=== PATIENT | female | born 1945 | race Caucasian/White ===

== ENCOUNTER → 2020-08-16 12:13 | Outpatient (CLI) | payer OTHER, SELFPAY ==
--- NOTE | ~2020-08-16 | MM_ITS ---
EXAMINATION: MM screening martita BI w carmelina HISTORY: Screening mammogram, family history of breast cancer in her mother. TECHNIQUE: Craniocaudal and mediolateral oblique 3-D tomosynthesis images were obtained and synthetic 2-D images were generated. CAD analysis was submitted and interpreted. COMPARISON: 04/29/2018, 02/18/2016, 01/29/2016 BREAST PARENCHYMAL COMPOSITION: The breasts are heterogeneously dense, which may obscure small masses . FINDINGS: Scattered benign-appearing calcifications are present. There is no evidence of suspicious m ass, calcification, or architectural distortion to suggest malignancy in either breast. There has bee n no suspicious interval change. IMPRESSION: 1. No mammographic evidence of malignancy. 2. Recommend routine screening mammography in one year. BI-RADS Category 2: Benign finding(s). Reviewed, dictated and finalized at location A.
--- NOTE | ~2020-08-16 | XR_ITS ---
XR chest 2V DATE: 08/16/2020 13:38 INDICATION: Generalized hyperhidrosis TECHNIQUE: Upright PA and lateral views COMPARISON: 01/13/2018 portable AP chest FINDINGS: Bilateral hyperinflation. No pulmonary infiltrate or consolidation, pleural effusion or pul monary vascular congestion or pneumothorax. Heart size is borderline. Is aortic calcification and mil d unfolding. No hilar or mediastinal enlargement. Status post anterior cervical and posterior cervical-thoracic spine fusion. Fracture deformity of the right acromion process. Right rotator cuff atrophy. Osteoarthritic change a t the glenohumeral joints. Diffuse osteopenia. Thoracolumbar scoliosis. IMPRESSION: Bilateral hyperinflation Borderline heart size Reviewed, dictated and finalized at location A.
--- NOTE | ~2020-08-16 | DEXA_ITS ---
Bone Density Report Name: Susan Fournier Age: 74 Sex: Female Ethnicity: White Date of : 1945 Indication: osteopenia; monitoring treatment; height loss; Referring Provider: Marisol Kam Study: Bone densitometry was performed. Exam Date: August 16, 2020 Accession number: [id number] Bone Density: Region BMD T-score Z-score Classification AP Spine (L1, L2) 0.833 -1.3 0.9 Osteopenia Femoral Neck (Left) 0.591 -2.3 -0.3 Osteopenia Total Hip (Left) 0.691 -2.1 -0.3 Osteopenia Femoral Neck (Right) 0.582 -2.4 -0.4 Osteopenia Total Hip (Right) 0.635 -2.5 -0.8 Osteoporosis Total Hip Mean 0.663 -2.3 -0.6 Osteopenia World Health Organization criteria for BMD impression classify patients as: Normal (T-score at or above -1.0), Osteopenia (T-score between -1.0 and -2.5), or Osteoporosis (T-score at or below -2.5). 10-year Fracture Risk: FRAX not reported because: Some T-score for Spine Total or Hip Total or Femoral Neck at or below -2.5 Treated for osteoporosis Previous Exams: Region Exam Age BMD T-score BMD Change BMD Change Date g/cm2 vs Baseline vs Previous AP Spine(L1, L2) 08/16/2020 74 0.833 -1.3 -0.037* -0.037* 04/29/2018 72 0.871 -1.0 Total Hip(Left) 08/16/2020 74 0.691 -2.1 -0.012 -0.012 04/29/2018 72 0.702 -2.0 Total Hip(Right) 08/16/2020 74 0.635 -2.5 -0.036* -0.036* 04/29/2018 72 0.671 -2.2 *Denotes significance at 95% confidence level, LSC for AP Spine = 0.022 g/cm2, LSC for Total Hip = 0.027 g/cm2 Clinical Information Provided by Patient: Is being treated for osteoporosis Has used the following medications: Prolia (i.e. denosumab), Vitamin D, Calcium Patient maximum height was 63.5 Menopause Age: 50 No regular weight bearing exercise Onset of menses at age 12 Number of children 1 Impression: The patient has osteoporosis, based on the Right Total Hip T-score. The BMD for the AP Spine(L1, L2) decreased, changing by -0.037 since the last DXA exam. The BMD for the Total Hip(Right) decreased, changing by -0.036 since the last DXA exam. Discussion: SIGNIFICANT BONE LOSS OBSERVED. Adherence to therapy (including calcium and vitamin D intake) should be assessed. If compliance is not a factor, review management and exclusion of secondary causes of bone loss. It is important to ask patients whether they are taking their medications and to encourage continued and appropriate complianc
== END ==
PROVIDERS: PCP Internal Medicine; Visit Provider Nurse Practitioner
DX: Z12.31 Encounter for screening mammogram for malignant neoplasm of breast (principal); Z78.0 Asymptomatic menopausal state; R61 Generalized hyperhidrosis; R91.8 Other nonspecific abnormal finding of lung field; M85.89 Other specified disorders of bone density and structure, multiple sites; M81.0 Age-related osteoporosis without current pathological fracture
CPT/HCPCS: 71046; 77063; 77067; 77080

== ENCOUNTER 2021-06-14 20:25 | Emergency (ER) | payer OTHER, SELFPAY ==
--- NOTE | ~2021-06-14 | CT_ITS ---
EXAMINATION: CT brain wo con DATE: 06/14/2021 21:06 INDICATION: Head injury. TECHNIQUE: Computed tomography (CT) of the head was performed without intravenous contrast. The mA wa s adjusted according to patient size. Iterative reconstruction technique was employed. The dose-lengt h product was 605.33 mGy-cm. COMPARISON: Head CT 01/13/2018 FINDINGS: There is an old infarct involving the right basal ganglia and anterior limb right internal capsule. There is an old infarct in left caudate nucleus. There are scattered areas of low attenuatio n in the cerebral white matter. There is no intracranial hemorrhage, acute infarction, or abnormal in tracranial mass lesion. The ventricles are normal in size. The mastoid air cells are normal. The para nasal sinuses are clear. There are likely changes of ocular lens replacement surgeries. IMPRESSION: 1. Old infarcts in the bilateral basal ganglia and anterior limb right internal capsule. 2. Stable moderate nonspecific cerebral white matter disease, which likely represents chronic small v essel ischemic disease. Reviewed, dictated and finalized at location A. IMPRESSION: 1. Old infarcts in the bilateral basal ganglia and anterior limb right internal capsule. 2. Stable moderate nonspecific cerebral white matter disease, which likely repr esents chronic small vessel ischemic disease.
--- NOTE | ~2021-06-14 | XR_ITS ---
EXAMINATION: XR chest 1V portable DATE: 06/14/2021 21:20 INDICATION: Fall. TECHNIQUE: A single frontal view of the chest was obtained. COMPARISON: Chest 2 views 08/16/2020 FINDINGS: A calcified right lung nodule is consistent with old granulomatous disease. No pleural effu silverio or pneumothorax. The heart size is normal. There are changes of posterior fusion procedure in ce rvicothoracic spine. There is an old healed fracture of left second rib. IMPRESSION: 1. No acute cardiopulmonary disease. Reviewed, dictated and finalized at location A.
--- NOTE | ~2021-06-14 | CT_ITS ---
EXAMINATION: CT cervical spine wo con DATE: 06/14/2021 21:13 INDICATION: Head injury. TECHNIQUE: Computed tomography (CT) of the cervical spine was performed without intravenous contrast. Automated exposure control and iterative reconstruction technique were employed. The dose-length pro duct was 124.97 mGy-cm. COMPARISON: None FINDINGS: Right posterior arch of C1 ring is ununited, which is chronic. There is 7 degrees dextrocur vature of cervical spine. There is kyphosis of cervical spine. There is interbody fusion from C3 to T 4. There is an anterior plate with screws and interbody device at C3-C4. There are changes of posteri or fusion procedure from C2 to T3 with lateral mass screws or pedicle screws at multiple levels. Ther e is fusion of the facet joints at T3-T4. There are laminectomies from C4 to C7. There is no fracture . The following disc levels are specifically discussed: C2-C3: There is mild left uncovertebral joint hypertrophy. There is mild left facet joint hypertrophy . There is mild left neural foraminal stenosis. There is no central canal stenosis. C3-C4: There is mild bilateral uncovertebral joint hypertrophy. There is mild right and moderate left facet joint hypertrophy. There is mild right and moderate left neural foraminal stenosis. There is n o central canal stenosis. C4-C5: There is moderate bilateral uncovertebral joint hypertrophy. There is mild right and severe le ft facet joint hypertrophy. There is mild right and moderate left neural foraminal stenosis. There is no central canal stenosis. C5-C6: There is severe bilateral uncovertebral joint hypertrophy. There is moderate right and severe left facet joint hypertrophy. There is mild right and moderate left neural foraminal stenosis. There is no central canal stenosis. C6-C7: There is mild bilateral uncovertebral joint hypertrophy. There is moderate bilateral facet hortencia nt hypertrophy. There is mild bilateral neural foraminal stenosis. There is no central canal stenosis . C7-T1: There is mild bilateral uncovertebral joint hypertrophy. There is mild bilateral facet joint h ypertrophy. There is mild bilateral neural foraminal stenosis. There is mild central canal stenosis. IMPRESSION: 1. No fracture. 2. Moderate cervical spondylosis. 3. Anterior fusion from C3 to T4 and posterior fusion from C2 to T4. Reviewed, dictated and finalized at location A.
--- NOTE | ~2021-06-14 | XR_ITS ---
EXAMINATION: XR pelvis 1-2V DATE: 06/14/2021 21:21 INDICATION: Chronic hip pain. TECHNIQUE: An anteroposterior view of the pelvis was obtained. COMPARISON: Right hip radiographs 08/19/18 FINDINGS: There is lumbar levoscoliosis and severe spondylosis. No fracture. There is mild osteoarthr itis of the hips. IMPRESSION: 1. Mild osteoarthritis of the hips. Reviewed, dictated and finalized at location A.
[2021-06-14 20:25] VITALS: BP 161/102; PULSE 81; RESP 12; TEMP 36.4; O2SAT 98
--- NOTE | 2021-06-14 20:34 | ED.GENADULT ---
HPI - General Adult General Chief complaint: Fall Stated complaint: FALL WITH HEAD INJURY Source: RN notes reviewed History of Present Illness HPI narrative: Patient presents emergency department from [facility] via EMS for fall. Patient states she was sitting in her wheelchair when she fell asleep and fell forward again. Patient bumped her forehead when she fell she does not believe she lost consciousness she states she has had a previous stroke she denies any chest pain shortness of breath abdominal pain nausea or vomiting she notes a small abrasion on her right elbow and her left shoulder but denies any pain in these areas Related Data Home Medications Medication Instructions Recorded Confirmed acetaminophen 500 mg tablet 500 mg PO Q4H PRN 01/11/19 06/13/21 calcium citrate 200 mg 1 tablet PO DAILY 08/20/20 06/13/21 calcium-vitamin D3 3.125 mcg (125 unit) tablet cholecalciferol (vitamin D3) 25 25 mcg PO BID cap 08/20/20 06/13/21 mcg (1,000 unit) capsule Allergies Allergy/AdvReac Type Severity Reaction Status Date / Time No Known Allergies Allergy Unknown Verified 06/14/21 20:30 Review of Systems Review of Systems: Gen.: Denies fevers or chills Eyes: Denies eye pain or visual change ENT: Denies congestion Respiratory: Denies shortness of breath or cough CV: Denies chest pain or palpitations GI: Denies abdominal pain nausea, emesis or diarrhea Musculoskeletal: Denies back pain or muscle pain Neuro: Denies numbness, tingling, weakness or focal weakness Skin: Reports abrasion Except as documented, all other systems reviewed and negative [facility] Past Medical History Medical History Anemia Anxiety Arthritis Arthrogryposis Chronic headaches Constipation Depressed Dizzy DJD of left shoulder Hyperlipidemia Hypertension Hypothyroidism Impaired glucose tolerance Loss of weight Myelomalacia of cervical cord Osteoarthritis Osteopenia after menopause Raynaud's phenomenon without gangrene Rotator cuff arthropathy of right shoulder Screening for breast cancer Screening for colon cancer Toxic encephalopathy Vision loss Family History Family History Sibling Family history of osteoarthritis Family history of Alzheimer's disease Family history of atrial fibrillation Mother Family history of tuberculosis Family history of Parkinson's disease, Onset Age: 79 Family history of Alzheimer's disease Family history of malignant neoplasm of breast in first degree relative Patient's mother is Father Hypertension Patient's father is Social History Social History Smoking status: Never smoker Second hand tobacco smoke exposure: No Alcohol intake: never Substance use: never Substance use type: does not use Exam Narrative: APPEARANCE: No acute distress, nontoxic, resting in bed EYES: EOMI, PERRL HEENT: Normocephalic, atraumatic, OMM RESPIRATORY: No respiratory distress Clear to auscultation bilaterally with no rhonchi wheezing or rales. CARDIOVASCULAR: Regular rate and rhythm without murmurs rubs or gallops. ABDOMINAL: Soft, nontender, nondistended, no rebound or guarding MUSCULOSKELETAl: Moves all extremities. No clubbing, cyanosis or edema. Full range of motion of the bilateral upper and lower extremities without pain nontender to palpation NEURO: Awake and alert x 3. Following commands, speech normal, no focal deficits SKIN:: Warm, dry. No rashes lesions superficial abrasion over left anterior shoulder and right lateral elbow PSYCHIATRIC: Normal affect/mood, Course Course Emergency Course: Discussed with patient results of workup and diagnosis. Discussed need for follow-up with primary care, proper use of medication, and reasons to return to the emergency department. Patient understands and agrees to current
[2021-06-14 21:34] VITALS: BP 98/56; PULSE 73; RESP 18; O2SAT 97
[2021-06-14 22:00] VITALS: BP 113/62; PULSE 76; RESP 12; O2SAT 98
[2021-06-14 22:30] VITALS: BP 116/52; PULSE 78; RESP 14; O2SAT 99
== END 2021-06-14 23:30 ==
LOC: ANHED 21:48
PROVIDERS: Emergency Provider Emergency Medicine; PCP Internal Medicine
DX: S00.83XA Contusion of other part of head, initial encounter (principal); S40.212A Abrasion of left shoulder, initial encounter; E78.5 Hyperlipidemia, unspecified; I10 Essential (primary) hypertension; E03.9 Hypothyroidism, unspecified; Z86.2 Personal history of diseases of the blood and blood-forming organs and certain disorders involving the immune mechanism; M19.012 Primary osteoarthritis, left shoulder; M85.80 Other specified disorders of bone density and structure, unspecified site; I73.00 Raynaud's syndrome without gangrene; R90.82 White matter disease, unspecified; M47.812 Spondylosis without myelopathy or radiculopathy, cervical region; Z98.1 Arthrodesis status; M16.0 Bilateral primary osteoarthritis of hip; W05.0XXA Fall from non-moving wheelchair, initial encounter
CPT/HCPCS: 70450; 71045; 72125; 72170; 99284

== ENCOUNTER 2022-01-16 12:33 | Outpatient (CLI) | payer OTHER, SELFPAY ==
--- NOTE | 2022-01-21 16:14 | WPDHOLTEREM ---
Holter/Event Monitor Holter/Event Monitor Date of procedure: 01/16/22 Holter/Event Procedure: 48 Hr Holter Monitor Indications: Syncope Conclusion: 1. 48 hour holter monitor on 01/16/22. 2. Underlying rhythm is atrial fibrillation. HR range 33-117 bpm; average HR 66 bpm. HR at 33 bpm was at 09:25. 3. There are no other supraventricular arrhythmias. 4. There are 8 premature ventricular complexes. No ventricular tachycardia. 5. There is 1 pause greater than 2 seconds at 2.4 seconds at 08:30. 6. Patient reports symptoms of dizziness, shortness of breath, chest pain, lightheadedness which demonstrate atrial fibrillation, HR range 65-85 bpm.
== END 2022-01-16 12:34 | disposition home or self-care (01) ==
PROVIDERS: PCP Internal Medicine; Visit Provider Internal Medicine
DX: R55 Syncope and collapse (principal); R94.31 Abnormal electrocardiogram [ECG] [EKG]; I48.91 Unspecified atrial fibrillation
CPT/HCPCS: 93225; 93226

== ENCOUNTER 2024-02-13 12:25 | Observation (INO) | payer OTHER, SELFPAY ==
[2024-02-13] VITALS (35 sets, daily range): BP systolic 104–191; BP diastolic 63–106; PULSE 47–79; RESP 11–252; TEMP 36.3–36.7; O2SAT 95–100; BMI 21.2
--- NOTE | ~2024-02-13 | US_ITS ---
CAROTID ULTRASOUND Ordering provider: Clemencia Bobby History: . Syncope . Comparison: None. Technique: Grayscale and color Doppler ultrasound examination of the carotid and vertebral artery sys tems bilaterally. Maximum peak systolic velocity (PSV) / end diastolic velocity (EDV) measurements we re obtained. FINDINGS: RIGHT: --Proximal COMMON CAROTID ARTERY: PSV is 50.7 cm/s. EDV is 20.9 cm/s. --MID common carotid artery: PSV is 62.5 cm/S. EDV is 20.9 cm/S --EXTERNAL CAROTID ARTERY: PSV is 44.2 cm/s. EDV is 10.3 cm/S. --INTERNAL CAROTID ARTERY PROXIMAL: PSV is 50.7 cm/s. EDV is 22 cm/s. --INTERNAL CAROTID ARTERY MID: PSV is 55.9 cm/s. EDV is 22 cm/s. --INTERNAL CAROTID ARTERY DISTAL: PSV is 70.3 cm/s. EDV is 23.3 cm/s. --VERTEBRAL ARTERY: PSV is 35.8 cm/s. EDV 12.2 cm/S Antegrade flow with normal waveform. --SYSTOLIC ICA/CCA: 1.3 LEFT: --Proximal COMMON CAROTID ARTERY: PSV is 68.8 cm/s. EDV is 20.4 cm/s. --Mid Common carotid artery: PSV is 41.3 cm/S. EDV is 9.4 cm/S. --EXTERNAL CAROTID ARTERY: PSV is 4.2 cm/s. EDV is 7.2 cm/S --INTERNAL CAROTID ARTERY PROXIMAL: PSV is 41.2 cm/s. EDV is 15.7 cm/s. --INTERNAL CAROTID ARTERY MID: PSV is 46.9 cm/s. EDV is 17.6 cm/s. --INTERNAL CAROTID ARTERY DISTAL: PSV is 55.4 cm/s. EDV is 23.2 cm/s. --VERTEBRAL ARTERY: PSV is 45.9 cm/s. EDV is 11 cm/S. Antegrade flow with normal waveform. --SYSTOLIC ICA/CCA: 1.1 --OTHER: None. IMPRESSION: 1. No significant stenosis seen. 2. Antegrade flow demonstrated within both vertebral arteries. Reviewed, dictated and finalized at location A. NCT TEACHER
--- NOTE | ~2024-02-13 | CT_ITS ---
CT brain wo con Ordering provider: Clemencia Bobby PA-C History: 78 years Female with . syncope . Comparison: None. Technique: CT of the head without contrast. Radiation reduction technique utilized.The dose-length product was 605.33 mGy-cm. FINDINGS: BRAIN PARENCHYMA AND CSF SPACES: Moderate leukoaraiosis and diffuse cortical atrophy. Moderate athero matous disease. No midline shift, mass effect or hemorrhage. The brain parenchyma and CSF spaces are otherwise norm al. VISUALIZED PARANASAL SINUSES: Left maxillary sinus disease. MASTOIDS: Well aerated. BONES: The bones appear intact. SOFT TISSUES: Visualized nasopharynx is normal. Superficial soft tissues are normal. IMPRESSION: No acute intracranial findings. Reviewed, dictated and finalized at location A. OBIOLOGY LAB ANALYST
--- NOTE | ~2024-02-13 | XR_ITS ---
XR chest 1V portable DATE: 02/13/2024 12:58 INDICATION: Syncope TECHNIQUE: Portable upright AP chest on 02/13/2024 at 1255 hours COMPARISON: 06/14/2021 portable AP chest FINDINGS: Borderline heart size. Aortic arch calcification, aortic unfolding. No hilar or mediastinal enlargement. The lungs are moderately inflated but clear of infiltrate or consolidation. No pleural effusion or pu lmonary vascular congestion or pneumothorax is detected. Diffuse osteopenia. Status post anterior cervical spine fusion and and posterior cervical and upper thoracic spine fusion . Severe right chronic rotator cuff atrophy. Severe osteophytic change of the glenohumeral joints. IMPRESSION: Borderline heart size, aortic atherosclerosis No active pulmonary disease Reviewed, dictated and finalized at location A. FIELD PERSON
--- NOTE | 2024-02-13 12:35 | ECG_ITS ---
Test Date: 2024-02-13 12:38:52 Measurements Intervals [place] Rate: 50 P: 0 GA: 0 QRS: -1 QRSD: 106 T: -57 QT: 441 QTc: 403 Interpretive Statements ATRIAL FIBRILLATION WITH SLOW VENTRICULAR RESPONSE INCOMPLETE RIGHT BUNDLE BRANCH BLOCK [90+ ms QRS DURATION, TERMINAL R IN V1/V2, 40+ ms S IN I/aVL/V4/V5/V6] SEPTAL MYOCARDIAL INFARCTION , PROBABLY OLD [40+ ms Q WAVE IN V1/V2] MODERATE T-WAVE ABNORMALITY, CONSIDER ANTEROLATERAL ISCHEMIA [-0.1+ mV T-WAVE IN V3-V6] MODERATE T-WAVE ABNORMALITY, CONSIDER INFERIOR ISCHEMIA [-0.1+ mV T-WAVE IN II/aVF] No previous ECG available for comparison Electronically Signed On 02-17-2024 15:49:00 DIRECTOR OF CLOUD SERVICES by Austen Abarca M.D.
--- NOTE | 2024-02-13 12:40 | ED.SYNCOPE ---
HPI - Syncope General Chief Complaint: Syncope Stated Complaint: syncope during haircut Time Seen by Provider: 02/13/24 12:38 Source: patient and EMS Mode of arrival: EMS Limitations: no limitations History of Present Illness HPI narrative: 78 years old white female came from [facility] by ambulance with syncope. Patient is telling me that she was sitting on a chair and suddenly lost consciousness for unknown duration. Patient is telling me that she had history of syncope years ago of unknown etiology. 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 Patient denies any fever, chills, nausea, vomiting, abdominal pain, chest pain, shortness of breath or back pain or headache or new neurologic focal abnormality. Related Data Home Medications ?Medication ?Instructions ?Recorded ?Confirmed ?Last Taken ?Type acetaminophen 500 mg tablet 500 mg PO Q4H PRN 01/11/19 06/18/23 Unknown History cholecalciferol (vitamin D3) 25 25 mcg PO BID 08/20/20 06/18/23 Unknown History mcg (1,000 unit) capsule multivitamin-minerals no.55 tablet PO 12/19/21 06/18/23 Unknown History calcium carbonate (Tums) 200 mg PO TID 12/31/23 12/31/23 Unknown History Allergies Allergy/AdvReac Type Severity Reaction Status Date / Time No Known Allergies Allergy Unknown Verified 02/13/24 12:40 Review of Systems Review of Systems: All systems reviewed & are unremarkable except as noted in HPI and below PMFSH Past Medical History Medical History (Updated 02/13/24 @ 15:51 by Clemencia Bobby PA-C) Chronic anticoagulation Cerebrovascular accident (2020) received thrombolytics, has mild speech issues Depression Body mass index (BMI) less than 20 Impaired glucose tolerance Raynaud's phenomenon without gangrene Myelomalacia of cervical cord Hyperlipidemia Hypertension Anemia Osteopenia after menopause Anxiety Hypothyroidism Chronic headaches DJD of left shoulder Rotator cuff arthropathy of right shoulder Arthrogryposis Arthritis Vision loss Family History Family History Sibling Family history of osteoarthritis Family history of Alzheimer's disease Family history of atrial fibrillation Mother Family history of tuberculosis Family history of Parkinson's disease, Onset Age: 79 Family history of Alzheimer's disease Family history of malignant neoplasm of breast in first degree relative Patient's mother is Father Hypertension Patient's father is Social History Social History (Updated 02/13/24 @ 15:50 by Clemencia Bobby PA-C) Social History: Surrogate medical decision maker: Hayder Fournier, spouse. Code status: Full code. 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 Musculoskeletal: Normal range of motion, nontender back Neurologic: Alert and oriented ?3, right hemiplegia, slurred speech Course Vital Signs Vital signs: Vital Signs Temperature 36.7 C 02/13/24 12:36 Pulse Rate 54 L 02/13/24 12:36 Respiratory Rate 16 02/13/24 12:36 Blood Pressure 114/76 02/13/24 12:36 Pulse Oximetry 99 02/13/24 12:36 Oxygen Delivery Room Air 02/13/24 12:36 Temperature 36.7 C 02/13/24 12:36 Pulse Rate 61 02/13/24 15:44 Respiratory Rate 17 02/13/24 15:44 Blood Pressure 118/66 02/13/24 15:44 Pulse Oximetry 100 02/13/24 15:44 Oxygen Delivery Room Air 02/13/24 12:36 MDM - Syncope MDM Narrative Medical decision making narrative: Patient came from [place] [facility] with syncope Vital signs showing heart rate of 54 otherwise within normal limit Physical examination showing a 51 kg patient with slurred speech and right hemiplegia otherwise insignificant findings Differential diagnosis include cardiac arrhythmia, orthostatic hypotension, anxiety/stress like symptoms. Blood workup today includes CBC, CMP, BnP ,troponin showed bnP 1920 otherwise insignificant abnormalities Urinalysis showed no evidence of infection EKG on arrival showed AFib with slow ventricular response Chest x-ray showed showed no acute abnormalities History of AFib, on Lopressor 50 mg once a day, EKG on arrival showing AFib with slow ventricular response at 50 beats per minute, Lopressor 25 mg once a day probably appropriate at this time. Differential Diagnosis Differential diagnosis: Likely other (As above) Medical Records Attestation: I reviewed the patient's medical records. Lab Data Attestation: I reviewed the patient's lab results. 02/13/24 13:07 02/13/24 13:07 Labs: Lab Results 02/13/24 02/13/24 02/13/24 Range/Units 13:07 14:49 15:48 WBC 6.9 (4.5-10.0) K/mm3 RBC 4.00 L (4.2-5.4) M/mm3 Hgb 12.0 (12.0-15.0) g/dL Hct 36.4 L (37.0-47.0) % MCV 91.0 (80-100) fl MCH 30.0 (26-34) pg MCHC 33.0 (32-36) g/dl RDW 13.2 (11.5-14.5) % Plt Count 216 (150-375) k/mm3 MPV 10.0 (7.4-10.4) fl Immature Gran % (Auto) 0.3 (0-0.5) % Neut % (Auto) 68.7 (45.5-73.1) % Lymph % (Auto) 21.8 (18.3-44.2) % [place] % (Auto) 7.0 (2.6-8.5) % Eos % (Auto) 1.6 (0-4.4) % Baso % (Auto) 0.6 (0.2-1.2) % Lymph # (Auto) 1.50 (0.9-3.2) K/mm3 [place] # (Auto) 0.5 (0.1-0.6) K/mm3 Eos # (Auto) 0.1 (0-0.3) K/mm3 Baso # (Auto) 0.0 (0.0-0.1) K/mm3 Abs Immat Gran (auto) 0.02 (0.00-0.031) K/mm3 Absolute Neuts (auto) 4.7 (1.3-6.7) K/mm3 Absolute Nucleated RBC 0.000 (0.0-0.012) K/mm3 Nucleated RBC % 0.0 (0.0-0.2) % PT 14.4 (11.1-14.7) Seconds INR 1.1 APTT 31.1 (22.3-36.8) Seconds Sodium 135 L (137-145) mmol/L Potassium 3.7 (3.4-5.0) mmol/L Chloride 105 (98-107) mmol/L Carbon Dioxide 28 (22-30) mmol/L Anion Gap 2 L (4-12) mmol/L BUN 27 H (7-17) mg/dL Creatinine 0.90 (0.7-1.0) mg/dL Estim Creat Clear Calc 35 ml/min Estimated GFR > 60 (59 - ) Glucose 117 H (65-110) mg/dL Calcium 9.4 (8.4-10.2) mg/dL Total Bilirubin 0.5 (0.2-1.3) mg/dL AST 45 H (14-36) U/L ALT 30 (6-35) U/L Alkaline Phosphatase 85 (38-126) U/L Troponin I < 0.012 < 0.012 (0.000-0.034) ng/mL NT-Pro-B Natriuret Pep 1920 H (19.9-100) pg/mL Total Protein 7.0 (6.3-8.2) g/dL Albumin 4.0 (3.5-5.1) g/dL Urine Color Yellow (Yellow) Urine Appearance Clear (Clear) Urine pH 7.0 (5.0-9.0) Ur Specific [place] 1.019 (1.001-1.035) Urine Protein Negative (Negative) mg/dL Urine Glucose (UA) Negative (Negative) mg/dL Urine Ketones Trace H (Negative) mg/dL Ur Blood (Man) Negative (Negative) Urine Nitrate Negative (Negative) Urine Bilirubin Negative (Negative) Urine Urobilinogen 0.2 (<2.0) mg/dL Leukocyte Esterase Rfl Negative (Negative) ULI/UL Imaging Data Radiologist's impression: Impressions Chest X-Ray 02/13/24 13:02 IMPRESSION: Borderline heart size, aortic atherosclerosis No active pulmonary disease ECG Data EKG #1: Interpretation: AFib with slow ventricular response at 50 beats per minute, right bundle branch block, septal myocardial infarction of indeterminate age, Discharge Plan Discharge Clinical Impression: Syncope and collapse Patient Disposition: Still a Patient Condition: Improved Patient Language: Uzbek Prescriptions: No Action acetaminophen 500 mg tablet 500 mg PO Q4H PRN multivitamin-minerals no.55 Tablet,Chewable PO calcium carbonate [Tums] 200 mg calcium (500 mg) tablet,chewable 200 mg PO TID cholecalciferol (vitamin D3) 25 mcg (1,000 unit) capsule 25 mcg PO BID metoprolol succinate 50 mg tablet extended release 24 hr See Rx Instructions .ROUTE .COMPLEX Qty: 90 1RF Dose Instruction: TAKE 1 TABLET BY MOUTH EVERY DAY Rx Instructions: TAKE 1 TABLET BY MOUTH EVERY DAY Eliquis 5 mg tablet See Rx Instructions .ROUTE .COMPLEX Qty: 180 1RF Dose Instruction: TAKE 1 TABLET BY MOUTH TWICE A DAY Rx Instructions: TAKE 1 TABLET BY MOUTH TWICE A DAY atorvastatin 40 mg tablet See Rx Instructions .ROUTE .COMPLEX Qty: 90 1RF Dose Instruction: TAKE 1 TABLET BY MOUTH EVERY DAY Rx Instructions: TAKE 1 TABLET BY MOUTH EVERY DAY bupropion HCl 150 mg tablet sustained-release 12 hr See Rx Instructions .ROUTE .COMPLEX Qty: 90 1RF Dose Instruction: TAKE ONE TABLET BY MOUTH EVERY MORNING Rx Instructions: TAKE ONE TABLET BY MOUTH EVERY MORNING Prolia 60 mg/mL syringe 60 mg SUB-Q [id number] Qty: 1 1RF hydrocodone-acetaminophen 10-325 mg tablet 1 tablet PO Q8H PRN (Reason: pain) Qty: 90 0RF Follow-up/Referrals: Hector York APRN [Primary Care Provider] -
[2024-02-13 13:13] LABS: Basophils Percent Auto 0.6 % (0.2-1.2); Eosinophils Absolute Auto 0.1 K/mm3 (0-0.3); Eosinophils Percent Auto 1.6 % (0-4.4); Hematocrit 36.4 % (37.0-47.0); Immature Granulocyte Absolute 0.02 K/mm3 (0.00-0.031); Immature Granulocyte Percent A 0.3 % (0-0.5); Lymphocytes Percent Auto 21.8 % (18.3-44.2); Monocytes Absolute Auto 0.5 K/mm3 (0.1-0.6); Neutrophils Absolute Auto 4.7 K/mm3 (1.3-6.7); Neutrophils Percent Auto 68.7 % (45.5-73.1); Platelet Count Result 216 k/mm3 (150-375); Red Cell Distribution Width 13.2 % (11.5-14.5); White Blood Count 6.9 K/mm3 (4.5-10.0)
[2024-02-13 13:24] LABS: Alanine Aminotransferase 30 U/L (6-35); Alkaline Phosphatase 85 U/L (38-126); Anion Gap 2 mmol/L (4-12); Aspartate Amino Transferase 45 U/L (14-36); Bilirubin,Total 0.5 mg/dL (0.2-1.3); Blood Urea Nitrogen 27 mg/dL (7-17); Calcium 9.4 mg/dL (8.4-10.2); Carbon Dioxide 28 mmol/L (22-30); Chloride 105 mmol/L (98-107); Estimated CRCL calculation 35 ml/min; Estimated Glomerular Filt Rate > 60; Glucose 117 mg/dL (65-110); Potassium 3.7 mmol/L (3.4-5.0); Sodium 135 mmol/L (137-145)
[2024-02-13 13:34] LABS: INR 1.1; Prothrombin Time 14.4 Seconds (11.1-14.7)
[2024-02-13 13:36] LABS: Partial Thromboplastin Time 31.1 Seconds (22.3-36.8)
[2024-02-13 13:37] LABS: NT Pro B Type Natriuretic Pept 1920 pg/mL (19.9-100); Troponin I < 0.012 ng/mL (0.000-0.034)
[2024-02-13 14:58] LABS: Add Urine Microscopic? NO; Appearance Urine Clear (Clear); Bilirubin Urine Negative (Negative); Blood Urine Negative (Negative); Color Urine Yellow (Yellow); Glucose Urine UA Negative (Negative); Ketones Urine Trace mg/dL (Negative); Leukocyte Esterase Ur Negative LEU/UL (Negative); Nitrate Urine Negative (Negative); Protein Urine Negative (Negative); Specific Grav Ur 1.019 (1.001-1.035); Urobilinogen Urine 0.2 mg/dL (<2.0)
[2024-02-13] MEDS: APIXABAN 5 MG TABLET PO (15:43)
--- NOTE | 2024-02-13 15:50 | P.HP_ITS ---
H&P: HPI History of Present Illness Date/Time: 02/13/24 15:50 Chief Complaint: Syncope. Narrative: This is a pleasant 78-year-old female with history of stroke, paroxysmal atrial fibrillation on chronic anticoagulation, dyslipidemia, and syncope who presented to the emergency department via EMS for evaluation after syncopal episode. The patient provides the following history. She felt tired but otherwise in her usual state of health when she got up this morning. She has an appointment at the [facility] this afternoon and simply while sitting down waiting for her turn she began to feel extremely hot and she then lost consciousness for a brief period of time. She did not fall out of the chair and instead it sounds as though she slumped forward. She came to without confusion. She does not recall feeling anything other than hot prior to the episode. She specifically denies lightheadedness, dizziness, vertigo, chest pain, pleuritic pain, palpitations, and shortness of breath. She also denies fever, chills, sweats, nausea, vomiting, diarrhea, dysuria, and cold and flu symptoms. In the ED: Pulse was 54 on arrival with a blood pressure of 114/76. Labs were significant for a sodium of 135, BUN 27, creatinine 0.90, glucose 117, AST 45, proBNP 1920, troponin less than 0.012. Urine was positive for trace ketones. Chest x-ray showed no acute findings, borderline heart size, and aortic atherosclerosis. EKG showed atrial fibrillation with slow ventricular response and ST T-wave abnormalities in the inferior and anterolateral leads. She is being admitted in this setting for close monitoring and further workup. Review of Systems Review of Systems: 12 systems were reviewed and are negativ e except for as per HPI. [facility] Past Medical History Medical History (Updated 02/13/24 @ 15:51 by Clemencia Bobby PA-C) Chronic anticoagulation Cerebrovascular accident (2020) received thrombolytics, has mild speech issues Depression Body mass index (BMI) less than 20 Impaired glucose tolerance Raynaud's phenomenon without gangrene Myelomalacia of cervical cord Hyperlipidemia Hypertension Anemia Osteopenia after menopause Anxiety Hypothyroidism Chronic headaches DJD of left shoulder Rotator cuff arthropathy of right shoulder Arthrogryposis Arthritis Vision loss Family History Family History Sibling Family history of osteoarthritis Family history of Alzheimer's disease Family history of atrial fibrillation Mother Family history of tuberculosis Family history of Parkinson's disease, Onset Age: 79 Family history of Alzheimer's disease Family history of malignant neoplasm of breast in first degree relative Patient's mother is Father Hypertension Patient's father is Social History Social History (Updated 02/13/24 @ 21:19 by Clemencia Bobby PA-C) Social History: Surrogate medical decision maker: Hayder Shantanu, spouse. Code status: Full code. Smoking status: Never smoker Second hand tobacco smoke exposure: No Alcohol intake: never Substance use: never Substance use type: does not use Do You Feel Safe in your Home?: Yes Lack of Transportation: YES Lack of Food: Never True Current Housing: I Have Housing Concerned About Future Housing: No Difficulty Paying Gas/Electric Bills: No Difficulty Paying for Meds: No Currently Unemployed: No Education: Master's Degree or Higher Difficulty w/ Childcare or Family Care: No Living arrangements: assisted living Additional living arrangements comments: . Her lives in [facility], she is at [facility]. 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[employer] Home Medications and Allergies Home Medications ?Medication ?Instructions ?Recorded ?Confirmed ?Type acetaminophen 500 mg tablet 500 mg PO Q4H PRN 01/11/19 06/18/23 History cholecalciferol (vitamin D3) 25 25 mcg PO BID 08/20/20 06/18/23 History mcg (1,000 unit) capsule multivitamin-minerals no.55 tablet PO 12/19/21 06/18/23 History metoprolol succinate 50 mg See Rx Instructions .Route 10/02/22 06/18/23 Rx tablet,extended release 24 hr .COMPLEX #90 tabs apixaban 5 mg tablet (Eliquis) See Rx Instructions .Route 09/10/23 Rx .COMPLEX #180 tabs atorvastatin 40 mg tablet See Rx Instructions .Route 10/26/23 Rx .COMPLEX #90 tabs bupropion HCl 150 mg tablet,12 hr See Rx Instructions .Route 10/28/23 Rx sustained-release .COMPLEX #90 tabs denosumab 60 mg/mL subcutaneous 60 mg subcut [id number] #1 mL 11/02/23 Rx syringe (Prolia) calcium carbonate (Tums) 200 mg PO TID 12/31/23 12/31/23 History hydrocodone 10 mg-acetaminophen 1 tablet PO Q8H PRN pain #90 tabs 02/04/24 Rx 325 mg tablet Allergies Allergy/AdvReac Type Severity Reaction Status Date / Time No Known Allergies Allergy Unknown Verified 02/13/24 12:40 Vital Signs Vital Signs - 24 hr 02/13/24 12:36 02/13/24 12:39 02/13/24 12:40 Temperature 98.0 F Pulse Rate 54 L 52 L 54 L Respiratory Rate 16 18 18 Blood Pressure 114/76 114/76 Pulse Oximetry 99 97 98 Oxygen Delivery Room Air 02/13/24 12:45 02/13/24 12:46 02/13/24 13:00 Temperature Pulse Rate 56 L 57 L 56 L Respiratory Rate 14 12 16 Blood Pressure 114/66 Pulse Oximetry 96 95 Oxygen Delivery 02/13/24 13:01 02/13/24 13:15 02/13/24 13:16 Temperature Pulse Rate 49 L 53 L 53 L Respiratory Rate 13 21 H 16 Blood Pressure 118/77 125/66 Pulse Oximetry 99 98 99 Oxygen Delivery 02/13/24 13:30 02/13/24 13:31 02/13/24 13:45 Temperature Pulse Rate 57 L 53 L 55 L Respiratory Rate 17 19 19 Blood Pressure 131/70 Pulse Oximetry 100 99 99 Oxygen Delivery 02/13/24 13:46 02/13/24 14:00 02/13/24 14:01 Temperature Pulse Rate 57 L 58 L 47 L Respiratory Rate 16 16 15 Blood Pressure 120/70 117/72 Pulse Oximetry 100 99 100 Oxygen Delivery 02/13/24 14:15 02/13/24 14:16 02/13/24 14:30 Temperature Pulse Rate 55 L 52 L 61 Respiratory Rate 17 20 21 H Blood Pressure 124/77 Pulse Oximetry 99 100 100 Oxygen Delivery 02/13/24 14:31 02/13/24 14:33 02/13/24 14:34 Temperature Pulse Rate 60 64 59 L Respiratory Rate 22 H 17 20 Blood Pressure 128/75 111/63 121/86 Pulse Oximetry 100 99 100 Oxygen Delivery 02/13/24 14:35 02/13/24 14:42 02/13/24 14:42 Temperature Pulse Rate 77 51 L 52 L Respiratory Rate 252 H Blood Pressure 135/90 111/63 121/80 Pulse Oximetry 100 Oxygen Delivery 02/13/24 14:42 02/13/24 15:44 Temperature Pulse Rate 77 61 Respiratory Rate 17 Blood Pressure 135/90 118/66 Pulse Oximetry 100 Oxygen Delivery Exam Narrative: General: Well-developed, nontoxic-appearing female sitting up in bed in no acute distress. Weight: 51 kg. BMI: 21.2. HEENT: Normocephalic, atraumatic. PERRL, EOMI. Sclera anicteric. Tacky mucous membranes. Neck: Supple. No obvious carotid bruits. Respiratory: Lungs are clear to auscultation bilaterally. Cardiovascular: Bradycardic and irregular. Gastrointestinal: Abdomen is soft, nontender, and nondistended with positive bowel sounds. Skin: Warm and dry. No rash or lesions on limited exam. Extremities: No cyanosis, clubbing, or significant edema. Radial and pedal pulses intact. Neurological: Alert and oriented. Cranial nerves 2-12 are grossly intact. Speech is slow with occasional word finding difficulties which is a known findings due to prior stroke. No facial asymmetry. Hand test eng and foot pushes are equal bilaterally. No pronator drift. Psychiatric: Pleasant and cooperative with normal mood and affect. H&P: Results Labs Labs: Short CBC 02/13/24 Range/Units 13:07 WBC 6.9 (4.5-10.0) K/mm3 Hgb 12.0 (12.0-15.0) g/dL Hct 36.4 L (37.0-47.0) % Plt Count 216 (150-375) k/mm3 BMP 02/13/24 13:07 Sodium 135 L Potassium 3.7 Chloride 105 Carbon Dioxide 28 BUN 27 H Creatinine 0.90 Glucose 117 H Calcium 9.4 Cardiac Enzymes 02/13/24 Range/Units 13:07 Troponin I < 0.012 (0.000-0.034) ng/mL Liver Function 02/13/24 Range/Units 13:07 Total Bilirubin 0.5 (0.2-1.3) mg/dL AST 45 H (14-36) U/L ALT 30 (6-35) U/L Alkaline Phosphatase 85 (38-126) U/L Albumin 4.0 (3.5-5.1) g/dL Urine 02/13/24 Range/Units 14:49 Urine Color Yellow (Yellow) Urine Appearance Clear (Clear) Urine pH 7.0 (5.0-9.0) Ur Specific [place] 1.019 (1.001-1.035) Urine Protein Negative (Negative) mg/dL Urine Glucose (UA) Negative (Negative) mg/dL Impressions Chest X-Ray 02/13/24 13:02 IMPRESSION: 1. Borderline heart size, aortic atherosclerosis. 2. No active pulmonary disease. Head CT 02/13/24 17:10 IMPRESSION: 1. No acute intracranial findings. Carotid Doppler Study 02/13/24 17:33 IMPRESSION: 1. No significant stenosis seen. 2. Antegrade flow demonstrated within both vertebral arteries. 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 Labs, imaging, EKG, and all reports were personally reviewed. She was sitting down while that occurred and reports feeling extremely hot prior to going unconscious. Consider vasovagal response however cardiac dysrhythmia is a consideration as she was bradycardic on arrival though her blood pressures have been stable. Hold metoprolol for now and consult Cardiology. She had a syncopal episode a couple of years ago and more Holter monitor which was pretty unrevealing with only 1 episode of sinus pause lasting approximately 2 seconds. She will likely need to be discharged on an event monitor. Carotid Doppler ultrasounds and echocardiogram have been ordered. Monitor orthostatic vital signs. She looks a little dry by labs with an elevated BUN and ketones in the urine and she will be hydrated overnight. Her home medications will be reviewed and resumed as appropriate. Findings and treatment plan were discussed with the patient. Questions were solicited and answered to satisfaction. The patient's medical management will be taken over by the hospitalist team in a.m. Hospitalist [facility] Advance Care Plan I have confirmed that the patient's Advanced Care Plan is present, code status is documented, or surrogate decision maker is listed in patient medical record.: Yes Medication Reconciliation I have utilized all available resources to obtain, update and review the patients current medications (includes all prescriptions, OTC, herbals, cannabis, and nutritional supplements).: Yes
[2024-02-13 16:16] LABS: Troponin I < 0.012 ng/mL (0.000-0.034)
[2024-02-13] MEDS: HYDROcodone/acetaminophen (*CRX) 10-325 MG TABLET 1 TAB PO (16:43)
[2024-02-13] MEDS: SODIUM CHLORIDE 0.9% IV 1,000 ML 75 ML IV CONT (16:44)
--- NOTE | 2024-02-13 21:29 | ADMGEN ---
This patient, Susan Fournier, was admitted to Medical Room 254-01. Patient/family oriented to hospital policies and general routines including ID bracelet, bed and alarms, visiting hours, pain management, procedures, bathroom and other care routines, personal items, smoking policy, room service/diet, and visiting hours. Information on how to activate the Rapid Response Team has been discussed. Patient/Family are encouraged to report perceived risks to care and to ask questions if they do not understand what they are told or what they should do.
[2024-02-14] VITALS (10 sets, daily range): BP systolic 135–162; BP diastolic 73–89; PULSE 56–93; RESP 12–18; TEMP 36.1–37; O2SAT 98–100
[2024-02-14] MEDS: ACETAMINOPHEN 325 MG TABLET 650 MG PO ×4 (02:54→20:45)
[2024-02-14] MEDS: HYDROcodone/acetaminophen (*CRX) 10-325 MG TABLET 1 TAB PO (04:02)
--- NOTE | 2024-02-14 04:31 | PC.NURSE ---
MEDICATION ADMINISTRATION FOR SHIFT 1-4 7P-7A PROVIDED BY GRADUATE NURSE HEATHER FLORES AND REVIEWED BY JIGAR PAINTING
[2024-02-14 06:54] LABS: Anion Gap 1 mmol/L (4-12); Blood Urea Nitrogen 24 mg/dL (7-17); Calcium 8.6 mg/dL (8.4-10.2); Carbon Dioxide 30 mmol/L (22-30); Chloride 106 mmol/L (98-107); Estimated CRCL calculation 39 ml/min; Estimated Glomerular Filt Rate > 60; Glucose 78 mg/dL (65-110); Magnesium 1.7 mg/dL (1.6-2.3); Sodium 137 mmol/L (137-145)
[2024-02-14 08:53] LABS: Basophils Percent Auto 0.5 % (0.2-1.2); Eosinophils Absolute Auto 0.1 K/mm3 (0-0.3); Hematocrit 34.5 % (37.0-47.0); Hemoglobin 11.4 g/dL (12.0-15.0); Immature Granulocyte Absolute 0.02 K/mm3 (0.00-0.031); Immature Granulocyte Percent A 0.2 % (0-0.5); Lymphocytes Absolute Auto 1.31 K/mm3 (0.9-3.2); Lymphocytes Percent Auto 15.6 % (18.3-44.2); Mean Corpuscular Hemoglobin 30.6 pg (26-34); Mean Corpuscular Volume 92.5 fl (80-100); Mean Platelet Volume 10.5 fl (7.4-10.4); Monocytes Absolute Auto 0.6 K/mm3 (0.1-0.6); Monocytes Percent Auto 6.7 % (2.6-8.5); Neutrophils Absolute Auto 6.4 K/mm3 (1.3-6.7); Platelet Count Result 222 k/mm3 (150-375); Red Blood Count 3.73 M/mm3 (4.2-5.4); Red Cell Distribution Width 13.2 % (11.5-14.5); White Blood Count 8.4 K/mm3 (4.5-10.0)
[2024-02-14] MEDS: ATORVASTATIN 40 MG TABLET BY MOUTH (10:13)
[2024-02-14] MEDS: buPROPion HCL XL (24 HR) 150 MG TABCR BY MOUTH (10:13)
[2024-02-14] MEDS: CHOLECALCIFEROL 1,000 UNITS TABLET 1000 UNITS PO ×2 (10:13→17:36)
--- NOTE | 2024-02-14 11:03 | P.PNIM_ITS ---
Progress Note: A&P Assessment and Plan (1) Syncope: Code(s): R55 - Syncope and collapse Status: Acute Assessment and Plan: * The patient presented to the emergency department for evaluation after syncopal episode as detailed in HPI. Labs, imaging, EKG, and all reports were personally reviewed. She was sitting down while that occurred and reports feeling extremely hot prior to going unconscious. * Consider vasovagal response however cardiac dysrhythmia is a consideration as she was bradycardic on arrival though her blood pressures have been stable. * She had a syncopal episode a couple of years ago and more Holter monitor which was pretty unrevealing with only 1 episode of sinus pause lasting approximately 2 seconds. She will likely need to be discharged on an event monitor. * Cardiology consult * Echocardiogram ordered. * Carotid dopplers no significant stenosis seen. Antegrade flow demonstrated with both vertebral arteries. * Magnesium 1.7, Magnesium Sulfate 2 gram IVPB x1 given. (2) Atrial fibrillation with slow ventricular response: Code(s): I48.91 - Unspecified atrial fibrillation Status: Acute Assessment and Plan: * Telemetry- Afib 79 * Apixaban 5 mg PO BID. * Consider vasovagal response however cardiac dysrhythmia is a consideration as she was bradycardic on arrival though her blood pressures have been stable. * Hold metoprolol for now and consult Cardiology. (3) Chronic anticoagulation: Code(s): Z79.01 - assisted (current) use of anticoagulants Status: Acute Assessment and Plan: * Apixaban 5 mg PO BID. (4) Lumbar degenerative disc disease: Code(s): M51.36 - Other intervertebral disc degeneration, lumbar region Status: Acute Assessment and Plan: * Acetaminophen 650 mg PO q 6. * Reposition. Subjective Date/time seen: 02/14/24 11:03 Interval history: Patient sitting up in bed. Patient rates pain in her back a 9 , constant, and aching. Patient denies chest pain, palpitations, headache, dizziness, nausea, or vomiting. Review of Systems Review of Systems: All systems reviewed & are unremarkable except as noted in HPI and below Exam Const: General: no acute distress and uncomfortable Eyes: Sclera: sclerae normal Resp: Effort & Inspection: normal respiratory effort Auscultation: clear to auscultation bilaterally Cardio: Rhythm: abnormal rhythm irregularly irregular (afib 79) GI: GI Palp: Yes Soft to palpation Auscultation: normal bowel sounds Neuro: Other: Alert and oriented ?3, right hemiplegia, slurred speech at times Extrem: General: no pedal edema Psych: Mental Status: mental status grossly normal Affect: normal affect Objective Data Vital Signs Vital Signs: Vital Signs - 24 hr 02/13/24 12:36 02/13/24 12:39 02/13/24 12:40 Temperature 98.0 F Pulse Rate 54 L 52 L 54 L Respiratory Rate 16 18 18 Blood Pressure 114/76 114/76 Pulse Oximetry 99 97 98 Oxygen Delivery Room Air 02/13/24 12:45 02/13/24 12:46 02/13/24 13:00 Temperature Pulse Rate 56 L 57 L 56 L Respiratory Rate 14 12 16 Blood Pressure 114/66 Pulse Oximetry 96 95 Oxygen Delivery 02/13/24 13:01 02/13/24 13:15 02/13/24 13:16 Temperature Pulse Rate 49 L 53 L 53 L Respiratory Rate 13 21 H 16 Blood Pressure 118/77 125/66 Pulse Oximetry 99 98 99 Oxygen Delivery 02/13/24 13:30 02/13/24 13:31 02/13/24 13:45 Temperature Pulse Rate 57 L 53 L 55 L Respiratory Rate 17 19 19 Blood Pressure 131/70 Pulse Oximetry 100 99 99 Oxygen Delivery 02/13/24 13:46 02/13/24 14:00 02/13/24 14:01 Temperature Pulse Rate 57 L 58 L 47 L Respiratory Rate 16 16 15 Blood Pressure 120/70 117/72 Pulse Oximetry 100 99 100 Oxygen Delivery 02/13/24 14:15 02/13/24 14:16 02/13/24 14:30 Temperature Pulse Rate 55 L 52 L 61 Respiratory Rate 17 20 21 H Blood Pressure 124/77 Pulse Oximetry 99 100 100 Oxygen Delivery 02/13/24 14:31 02/13/24 14:33 02/13/24 14:34 Temperature Pulse Rate 60 64 59 L Respiratory Rate 22 H 17 20 Blood Pressure 128/75 111/63 121/86 Pulse Oximetry 100 99 100 Oxygen Delivery 02/13/24 14:35 02/13/24 14:42 02/13/24 14:42 Temperature Pulse Rate 77 51 L 52 L Respiratory Rate 252 H Blood Pressure 135/90 111/63 121/80 Pulse Oximetry 100 Oxygen Delivery 02/13/24 14:42 02/13/24 14:50 02/13/24 15:01 Temperature Pulse Rate 77 Respiratory Rate Blood Pressure 135/90 149/77 H 144/80 H Pulse Oximetry 100 100 Oxygen Delivery 02/13/24 15:16 02/13/24 15:31 02/13/24 15:44 Temperature Pulse Rate 61 Respiratory Rate 17 Blood Pressure 124/75 118/66 118/66 Pulse Oximetry 100 100 100 Oxygen Delivery 02/13/24 16:01 02/13/24 16:16 02/13/24 16:31 Temperature Pulse Rate 58 L 55 L 54 L Respiratory Rate 15 13 11 L Blood Pressure 126/79 104/93 H 116/78 Pulse Oximetry 100 100 100 Oxygen Delivery 02/13/24 20:00 02/13/24 21:30 02/13/24 21:30 Temperature 97.4 F L Pulse Rate 56 L 61 62 Respiratory Rate 13 18 Blood Pressure 154/67 H 154/67 H Pulse Oximetry 97 100 Oxygen Delivery 02/13/24 21:33 02/13/24 21:36 02/13/24 22:02 Temperature Pulse Rate 79 53 L Respiratory Rate Blood Pressure 172/85 H 191/106 H Pulse Oximetry Oxygen Delivery Room Air 02/14/24 00:00 02/14/24 00:00 02/14/24 04:00 Temperature 98.2 F 97.6 F Pulse Rate 93 56 L 64 Respiratory Rate 18 16 Blood Pressure 149/76 H 154/73 H Pulse Oximetry 98 100 Oxygen Delivery 02/14/24 04:00 02/14/24 08:00 Temperature 97.7 F Pulse Rate 68 93 Respiratory Rate 12 Blood Pressure 151/81 H Pulse Oximetry 99 Oxygen Delivery Intake/Output Intake/Output: Intake & Output 02/11/24 02/12/24 02/13/24 02/14/24 23:59 23:59 23:59 23:59 Intake Total 120 Output Total 100 Balance 20 Meds/Results Medications: Active Medications Generic Name Dose Route Start Last Admin Trade Name Freq PRN Reason Stop Dose Admin Acetaminophen 650 mg 02/13/24 15:22 02/14/24 10:57 Acetaminophen 325 Mg Tablet PO 650 mg Q4H PRN Administration Mild Pain (1-3) or Fever Atorvastatin Calcium 40 mg 02/14/24 09:00 02/14/24 10:13 Atorvastatin 40 Mg Tablet BY MOUTH 40 mg QAM LUIS Administration Bupropion HCl 150 mg 02/14/24 09:00 02/14/24 10:13 Bupropion Hcl Xl (24 Hr) 150 Mg Tabcr BY MOUTH 150 mg QAM LUIS Administration Perflutren Lipid Microsphere 0 ml 02/13/24 15:51 Perflutren Lipid Microspheres 1.5 Ml Vial Diluted To 10 Ml Total Volume IV PUSH 02/16/24 15:51 ONCE PRN adequate visualization Protocol Vitamin D 1,000 units 02/14/24 09:00 02/14/24 10:13 Cholecalciferol 1,000 Units Tablet PO 1,000 units BID LUIS Administration Radiology Results: ITS Impressions Chest X-Ray 02/13/24 13:02 IMPRESSION: Borderline heart size, aortic atherosclerosis No active pulmonary disease Head CT 02/13/24 17:10 IMPRESSION: No acute intracranial findings. Carotid Doppler Study 02/13/24 17:33 IMPRESSION: 1. No significant stenosis seen. 2. Antegrade flow demonstrated within both vertebral arteries. Labs Labs: Laboratory Results - last 24 hr 02/13/24 02/13/24 02/13/24 13:07 14:49 15:48 WBC 6.9 RBC 4.00 L Hgb 12.0 Hct 36.4 L MCV 91.0 MCH 30.0 MCHC 33.0 RDW 13.2 Plt Count 216 MPV 10.0 Immature Gran % (Auto) 0.3 Neut % (Auto) 68.7 Lymph % (Auto) 21.8 [place] % (Auto) 7.0 Eos % (Auto) 1.6 Baso % (Auto) 0.6 Lymph # (Auto) 1.50 [place] # (Auto) 0.5 Eos # (Auto) 0.1 Baso # (Auto) 0.0 Abs Immat Gran (auto) 0.02 Absolute Neuts (auto) 4.7 Absolute Nucleated RBC 0.000 Nucleated RBC % 0.0 PT 14.4 INR 1.1 APTT 31.1 Sodium 135 L Potassium 3.7 Chloride 105 Carbon Dioxide 28 Anion Gap 2 L BUN 27 H Creatinine 0.90 Estim Creat Clear Calc 35 Estimated GFR > 60 Glucose 117 H Calcium 9.4 Magnesium Total Bilirubin 0.5 AST 45 H ALT 30 Alkaline Phosphatase 85 Troponin I < 0.012 < 0.012 NT-Pro-B Natriuret Pep 1920 H Total Protein 7.0 Albumin 4.0 TSH (Reflex) Urine Color Yellow Urine Appearance Clear Urine pH 7.0 Ur Specific [place] 1.019 Urine Protein Negative Urine Glucose (UA) Negative Urine Ketones Trace H Ur Blood (Man) Negative Urine Nitrate Negative Urine Bilirubin Negative Urine Urobilinogen 0.2 Leukocyte Esterase Rfl Negative 02/14/24 05:39 WBC 8.4 RBC 3.73 L Hgb 11.4 L Hct 34.5 L MCV 92.5 MCH 30.6 MCHC 33.0 RDW 13.2 Plt Count 222 MPV 10.5 H Immature Gran % (Auto) 0.2 Neut % (Auto) 76.0 H Lymph % (Auto) 15.6 L [place] % (Auto) 6.7 Eos % (Auto) 1.0 Baso % (Auto) 0.5 Lymph # (Auto) 1.31 [place] # (Auto) 0.6 Eos # (Auto) 0.1 Baso # (Auto) 0.0 Abs Immat Gran (auto) 0.02 Absolute Neuts (auto) 6.4 Absolute Nucleated RBC 0.000 Nucleated RBC % 0.0 PT INR APTT Sodium 137 Potassium 4.0 Chloride 106 Carbon Dioxide 30 Anion Gap 1 L BUN 24 H Creatinine 0.80 Estim Creat Clear Calc 39 Estimated GFR > 60 Glucose 78 Calcium 8.6 Magnesium 1.7 Total Bilirubin AST ALT Alkaline Phosphatase Troponin I NT-Pro-B Natriuret Pep Total Protein Albumin TSH (Reflex) 1.100 Urine Color Urine Appearance Urine pH Ur Specific [place] Urine Protein Urine Glucose (UA) Urine Ketones Ur Blood (Man) Urine Nitrate Urine Bilirubin Urine Urobilinogen Leukocyte Esterase Rfl Quality VTE Prophylaxis VTE prophylaxis: pharmacologic ordered
[2024-02-14] MEDS: MAGNESIUM SULF 2 GM/WATER 50ML 2 GM/50 ML BAG IVPB (13:42)
--- NOTE | 2024-02-14 15:23 | PC.NURSE ---
Patient resting in bed. Patient alert and cooperative. Complaints of back pain. Medication given and position change. New IV placed by Ore Tester. Returned spouses call at 1450 and transfered him to patients room. Patient up to the B[facility].
[2024-02-14] MEDS: CALCIUM CARBONATE (TUMS) 500 MG (200 MG ELEMENTAL) PO (17:36)
[2024-02-14] MEDS: APIXABAN 5 MG TABLET BY MOUTH (20:44)
[2024-02-14 22:57] LABS: Glucose Point of Care 165 mg/dl (65-105)
[2024-02-15] VITALS (11 sets, daily range): BP systolic 147–182; BP diastolic 75–100; PULSE 60–83; RESP 16–18; TEMP 36.3–36.9; O2SAT 98–100
[2024-02-15] MEDS: ACETAMINOPHEN 325 MG TABLET 650 MG PO ×2 (02:05→09:22)
[2024-02-15 05:40] LABS: Basophils Percent Auto 0.2 % (0.2-1.2); Eosinophils Absolute Auto 0.1 K/mm3 (0-0.3); Eosinophils Percent Auto 1.1 % (0-4.4); Hematocrit 39.2 % (37.0-47.0); Immature Granulocyte Absolute 0.03 K/mm3 (0.00-0.031); Immature Granulocyte Percent A 0.3 % (0-0.5); Lymphocytes Absolute Auto 1.92 K/mm3 (0.9-3.2); Lymphocytes Percent Auto 19.3 % (18.3-44.2); Mean Corpuscular HGB Conc 33.2 g/dl (32-36); Mean Corpuscular Hemoglobin 30.4 pg (26-34); Mean Corpuscular Volume 91.8 fl (80-100); Mean Platelet Volume 9.9 fl (7.4-10.4); Monocytes Absolute Auto 0.6 K/mm3 (0.1-0.6); Neutrophils Absolute Auto 7.3 K/mm3 (1.3-6.7); Neutrophils Percent Auto 73.1 % (45.5-73.1); Platelet Count Result 226 k/mm3 (150-375); Red Blood Count 4.27 M/mm3 (4.2-5.4); Red Cell Distribution Width 13.3 % (11.5-14.5)
[2024-02-15 05:57] LABS: Alanine Aminotransferase 29 U/L (6-35); Albumin Level 4.1 g/dL (3.5-5.1); Alkaline Phosphatase 94 U/L (38-126); Anion Gap 5 mmol/L (4-12); Aspartate Amino Transferase 37 U/L (14-36); Bilirubin,Total 0.6 mg/dL (0.2-1.3); Blood Urea Nitrogen 16 mg/dL (7-17); Calcium 8.9 mg/dL (8.4-10.2); Carbon Dioxide 22 mmol/L (22-30); Chloride 110 mmol/L (98-107); Estimated CRCL calculation 44 ml/min; Estimated Glomerular Filt Rate > 60; Glucose 103 mg/dL (65-110); Sodium 137 mmol/L (137-145)
[2024-02-15 06:38] LABS: Magnesium 2.1 mg/dL (1.6-2.3)
--- NOTE | 2024-02-15 09:12 | P.CONCA_ITS ---
Assessment and Plan Assessment and plan (1) Atrial fibrillation: Code(s): I48.91 - Unspecified atrial fibrillation Status: Acute Assessment and Plan: She has been known to have atrial fibrillation since 2020. This has been managed with rate control and anticoagulation. Heart rate is generally in the 50s to 60s. She has had some paroxysms of rapid atrial fibrillation, however, she denies feeling any palpitations, shortness of breath, chest pain. * Metoprolol was held on admission. Will resume metoprolol at a lower dose of 25 mg daily. * I have not seen any significant bradycardia or pauses on telemetry, and as she has intermittent tachycardia, should be on some rate-controlling agent * Continue to monitor on telemetry * Continue systemic anticoagulation with apixaban 5 mg b.i.d. (2) Hypertension: Qualifiers: Hypertension type: primary hypertension Qualified Code(s): I10 - Essential (primary) hypertension Code(s): I10 - Essential (primary) hypertension Status: Acute Assessment and Plan: Blood pressure above goal. As above, metoprolol has been held. Restarted at lower dose 25 mg metoprolol succinate daily. May need to titrate or add another agent if she remains hypertensive. (3) Hyperlipidemia: Qualifiers: Hyperlipidemia type: unspecified Qualified Code(s): E78.5 - Hyperlipidemia, unspecified Code(s): E78.5 - Hyperlipidemia, unspecified Status: Acute Assessment and Plan: Continue statin. (4) Syncope: Code(s): R55 - Syncope and collapse Status: Acute Assessment and Plan: Etiology is unclear. No clear evidence for a cardiac cause of syncope. No significant bradycardia or pauses seen on telemetry. Check orthostatic vital signs. Will discharge with 7 day explosives truck driver to observe her heart rate and rhythm and watch for any concerning bradyarrhythmias. Echocardiogram has been ordered and is pending. History of Present Illness History of Present Illness Consult date/time: 02/15/24 09:12 Requesting physician: Clemencia Bobby PA-C Consult reason: atrial fibrillation and Other (Syncope) Reason For Visit: Syncope, AFib with slow ventricular response Narrative: This is a 78-year-old female with atrial fibrillation, vasovagal near-syncope, and CVA in 2020. This is a patient who is followed in our office by Dr. Hernandez. She presents to the hospital now following a syncopal episode. Cardiology is consulted because of syncope and atrial fibrillation. Patient states she was sitting in the chair to her appointment when she began to feel very hot. She does not recall any other symptoms prior to losing consciousness. She says that when she regained consciousness EMS was present she was being prepared to come to the hospital. Patient states that she tested positive for vasovagal syncope back in 2004 which was confirmed with a tilt table test. She states that prior to these near syncopal event she was having she experienced this sensation of feeling very hot. She denies any chest pain, palpitations, shortness of breath. She otherwise has been in her usual state of health which she does not consider to be very good. Review of Systems 2 Review of Systems: All systems reviewed & are unremarkable except as noted in HPI and below PMFSH Past Medical History Medical History Chronic anticoagulation Cerebrovascular accident (2020) received thrombolytics, has mild speech issues Depression Body mass index (BMI) less than 20 Impaired glucose tolerance Raynaud's phenomenon without gangrene Myelomalacia of cervical cord Hyperlipidemia Hypertension Anemia Osteopenia after menopause Anxiety Hypothyroidism Chronic headaches DJD of left shoulder Rotator cuff arthropathy of right shoulder Arthrogryposis Arthritis Vision loss Family History Family History Sibling Family history of osteoarthritis Family history of Alzheimer's disease Family history of atrial fibrillation Mother Family history of tuberculosis Family history of Parkinson's disease, Onset Age: 79 Family history of Alzheimer's disease Family history of malignant neoplasm of breast in first degree relative Patient's mother is Father Hypertension Patient's father is Social History Social History Social History: Surrogate medical decision maker: Hayder Fournier, spouse. Code status: Full code. Smoking status: Never smoker Second hand tobacco smoke exposure: No Alcohol intake: never Substance use: never Substance use type: does not use Do You Feel Safe in your Home?: Yes Lack of Transportation: YES Lack of Food: Never True Current Housing: I Have Housing Concerned About Future Housing: No Difficulty Paying Gas/Electric Bills: No Difficulty Paying for Meds: No Currently Unemployed: No Education: High School Diploma/GED Difficulty w/ Childcare or Family Care: No Living arrangements: assisted living Additional living arrangements comments: . Her lives in [place], she is at [facility]. 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: No Meds Home Medications and Allergies Home Medications ?Medication ?Instructions ?Recorded ?Confirmed ?Type acetaminophen 500 mg tablet 500 mg PO Q4H PRN pain 01/11/19 02/13/24 History cholecalciferol (vitamin D3) 25 25 mcg PO BID 08/20/20 02/13/24 History mcg (1,000 unit) capsule metoprolol succinate 50 mg See Rx Instructions .Route 10/02/22 02/13/24 Rx tablet,extended release 24 hr .COMPLEX #90 tabs apixaban 5 mg tablet (Eliquis) See Rx Instructions .Route 09/10/23 02/13/24 Rx .COMPLEX #180 tabs atorvastatin 40 mg tablet See Rx Instructions .Route 10/26/23 02/13/24 Rx .COMPLEX #90 tabs bupropion HCl 150 mg tablet,12 hr See Rx Instructions .Route 10/28/23 02/13/24 Rx sustained-release .COMPLEX #90 tabs denosumab 60 mg/mL subcutaneous 60 mg subcut [id number] #1 mL 11/02/23 02/13/24 Rx syringe (Prolia) calcium carbonate (Tums) 200 mg PO TID 12/31/23 02/13/24 History hydrocodone 10 mg-acetaminophen 1 tablet PO Q8H PRN pain #90 tabs 02/04/24 02/13/24 Rx 325 mg tablet Allergies Allergy/AdvReac Type Severity Reaction Status Date / Time No Known Allergies Allergy Unknown Verified 02/13/24 12:40 Vital Signs Vital Signs - 24 hr 02/14/24 12:00 02/14/24 15:39 02/14/24 15:39 Temperature 36.1 C L 36.1 C L Pulse Rate 63 56 L 56 L Respiratory Rate 12 12 Blood Pressure 144/77 H 144/77 H Pulse Oximetry 98 98 Oxygen Delivery 02/14/24 15:52 02/14/24 15:57 02/14/24 16:00 Temperature 36.3 C L 36.3 C L Pulse Rate 67 84 63 Respiratory Rate 16 16 Blood Pressure 135/80 162/84 H Pulse Oximetry 98 99 Oxygen Delivery 02/14/24 20:00 02/14/24 20:00 02/14/24 20:00 Temperature 36.3 C L Pulse Rate 63 63 66 Respiratory Rate 16 16 Blood Pressure 162/84 H Pulse Oximetry 99 99 Oxygen Delivery Room Air 02/14/24 20:30 02/15/24 00:00 02/15/24 00:00 Temperature 37.0 C Pulse Rate 62 68 61 Respiratory Rate 14 18 Blood Pressure 156/89 H 159/82 H Pulse Oximetry 99 99 Oxygen Delivery 02/15/24 04:00 02/15/24 04:00 02/15/24 08:00 Temperature 36.8 C 36.8 C Pulse Rate 60 76 76 Respiratory Rate 16 16 Blood Pressure 155/76 H 155/76 H Pulse Oximetry 99 99 Oxygen Delivery Exam 2 Const: General: comfortable, no acute distress, alert and awake O rientation/consciousness: patient oriented x3 HENMT: Head: normal to inspection Eyes: General: appearance normal, both eyes and all related structures P upils: Equal, round and reactive pupils present Neck: Neck: normal visual inspection, supple and no JVD Carotids: normal carotid upstroke Resp: Effort & Inspection: normal respiratory effort Auscultation: clear to auscultation bilaterally Cardio: Rate: regular rate Rhythm: abnormal rhythm irregularly irregular Heart sounds: S1 normal heart sound present, S2 normal heart sound present and no murmurs GI: Auscultation: normal bowel sounds Skin: General skin exam: normal color Neuro: General: patient oriented x3 Cranial nerves: Yes Equal, round and reactive pupils present Extrem: General: normal to inspection Psych: Appearance: grossly normal Mental Status: mental status grossly normal Results Labs and Meds 02/15/24 05:20 02/15/24 05:20 Lab results: Cardiac Enzymes 02/15/24 Range/Units 05:20 AST 37 H (14-36) U/L CBC 02/15/24 Range/Units 05:20 WBC 10.0 (4.5-10.0) K/mm3 RBC 4.27 (4.2-5.4) M/mm3 Hgb 13.0 (12.0-15.0) g/dL Hct 39.2 (37.0-47.0) % Plt Count 226 (150-375) k/mm3 Lymph # (Auto) 1.92 (0.9-3.2) K/mm3 [place] # (Auto) 0.6 (0.1-0.6) K/mm3 Eos # (Auto) 0.1 (0-0.3) K/mm3 Baso # (Auto) 0.0 (0.0-0.1) K/mm3 Comprehensive Metabolic Panel 02/15/24 Range/Units 05:20 Sodium 137 (137-145) mmol/L Potassium 4.0 (3.4-5.0) mmol/L Chloride 110 H (98-107) mmol/L Carbon Dioxide 22 (22-30) mmol/L BUN 16 (7-17) mg/dL Creatinine 0.70 (0.7-1.0) mg/dL Glucose 103 (65-110) mg/dL Calcium 8.9 (8.4-10.2) mg/dL AST 37 H (14-36) U/L ALT 29 (6-35) U/L Alkaline Phosphatase 94 (38-126) U/L Total Protein 7.0 (6.3-8.2) g/dL Albumin 4.1 (3.5-5.1) g/dL Intake and Output 02/14/24 02/15/24 02/15/24 23:59 07:59 15:59 Intake Total 270 200 Output Total 225 Balance 270 -25 Intake: Oral 270 200 Output: Urine 225 Other: # Unmeasured Voids 1 Number of Bowel Movements Today 1 Patient Weight 02/15/24 23:59 Weight 49.9 kg
[2024-02-15] MEDS: CALCIUM CARBONATE (TUMS) 500 MG (200 MG ELEMENTAL) PO ×3 (09:21→17:51)
[2024-02-15] MEDS: buPROPion HCL XL (24 HR) 150 MG TABCR BY MOUTH (09:22)
[2024-02-15] MEDS: CHOLECALCIFEROL 1,000 UNITS TABLET 1000 UNITS PO ×2 (09:22→17:51)
[2024-02-15] MEDS: ATORVASTATIN 40 MG TABLET BY MOUTH (09:22)
[2024-02-15] MEDS: APIXABAN 5 MG TABLET BY MOUTH ×2 (09:22→21:01)
--- NOTE | 2024-02-15 10:35 | P.PNIM_ITS ---
Progress Note: A&P Assessment and Plan (1) Syncope: Code(s): R55 - Syncope and collapse Status: Acute Assessment and Plan: * The patient presented to the emergency department for evaluation after syncopal episode as detailed in HPI. Labs, imaging, EKG, and all reports were personally reviewed. She was sitting down while that occurred and reports feeling extremely hot prior to going unconscious. * Consider vasovagal response however cardiac dysrhythmia is a consideration as she was bradycardic on arrival though her blood pressures have been stable. * She had a syncopal episode a couple of years ago and more Holter monitor which was pretty unrevealing with only 1 episode of sinus pause lasting approximately 2 seconds. She will likely need to be discharged on an event monitor. * Cardiology consult, appreciate recommendations. * Echocardiogram ordered. * Carotid dopplers no significant stenosis seen. Antegrade flow demonstrated with both vertebral arteries. * Magnesium 2.1 * NS @75 ml x 500 ml. (2) Atrial fibrillation with slow ventricular response: Code(s): I48.91 - Unspecified atrial fibrillation Status: Acute Assessment and Plan: * Telemetry- Afib 98 * Apixaban 5 mg PO BID. * Consider vasovagal response however cardiac dysrhythmia is a consideration as she was bradycardic on arrival though her blood pressures have been stable. * Cardiology consulted, appreciate recommendations * Metoprolol Succinate 25 mg PO qam. (3) Chronic anticoagulation: Code(s): Z79.01 - terminal operator (current) use of anticoagulants Status: Acute Assessment and Plan: * Apixaban 5 mg PO BID. (4) Lumbar degenerative disc disease: Code(s): M51.36 - Other intervertebral disc degeneration, lumbar region Status: Acute Assessment and Plan: * Acetaminophen 650 mg PO q 6. * Hydrocodone/ acetaminophen 10-325 mg 1 tab oral q 8 PRN. * Reposition. (5) Hypertension: Qualifiers: Hypertension type: primary hypertension Qualified Code(s): I10 - Essential (primary) hypertension Code(s): I10 - Essential (primary) hypertension Status: Acute Assessment and Plan: * Blood pressure 180/100. * Metoprolol Succinate 25 mg PO daily started. * Blood pressure improved to 147/85. Subjective Date/time seen: 02/15/24 10:35 Interval history: Patient sitting up in bed. Patient rates pain in her back a 9 , constant, and aching. Asking for home Hydrocodone. Patient denies chest pain, palpitations, headache, dizziness, nausea, or vomiting. Review of Systems Review of Systems: All systems reviewed & are unremarkable except as noted in HPI and below Exam Const: General: no acute distress and uncomfortable Eyes: Sclera: sclerae normal Resp: Effort & Inspection: normal respiratory effort Auscultation: clear to auscultation bilaterally Cardio: Rhythm: abnormal rhythm (Afib 98) irregularly irregular GI: GI Palp: Yes Soft to palpation Auscultation: normal bowel sounds Neuro: Other: Alert and oriented ?3, right hemiplegia, slurred speech at times Extrem: General: no pedal edema Psych: Mental Status: mental status grossly normal Affect: normal affect Objective Data Vital Signs Vital Signs: Vital Signs - 24 hr 02/14/24 12:00 02/14/24 15:39 02/14/24 15:39 Temperature 97.0 F L 97.0 F L Pulse Rate 63 56 L 56 L Respiratory Rate 12 12 Blood Pressure 144/77 H 144/77 H Pulse Oximetry 98 98 Oxygen Delivery 02/14/24 15:52 02/14/24 15:57 02/14/24 16:00 Temperature 97.3 F L 97.3 F L Pulse Rate 67 84 63 Respiratory Rate 16 16 Blood Pressure 135/80 162/84 H Pulse Oximetry 98 99 Oxygen Delivery 02/14/24 20:00 02/14/24 20:00 02/14/24 20:00 Temperature 97.3 F L Pulse Rate 63 63 66 Respiratory Rate 16 16 Blood Pressure 162/84 H Pulse Oximetry 99 99 Oxygen Delivery Room Air 02/14/24 20:30 02/15/24 00:00 02/15/24 00:00 Temperature 98.6 F Pulse Rate 62 68 61 Respiratory Rate 14 18 Blood Pressure 156/89 H 159/82 H Pulse Oximetry 99 99 Oxygen Delivery 02/15/24 04:00 02/15/24 04:00 02/15/24 08:00 Temperature 98.3 F 98.3 F Pulse Rate 60 76 76 Respiratory Rate 16 16 Blood Pressure 155/76 H 155/76 H Pulse Oximetry 99 99 Oxygen Delivery Intake/Output Intake/Output: Intake & Output 02/12/24 02/13/24 02/14/24 02/15/24 23:59 23:59 23:59 23:59 Intake Total 680 320 Output Total 100 225 Balance 580 95 Meds/Results Medications: Active Medications Generic Name Dose Route Start Last Admin Trade Name Freq PRN Reason Stop Dose Admin Acetaminophen 650 mg 02/13/24 15:22 02/15/24 09:22 Acetaminophen 325 Mg Tablet PO 650 mg Q4H PRN Administration Mild Pain (1-3) or Fever Apixaban 5 mg 02/14/24 21:00 02/15/24 09:22 Apixaban 5 Mg Tablet BY MOUTH 5 mg Q12HR LUIS Administration Atorvastatin Calcium 40 mg 02/14/24 09:00 02/15/24 09:22 Atorvastatin 40 Mg Tablet BY MOUTH 40 mg QAM LUIS Administration Bupropion HCl 150 mg 02/14/24 09:00 02/15/24 09:22 Bupropion Hcl Xl (24 Hr) 150 Mg Tabcr BY MOUTH 150 mg QAM LUIS Administration Calcium Carbonate 200 mg 02/14/24 17:00 02/15/24 09:21 Calcium Carbonate (Tums) 500 Mg (200 Mg Elemental) PO 200 mg TID LUIS Administration Perflutren Lipid Microsphere 0 ml 02/13/24 15:51 Perflutren Lipid Microspheres 1.5 Ml Vial Diluted To 10 Ml Total Volume IV PUSH 02/16/24 15:51 ONCE PRN adequate visualization Protocol Vitamin D 1,000 units 02/14/24 09:00 02/15/24 09:22 Cholecalciferol 1,000 Units Tablet PO 1,000 units BID LUIS Administration Radiology Results: ITS Impressions Chest X-Ray 02/13/24 13:02 IMPRESSION: Borderline heart size, aortic atherosclerosis No active pulmonary disease Head CT 02/13/24 17:10 IMPRESSION: No acute intracranial findings. Carotid Doppler Study 02/13/24 17:33 IMPRESSION: 1. No significant stenosis seen. 2. Antegrade flow demonstrated within both vertebral arteries. Labs Labs: Laboratory Results - last 24 hr 02/14/24 02/15/24 20:22 05:20 WBC 10.0 RBC 4.27 Hgb 13.0 Hct 39.2 MCV 91.8 MCH 30.4 MCHC 33.2 RDW 13.3 Plt Count 226 MPV 9.9 Immature Gran % (Auto) 0.3 Neut % (Auto) 73.1 Lymph % (Auto) 19.3 Long % (Auto) 6.0 Eos % (Auto) 1.1 Baso % (Auto) 0.2 Lymph # (Auto) 1.92 Long # (Auto) 0.6 Eos # (Auto) 0.1 Baso # (Auto) 0.0 Abs Immat Gran (auto) 0.03 Absolute Neuts (auto) 7.3 H Absolute Nucleated RBC 0.000 Nucleated RBC % 0.0 Sodium 137 Potassium 4.0 Chloride 110 H Carbon Dioxide 22 Anion Gap 5 BUN 16 Creatinine 0.70 Estim Creat Clear Calc 44 Estimated GFR > 60 Glucose 103 POC Capillary Glucose 165 H Calcium 8.9 Magnesium 2.1 Total Bilirubin 0.6 AST 37 H ALT 29 Alkaline Phosphatase 94 Total Protein 7.0 Albumin 4.1 Quality VTE Prophylaxis VTE prophylaxis: pharmacologic ordered
[2024-02-15] MEDS: SODIUM CHLORIDE 0.9% IV 500 ML 75 ML IV CONT (11:17)
[2024-02-15] MEDS: HYDROcodone/acetaminophen (*CRX) 10-325 MG TABLET 1 TAB PO ×2 (11:23→21:01)
[2024-02-15] MEDS: METOPROLOL SUCCINATE EXT REL 25 MG TABCR PO (13:50)
[2024-02-16] VITALS (16 sets, daily range): BP systolic 111–216; BP diastolic 60–105; PULSE 57–92; RESP 16–18; TEMP 36.1–36.9; O2SAT 1–100
[2024-02-16 06:22] LABS: Basophils Percent Auto 0.4 % (0.2-1.2); Eosinophils Absolute Auto 0.2 K/mm3 (0-0.3); Eosinophils Percent Auto 1.9 % (0-4.4); Hematocrit 39.7 % (37.0-47.0); Hemoglobin 12.2 g/dL (12.0-15.0); Immature Granulocyte Absolute 0.02 K/mm3 (0.00-0.031); Immature Granulocyte Percent A 0.3 % (0-0.5); Lymphocytes Absolute Auto 1.66 K/mm3 (0.9-3.2); Lymphocytes Percent Auto 21.4 % (18.3-44.2); Mean Corpuscular HGB Conc 30.7 g/dl (32-36); Mean Corpuscular Hemoglobin 29.8 pg (26-34); Mean Corpuscular Volume 97.1 fl (80-100); Mean Platelet Volume 10.1 fl (7.4-10.4); Monocytes Absolute Auto 0.9 K/mm3 (0.1-0.6); Monocytes Percent Auto 11.1 % (2.6-8.5); Neutrophils Percent Auto 64.9 % (45.5-73.1); Platelet Count Result 203 k/mm3 (150-375); Red Blood Count 4.09 M/mm3 (4.2-5.4); Red Cell Distribution Width 13.4 % (11.5-14.5); White Blood Count 7.7 K/mm3 (4.5-10.0)
[2024-02-16 06:35] LABS: Alanine Aminotransferase 25 U/L (6-35); Albumin Level 3.6 g/dL (3.5-5.1); Alkaline Phosphatase 79 U/L (38-126); Anion Gap 6 mmol/L (4-12); Aspartate Amino Transferase 31 U/L (14-36); Bilirubin,Total 0.5 mg/dL (0.2-1.3); Blood Urea Nitrogen 22 mg/dL (7-17); Calcium 8.6 mg/dL (8.4-10.2); Carbon Dioxide 21 mmol/L (22-30); Chloride 110 mmol/L (98-107); Estimated CRCL calculation 40 ml/min; Estimated Glomerular Filt Rate > 60; Glucose 73 mg/dL (65-110); Magnesium 2.1 mg/dL (1.6-2.3); Potassium 4.6 mmol/L (3.4-5.0); Sodium 137 mmol/L (137-145)
--- NOTE | 2024-02-16 09:13 | P.PNCA_ITS ---
Progress Note: A&P Assessment and Plan (1) Atrial fibrillation: Code(s): I48.91 - Unspecified atrial fibrillation Status: Acute Assessment and Plan: She has been known to have atrial fibrillation since 2020. This has been managed with rate control and anticoagulation. Heart rate is generally in the 50s to 60s. She has had some paroxysms of rapid atrial fibrillation, however, she denies feeling any palpitations, shortness of breath, chest pain. * Continue metoprolol 25mg daily * I have not seen any significant bradycardia or pauses on telemetry * Continue to monitor on telemetry * Continue systemic anticoagulation with apixaban 5 mg b.i.d. * Echo has been ordered and will be reviewed. (2) Hypertension: Qualifiers: Hypertension type: primary hypertension Qualified Code(s): I10 - Essential (primary) hypertension Code(s): I10 - Essential (primary) hypertension Status: Acute Assessment and Plan: Improved, at goal. (3) Hyperlipidemia: Qualifiers: Hyperlipidemia type: unspecified Qualified Code(s): E78.5 - Hyperl ipidemia, unspecified Code(s): E78.5 - Hyperlipidemia, unspecified Status: Acute Assessment and Plan: Continue statin. (4) Syncope: Code(s): R55 - Syncope and collapse Status: Acute Assessment and Plan: Etiology is unclear. No clear evidence for a cardiac cause of syncope. No significant bradycardia or pauses seen on telemetry. Check orthostatic vital signs. Will discharge with 7 day ticket dispenser changer to observe her heart rate and rhythm and watch for any concerning bradyarrhythmias. Echocardiogram has been ordered and is pending. Subjective Date/time seen: 02/16/24 09:13 Interval history: Cardiology follow up for syncope, bradycardia Date of service 02/16/2024: Tele stable, no significant bradycardia or pauses. She feels good today, no complaints. Review of Systems Review of Systems: All systems reviewed & are unremarkable except as noted in HPI and below Exam Const: General: comfortable, no acute distress, alert and awake Orientation/consciousness: patient oriented x3 HENMT: Head: normal to inspection Eyes: General: appearance normal, both eyes and all related structures Pupils: Equal, round and reactive pupils present Neck: Neck: normal visual inspection, supple and no JVD Carotids: normal carotid upstroke Resp: Effort & Inspection: normal respiratory effort Auscultation: clear to auscultation bilaterally Cardio: Rate: regular rate Rhythm: abnormal rhythm irregularly irregular Heart sounds: S1 normal heart sound present, S2 normal heart sound present and no murmurs GI: Auscultation: normal bowel sounds Skin: General skin exam: normal color Neuro: General: patient oriented x3 Cranial nerves: Yes Equal, round and reactive pupils present Extrem: General: normal to inspection Psych: Appearance: grossly normal Mental Status: mental status grossly normal Objective Data Vital Signs Vital Signs: Vital Signs - 24 hr 02/15/24 12:00 02/15/24 12:12 02/15/24 15:30 Temperature 36.4 C Pulse Rate 79 66 Respiratory Rate 17 Blood Pressure 180/100 H 147/85 H Pulse Oximetry 99 Oxygen Delivery 02/15/24 16:00 02/15/24 17:10 02/15/24 17:13 Temperature 36.3 C L Pulse Rate 66 71 83 Respiratory Rate 16 Blood Pressure 168/84 H 182/91 H Pulse Oximetry 100 98 Oxygen Delivery 02/15/24 20:00 02/15/24 20:00 02/15/24 21:24 Temperature 36.9 C Pulse Rate 75 82 75 Respiratory Rate 16 16 Blood Pressure 158/75 H Pulse Oximetry 100 100 Oxygen Delivery Room Air 02/16/24 00:00 02/16/24 00:19 02/16/24 04:00 Temperature 36.9 C Pulse Rate 59 L 68 67 Respiratory Rate 16 Blood Pressure 157/90 H Pulse Oximetry 99 Oxygen Delivery 02/16/24 04:00 02/16/24 08:00 Temperature 36.6 C Pulse Rate 90 67 Respiratory Rate 18 Blood Pressure 111/74 Pulse Oximetry 100 Oxygen Delivery Intake/Output Intake/Output: Intake & Output 02/13/24 02/14/24 02/15/24 02/16/24 23:59 23:59 23:59 23:59 Intake Total 680 680 200 Output Total 100 1075 Balance 580 -395 200 Meds/Results Medications: Active Medications Generic Name Dose Route Start Last Admin Trade Name Freq PRN Reason Stop Dose Admin Acetaminophen 650 mg 02/13/24 15:22 02/15/24 09:22 Acetaminophen 325 Mg Tablet PO 650 mg Q4H PRN Administration Mild Pain (1-3) or Fever Hydrocodone Bitart/Acetaminophen 1 tab 02/15/24 10:35 02/15/24 21:01 Hydrocodone/Acetaminophen (*Crx) 10-325 Mg Tablet PO 1 tab Q8H PRN Administration pain 4-10 Apixaban 5 mg 02/14/24 21:00 02/15/24 21:01 Apixaban 5 Mg Tablet BY MOUTH 5 mg Q12HR LUIS Administration Atorvastatin Calcium 40 mg 02/14/24 09:00 02/15/24 09:22 Atorvastatin 40 Mg Tablet BY MOUTH 40 mg QAM LUIS Administration Bupropion HCl 150 mg 02/14/24 09:00 02/15/24 09:22 Bupropion Hcl Xl (24 Hr) 150 Mg Tabcr BY MOUTH 150 mg QAM LUIS Administration Calcium Carbonate 200 mg 02/14/24 17:00 02/15/24 17:51 Calcium Carbonate (Tums) 500 Mg (200 Mg Elemental) PO 200 mg TID LUIS Administration Metoprolol Succinate 25 mg 02/15/24 13:45 02/15/24 13:50 Metoprolol Succinate Ext Rel 25 Mg Tabcr PO 25 mg QAM LUIS Administration Perflutren Lipid Microsphere 0 ml 02/13/24 15:51 Perflutren Lipid Microspheres 1.5 Ml Vial Diluted To 10 Ml Total Volume IV PUSH 02/16/24 15:51 ONCE PRN adequate visualization Protocol Vitamin D 1,000 units 02/14/24 09:00 02/15/24 17:51 Cholecalciferol 1,000 Units Tablet PO 1,000 units BID LUIS Administration Radiology Results: ITS Impressions Chest X-Ray 02/13/24 13:02 IMPRESSION: Borderline heart size, aortic atherosclerosis No active pulmonary disease Head CT 02/13/24 17:10 IMPRESSION: No acute intracranial findings. Carotid Doppler Study 02/13/24 17:33 IMPRESSION: 1. No significant stenosis seen. 2. Antegrade flow demonstrated within both vertebral arteries. Labs Labs: Laboratory Results - last 24 hr 02/16/24 05:52 WBC 7.7 RBC 4.09 L Hgb 12.2 Hct 39.7 MCV 97.1 D MCH 29.8 MCHC 30.7 L RDW 13.4 Plt Count 203 MPV 10.1 Immature Gran % (Auto) 0.3 Neut % (Auto) 64.9 Lymph % (Auto) 21.4 [place] % (Auto) 11.1 H Eos % (Auto) 1.9 Baso % (Auto) 0.4 Lymph # (Auto) 1.66 [place] # (Auto) 0.9 H Eos # (Auto) 0.2 Baso # (Auto) 0.0 Abs Immat Gran (auto) 0.02 Absolute Neuts (auto) 5.0 Absolute Nucleated RBC 0.000 Nucleated RBC % 0.0 Sodium 137 Potassium 4.6 Chloride 110 H Carbon Dioxide 21 L Anion Gap 6 BUN 22 H Creatinine 0.77 Estim Creat Clear Calc 40 Estimated GFR > 60 Glucose 73 Calcium 8.6 Magnesium 2.1 Total Bilirubin 0.5 AST 31 ALT 25 Alkaline Phosphatase 79 Total Protein 6.0 L Albumin 3.6 Quality VTE Prophylaxis VTE prophylaxis: pharmacologic ordered
[2024-02-16] MEDS: CHOLECALCIFEROL 1,000 UNITS TABLET 1000 UNITS PO ×2 (09:58→17:12)
[2024-02-16] MEDS: CALCIUM CARBONATE (TUMS) 500 MG (200 MG ELEMENTAL) PO ×3 (09:59→17:12)
[2024-02-16] MEDS: METOPROLOL SUCCINATE EXT REL 25 MG TABCR PO (09:59)
[2024-02-16] MEDS: buPROPion HCL XL (24 HR) 150 MG TABCR BY MOUTH (09:59)
[2024-02-16] MEDS: APIXABAN 5 MG TABLET BY MOUTH ×2 (09:59→20:49)
[2024-02-16] MEDS: ATORVASTATIN 40 MG TABLET BY MOUTH (09:59)
--- NOTE | 2024-02-16 14:10 | P.PNIM_ITS ---
Progress Note: A&P Assessment and Plan (1) Syncope: Code(s): R55 - Syncope and collapse Status: Acute Assessment and Plan: * The patient presented to the emergency department for evaluation after syncopal episode as detailed in HPI. Labs, imaging, EKG, and all reports were personally reviewed. She was sitting down while that occurred and reports feeling extremely hot prior to going unconscious. * Consider vasovagal response however cardiac dysrhythmia is a consideration as she was bradycardic on arrival though her blood pressures have been stable. * She had a syncopal episode a couple of years ago and more Holter monitor which was pretty unrevealing with only 1 episode of sinus pause lasting approximately 2 seconds. She will likely need to be discharged on an event monitor. * Cardiology consult, appreciate recommendations. * Echocardiogram completed, awaiting results. * Carotid dopplers no significant stenosis seen. Antegrade flow demonstrated with both vertebral arteries. * Magnesium 2.1 (2) Atrial fibrillation with slow ventricular response: Code(s): I48.91 - Unspecified atrial fibrillation Status: Acute Assessment and Plan: * Telemetry- Afib 93 * Apixaban 5 mg PO BID. * Consider vasovagal response however cardiac dysrhythmia is a consideration as she was bradycardic on arrival though her blood pressures have been stable. * Cardiology consulted, appreciate recommendations * Metoprolol Succinate 25 mg PO qam. (3) Chronic anticoagulation: Code(s): Z79.01 - [facility] (current) use of anticoagulants Status: Acute Assessment and Plan: * Apixaban 5 mg PO BID. (4) Lumbar degenerative disc disease: Code(s): M51.36 - Other intervertebral disc degeneration, lumbar region Status: Acute Assessment and Plan: * Acetaminophen 650 mg PO q 6. * Hydrocodone/ acetaminophen 10-325 mg 1 tab oral q 8 PRN. * Reposition. (5) Hypertension: Qualifiers: Hypertension type: primary hypertension Qualified Code(s): I10 - Essential (primary) hypertension Code(s): I10 - Essential (primary) hypertension Status: Acute Assessment and Plan: * Blood pressure supine 111/60 HR 67, Sitting 129/75 HR 70, and standing 139/87 HR 72. Oral intake improving. * Metoprolol Succinate 25 mg PO daily. Subjective Date/time seen: 02/16/24 14:10 Interval history: Patient sitting on side of bed. Patient reports back pain has improved and is a 6 , constant, and aching. Patient reports eating and drinking have improved. Patient denies chest pain, palpitations, headache, dizziness, nausea, or vomiting. Review of Systems Review of Systems: All systems reviewed & are unremarkable except as noted in HPI and below Exam Const: General: no acute distress and uncomfortable Resp: Effort & Inspection: normal respiratory effort Auscultation: clear to auscultation bilaterally Cardio: Rhythm: abnormal rhythm irregularly irregular (Afib 93) GI: GI Palp: Yes Soft to palpation Auscultation: normal bowel sounds Neuro: Speech: normal speech Extrem: General: no pedal edema Psych: Mental Status: mental status grossly normal Affect: normal affect Objective Data Vital Signs Vital Signs: Vital Signs - 24 hr 02/15/24 15:30 02/15/24 16:00 02/15/24 17:10 Temperature 97.4 F L Pulse Rate 66 71 Respiratory Rate 16 Blood Pressure 147/85 H 168/84 H Pulse Oximetry 100 Oxygen Delivery 02/15/24 17:13 02/15/24 20:00 02/15/24 20:00 Temperature Pulse Rate 83 75 82 Respiratory Rate 16 Blood Pressure 182/91 H Pulse Oximetry 98 100 Oxygen Delivery Room Air 02/15/24 21:24 02/16/24 00:00 02/16/24 00:19 Temperature 98.4 F 98.4 F Pulse Rate 75 59 L 68 Respiratory Rate 16 16 Blood Pressure 158/75 H 157/90 H Pulse Oximetry 100 99 Oxygen Delivery 02/16/24 04:00 02/16/24 04:00 02/16/24 08:00 Temperature 97.9 F Pulse Rate 67 90 67 Respiratory Rate 18 Blood Pressure 111/74 Pulse Oximetry 100 Oxygen Delivery 02/16/24 09:59 02/16/24 10:00 02/16/24 11:25 Temperature 97.3 F L Pulse Rate 75 60 Respiratory Rate 18 Blood Pressure 111/60 Pulse Oximetry 98 Oxygen Delivery Room Air 02/16/24 11:25 02/16/24 11:27 02/16/24 11:28 Temperature Pulse Rate 67 70 72 Respiratory Rate Blood Pressure 111/60 129/75 139/87 Pulse Oximetry Oxygen Delivery 02/16/24 12:00 Temperature Pulse Rate 59 L Respiratory Rate Blood Pressure Pulse Oximetry Oxygen Delivery Intake/Output Intake/Output: Intake & Output 02/13/24 02/14/24 02/15/24 02/16/24 23:59 23:59 23:59 23:59 Intake Total 680 680 680 Output Total 100 1075 400 Balance 580 -395 280 Meds/Results Medications: Active Medications Generic Name Dose Route Start Last Admin Trade Name Freq PRN Reason Stop Dose Admin Acetaminophen 650 mg 02/13/24 15:22 02/15/24 09:22 Acetaminophen 325 Mg Tablet PO 650 mg Q4H PRN Administration Mild Pain (1-3) or Fever Hydrocodone Bitart/Acetaminophen 1 tab 02/15/24 10:35 02/15/24 21:01 Hydrocodone/Acetaminophen (*Crx) 10-325 Mg Tablet PO 1 tab Q8H PRN Administration pain 4-10 Apixaban 5 mg 02/14/24 21:00 02/16/24 09:59 Apixaban 5 Mg Tablet BY MOUTH 5 mg Q12HR LUIS Administration Atorvastatin Calcium 40 mg 02/14/24 09:00 02/16/24 09:59 Atorvastatin 40 Mg Tablet BY MOUTH 40 mg QAM LUIS Administration Bupropion HCl 150 mg 02/14/24 09:00 02/16/24 09:59 Bupropion Hcl Xl (24 Hr) 150 Mg Tabcr BY MOUTH 150 mg QAM LUIS Administration Calcium Carbonate 200 mg 02/14/24 17:00 02/16/24 12:32 Calcium Carbonate (Tums) 500 Mg (200 Mg Elemental) PO 200 mg TID LUIS Administration Metoprolol Succinate 25 mg 02/15/24 13:45 02/16/24 09:59 Metoprolol Succinate Ext Rel 25 Mg Tabcr PO 25 mg QAM LUIS Administration Perflutren Lipid Microsphere 0 ml 02/13/24 15:51 Perflutren Lipid Microspheres 1.5 Ml Vial Diluted To 10 Ml Total Volume IV PUSH 02/16/24 15:51 ONCE PRN adequate visualization Protocol Vitamin D 1,000 units 02/14/24 09:00 02/16/24 09:58 Cholecalciferol 1,000 Units Tablet PO 1,000 units BID LUIS Administration Radiology Results: ITS Impressions Chest X-Ray 02/13/24 13:02 IMPRESSION: Borderline heart size, aortic atherosclerosis No active pulmonary disease Head CT 02/13/24 17:10 IMPRESSION: No acute intracranial findings. Carotid Doppler Study 02/13/24 17:33 IMPRESSION: 1. No significant stenosis seen. 2. Antegrade flow demonstrated within both vertebral arteries. Labs Labs: Laboratory Results - last 24 hr 02/16/24 05:52 WBC 7.7 RBC 4.09 L Hgb 12.2 Hct 39.7 MCV 97.1 D MCH 29.8 MCHC 30.7 L RDW 13.4 Plt Count 203 MPV 10.1 Immature Gran % (Auto) 0.3 Neut % (Auto) 64.9 Lymph % (Auto) 21.4 [place] % (Auto) 11.1 H Eos % (Auto) 1.9 Baso % (Auto) 0.4 Lymph # (Auto) 1.66 [place] # (Auto) 0.9 H Eos # (Auto) 0.2 Baso # (Auto) 0.0 Abs Immat Gran (auto) 0.02 Absolute Neuts (auto) 5.0 Absolute Nucleated RBC 0.000 Nucleated RBC % 0.0 Sodium 137 Potassium 4.6 Chloride 110 H Carbon Dioxide 21 L Anion Gap 6 BUN 22 H Creatinine 0.77 Estim Creat Clear Calc 40 Estimated GFR > 60 Glucose 73 Calcium 8.6 Magnesium 2.1 Total Bilirubin 0.5 AST 31 ALT 25 Alkaline Phosphatase 79 Total Protein 6.0 L Albumin 3.6 Quality VTE Prophylaxis VTE prophylaxis: pharmacologic ordered
[2024-02-16] MEDS: HYDROcodone/acetaminophen (*CRX) 10-325 MG TABLET 1 TAB PO ×2 (15:39→23:45)
--- NOTE | 2024-02-16 15:51 | ECHO_ITS ---
Patient Info Name: Susan Fournier Age: 78 years : 1945 Gender: Female Ht: 61 in Wt: 112 lbs BSA: 1.48 m2 HR: 90 bpm BP: 111 / 74 mmHg Technical Quality: Fair Exam Date: 02/16/2024 1:20 PM Exam Location: Echo Lab Patient Status: Outpatient Admit Date: 02/13/2024 Staff Ordering Physician: Clemencia Bobby PA-C Manager Account Management: Stephen Gonzalez RDCS Attending Provider: Spenser Zurita MD Referring Physician: Diamante QUIJANO; Exam Type: CA echo doppler color flow Study Info Indications - SLOW AFIB - SYNCOPE Complete two-dimensional, color flow and Doppler transthoracic echocardiogram is performed. Summary 1. Left ventricular chamber dimension is normal. 2. Left ventricular systolic function is normal, estimated at 60-65%. 3. Right ventricular systolic function is normal. 4. Left atrial chamber dimension is severely enlarged. 5. Right atrial chamber dimension is severely enlarged. 6. There is mild mitral valve regurgitation. 7. There is mild tricuspid valve regurgitation. Left Ventricle Left ventricular chamber dimension is normal. Left ventricular systolic function is normal, estimated at 60-65%. There is no increased left ventricular wall thickness. The left ventricular diastolic function is abnormal. Right Ventricle Right ventricular chamber dimension is normal. Right ventricular systolic function is normal. Left Atria Left atrial chamber dimension is severely enlarged. Right Atria Right atrial chamber dimension is severely enlarged. Atrial Septum Intact interatrial septum visualized by color flow imaging. Aortic Valve The aortic valve is trileaflet. There is mild aortic valve sclerosis. There is no aortic valve stenosis. There is no aortic valve regurgitation. Pulmonic Valve The pulmonic valve is not well visualized. Mitral Valve There is mild mitral valve regurgitation. Tricuspid Valve There is mild tricuspid valve regurgitation. Pericardium/Pleural There is no pericardial effusion. Inferior Vena Cava Normal inferior vena cava with <50% collapse upon inspiration consistent with elevated right atrial pressure, 8 mmHg. Aorta The aortic root size at the sinus of Valsalva is normal. Left Ventricular Outflow Tract Name Value Normal LVOT 2D LVOT Diameter 1.6 cm LVOT Doppler LVOT Peak Gradient 4 mmHg LVOT Mean Gradient 2 mmHg LVOT VTI 19 cm LVOT VTI/AV VTI Ratio 0.7 LVOT Stroke Volume 39 ml Pulmonic Valve Name Value Normal RVOT Doppler RVOT Peak Gradient 2 mmHg PV Doppler PV Peak Gradient 3 mmHg Mitral Valve Name Value Normal MV Doppler MV Peak Gradient 4 mmHg MV Mean Gradient 1 mmHg MV Decel [place] 595 cm/s2 MV PHT 44 ms MV Area (PHT) 5.0 cm2 4.0-5.0 MV Area (Cont Eq VTI) 1.7 cm2 MV Diastolic Function MV E Peak Velocity 91 cm/s MV A Peak Velocity 28 cm/s MV E/A 3.3 MV Decel Time 152 ms Tricuspid Valve Name Value Normal TV Regurgitation Doppler TR Peak Velocity 266 cm/s TR Peak Gradient 28 mmHg Estimated PAP/RSVP RA Pressure 8 mmHg <=5 PA Systolic Pressure 36 mmHg <36 RV Systolic Pressure 36 mmHg <36 Aorta Name Value Normal Ascending Aorta Ao Root Diameter (MM) 2.5 cm Ao Root Diam Index (MM) 1.7 cm/m2 Aortic Valve Name Value Normal AV Doppler AV Peak Velocity 144 cm/s AV Peak Gradient 8 mmHg AV Mean Gradient 4 mmHg AV VTI 29 cm AV Area (Cont Eq VTI) 1.4 cm2 >=3.0 AV Area (Cont Eq Manuel) 1.4 cm2 AV Regurgitation 2D LVOT Area 2.1 cm2 Ventricles Name Value Normal LV Dimensions 2D/MM IVS Diastolic Thickness (2D) 1.0 cm 0.6-1.0 LVID Diastole (2D) 3.9 cm 3.8-5.2 LVIW Diastolic Thickness (2D) 0.8 cm 0.6-0.9 LVID Systole (2D) 2.3 cm 2.2-3.5 LVOT Diameter 1.6 cm LV Mass (2D Cubed) 105.25 g 67.00-162.00 LV Mass Index (2D Cubed) 71 g/m2 43-95 Relative Wall Thickness (2D) 0.41 LV Fractional Shortening/Ejection Fraction 2D/MM LV Fractional Shortening (2D) 40 % 27-45 LV EF (2D Teicholz) 71 % 54-74 LV Diastolic Volume (4C MOD) 56 ml LV EF (4C MOD) 62 % LV Diastolic Volume (2C MOD) 57 ml LV EF (2C MOD) 64 % LV Diastolic Volume (BP MOD) 57 ml 46-106 LV Diastolic Volume Index (BP MOD) 38 ml/m2 29-61 LV Systolic Volume (BP MOD) 22 ml 14-42 LV Systolic Volume Index (BP MOD) 15 ml/m2 8-24 LV EF (BP MOD) 62 % 54-74 LV Diastolic Length (4C) 6.0 cm LV Systolic Length (4C) 5.4 cm LV Stroke Volume (4C MOD) 35 ml Atria Name Value Normal LA Dimensions LA Dimension (MM) 4.0 cm 2.7-3.8 LA Volume (4C A-L) 58 ml LA Volume (BP A-L) 71 ml RA Dimensions RA Area (4C) 16.4 cm2 <=18.0 Report Signatures
[2024-02-16] MEDS: ACETAMINOPHEN 325 MG TABLET 650 MG PO (20:48)
[2024-02-16] MEDS: hydrALAZINE HCL 20 MG/ML VIAL 10 MG IV PUSH (23:46)
[2024-02-17] VITALS: PULSE 75
[2024-02-17 01:17] VITALS: BP 130/72
[2024-02-17 04:00] VITALS: BP 117/64; PULSE 59; PULSE 80; RESP 18; TEMP 36.5; O2SAT 100
[2024-02-17 06:01] LABS: Basophils Percent Auto 0.4 % (0.2-1.2); Eosinophils Absolute Auto 0.2 K/mm3 (0-0.3); Eosinophils Percent Auto 2.7 % (0-4.4); Hemoglobin 12.4 g/dL (12.0-15.0); Immature Granulocyte Absolute 0.02 K/mm3 (0.00-0.031); Immature Granulocyte Percent A 0.3 % (0-0.5); Lymphocytes Absolute Auto 2.07 K/mm3 (0.9-3.2); Lymphocytes Percent Auto 26.7 % (18.3-44.2); Mean Corpuscular HGB Conc 32.6 g/dl (32-36); Mean Corpuscular Volume 91.8 fl (80-100); Mean Platelet Volume 10.1 fl (7.4-10.4); Monocytes Absolute Auto 0.8 K/mm3 (0.1-0.6); Monocytes Percent Auto 10.1 % (2.6-8.5); Neutrophils Absolute Auto 4.7 K/mm3 (1.3-6.7); Neutrophils Percent Auto 59.8 % (45.5-73.1); Platelet Count Result 223 k/mm3 (150-375); Red Blood Count 4.14 M/mm3 (4.2-5.4); Red Cell Distribution Width 13.3 % (11.5-14.5); White Blood Count 7.8 K/mm3 (4.5-10.0)
[2024-02-17] MEDS: ACETAMINOPHEN 325 MG TABLET 650 MG PO (06:34)
[2024-02-17 06:35] LABS: Alanine Aminotransferase 32 U/L (6-35); Albumin Level 3.9 g/dL (3.5-5.1); Alkaline Phosphatase 90 U/L (38-126); Aspartate Amino Transferase 39 U/L (14-36); Bilirubin,Total 0.5 mg/dL (0.2-1.3); Magnesium 1.7 mg/dL (1.6-2.3)
[2024-02-17 07:41] LABS: Anion Gap 5 mmol/L (4-12); Blood Urea Nitrogen 23 mg/dL (7-17); Calcium 9.1 mg/dL (8.4-10.2); Carbon Dioxide 25 mmol/L (22-30); Chloride 106 mmol/L (98-107); Estimated CRCL calculation 45 ml/min; Estimated Glomerular Filt Rate > 60; Glucose 90 mg/dL (65-110); Potassium 4.4 mmol/L (3.4-5.0); Sodium 136 mmol/L (137-145)
[2024-02-17 08:00] VITALS: BP 158/87; PULSE 66; PULSE 72; RESP 18; TEMP 36.1; O2SAT 100
[2024-02-17 08:03] VITALS: BP 156/103; BP 166/78; RESP 18; TEMP 36.1; TEMP 36.2
[2024-02-17 08:09] VITALS: PULSE 68
[2024-02-17] MEDS: APIXABAN 5 MG TABLET BY MOUTH (08:09)
[2024-02-17] MEDS: CALCIUM CARBONATE (TUMS) 500 MG (200 MG ELEMENTAL) PO (08:09)
[2024-02-17] MEDS: ATORVASTATIN 40 MG TABLET BY MOUTH (08:09)
[2024-02-17] MEDS: CHOLECALCIFEROL 1,000 UNITS TABLET 1000 UNITS PO (08:09)
[2024-02-17] MEDS: buPROPion HCL XL (24 HR) 150 MG TABCR BY MOUTH (08:09)
[2024-02-17] MEDS: METOPROLOL SUCCINATE EXT REL 25 MG TABCR PO (08:09)
[2024-02-17] MEDS: HYDROcodone/acetaminophen (*CRX) 10-325 MG TABLET 1 TAB PO (08:21)
--- NOTE | 2024-02-17 10:51 | PM.DS ---
DS: Admitting Diagnosis Discharge Date 02/17/24 Admitting Diagnosis Syncope and Collapse DS: Discharge Diagnosis Discharge Diagnosis (1) Syncope: Code(s): R55 - Syncope and collapse Status: Acute Assessment and Plan: Acute. Resolved prior to discharge. (2) Atrial fibrillation with slow ventricular response: Code(s): I48.91 - Unspecified atrial fibrillation Status: Acute Assessment and Plan: Rate well controlled inpatient. Rare episodes of asymptomatic pausing, with no SOB, chest pain or dizziness. 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 (4) Lumbar degenerative disc disease: Code(s): M51.36 - Other intervertebral disc degeneration, lumbar region Status: Acute Assessment and Plan: Chronic. Continue pain meds PRN. (5) Hypertension: Qualifiers: Hypertension type: primary hypertension Qualified Code(s): I10 - Essential (primary) hypertension Code(s): I10 - Essential (primary) hypertension Status: Acute Assessment and Plan: Chronic. Blood pressure remained fairly well controlled inpatient. Plan Discharge back to assisted living. DS: Summary Hospital Course Reason for hospitalization: Syncope and Collapse Hospital Course: Patient was brought in to the ER following a syncope episode at the assisted living facility that she resides. Patient was at an appointment at the [facility] and simply while sitting down waiting for her turn she began to feel extremely hot and she then lost consciousness for a brief period of time. She did not fall out of the chair and instead it sounds as though she slumped forward. Patient has been on telemetry monitoring inpatient and has maintained A-Fib, rate well controlled with rare 2 seconds pauses noted. Patient had a negative CT head for acute, carotid duplex with no significant stenosis, negative orthostatic BP, with ECHO showing severe Left atrial and Right atrial chambers enlargement. Patient was seen by Cardiology and Metoprolol dose decreased from 50 mg QD to 25 mg QD. Patient has also been started on Lisinopril 20 mg QD to help control her elevated BP. 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 Patient is medically stable for discharge with no acute distress noted or reported prior to discharge. Status at Discharge Functional status at discharge: uses cane/walker Overall status at discharge: patient is back to baseline Time Spent with Patient Time attestation: Total time spent providing and/or coordinating discharge services: Time spent: Greater than 30 minutes Exam Narrative: General: Well-developed, very skinny and brittle. HEENT: Normocephalic, atraumatic. PERRL, EOMI. Sclera anicteric. moist mucous membranes. Neck: Supple. Respiratory: Lungs are clear to auscultation bilaterally. Cardiovascular: Irregularly irregular. Gastrointestinal: Abdomen soft, nontender, nondistended with +ve bowel sounds X4 Quadrants. Skin: Warm and dry. No rash or lesions noted. Extremities: No cyanosis, clubbing, or edema. Radial and pedal pulses intact. Neurological: Alert and oriented. Cranial nerves II-XII grossly intact. Psychiatric: Pleasant and cooperative with normal mood and affect. DS: Data Data Completed and Pending Labs on day of discharge: Labs from last 24 hours 02/17/24 05:28 WBC 7.8 RBC 4.14 L Hgb 12.4 Hct 38.0 MCV 91.8 D MCH 30.0 MCHC 32.6 RDW 13.3 Plt Count 223 MPV 10.1 Immature Gran % (Auto) 0.3 Neut % (Auto) 59.8 Lymph % (Auto) 26.7 [place] % (Auto) 10.1 H Eos % (Auto) 2.7 Baso % (Auto) 0.4 Lymph # (Auto) 2.07 [place] # (Auto) 0.8 H Eos # (Auto) 0.2 Baso # (Auto) 0.0 Abs Immat Gran (auto) 0.02 Absolute Neuts (auto) 4.7 Absolute Nucleated RBC 0.000 Nucleated RBC % 0.0 Sodium 136 L Potassium 4.4 Chloride 106 Carbon Dioxide 25 Anion Gap 5 BUN 23 H Creatinine 0.68 L Estim Creat Clear Calc 45 Estimated GFR > 60 Glucose 90 Calcium 9.1 Magnesium 1.7 Total Bilirubin 0.5 AST 39 H ALT 32 Alkaline Phosphatase 90 Total Protein 7.0 Albumin 3.9 Discharge Plan Discharge Attending physician on discharge: Amol Puga Consulting providers: Adwoa Méndez Discharging Clinician: Agustina Bonner Anticipated Discharge Date/Time: 02/17/24 11:00 Patient Disposition: Home, Self-Care Activity: as tolerated Diet: as tolerated Patient Instructions: Antibiotic Form, Safe Use of Anticoagulants (GEN) Patient Language: Uruguayan Stand Alone Forms: General Discharge Information Follow-up/Referrals: Hector York APRN [Primary Care Provider] - 1 Week Discharge Medications: New metoprolol succinate [Toprol XL] 25 mg Tablet Extended Release 24 Hr 25 mg PO QAM Qty: 30 0RF lisinopril 20 mg tablet 20 mg PO DAILY Qty: 30 0RF Continued acetaminophen 500 mg tablet 500 mg PO Q4H PRN (Reason: pain) calcium carbonate [Tums] 200 mg calcium (500 mg) tablet,chewable 200 mg PO TID cholecalciferol (vitamin D3) 25 mcg (1,000 unit) capsule 25 mcg PO BID Eliquis 5 mg tablet See Rx Instructions .ROUTE .COMPLEX Qty: 180 1RF Dose Instruction: TAKE 1 TABLET BY MOUTH TWICE A DAY Rx Instructions: TAKE 1 TABLET BY MOUTH TWICE A DAY atorvastatin 40 mg tablet See Rx Instructions .ROUTE .COMPLEX Qty: 90 1RF Dose Instruction: TAKE 1 TABLET BY MOUTH EVERY DAY Rx Instructions: TAKE 1 TABLET BY MOUTH EVERY DAY bupropion HCl 150 mg tablet sustained-release 12 hr See Rx Instructions .ROUTE .COMPLEX Qty: 90 1RF Dose Instruction: TAKE ONE TABLET BY MOUTH EVERY MORNING Rx Instructions: TAKE ONE TABLET BY MOUTH EVERY MORNING Prolia 60 mg/mL syringe 60 mg SUB-Q [id number] Qty: 1 1RF hydrocodone-acetaminophen 10-325 mg tablet 1 tablet PO Q8H PRN (Reason: pain) Qty: 90 0RF Discontinued metoprolol succinate 50 mg tablet extended release 24 hr See Rx Instructions .ROUTE .COMPLEX Qty: 90 1RF Dose Instruction: TAKE 1 TABLET BY MOUTH EVERY DAY Rx Instructions: TAKE 1 TABLET BY MOUTH EVERY DAY Other Ambulatory Orders: CA cardiac event monitor (Routine) Timeframe: 1 Month [place] [facility] [place] Ordered By: Larisa Mark Date of admission: 02/13/24 15:22 Primary Care Provider: Hector York Admitting Provider: Spenser Zurita Attending physician on admission: Spenser Zurita Condition: Improved Quality VTE Prophylaxis VTE prophylaxis: pharmacologic ordered Hospitalist MIPS Heart Failure (Exclusion) Patient has history of Heart Transplant or Left Ventricular Assistive Device?: No IF YES, STOP HERE Heart Failure (Qualifier) Patient has current or prior documentation of LVEF less than or equal to 40%, or mod/servere depressed LVSF?: No IF NO, STOP HERE
--- OUTSIDE RECORDS SUMMARY | 2024-02-20 19:41 | XMS_ITS | Clinical Summary ---
Author Organization [facility] Address [address] [place] [address] Care Team Providers Care School Speech Therapist Name Role Phone Tee Kim DO Primary Care Provider [phone] Source Comments [facility],non-owned Affiliates and Associated Physician Practices is amultiple site organization consisting of ambulatory clinics and hospital sitesin [place], [place], [place] and [place]. This disclosure is being madepursuant to the Care Everywhere program and may not contain all information available regarding this patient. Last updated 17.[facility] [place] Allergies No known active allergies Medications * Be aware that medications may not be up to date on this document. Alwaysverify current medications with the patient. Medication Sig Dispensed Refills Start Date End Date Status HYDROcodone-acetaminop hen (NORCO) 10-325 MG tablet 12/03/2020 Active apixaban (ELIQUIS) 5 MG tablet Take 1 (one) tablet by mouth 2 times daily 01/01/2021 Active buPROPion (WELLBUTRIN) 75 MG tablet Take 1 (one) tablet by mouth 2 times daily 01/01/2021 Active atorvastatin (LIPITOR) 40 MG tablet Take 1 (one) tablet by mouth at bedtime 01/01/2021 Active metoprolol tartrate (LOPRESSOR) 25 MG tablet Take 1 (one) tablet by mouth 2 times daily 01/01/2021 Active Active Problems Problem Noted Date Diagnosed Date A-fib 12/30/2020 Dysphagia 12/30/2020 Aphasia 12/29/2020 Weakness 12/29/2020 Cerebrovascular accident (CVA) 12/29/2020 Azotemia 12/29/2020 Social History Tobacco Use Types Packs/Day Years Used Date Smoking Tobacco: Never Smokeless Tobacco: Never Alcohol Use Standard Drinks/Week Comments Never 0 (1 standard drink = 0.6 oz pur e alcohol) AUDIT-C Answer Date Recorded Q1: How often do you have a drink containing alc ohol? Monthly or less 12/30/2020 Q2: How many drinks containi ng alcohol do you have on a typical day when you are drinking? 1 or 2 12/30/2020 Q3: How often do you have si x or more drinks on one occasion? 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 Pulse 78 01/02/2021 8:23 AM SEX CRIMES DETECTIVE Temperature 36.4 ??C (97.6 ??F) 01/02/2021 8:23 AM CS T Respiratory Rate 16 01/02/2021 8:23 AM SEX CRIMES DETECTIVE Oxygen Saturation 100% 01/02/2021 8:23 AM SEX CRIMES DETECTIVE Inhaled Oxygen Concentration 21% 12/30/2020 6 :00 AM SEX CRIMES DETECTIVE Weight 53 kg (116 lb 13.5 oz) 12/31/2020 4:00 AM SEX CRIMES DETECTIVE Height 157.5 cm (5' 2 ) 12/30/2020 4:42 AM SEX CRIMES DETECTIVE Body Mass Index 21.37 12/30/2020 4:42 AM SEX CRIMES DETECTIVE Plan of Treatment Health Maintenance Due Date Last Done Comments BONE DENSITY TESTING 1945 HEPATITIS C SCREENING 09/03/1964 DTAP/TDAP/TD VACCINES (1 - Tdap) 1965 ZOSTER VACCINE (1 of 2) 1996 PNEUMOCOCCAL VACCINE 50+ (1 of 1 - PCV) 09/09/2011 Respiratory Syncytial Virus (RSV) Vaccine Pt: or over 60 yrs (1 - 1-dose 75+ series) 2021 COVID-19 VACCINE ( - 2023-2 5 season) 2023 INFLUENZA VACCINE (#1) 2023 DEPRESSION SCREENING 02/10/2024 MEDICARE AWV ? CALENDAR YEAR 2024 HEPATITIS B VACCINE Aged Out No longe r eligible based on patient's age to complete this topic HIB VACCINE Aged Out No longer eligi ble based on patient's age to complete this topic HPV VACCINE Aged Out No longer eligi ble based on patient's age to complete this topic MENINGOCOCCAL VACCINE Aged Out No lorena preston eligible based on patient's age to complete this topic Advance Directives * Full Code (Latest Code Status on File) Date Activated Date Inactivated Comments 12/29/2020 2:32 PM 01/02/2021 2:22 PM Care Teams School Speech Therapist Relationship Specialty Start Date End Date Tee Kim DO [id number] [id number] PCP - General Internal Medicine 12/29/20
--- OUTSIDE RECORDS SUMMARY | 2024-02-20 19:42 | XMS_ITS | Encounter Summary ---
Author Organization [facility] Address Formerly [facility], later [facility] [address] [place] [address] Care Team Providers Care Camera Operator Name Role Phone Unavailable Primary Care Provider Unavailabl e Encounter Details Date Type Department Care Team (Late st Contact Info) Description 01/09/2018 Orders Only [facility] [address] [place] [id number] Torin Verde MD [address] [facility] [address] [place] [address] Social History Tobacco Use Types Packs/Day Years Used Date Smoking Tobacco: Never Assessed Comments Unknown Sex and Gender Information Value Date Recorded Sex Assigned at Not on file Legal Sex Female 4:45 PM CDT Gender Identity Not on file Sexual Orientation Not on file documented as of this encounter Plan of Treatment Not on file documented as of this encounter Procedures Procedure Name Priority Date/Time Associated Diagnosis Comments CT LUMB SPINE WO CON 01/09/2018 8:48 AM FLOAT NURSE documented in this encounter Results * CT LUMB SPINE WO CON (01/09/2018 8:48 AM FLOAT NURSE) Anatomical Region Laterality Modality Spine Computed Tomogra phy 01/09/2018 8:48 AM FLOAT NURSE Narrative 01/09/2018 12:00 AM FLOAT NURSE SUSAN KAM ? Admit/Service Date: 01/07/18 ?? Acct: [id number] ?Discharge Date: ?? : 1945 ??Sex: F ?Ord Site: [facility] ?? Pt Type: ADM IN ? Ordering MD: TORIN VERDE MD ? Study Date ? Report # ?Order # ? Ext Order ID ?? 01/08/18 ? [id number] ? [id number] ?[id number] ? Proc Code: ? LSPNWOC ? Procedure Description: ?? CT Lumbar Spine WO ? IMAGING STUDIES: CT LUMBAR SPINE WO ? DATE: 01/09/2018 8:23 AM ? CLINICAL HISTORY: PAIN LEFT - SCIATICA. RECENT FALLS. ??. Altered mental status.. Radiation dose reduction technique was utilized. ? COMPARISON: No Comparisons. ? CONCLUSION: ? 1. ??L1-L5 without acute fracture or dislocation. No paraspinal lesions. ? 2. ??Complete loss of disc space height with moderate degenerative change at L2- 3. Near complete loss of disc space at L3-4 with moderate endplate degenerative change. Moderate levoconvex curvature centered at L3-4. ? 3. ??Moderate spinal stenosis at L3-4 due to degenerative change. Severe spinal stenosis at L3-4 due to degenerative change. Also severe spinal stenosis at L4-5 due to degenerative change. Follow- up with outpatient MRI may be of benefit. ? 4. ??Minimal grade 1 anterior spondylolisthesis of L3 on L4. Moderate facet joint degenerative change. Atherosclerotic aorta. Nonobstructing 4 mm left-sided renal calculus. ? 5. ??Incidental note made of mild atelectasis in partially visualized lung bases with possible small bilateral pleural effusions. ? 6. ??Multiple fluid-filled partially visualized small bowel loops may be due to ileus versus enteritis. Possible small amount of free fluid in the pelvis. ? Procedure Note Sarath Cope MD - 01/09/2018 SUSAN KAM Admit/Service Date:01/07/18 Acct: [id number] Discharge Date: : 1945 Sex: F Ord Site: [facility] Type: ADM IN Ordering MD:TORIN VERDE MD Study Date Report # Order # Ext Order ID 01/08/18 [id number] Proc Code: LSPNWOC Procedure Description: CT Lumbar Spine WO IMAGING STUDIES: CT LUMBAR SPINE WO DATE: 01/09/2018 8:23 AM CLINICAL HISTORY: PAIN LEFT - SCIATICA. RECENT FALLS. . Altered mentalstatus.. Radiation dose reduction technique was utilized. COMPARISON: No Comparisons. CONCLUSION: 1. L1-L5 without acute fracture or dislocation. No paraspinal lesions. 2. Complete loss of disc space height with moderate degenerative changeat L2-3. Near complete loss of disc space at L3-4 with moderate endplate degenerative change.Moderate levoconvex curvature centered at L3-4. 3. Moderate spinal stenosis at L3-4 due to degenerative change. Severespinal stenosis at L3-4 due to degenerative change. Also severe spinal stenosis at L4-5 due todegenerative change. Follow- up with outpatient MRI may be of benefit. 4. Minimal grade 1 anterior spondylolisthesis of L3 on L4. Moderatefacet joint degenerative change. Atherosclerotic aorta. Nonobstructing 4 mm left-sided renalcalculus. 5. Incidental note made of mild atelectasis in partially visualized lungbases with possible small bilateral pleural effusions. 6. Multiple fluid-filled partially visualized small bowel loops may bedue to ileus versus enteritis. Possible small amount of free fluid in the pelvis. us Torin Verde MD CT Final Result documented in this encounter Visit Diagnoses Not on filedocumented in this encounter
--- OUTSIDE RECORDS SUMMARY | 2024-02-20 19:42 | XMS_ITS | Encounter Summary ---
Author Organization [facility] Address Critical access hospital6 [facility] [place] [address] [place] [address] Care Team Providers Care Health Professional Name Role Phone Unavailable Primary Care Provider Unavailabl e Encounter Details Date Type Department Care Team (Late st Contact Info) Description 01/07/2018 Orders Only [facility] Priority [facility] - [address] [place] [address] Huong Mirza MD [address] [place] [address] Social History Tobacco Use Types Packs/Day Years [...] Procedure Name Priority Date/Time Associated Diagnosis Comments CARDIOLOGY GENERIC 01/07/2018 11 :18 AM MEDICAL REVIEWER documented in this encounter Results * CARDIOLOGY GENERIC (01/07/2018 11:18 AM MEDICAL REVIEWER) 01/07/2018 11:1 8 AM MEDICAL REVIEWER Narrative [facility] RAD - 01/07/2018 12:00 AM MEDICAL REVIEWER ? SUSAN FOURNIER ORDERING MD: HUONG MIRZA MD ?? ACCT: [id number] ?? ADMIT/SERVICE DATE: 01/07/18 DISCHARGE DATE: ?? : 1945 PT TYPE: ADM IN ?? SEX: F ORD SITE: [facility] ?TEST DATE: ?2018-01-07 ?? PAT NAME: ? SUSAN FOURNIER ? DEPARTMENT: CARD ?? 85 ? ROOM: ? H101 ?? GENDER: ? FEMALE ? GRANTS MANAGER: ? : ?1945 ? REQUESTED BY: HUONG MIRZA ?? ORDER NUMBER: [id number] ?READING MD: ?? HUONG MCKEON ?MEASUREMENTS ?? INTERVALS ?AXIS ? RATE: ? 80 ? P: ?85 ?? AK: ? 216 ?QRS: ?45 ?? QRSD: ? 103 ?T: ?-75 ?? QT: ? 383 ? QTC: ?442 ?INTERPRETIVE STATEMENTS ?? SINUS RHYTHM WITH FIRST DEGREE AV BLOCK ?? INCOMPLETE RIGHT BUNDLE BRANCH BLOCK ??[90+ MS QRS DURATION, TERMINAL R IN ?? V1/V2, ?? 40+ MS S IN I/AVL/V4/V5/V6] ?? ST DEVIATION AND MODERATE T-WAVE ABNORMALITY, CONSIDER ANTEROLATERAL ISCHEMIA ? [-0.1+ MV T-WAVE IN V3-V6] ?? ST DEVIATION AND MODERATE T-WAVE ABNORMALITY, CONSIDER INFERIOR ISCHEMIA ?[-0.1+ ?? MV T-WAVE IN II/AVF] ?? NO PREVIOUS ECG AVAILABLE FOR COMPARISON ?? ELECTRONICALLY SIGNED BY HUNOG MCKEON AT 01-08-2018 7:09:14 MEDICAL REVIEWER ? Procedure Note Huong Mckeon MD - 01/08/2018 SUSAN FOURNIER MD: HUONG MIRZA MD ACCT: [id number] ADMIT/SERVICE DATE: 01/07/18 DISCHARGE DATE: : 1945 PT TYPE: ADM IN SEX: F ORD SITE: [facility] TEST DATE: 2018-01-07 PAT NAME: SUSAN FOURNIER DEPARTMENT: CARD 85 ROOM: 01 GENDER: FEMALE GRANTS MANAGER: : 1945 REQUESTED BY: HUONG MURPHY ORDER NUMBER: [id number] QUINTON MD: HUONG MCKEON MEASUREMENTS INTERVALS AXIS RATE: 80 P: 85 AK: 216 QRS: 45 QRSD: 103 T: -75 QT: 383 QTC: 442 INTERPRETIVE STATEMENTS SINUS RHYTHM WITH FIRST DEGREE AV BLOCK INCOMPLETE RIGHT BUNDLE BRANCH BLOCK [90+ MS QRS DURATION, TERMINAL R IN V1/V2, 40+ MS S IN I/AVL/V4/V5/V6] ST DEVIATION AND MODERATE T-WAVE ABNORMALITY, CONSIDER ANTEROLATERALISCHEMIA [-0.1+ MV T-WAVE IN V3-V6] ST DEVIATION AND MODERATE T-WAVE ABNORMALITY, CONSIDER INFERIOR ISCHEMIA [-0.1+ MV T-WAVE IN II/AVF] NO PREVIOUS ECG AVAILABLE FOR COMPARISON ELECTRONICALLY SIGNED BY HUONG MCKEON AT 01-08-2018 7:09:14 MEDICAL REVIEWER us Huong Mirza MD [facility]COM[facility] Final Result [facility] RAD documented in this encounter Visit Diagnoses Not on filedocumented in this encounter
--- OUTSIDE RECORDS SUMMARY | 2024-02-20 19:42 | XMS_ITS | Encounter Summary ---
Author Organization [facility] Address [address] [place] [address]. [place], [place] [address] [place] [address] Care Team Providers Care Electromechanical Equipment Tester Name Role Phone Unavailable Primary Care Provider Unavailabl e Encounter Details Date Type Department Care Team (Late st Contact Info) Description 06/19/1994 Abstract [facility] CONVERSION [id number] [address] [place] [id number] , Generic Conversion, Social History Tobacco Use Types Packs/Day Years Used Date Smoking Tobacco: Never Assessed Comments Unknown Sex and Gender Information Value Date Recorded Sex Assigned at Not on file Legal Sex Female 4:45 PM CDT Gender Identity Not on file Sexual Orientation Not on file documented as of this encounter Plan of Treatment Not on file documented as of this encounter Visit Diagnoses Not on filedocumented in this encounter
--- OUTSIDE RECORDS SUMMARY | 2024-02-20 19:42 | XMS_ITS | Encounter Summary ---
Author Organization [facility] Address [address] [place] [address]. [place], [place] [address] [place] [address] Care Team Providers Care Hall Cleaner Name Role Phone Unavailable Primary Care Provider Unavailabl e Encounter Details Date Type Department Care Team (Late st Contact Info) Description 02/18/2018 [facility] at [address] [address] Scanned, Documents Social History Tobacco Use Types Packs/Day Years [...]
--- OUTSIDE RECORDS SUMMARY | 2024-02-20 19:42 | XMS_ITS | Encounter Summary ---
Author Organization [facility] Address [address] [place] [address]. [place], [place] [address] [place] [address] Care Team Providers Care Dump Worker Name Role Phone Unavailable Primary Care Provider Unavailabl e Encounter Details Date Type Department Care Team (Late st Contact Info) Description 06/04/1995 Abstract [facility] CONVERSION [id number] [address] [place] [phone] , Generic Conversion, Social History Tobacco Use [...]
--- OUTSIDE RECORDS SUMMARY | 2024-02-20 19:42 | XMS_ITS | Encounter Summary ---
Author Organization [facility] Address [address] [facility] [place] [address] Care Team Providers Care Supervisor Rod Placing Name Role Phone Unavailable Primary Care Provider Unavailabl e Encounter Details Date Type Department Care Team (Latest Contact Info) Description 03/30/2013 Hospital Outpatient Visit [facility], [facility] OUTPATIENT SERVICES [address] [place] [phone] ProviderGina MD Discharge Disposition: Home or Self Care Social History Tobacco Use Types Packs/Day Years Used Date Smoking Tobacco: Never Assessed Sex and Gender Information Value Date Recorded Sex Assigned at Not on file Gender Identity Not on file Sexual Orientation Not on file documented as of this encounter Plan of Treatment Not on file documented as of this encounter Visit Diagnoses Not on filedocumented in this encounter
--- OUTSIDE RECORDS SUMMARY | 2024-02-20 19:42 | XMS_ITS | Patient Health Summary ---
Author Organization [facility] Address [address] [place] [address] Care Team Providers Care Garbage Collector Supervisor Name Role Phone Tee Kim Primary Care Provider Note from [facility],non-owned Affiliates and Associated Physician Practices is amultiple site organization consisting of ambulatory clinics and hospital sitesin [place], [place], [place] and [place]. This disclosure is being madepursuant to the Care Everywhere program and may not contain all information available regarding this patient. Last updated 17.[facility] Allergies No known active allergies Medications * Be aware that medications may not be up to date on this document. Alwaysverify current medications with the patient. * HYDROcodone-acetaminophen (NORCO) 10-325 MG tablet(Started 12/03/2020) * apixaban (ELIQUIS) 5 MG tablet(Started 01/01/2021) Take 1 (one) tablet by mouth 2 times daily * buPROPion (WELLBUTRIN) 75 MG tablet(Started 01/01/2021) Take 1 (one) tablet by mouth 2 times daily * atorvastatin (LIPITOR) 40 MG tablet(Started 01/01/2021) Take 1 (one) tablet by mouth at bedtime * metoprolol tartrate (LOPRESSOR) 25 MG tablet(Started 01/01/2021) Take 1 (one) tablet by mouth 2 times daily Active Problems Problem Noted Date Diagnosed Date [...] Comments Blood Pressure 119/73 01/02/2021 8:23 AM SUPPLIER SPECIALIST Pulse 78 01/02/2021 8:23 AM SUPPLIER SPECIALIST Temperature 36.4 ??C (97.6 ??F) 01/02/2021 8:23 AM CS T Respiratory Rate 16 01/02/2021 8:23 AM SUPPLIER SPECIALIST Oxygen Saturation 100% 01/02/2021 8:23 AM SUPPLIER SPECIALIST Inhaled Oxygen Concentration 21% 12/30/2020 6 :00 AM SUPPLIER SPECIALIST Weight 53 kg (116 lb 13.5 oz) 12/31/2020 4:00 AM SUPPLIER SPECIALIST Height 157.5 cm (5' 2 ) 12/30/2020 4:42 AM SUPPLIER SPECIALIST Body Mass Index 21.37 12/30/2020 4:42 AM SUPPLIER SPECIALIST Procedures * PHOSPHORUS BLOOD(Performed 01/02/2021) * MAGNESIUM BLOOD(Performed 01/02/2021) * CBC W/O DIFFERENTIAL(Performed 01/02/2021) * BASIC METABOLIC PANEL (CALCIUM TOTAL)(Performed 01/02/2021) * PHOSPHORUS BLOOD(Performed 01/01/2021) * MAGNESIUM BLOOD(Performed 01/01/2021) * CBC W/O DIFFERENTIAL(Performed 01/01/2021) * BASIC METABOLIC PANEL (CALCIUM TOTAL)(Performed 01/01/2021) * GLUCOSE - POINT OF CARE(Performed 12/31/2020) * CARDIAC EKG ORDER(Performed 12/31/2020) * ECHO COMPLETE W BUBBLE STUDY(Performed 12/31/2020) Performed for Aphasia * GLUCOSE - POINT OF CARE(Performed 12/31/2020) * GLUCOSE - POINT OF CARE(Performed 12/31/2020) * FL SWALLOWING FUNCTION STUDY(Performed 12/31/2020) Performed for Dysphagia, unspecified type * GLUCOSE - POINT OF CARE(Performed 12/31/2020) * PHOSPHORUS BLOOD(Performed 12/30/2020) * MAGNESIUM BLOOD(Performed 12/30/2020) * CBC W/O DIFFERENTIAL(Performed 12/30/2020) * BASIC METABOLIC PANEL (CALCIUM TOTAL)(Performed 12/30/2020) * GLUCOSE - POINT OF CARE(Performed 12/30/2020) * GLUCOSE - POINT OF CARE(Performed 12/30/2020) * MRI BRAIN WO CONTRAST(Performed 12/30/2020) Performed for Cerebrovascular accident (CVA), unspecified mechanism (HCC) * GLUCOSE - POINT OF CARE(Performed 12/30/2020) * GLUCOSE - POINT OF CARE(Performed 12/30/2020) * PHOSPHORUS BLOOD(Performed 12/29/2020) * MAGNESIUM BLOOD(Performed 12/29/2020) * CBC W/O DIFFERENTIAL(Performed 12/29/2020) * BASIC METABOLIC PANEL (CALCIUM TOTAL)(Performed 12/29/2020) * GLUCOSE - POINT OF CARE(Performed 12/29/2020) * URINE DRUG SCREEN IMMUNOASSAY(Performed 12/29/2020) * URINALYSIS REFLEX MICROSCOPIC REFLEX CULTURE(Performed 12/29/2020) * TROPONIN I(Performed 12/29/2020) * XR PELVIS 1 OR 2VW(Performed 12/29/2020) Performed for Cerebrovascular accident (CVA), unspecified mechanism (HCC) * XR ABDOMEN KUB PORTABLE(Performed 12/29/2020) Performed for Cerebrovascular accident (CVA), unspecified mechanism (HCC) * BLOOD TYPE VERIFICATION(Performed 12/29/2020) * TROPONIN I(Performed 12/29/2020) * LIPID PROFILE(Performed 12/29/2020) * HEMOGLOBIN A1C(Performed 12/29/2020) * XR CHEST 1VW PORTABLE(Performed 12/29/2020) Performed for Aphasia * EKG 12-LEAD(Performed 12/29/2020) Performed for Weakness * TYPE + SCREEN PANEL(Performed 12/29/2020) * TROPONIN I(Performed 12/29/2020) * PT-INR [facility](Performed 12/29/2020) * COMPREHENSIVE METABOLIC PANEL(Performed 12/29/2020) * CBC W AUTO DIFFERENTIAL(Performed 12/29/2020) * INR WHOLE BLOOD - POINT OF CARE (IP) STROKE(Performed 12/29/2020) * CREATININE - POCT INTERFACED(Performed 12/29/2020) * CT ANGIO BRAIN NECK STROKE(Performed 12/29/2020) Performed for Weakness * CT BRAIN STROKE(Performed 12/29/2020) Performed for Weakness * MRI BREAST BILAT WWO CONTRAST(Performed 03/30/2013) Results * (ABNORMAL) CBC W/O DIFFERENTIAL (01/02/2021 5:34 AM SUPPLIER SPECIALIST) Only the most recent of4 resultswithin the time period is included. WBC 7.6 3.5 - 10.5 10? 3 /uL 01/02/2021 6:17 AM [facility] RBC 4.49 3.80 - 5.20 10? 6 /uL 01/02/2021 6:17 AM [facility] Hemoglobin 12.0 12.0 - 15.6 g/dL 01/02/2021 6:17 AM [facility] Hematocrit 39.1 35.0 - 45.0 % 01/02/2021 6:17 AM [facility] MCV 87.1 80.7 - 98.3 fL 01/02/2021 6:17 AM [facility] MCH 26.7 26.7 - 34.0 pg 01/02/2021 6:17 AM [facility] MCHC 30.7(L) 30.8 - 35.9 g/dL 01/02/2021 6:17 AM [facility] Platelet Count 289 150 - 400 10? 3 /uL 01/02/2021 6:17 AM [facility] RDW-SD 50.6(H) 36.0 - 50.0 fL 01/02/2021 6:17 AM [facility] RDW-CV 15.9(H) 11.2 - 14.8 % 01/02/2021 6:17 AM [facility] MPV 9.1(L) 9.4 - 12.9 fL 01/02/2021 6:17 AM [facility] nRBC Absolute 0.00 0 10? 3 /uL 01/02/2021 6:17 AM [facility] nRBC Auto 0.0 0 /100 WBC 01/02/2021 6:17 AM [facility] Blood BLOOD SPECIMEN / Unknown Lab Venipuncture / Unknown 01/02/2021 5:34 AM SUPPLIER SPECIALIST 01/02/2021 5:56 AM SUPPLIER SPECIALIST Steffen Winchester DO LAB - HEMATOLOGY O RDERABLES [facility] [address] [place] [address], [facility] [phone] * (ABNORMAL) BASIC METABOLIC PANEL (CALCIUM TOTAL) (01/02/2021 5:34 AM [facility]) Only the most recent of4 resultswithin the time period is included. BUN 18 7 - 26 mg/dL 01/02/2021 6:21 AM [facility] Creatinine 0.88 0.56 - 0.96 mg/dL 01/02/2021 6:21 AM [facility] Sodium 139 136 - 145 mmol/L 01/02/2021 6:21 AM [facility] Potassium 3.9 3.5 - 4.5 mmol/L 01/02/2021 6:21 AM [facility] Chloride 110(H) 98 - 107 mmol/L 01/02/2021 6:21 AM [facility] CO2 17(L) 22 - 29 mmol/L 01/02/2021 6:21 AM [facility] Glucose 84 70 - 115 mg/dL 01/02/2021 6:21 AM [facility] Calcium 8.3(L) 8.4 - 10.2 mg/dL 01/02/2021 6:21 AM [facility] Anion Gap 16 8 - 18 01/02/2021 6:21 AM [facility] BUN/Creatinine Ratio 20 7 - 23 01/02/2021 6:21 AM [facility] Osmolality Calculated 289 270 - 300 mOsm/kg 01/02/2021 6:21 AM SUPPLIER SPECIALIST [facility] eGFR by CKD-EPI 65(L) >=90 mL/min/1.7 3 m2 01/02/2021 6:21 AM SUPPLIER SPECIALIST [facility] Blood BLOOD SPECIMEN / Unknown Lab Venipuncture / Unknown 01/02/2021 5:34 AM SUPPLIER SPECIALIST 01/02/2021 5:55 AM SUPPLIER SPECIALIST Steffen Winchester DO LAB - CHEMISTRY OR DERABLES Performing Organization Address City/[facility]/ZIP Co de Phone Number [address] [address], [facility] [phone] * (ABNORMAL) PHOSPHORUS BLOOD (01/02/2021 5:34 AM SUPPLIER SPECIALIST) Only the most recent of4 resultswithin the time period is included. Phosphorus 1.9(L) 2.9 - 5.1 mg/dL 01/02/2021 6:21 AM SUPPLIER SPECIALIST [facility] Blood BLOOD SPECIMEN / Unknown Lab Venipuncture / Unknown 01/02/2021 5:34 AM SUPPLIER SPECIALIST 01/02/2021 5:55 AM SUPPLIER SPECIALIST Nimco John MD LAB - CHEMISTRY ORDScott LUNA Performing Organization Address [facility] Co de Phone Number [address] [address], [place] [phone] * MAGNESIUM BLOOD (01/02/2021 5:34 AM SUPPLIER SPECIALIST) Only the most recent of4 resultswithin the time period is included. Magnesium 1.9 1.6 - 2.6 mg/dL 01/02/2021 6:21 AM SUPPLIER SPECIALIST [facility] Blood BLOOD SPECIMEN / Unknown Lab Venipuncture / Unknown 01/02/2021 5:34 AM SUPPLIER SPECIALIST 01/02/2021 5:55 AM SUPPLIER SPECIALIST Nimco John MD LAB - CHEMISTRY ARIC LUNA Performing Organization Address [facility]/ZIP Co de Phone Number [address] [address], [facility] [phone] * (ABNORMAL) GLUCOSE - POINT OF CARE (12/31/2020 4:08 PM SUPPLIER SPECIALIST) Only the most recent of9 resultswithin the time period is included. Glucose WB/POC 145(H) 70 - 115 mg/dL 12/31/2020 4:12 PM SUPPLIER SPECIALIST [facility] Specimen Type Cap Fingerstick 2020 4:12 PM SUPPLIER SPECIALIST [facility] Blood BLOOD SPECIMEN / Unknown 12/31/2020 4:08 PM SUPPLIER SPECIALIST 12/31/2020 4:12 PM SUPPLIER SPECIALIST Froy Koch MD LAB - POINT OF CARE ORDERABLES [facility] [address] [place] [address], [facility] [phone] * CARDIAC EKG ORDER (12/31/2020 2:38 PM SUPPLIER SPECIALIST) Narrative 12/31/2020 2:38 PM SUPPLIER SPECIALIST Ordered by an unspecified provider. Scanned Document CARDIAC SERVICES ORD ERABLES * ECHO COMPLETE W BUBBLE STUDY (12/31/2020 2:01 PM SUPPLIER SPECIALIST) Anatomical Region Laterality Modality Chest Echo 12/31/2020 1:02 PM SUPPLIER SPECIALIST Narrative Procedure Note Madelyn Mello MD - 12/31/2020 Steffen Winchester DO ECHOCARDIOGRAPHY R ADIANT * FL SWALLOWING FUNCTION STUDY (12/31/2020 9:39 AM SUPPLIER SPECIALIST) Anatomical Region Laterality Modality Chest Radiographic Cristina ging 12/31/2020 9:26 AM SUPPLIER SPECIALIST Impressions 12/31/2020 6:00 PM SUPPLIER SPECIALIST FINDINGS/IMPRESSION: Fluoroscopic assistance was provided for a procedure performed by Speech Therapy. ??Please see the separate report by Speech Therapy for further details. Fluoroscopy Time: 137 seconds Report drafted by Ellie Ace MD (Special Effects Person). I, Dr. GABBY LLOYD have personally reviewed and interpreted this examination/study. This report was electronically signed by GABBY LLOYD ??on 12/31/2020 6:00 PM . Narrative 12/31/2020 6:00 PM SUPPLIER SPECIALIST EXAMINATION: FL SWALLOWING FUNCTION STUDY HISTORY: R13.10: Dysphagia, unspecified type Procedure Note Gabby Lloyd MD - 12/31/2020 EXAMINATION: FL SWALLOWING FUNCTION STUDY HISTORY: R13.10: Dysphagia, unspecified type FINDINGS/IMPRESSION: Fluoroscopic assistance was provided for a procedure performed by Speech Therapy. Please see the separate report by Speech Therapy for further details. Fluoroscopy Time: 137 seconds Report drafted by Ellie Ace MD (Special Effects Person). I, Dr. GABBY LLOYD have personally reviewed and interpreted this examination/study. This report was electronically signed by GABBY LLOYD on 12/31/2020 6:00 PM . Froy Koch MD FLUOROSCOPY ORDERABL ES * MRI BRAIN WO CONTRAST (12/30/2020 3:28 PM SUPPLIER SPECIALIST) Anatomical Region Laterality Modality Head Magnetic Resonan ce 12/30/2020 8:10 PM SUPPLIER SPECIALIST Impressions 12/30/2020 8:23 PM SUPPLIER SPECIALIST IMPRESSION: 1. 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 2. No associated significant mass effect or midline shift is identified. 3. 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 Preliminary results were discussed with Dr. Andrade by Dr. Randhawa on 12/30/2020 at 3:54 PM This report was electronically signed by AKIL MAC ??on 12/30/2020 8:23 PM . Narrative 12/30/2020 8:23 PM SUPPLIER SPECIALIST EXAMINATION: MRI OF THE BRAIN WITHOUT CONTRAST HISTORY: I63.9: Cerebrovascular accident (CVA), unspecified mechanism COMPARISON: CT head without contrast, CT angiography brain, 12/29/2020. TECHNIQUE: MRI of the brain was performed without contrast according to standard protocol. FINDINGS: Acute synchronous ischemic infarctions of left frontal cortex in precentral gyrus, left parietal cortex in postcentral gyrus (series 2, image 42-44; series 3, image 18-20) punctate small subcortical infarctions of the posterior left parietal centrum semiovale (series 2, image 41; series 3, image 17), left temporal cortex (series 2, image 38; series 3, image 14) are present associated with T2 FLAIR hyperintensity. There is no evidence of hemorrhagic transformation. 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 No evidence of acute or chronic hemorrhage is identified. The ventricles are nondilated. A cavum septum pellucidum et vergae is present. There is mild generalized cerebral atrophy. No mass or midline shift is seen. Periventricular, subcortical, and pontine white matter FLAIR hyperintensities likely represent sequelae of chronic small vessel ischemic disease. The corpus callosum and sella appear normal. The posterior fossa, brainstem, and craniocervical junction appear normal. Other than bilateral cataract extractions, the orbital contents are normal and symmetric. The paranasal sinuses and mastoid air cells are clear. Normal flow voids are demonstrated in the carotid arteries and basilar artery. The calvarium appears normal. The postsurgical changes of anterior and posterior fusion of cervical spine are partially imaged. Procedure Note Akil Mac MD - 12/30/2020 EXAMINATION: MRI OF THE BRAIN WITHOUT CONTRAST HISTORY: I63.9: Cerebrovascular accident (CVA), unspecified mechanism COMPARISON: CT head without contrast, CT angiography brain, 12/29/2020. TECHNIQUE: MRI of the brain was performed without contrast according to standard protocol. FINDINGS: Acute synchronous ischemic infarctions of left frontal cortex in precentral gyrus, left parietal cortex in postcentral gyrus (series 2, image 42-44; series 3, image 18-20) punctate small subcorticalinfarctions of the posterior left parietal centrum semiovale (series 2, image 41; series 3, image 17), left temporal cortex (series 2, image 38; series 3, image 14) are present associated with T2 FLAIR hyperintensity. There isno evidence of hemorrhagic transformation. 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 No evidence of acute or chronic hemorrhage is identified. The ventricles are nondilated. A cavum septum pellucidum et vergae is present. There is mild generalized cerebral atrophy. No mass or midline shift is seen. Periventricular, subcortical, and pontine white matter FLAIR hyperintensities likely represent sequelae of chronic small vessel ischemic disease. The corpus callosum and sella appear normal. The posterior fossa, brainstem, and craniocervical junction appear normal. Other than bilateral cataract extractions, the orbital contents arenormal and symmetric. The paranasal sinuses and mastoid air cells are clear. Normal flow voids are demonstrated in the carotid arteries and basilar artery. The calvarium appears normal. The postsurgical changes ofanterior and posterior fusion of cervical spine are partially imaged. IMPRESSION: 1. 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 2. No associated significant mass effect or midline shift is identified. 3. 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 Preliminary results were discussed with Dr. Andrade by Dr. Randhawa on 12/30/2020 at 3:54 PM This report was electronically signed by AKIL MAC on 18:23 PM . Nimco John MD MR ORDERABLES * (ABNORMAL) URINALYSIS REFLEX MICROSCOPIC REFLEX CULTURE (12/29/2020 10:36 PM SUPPLIER SPECIALIST) Color UA Yellow Straw, Yellow 12/29/2020 10:50 PM [facility] Clarity UA Clear Clear 12/29/2020 10:50 PM [facility] Specific [place] UA 1.042(H) 1.005 - 1.030 12/29/2020 10:50 PM [facility] pH UA 7.0 5.0 - 8.0 pH 12/29/2020 10:50 PM [facility] Protein UA Negative Negative 12/29/2020 10:50 PM [facility] Glucose UA Negative Negative 12/29/2020 10:50 PM [facility] Ketone UA 1+(A) Negative 12/29/2020 10:50 PM [facility] Bilirubin UA Negative Negative 12/29/2020 10:50 PM [facility] Blood UA Negative Negative 12/29/2020 10:50 PM [facility] Nitrite UA Negative Negative 12/29/2020 10:50 PM [facility] Leukocyte Esterase Negative Negative 12/29/2020 10:50 PM [facility] Urobilinogen UA Negative Negative mg/dL 12/29/2020 10:50 PM [facility] Comment UA Microscopic not indicated. 12/29/2020 10:50 PM [facility] Urine URINE SPECIMEN OBTAINED BY CLEAN CATCH PROCEDURE / Unknown Collection / Unknown 12/29/2020 10:36 PM SUPPLIER SPECIALIST 12/29/2020 10:42 PM SUPPLIER SPECIALIST [facility] - 12/29/2020 10:50 PM SUPPLIER SPECIALIST Froy Koch MD LAB - URINALYSIS ORD ERABLES [facility] [address] [place] [id number], [facility] [phone] * (ABNORMAL) URINE DRUG SCREEN IMMUNOASSAY (12/29/2020 10:36 PM SUPPLIER SPECIALIST) [facility] Amphetamines Screen Urine Negative Negative : < 1000 ng/mL 12/29/2020 11:00 PM [facility] Barbiturates Screen Urine Negative Negative : < 200 ng/mL 12/29/2020 11:00 PM [facility] Benzodiazepine Screen Urine Negative Negative : < 200 ng/mL 12/29/2020 11:00 PM [facility] Opiates Urine Positive(A) Negative : < 300 ng/mL 12/29/2020 11:00 PM [facility] Comment:Positive urine opiat e screening results should be confirmed by another generally accepted non-immunological method such as gas chromatography or mass spectrometry. Cocaine Metabolites Urine Negative Negative : < 300 ng/mL 12/29/2020 11:00 PM [facility] Phencyclidine Screen Urine Negative Negative : < 25 ng/ml 12/29/2020 11:00 PM [facility] Cannabinoids Screen Urine Negative Negative : <50 ng/mL 12/29/2020 11:00 PM [facility] Methadone Screen Urine Negative Negative : < 300 ng/mL 12/29/2020 11:00 PM [facility] Fentanyl Screen Urine Negative Negative : <1.0 ng/mL 12/29/2020 11:00 PM SUPPLIER SPECIALIST [facility] Urine URINE / Unknown Collection / Unknown 12/29/2020 10:36 PM SUPPLIER SPECIALIST 12/29/2020 10:47 PM SUPPLIER SPECIALIST Narrative [facility] - 12/29/2020 11:00 PM SUPPLIER SPECIALIST The Urine Toxicology Screening Panel does not screen for Propoxyphene, Meprobamate, Carisoprodol, Trazodone, [id number]-odgydng medications and/or volatiles (Acetone, Isopropanol, Methanol or Ethylene Glycol). Ethanol, Salicylate, Acetaminophen, Tricyclic Antidepressants and several therapeutic drugs may be individually assayed in serum or plasma specimen. Toxicology testing by the [facility] is an aid to medical diagnosis and treatment of patients. No documented chain of custody was maintained. Results are intended to be used for clinical purposes only. ? Froy Koch MD LAB - URINE CHEMISTR Y ORDERABLES Performing Organization Address [facility] Co de Phone Number [facility] [address] [place] [phone], [facility] [phone] * TROPONIN I (12/29/2020 10:25 PM SUPPLIER SPECIALIST) Only the most recent of3 resultswithin the time period is included. Troponin I <0.010 <0.032 ng/mL 12/29/2020 10:57 PM SUPPLIER SPECIALIST [facility] Blood BLOOD SPECIMEN / Unknown Venipuncture / Unknown 12/29/2020 10:25 PM SUPPLIER SPECIALIST 12/29/2020 10:28 PM SUPPLIER SPECIALIST Steffen Winchester DO LAB - CHEMISTRY OR DERABLES [place] [address] [place] [address], [facility] [phone] * XR PELVIS 1 OR 2VW (12/29/2020 8:13 PM SUPPLIER SPECIALIST) Anatomical Region Laterality Modality Pelvis Radiographic Cristina ging 12/30/2020 8:32 AM SUPPLIER SPECIALIST Impressions 12/30/2020 12:30 PM SUPPLIER SPECIALIST IMPRESSION: No evidence of bowel obstruction. No acute osseous injury of the pelvis. Dictated by Timmy Hollis MD (administration vice president). I, Dr. RAO GUILLEN MD have personally reviewed and interpreted this examination/study. This report was electronically signed by RAO GUILLEN MD ??on 12/30/2020 12:30 PM . Narrative 12/30/2020 12:30 PM SUPPLIER SPECIALIST EXAMINATION: XR ABDOMEN KUB PORTABLE, XR PELVIS 1 OR 2VW HISTORY: I63.9: Cerebrovascular accident (CVA), unspecified mechanism COMPARISON: None FINDINGS: ABDOMEN: Contrast opacifies portions of the bilateral renal collecting systems, left ureter, and the bladder. There are no abnormally dilated bowel loops. No pathological calcification is seen. 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 PELVIS: No acute osseous injury is seen. The pubic symphysis is intact. Degenerative changes and levoscoliosis of the lumbar spine are seen. Procedure Note Rao Guillen MD - 12/30/2020 EXAMINATION: XR ABDOMEN KUB PORTABLE, XR PELVIS 1 OR 2VW HISTORY: I63.9: Cerebrovascular accident (CVA), unspecified mechanism COMPARISON: None FINDINGS: ABDOMEN: Contrast opacifies portions of the bilateral renal collecting systems, left ureter, and the bladder. There are no abnormally dilated bowel loops. No pathologicalcalcification is seen. 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 PELVIS: No acute osseous injury is seen. The pubic symphysis is intact. Degenerative changes and levoscoliosis of the lumbar spine are seen. IMPRESSION: No evidence of bowel obstruction. No acute osseous injury of the pelvis. Dictated by Timmy Hollis MD (administration vice president). Dr. RAO Washington MD have personally reviewed and interpreted this examination/study. This report was electronically signed by RAO GUILLEN MD on12/30/2020 12:30 PM . Froy Koch MD DIAGNOSTIC IMAGING O RDERABLES * XR ABDOMEN KUB PORTABLE (12/29/2020 8:13 PM SUPPLIER SPECIALIST) Anatomical Region Laterality Modality Abdomen Radiographic Cristina ging 12/30/2020 8:32 AM SUPPLIER SPECIALIST Impressions 12/30/2020 12:30 PM SUPPLIER SPECIALIST IMPRESSION: No evidence of bowel obstruction. No acute osseous injury of the pelvis. Dictated by Timmy Hollis MD (administration vice president). Dr. RAO Washington MD have personally reviewed and interpreted this examination/study. This report was electronically signed by RAO GUILLEN MD ??on 12/30/2020 12:30 PM . Narrative 12/30/2020 12:30 PM SUPPLIER SPECIALIST EXAMINATION: XR ABDOMEN KUB PORTABLE, XR PELVIS 1 OR 2VW HISTORY: I63.9: Cerebrovascular accident (CVA), unspecified mechanism COMPARISON: None FINDINGS: ABDOMEN: Contrast opacifies portions of the bilateral renal collecting systems, left ureter, and the bladder. There are no abnormally dilated bowel loops. No pathological calcification is seen. 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 PELVIS: No acute osseous injury is seen. The pubic symphysis is intact. Degenerative changes and levoscoliosis of the lumbar spine are seen. Procedure Note Rao Guillen MD - 12/30/2020 EXAMINATION: XR ABDOMEN KUB PORTABLE, XR PELVIS 1 OR 2VW HISTORY: I63.9: Cerebrovascular accident (CVA), unspecified mechanism COMPARISON: None FINDINGS: ABDOMEN: Contrast opacifies portions of the bilateral renal collecting systems, left ureter, and the bladder. There are no abnormally dilated bowel loops. No pathologicalcalcification is seen. 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 PELVIS: No acute osseous injury is seen. The pubic symphysis is intact. Degenerative changes and levoscoliosis of the lumbar spine are seen. IMPRESSION: No evidence of bowel obstruction. No acute osseous injury of the pelvis. Dictated by Timmy Hollis MD (administration vice president). I, Dr. RAO GUILLEN MD have personally reviewed and interpreted this examination/study. This report was electronically signed by RAO GUILLEN MD on12/30/2020 12:30 PM . Froy Koch MD DIAGNOSTIC IMAGING O RDERABLES * BLOOD TYPE VERIFICATION (12/29/2020 7:15 PM SUPPLIER SPECIALIST) ABO Rh O NEG 12/29/2020 7:4 2 PM SUPPLIER SPECIALIST [facility] BLOOD BANK LAB Blood Bank BLOOD SPECIMEN / Unknown Venipuncture / Unknown 12/29/2020 7:15 PM SUPPLIER SPECIALIST 12/29/2020 7:18 PM SUPPLIER SPECIALIST Martín Fam MD LAB - BLOOD BANK ORD ERABLES [facility] BLOOD BANK LAB [address] [place] [address], [facility] [phone] * HEMOGLOBIN A1C (12/29/2020 7:15 PM SUPPLIER SPECIALIST) Hemoglobin A1c 5.7 4.4 - 6.3 % 12/30/2020 12:44 PM [facility] Comment:Hemoglobin variant d etected. Abnormal hemoglobin may not form glycated product at the same rate as hemoglobin A and/or hemoglobin variant may interfere with the accurate measurement of HbA1C. Consider measurement of HbA1C by alternative method. Recommend hemoglobin electrophoresis to evaluate the variant hemoglobin if clinically indicated. Estimated Average Glucose 117 mg/dL 12/30/2020 12:44 PM [facility] LABORATORY [facility] Comment: HbA1c Interpretation: Treatment target values recommended by ADA and other clinical organizations should be used to evaluate metabolic control in patients. Treatment Target Values: Normal : < 5.7% Pre-diabetes: 5.7-6.4% Diabetes: Equal to or greater than 6.5% Reference: [place] [employer] Standards of Care in Diabetes -2014 In patients 70 years and older consider HbA1c target range of 7.0-7.5% Reference: ??Diabetes Mellitus in Older People: Position Statement on behalf of the International Association of Gerontology and Geriatrics (IAGG), the Diabetes Working Green Party for Older People (EDWPOP), and the International Task Force of Experts in Diabetes. ??Rajesh Carl et al. J [place] [employer]. 2012 Test results diagnostic of diabetes should be repeated for confirmation. The Sebia Capillary 2 assay for the measurement of HbA1c is a National Glycohemoglobin Standardization Program (NGSP)certified method. Blood BLOOD SPECIMEN / Unknown Venipuncture / Unknown 12/29/2020 7:15 PM SUPPLIER SPECIALIST 12/29/2020 7:20 PM SUPPLIER SPECIALIST Steffen Winchester DO LAB - CHEMISTRY OR DERABLES [facility] [address] [place] [phone], [facility] [phone] * LIPID PROFILE (12/29/2020 7:15 PM SUPPLIER SPECIALIST) Cholesterol Total 161 <200 mg/dL 12/29/2020 7:43 PM [facility] HDL 57 >40 mg/dL 12/29/2020 7:43 PM [facility] Comment: ATP III Classification of HDL Cholesterol: ? <40 mg/dL: ??Considered a major risk factor. ? >60 mg/dL: ??Considered a negative risk factor. ? LDL Calculated 95 <100 mg/dL 12/29/2020 7:43 PM [facility] Comment: ATP III Classification of LDL Cholesterol: ?<100 mg/dL: ??Optimal ? 100 - 129 mg/dL: ??Near Optimal/Above Optimal ? 130 - 159 mg/dL: ??Borderline High ? 160 - 189 mg/dL: ??High ?>190 mg/dL: ??Very High ? Triglycerides 47 <150 mg/dL 12/29/2020 7:43 PM SUPPLIER SPECIALIST [facility] Comment: ATP III Classification of Triglycerides: ?<150 mg/dL: ??Normal ? 150 - 199 mg/dL: ??Borderline High ? 200 - 400 mg/dL: ??High ?>500 mg/dL: ??Very High Blood BLOOD SPECIMEN / Unknown Venipuncture / Unknown 12/29/2020 7:15 PM SUPPLIER SPECIALIST 12/29/2020 7:19 PM SUPPLIER SPECIALIST Steffen Winchester DO LAB - CHEMISTRY OR DERABLES [facility] [address] [place] [address], [facility] [phone] * XR CHEST 1VW PORTABLE (12/29/2020 3:33 PM SUPPLIER SPECIALIST) Anatomical Region Laterality Modality Chest Radiographic Cristina ging 12/29/2020 3:26 PM SUPPLIER SPECIALIST Impressions 12/31/2020 1:21 PM SUPPLIER SPECIALIST FINDINGS/IMPRESSION: *Cervical thoracic spinal fusion hardware is partially visualized. Rounded airspace opacity in the right peripheral midlung zone. There is no focal consolidation, pleural effusion, or pneumothorax. The cardiomediastinal silhouette is normal. Degenerative changes are noted in the shoulders. No acute osseous injury. Dictated by Nelson Cordero MD (administration vice president). I, Dr. RAO GUILLEN MD have personally reviewed and interpreted this examination/study. This report was electronically signed by RAO GUILLEN MD ??on 12/31/2020 1:21 PM . Narrative 12/31/2020 1:21 PM SUPPLIER SPECIALIST EXAMINATION: XR CHEST 1VW PORTABLE HISTORY: R47.01: Aphasia COMPARISON: No prior study is available for comparison. Procedure Note Rao Guillen MD - 12/31/2020 EXAMINATION: XR CHEST 1VW PORTABLE HISTORY: R47.01: Aphasia COMPARISON: No prior study is available for comparison. FINDINGS/IMPRESSION: *Cervical thoracic spinal fusion hardware is partially visualized. Rounded airspace opacity in the right peripheral midlung zone. There isno focal consolidation, pleural effusion, or pneumothorax. The cardiomediastinal silhouette is normal. Degenerative changes are notedin the shoulders. No acute osseous injury. Dictated by Nelson Cordero MD (administration vice president). I, Dr. RAO GUILLEN MD have personally reviewed and interpreted this examination/study. This report was electronically signed by RAO GUILLEN MD on12/31/2020 1:21 PM . Qamargunnar Eldridge Ranulfo DO DIAGNOSTIC IMAGING ORDERABLES * EKG 12-LEAD (12/29/2020 2:46 PM SUPPLIER SPECIALIST) Ventricular Rate 84 BPM [facility] MUSE QRS Duration ms 86 ms [facility] MUSE Q-T Interval ms 376 ms [facility] MUSE QTC Calculation (Bezet) 444 ms [facility] MUSE Calculated R [place] 2 degrees SL MUSE Calculated T [place] -88 degrees [facility] MUSE Interpretation EKG ATRIAL FIBRILLATION WITH A COMPETING JUNCTIONAL PACEMAKER ST & T WAVE ABNORMALITY, CONSIDER INFEROLATERAL ISCHEMIA ABNORMAL ECG Confirmed by Mauro Collazo ([id number]) on 01/01/2021 4:47:57 PM [facility] MUSE 12/29/2020 2:46 PM SUPPLIER SPECIALIST 01/01/2021 4:47 PM SUPPLIER SPECIALIST Qamargunnar Eldridge Hemaljasmyn DO ECG ORDERABLES [facility] MUSE * PT-INR [facility] (12/29/2020 2:30 PM SUPPLIER SPECIALIST) Pathologist [facility] PT 12.2 12.1 - 14.8 Seconds 12/29/2020 2:46 PM SUPPLIER SPECIALIST [facility] INR 0.9 See Comment 12/29/2020 2:46 PM SUPPLIER SPECIALIST [facility] Comment:The suggested therap eutic range for standard coumadin (warfarin) therapy is an INR of 2.0-3.0. For high-risk patients (Mechanical Mitral Valve Prosthesis, etc.), the suggested prophylactic therapeutic range is an INR of 2.5-3.5. Blood BLOOD SPECIMEN / Unknown Venipuncture / Unknown 12/29/2020 2:30 PM SUPPLIER SPECIALIST 12/29/2020 2:32 PM SUPPLIER SPECIALIST Steffen Winchester DO LAB - COAGULATION ORDERABLES Performing Organization Address City/[facility]/ZIP Co de Phone Number [facility] [address] [place] [address], [facility] [phone] * TYPE + SCREEN PANEL (12/29/2020 2:30 PM SUPPLIER SPECIALIST) [facility] Antibody Screen NEG 3:14 PM SUPPLIER SPECIALIST [facility] BLOOD BANK LAB ABO Rh O NEG 12/29/2020 3:14 PM SUPPLIER SPECIALIST [facility] BLOOD BANK LAB Blood Bank BLOOD SPECIMEN / Unknown Venipuncture / Unknown 12/29/2020 2:30 PM SUPPLIER SPECIALIST 12/29/2020 2:35 PM SUPPLIER SPECIALIST Steffen Eldridge jasmyn LAB - BLOOD BANK O RDERABLES Performing Organization Address [facility] Co de Phone Number [facility] BLOOD BANK LAB [address] [place] [phone], [facility] [phone] * (ABNORMAL) CBC W AUTO DIFFERENTIAL (12/29/2020 2:30 PM SUPPLIER SPECIALIST) [facility] WBC 10.9(H) 3.5 - 10.5 10? 3 /uL 12/29/2020 2:39 PM [facility] RBC 5.24(H) 3.80 - 5.20 10? 6 /uL 12/29/2020 2:39 PM [facility] Hemoglobin 13.9 12.0 - 15.6 g/dL 12/29/2020 2:39 PM [facility] Hematocrit 44.0 35.0 - 45.0 % 12/29/2020 2:39 PM [facility] MCV 84.0 80.7 - 98.3 fL 12/29/2020 2:39 PM [facility] MCH 26.5(L) 26.7 - 34.0 pg 12/29/2020 2:39 PM [facility] MCHC 31.6 30.8 - 35.9 g/dL 12/29/2020 2:39 PM [facility] Platelet Count 335 150 - 400 10? 3 /uL 12/29/2020 2:39 PM [facility] RDW-SD 47.8 36.0 - 50.0 fL 12/29/2020 2:39 PM [facility] RDW-CV 15.7(H) 11.2 - 14.8 % 12/29/2020 2:39 PM [facility] MPV 9.0(L) 9.4 - 12.9 fL 12/29/2020 2:39 PM [facility] nRBC Absolute 0.00 0 10? 3 /uL 12/29/2020 2:39 PM [facility] nRBC Auto 0.0 0 /100 WBC 12/29/2020 2:39 PM [facility] Neutrophils % 80.7(H) 35.0 - 70.0 % 12/29/2020 2:39 PM [facility] Lymphocytes % 11.2(L) 20.0 - 43.0 % 12/29/2020 2:39 PM [facility] Monocytes % 5.3 5.0 - 13.0 % 12/29/2020 2:39 PM [facility] Eosinophils % 2.0 0.0 - 6.0 % 12/29/2020 2:39 PM [facility] Basophil % 0.4 0.0 - 2.0 % 12/29/2020 2:39 PM [facility] Neutrophils Absolute 8.8(H) 1.6 - 7.0 10? 3 /uL 12/29/2020 2:39 PM [facility] Lymphocyte Absolute 1.2 1.1 - 3.9 10? 3 /uL 12/29/2020 2:39 PM [facility] Monocytes Absolute 0.58 0.26 - 1.07 10? 3 /uL 12/29/2020 2:39 PM [facility] Eosinophils Absolute 0.22 0.00 - 0.47 10? 3 /uL 12/29/2020 2:39 PM [facility] Basophils Absolute 0.04 0.00 - 0.08 10? 3 /uL 12/29/2020 2:39 PM [facility] Immature Granulocytes % 0.4 0.0 - 1.0 % 12/29/2020 2:39 PM [facility] Immature Granulocytes Absolute 0.04 12/29/2020 2:39 PM [facility] Blood BLOOD SPECIMEN / Unknown Venipuncture / Unknown 12/29/2020 2:30 PM SUPPLIER SPECIALIST 12/29/2020 2:33 PM SUPPLIER SPECIALIST Steffen Winchester DO LAB - HEMATOLOGY O RDERABLES Performing Organization Address [facility] Co de Phone Number [facility] [address] [place] [phone], [facility] [phone] * (ABNORMAL) COMPREHENSIVE METABOLIC PANEL (12/29/2020 2:30 PM SUPPLIER SPECIALIST) BUN 36(H) 7 - 26 mg/dL 12/29/2020 2:51 PM [facility] Creatinine 0.95 0.56 - 0.96 mg/dL 12/29/2020 2:51 PM [facility] Sodium 140 136 - 145 mmol/L 12/29/2020 2:51 PM [facility] Potassium 4.8(H) 3.5 - 4.5 mmol/L 12/29/2020 2:51 PM [facility] Chloride 102 98 - 107 mmol/L 12/29/2020 2:51 PM [facility] CO2 28 22 - 29 mmol/L 12/29/2020 2:51 PM [facility] Glucose 118(H) 70 - 115 mg/dL 12/29/2020 2:51 PM [facility] Calcium 10.4(H) 8.4 - 10.2 mg/dL 12/29/2020 2:51 PM [facility] Protein Total 8.1 6.0 - 8.3 g/dL 12/29/2020 2:51 PM [facility] Albumin 4.0 3.4 - 5.0 g/dL 12/29/2020 2:51 PM [facility] Bilirubin Total 0.3 0.2 - 1.2 mg/dL 12/29/2020 2:51 PM [facility] Alkaline Phosphatase 144 40 - 150 U/L 12/29/2020 2:51 PM [facility] ALT 22 5 - 55 U/L 12/29/2020 2:51 PM [facility] AST 27 5 - 34 U/L 12/29/2020 2:51 PM [facility] Anion Gap 15 8 - 18 12/29/2020 2:51 PM [facility] BUN/Creatinine Ratio 38(H) 7 - 23 12/29/2020 2:51 PM [facility] Osmolality Calculated 299 270 - 300 mOsm/kg 12/29/2020 2:51 PM [facility] Albumin/Globulin Ratio 1.0(L) 1.1 - 2.3 12/29/2020 2:51 PM [facility] eGFR by CKD-EPI 42(L) >=90 mL/min/1.7 3 m2 12/29/2020 2:51 PM [facility] Blood BLOOD SPECIMEN / Unknown Venipuncture / Unknown 12/29/2020 2:30 PM SUPPLIER SPECIALIST 12/29/2020 2:32 PM SUPPLIER SPECIALIST Steffen Winchester DO LAB - CHEMISTRY OR DERABLES Performing Organization Address City/[facility]/ZIP Co de Phone Number [address] [address], [place] [phone] * INR WHOLE BLOOD - POINT OF CARE (IP) STROKE (12/29/2020 2:26 PM SUPPLIER SPECIALIST) INR 0.9 0.9 - 1.2 12/29/2020 2:28 PM [facility] Device [id number] 12/29/2020 2:28 PM [facility] Plant Manager ID [id number] 12/29/2020 2:28 PM [facility] Blood BLOOD SPECIMEN / Unknown 12/29/2020 2:26 PM SUPPLIER SPECIALIST 12/29/2020 2:28 PM SUPPLIER SPECIALIST Steffen Winchester DO LAB - POINT OF CAR E ORDERABLES Performing Organization Address [facility]/ZIP Co de Phone Number [address] [address], [place] [phone] * CREATININE - POCT INTERFACED (12/29/2020 2:25 PM SUPPLIER SPECIALIST) Creatinine POCT 0.67 0.30 - 1.30 mg/dL 12/29/2020 2:39 PM SUPPLIER SPECIALIST [facility] eGFR >60 >60 mL/min/1.7 3 m2 12/29/2020 2:39 PM SUPPLIER SPECIALIST [facility] Blood BLOOD SPECIMEN / Unknown 12/29/2020 2:25 PM SUPPLIER SPECIALIST 12/29/2020 2:39 PM SUPPLIER SPECIALIST Steffen Eldridge Hemaljasmyn DO LAB - POINT OF CAR E ORDERABLES [facility] [address] [place] [phone], [facility] [phone] * CT BRAIN - Stroke (12/29/2020 2:21 PM SUPPLIER SPECIALIST) Anatomical Region Laterality Modality Head Computed Tomogra phy 12/29/2020 2:29 PM SUPPLIER SPECIALIST Impressions 12/30/2020 8:27 AM SUPPLIER SPECIALIST IMPRESSION: 1.No acute intracranial hemorrhage, mass effect or midline shift. 2.Chronic small vessel ischemic disease of the brain with cerebral volume loss. 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 I, Dr. NESS TONG M.D. have personally reviewed and interpreted this examination/study. This report was electronically signed by NESS TONG M.D. ??on 12/30/2020 8:27 AM . Narrative 12/30/2020 8:[address] BRAIN STROKE EXAMINATION: Computed tomography (CT) of the head without contrast DATE: 12/29/2020 2:18 PM HISTORY: Code Stroke TECHNIQUE: CT of the head was performed without contrast according to standard protocol. COMPARISON: No prior study is available for comparison at the time of this dictation. FINDINGS: No acute intra- or extra-axial fluid collections are identified. There is mild cerebral volume loss with associated ex vacuo ventricular dilatation. The basilar cisterns are patent. No mass effect or midline shift is seen. Chronic infarct in the right caudate nucleus/anterior limb of the right internal capsule. The juarez-white matter differentiation otherwise appears normal. Periventricular and supratentorial white matter hypoattenuation is indicative of chronic small vessel ischemic disease. There is vascular calcification of the carotid siphons. No acute calvarial fracture is identified. Other than bilateral cataract extractions, the orbits appear normal. The paranasal sinuses are clear. The mastoid air cells are clear. No soft tissue abnormality is identified. Partially visualized posterior spinal fusion hardware is seen. Procedure Note Ness Tong MD - 12/30/2020 CT BRAIN STROKE EXAMINATION: Computed tomography (CT) of the head without contrast DATE: 12/29/2020 2:18 PM HISTORY: Code Stroke TECHNIQUE: CT of the head was performed without contrast according to standard protocol. COMPARISON: No prior study is available for comparison at the time ofthis dictation. FINDINGS: No acute intra- or extra-axial fluid collections are identified. Thereis mild cerebral volume loss with associated ex vacuo ventriculardilatation. The basilar cisterns are patent. No mass effect or midline shift isseen. Chronic infarct in the right caudate nucleus/anterior limb of the right internal capsule. The juarez-white matter differentiation otherwiseappears normal. Periventricular and supratentorial white matter hypoattenuationis indicative of chronic small vessel ischemic disease. There is vascular calcification of the carotid siphons. No acute calvarial fracture is identified. Other than bilateral cataract extractions, the orbits appear normal. The paranasal sinuses are clear. The mastoid air cells are clear. No soft tissue abnormality isidentified. Partially visualized posterior spinal fusion hardware is seen. IMPRESSION: 1.No acute intracranial hemorrhage, mass effect or midline shift. 2.Chronic small vessel ischemic disease of the brain with cerebralvolume loss. Small chronic infarct in the right anterior mcallister radiata andbasal ganglia. I, Dr. NESS TONG M.D. have personally reviewed and interpreted this examination/study. This report was electronically signed by NESS TONG M.D. on 12/30/2020 8:27 AM . Steffen Winchester DO CT ORDERABLES * CT ANGIO BRAIN NECK STROKE (12/29/2020 2:21 PM SUPPLIER SPECIALIST) Anatomical Region Laterality Modality Head Computed Tomogra phy 12/29/2020 2:37 PM SUPPLIER SPECIALIST Impressions 12/30/2020 8:37 AM SUPPLIER SPECIALIST IMPRESSION: 1. No large arterial occlusions or significant stenoses identified in the head or neck. Dictated by Nelson Cordero MD (administration vice president) I, Dr. NESS TONG M.D. have personally reviewed and interpreted this examination/study. This report was electronically signed by NESS TONG M.D. ??on 12/30/2020 8:37 AM . Narrative 12/30/2020 8:[address] ANGIO BRAIN NECK STROKE DATE: 12/29/2020 2:18 PM EXAMINATION: 1. Computed tomographic (CT) angiography of the head with contrast 2. CT angiography of the neck with contrast HISTORY: Code Stroke TECHNIQUE: ?CT angiography of the head and neck was obtained after the uneventful administration of 75 mL Isovue-370 intravenous contrast. Three dimensional postprocessing was performed by the technologist and sent to the workstation for review. All internal carotid artery percent stenoses are calculated using the distal internal carotid artery diameter as the denominator (NASCET criteria). COMPARISON: Comparison is made with a study from earlier today. FINDINGS: Non-angiographic findings: No acute intra- or extra-axial fluid collections are identified. Please see dedicated head CT for more details. The patient is status post posterior spinal fusion from C2 through T3 levels with laminectomies and anterior cervical to some infusion at C3-C4 levels. Severe beam hardening and streaky artifacts from the instrumentation obscures some adjacent structures. 5 mm enhancing lesion in the left thyroid lobe. 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 The configuration of the brachiocephalic vessels is typical. The innominate artery and both subclavian arteries appear normal. The right common and internal carotid arteries as well as the right carotid bifurcation appear normal. There is atherosclerotic disease of the left carotid bifurcation and origin of the left internal carotid artery without percent focal stenosis. The left common and internal carotid arteries otherwise appear normal. The right cervical vertebral artery is diminutive. The left cervical vertebral artery is dominant. There is atherosclerotic disease involving the distal internal carotid arteries without significant focal stenosis. The anterior and middle cerebral arteries appear normal. The distal vertebral arteries appear are unremarkable. The basilar artery and posterior cerebral arteries appear normal with origin of the left posterior cerebral artery. No aneurysms, vascular occlusions, or intracranial stenoses are identified. Procedure Note Ness Tong MD - 12/30/2020 CT ANGIO BRAIN NECK STROKE DATE: 12/29/2020 2:18 PM EXAMINATION: 1. Computed tomographic (CT) angiography of the head with contrast 2. CT angiography of the neck with contrast HISTORY: Code Stroke TECHNIQUE: CT angiography of the head and neck was obtained after the uneventful administration of 75 mL Isovue-370 intravenous contrast.Three dimensional postprocessing was performed by the technologist and sent to the workstation for review. All internal carotid artery percent stenoses are calculated using the distal internal carotid artery diameter as the denominator (NASCET criteria). COMPARISON: Comparison is made with a study from earlier today. FINDINGS: Non-angiographic findings: No acute intra- or extra-axial fluid collections are identified. Please see dedicated head CT for more details. The patient is status post posterior spinal fusion from C2 through T3 levels with laminectomies and anterior cervical to some infusion atC3-C4 levels. Severe beam hardening and streaky artifacts from the instrumentation obscures some adjacent structures. 5 mm enhancing lesion in the left thyroid lobe. 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 The configurationof the brachiocephalic vessels is typical. The innominate artery and both subclavian arteries appear normal. The right common and internal carotid arteries as well as the right carotid bifurcation appear normal. Thereis atherosclerotic disease of the left carotid bifurcation and origin ofthe left internal carotid artery without percent focal stenosis. The left common and internal carotid arteries otherwise appear normal. The right cervical vertebral artery is diminutive. The left cervical vertebral artery is dominant. There is atherosclerotic disease involving the distal internal carotid arteries without significant focal stenosis. The anterior and middle cerebral arteries appear normal. The distal vertebral arteries appearare unremarkable. The basilar artery and posterior cerebral arteries appear normal with origin of the left posterior cerebral artery. No aneurysms, vascular occlusions, or intracranial stenoses are identified. IMPRESSION: 1. No large arterial occlusions or significant stenoses identified inthe head or neck. Dictated by Nelson Cordero MD (administration vice president) I, Dr. NESS TONG M.D. have personally reviewed and interpreted this examination/study. This report was electronically signed by NESS TONG M.D. on 12/30/2020 8:37 AM . Steffen Winchester DO CT ORDERABLES * MRI BREAST BILAT WWO CONTRAST (03/30/2013 3:29 PM SUPPLIER SPECIALIST) Anatomical Region Laterality Modality Breast Bilateral Other Impressions 04/04/2013 2:34 PM SUPPLIER SPECIALIST IMPRESSION: 1. No suspicious enhancement or axillary lymphadenopathy bilaterally. 2. Multiple small simple cysts throughout both breasts. RECOMMENDATION: Resume yearly screening mammography. BILATERAL BREAST MRI BI-RADS CATEGORY 2: BENIGN PYG [facility]. This report was approved ??by Tyler Bashir M.D. ?? on 03/30/2013 4:37 PM . I, Dr. SNEHA AQUINO M.D. have personally reviewed and interpreted this examination/study. This report was electronically signed by SNEHA AQUINO M.D. ??on 03/30/2013 4:48 PM . ADDENDUM #1 Comparison mammograms Outside mammograms from [facility] done 02/22/13, 08/10/12, and 12/26/10 as well as bilateral breast ultrasound done 02/22/13 were obtained and are compared to the current bilateral breast MRI with and without contrast performed 03/30/13. Hypoechoic nodules in the 3:00 4 CM position of the left breast and in the subareolar position of the left breast is seen on the previous ultrasound are shown to be cysts on MRI. There is no abnormal enhancement in this area. Impression: No abnormal enhancement is seen. Hypoechoic nodules on the left on prior left breast ultrasound appear to represent cysts and show no abnormal contrast enhancement. Category (2) Benign This report was electronically signed by EUGENIE JUAN M.D. ??on 04/04/2013 2:34 PM . Narrative 04/04/2013 2:34 PM SUPPLIER SPECIALIST ORIGINAL REPORT EXAM: ??BILATERAL BREAST MRI WITH AND WITHOUT CONTRAST WITH DYNACAD ANALYSIS CLINICAL INFORMATION: ?67-year-old female with positive family history for breast cancer and dense breast tissue COMPARISON: ?? No prior MRI ? CONTRAST: ??5 cc IV Gadavist. TECHNICAL INFORMATION: ??Study performed on a 1.5 Opal magnet. A breast coil was utilized. ??Bilateral axial T1 and T2 FSE with and without fat sat, followed by 3D axial T1 fat sat images precontrast and 5 postcontrast 3D axial fat sat series dynamically. ??Subtraction was performed on all postcontrast images. ??Images were reviewed on a workstation and dynaCAD was utilized. INTERPRETATION: Images reviewed with dynaCAD. There is ??moderate background enhancement. Right breast: ??There is no suspicious enhancing mass within the right breast. Multiple small cysts are identified throughout the breast. There is no evidence of right axillary lymphadenopathy. Left breast: ??There is no suspicious enhancing mass within the left breast. Multiple small cysts are noted throughout the left breast. There is no evidence of left axillary lymphadenopathy. Procedure Note Tyler Bashir MD / Sneha Aquino MD - 08/01/2019 ORIGINAL REPORT EXAM: BILATERAL BREAST MRI WITH AND WITHOUT CONTRAST WITH DYNACADANALYSIS CLINICAL INFORMATION: 67-year-old female with positive family historyfor breast cancer and dense breast tissue COMPARISON: No prior MRI CONTRAST: 5 ccIV Gadavist. TECHNICAL INFORMATION: Study performed on a 1.5 Opal magnet. A breastcoil was utilized. Bilateral axial T1 and T2 FSE with and without fatsat, followed by 3D axial T1 fat sat images precontrast and 5 [id number] axial fat sat series dynamically. Subtraction was performed on all postcontrast images. Images werereviewed on a workstation and dynaCAD was utilized. INTERPRETATION: Images reviewed with dynaCAD. There is moderatebackground enhancement. Right breast: There is no suspicious enhancing mass within the rightbreast. Multiple small cysts are identified throughout the breast. Thereis no evidence of right axillary lymphadenopathy. Left breast: There is no suspicious enhancing mass within the leftbreast. Multiple small cysts are noted throughout the left breast. Thereis no evidence of left axillary lymphadenopathy. IMPRESSION IMPRESSION: 1. No suspicious enhancement or axillary lymphadenopathy bilaterally. 2. Multiple small simple cysts throughout both breasts. RECOMMENDATION: Resume yearly screening mammography. BILATERAL BREAST MRI BI-RADS CATEGORY 2: BENIGN PYG [facility]. This report was approved by Tyler Bashir M.D. on 03/30/2013 4:37 PM . I, Dr. SNEHA AQUINO M.D. have personally reviewed and interpreted thisexamination/study. This report was electronically signed by SNEHA AQUINO M.D. on 03/30/20134:48 PM . ADDENDUM #1 Comparison mammograms Outside mammograms from [facility] done 02/22/13, 08/10/12, and12/26/10 as well as bilateral breast ultrasound done 02/22/13 were obtainedand are compared to the current bilateral breast MRI with and withoutcontrast performed 03/30/13. Hypoechoic nodules in the 3:00 4 CM position of the left breast and in thesubareolar position of the left breast is seen on the previous ultrasoundare shown to be cysts on MRI. There is no abnormal enhancement in thisarea. Impression: No abnormal enhancement is seen. Hypoechoic nodules on the left on priorleft breast ultrasound appear to represent cysts and show no abnormalcontrast enhancement. Category (2) Benign This report was electronically signed by EUGENIE JUAN M.D. on04/04/2013 2:34 PM . Historical Provider MR ORDERABLES Care Teams Garbage Collector Supervisor Relationship Specialty Start Date End Date Tee Kim DO [address] [place] [address] PCP - General Internal Medicine 12/29/20
--- OUTSIDE RECORDS SUMMARY | 2024-02-20 19:42 | XMS_ITS | Encounter Summary ---
Author Organization [facility] Address [facility] [facility] [place] [address] [place] [address] Care Team Providers Care Paste Up Artist Apprentice Name Role Phone Unavailable Primary Care Provider Unavailabl e Encounter Details Date Type Department Care Team (Late st Contact Info) Description 01/07/2018 Abstract [facility] Emergency Room [address] [place], [place] [id number] Torin Verde MD [address] [facility] [address] [place] [address] Social History Tobacco Use Types Packs/Day Years [...] Procedure Name Priority Date/Time Associated Diagnosis Comments BASIC METABOLIC PANEL Routine 01/12/2018 12:02 PM AUTO RENTAL SUPERVISOR BASIC METABOLIC PANEL Routine 01/11/2018 5:27 AM AUTO RENTAL SUPERVISOR CBC W/DIFF AUTOMATED Routine 01/10/2018 6:32 AM AUTO RENTAL SUPERVISOR BASIC METABOLIC PANEL Routine 01/10/2018 6:27 AM AUTO RENTAL SUPERVISOR OSMOLALITY, URINE Routine 01/08/2018 6:1 5 AM AUTO RENTAL SUPERVISOR TSH W/REFLEX FT3 AND FT4 Routine 01/08/2018 5:42 AM AUTO RENTAL SUPERVISOR VITAMIN B12 / FOLATE Routine 01/08/2018 5:42 AM AUTO RENTAL SUPERVISOR BASIC METABOLIC PANEL Routine 01/08/2018 5:42 AM AUTO RENTAL SUPERVISOR LIPID PANEL Routine 01/08/2018 5:42 AM AUTO RENTAL SUPERVISOR OSMOLALITY, BLOOD Routine 01/08/2018 5:4 2 AM AUTO RENTAL SUPERVISOR TROPONIN, QUANT TIMED 01/07/2018 4:46 PM AUTO RENTAL SUPERVISOR URINALYSIS WI REFLEX TO CULTURE STAT 01/07/2018 12:19 PM AUTO RENTAL SUPERVISOR COMPREHENSIVE METABOLIC PANEL STAT 01/07/2018 9:43 AM AUTO RENTAL SUPERVISOR CBC W/DIFF AUTOMATED STAT 01/07/2018 9:43 AM AUTO RENTAL SUPERVISOR TROPONIN, QUANT STAT 01/07/2018 9:43 AM AUTO RENTAL SUPERVISOR documented in this encounter Results * (ABNORMAL) BASIC METABOLIC PANEL (01/12/2018 12:02 PM AUTO RENTAL SUPERVISOR) GLUCOSE 128(H) 70 - 99 MG/DL 01/12/2018 1:25 PM AUTO RENTAL SUPERVISOR [facility] BUN 21(H) 7 - 18 MG/DL 01/12/2018 1:25 PM [facility] CREATININE S/P/B 0.75 0.55 - 1.02 MG/DL 01/12/2018 1:25 PM [facility] SODIUM S/P/B 132(L) 136 - 145 MMOL/L 01/12/2018 1:25 PM [facility] POTASSIUM S/P/B 3.9 3.5 - 5.1 MMOL/L 01/12/2018 1:25 PM [facility] CHLORIDE S/P/B 95(L) 100 - 108 MMOL/L 01/12/2018 1:25 PM [facility] CO2 29.9 21 - 32 MMOL/L 01/12/2018 1:25 PM [facility] CALCIUM S/P/B 8.5 8.5 - 10.1 MG/DL 01/12/2018 1:25 PM [facility] ANION GAP 11.0 8 - 20 MMOL/L 01/12/2018 1:25 PM [facility] BUN CREATININE RATIO 28.0(H) 6 - 26 01/12/2018 1:25 PM [facility] EGFR NON-AFR. AMER. 80(L) >90 ML/MIN/1.7 3 M2 01/12/2018 1:25 PM [facility] EGFR AFR. AMER. >90 >90 ML/MIN/1.7 3 M2 01/12/2018 1:25 PM [facility] Comment: NOTE: eGFR is not calculated for patients <18 years of age. This is an estimated GFR (CKD EPI) and should not be used for calculating drug doses. 01/12/2018 12:0 2 PM AUTO RENTAL SUPERVISOR 01/12/2018 1:03 PM AUTO RENTAL SUPERVISOR us Generic Conversion Md [facility] Final R esult [facility] [address] [place] [address], * (ABNORMAL) BASIC METABOLIC PANEL (01/11/2018 5:27 AM AUTO RENTAL SUPERVISOR) GLUCOSE 94 70 - 99 MG/DL 01/11/2018 7:36 AM [facility] BUN 19(H) 7 - 18 MG/DL 01/11/2018 7:36 AM [facility] CREATININE S/P/B 0.66 0.55 - 1.02 MG/DL 01/11/2018 7:36 AM [facility] SODIUM S/P/B 128(L) 136 - 145 MMOL/L 01/11/2018 7:36 AM [facility] POTASSIUM S/P/B 4.1 3.5 - 5.1 MMOL/L 01/11/2018 7:36 AM [facility] CHLORIDE S/P/B 94(L) 100 - 108 MMOL/L 01/11/2018 7:36 AM [facility] CO2 30.1 21 - 32 MMOL/L 01/11/2018 7:36 AM [facility] CALCIUM S/P/B 8.5 8.5 - 10.1 MG/DL 01/11/2018 7:36 AM [facility] ANION GAP 8.0 8 - 20 MMOL/L 01/11/2018 7:36 AM [facility] BUN CREATININE RATIO 28.8(H) 6 - 26 01/11/2018 7:36 AM [facility] EGFR NON-AFR. AMER. 89(L) >90 ML/MIN/1.7 3 M2 01/11/2018 7:36 AM [facility] EGFR AFR. AMER. >90 >90 ML/MIN/1.7 3 M2 01/11/2018 7:36 AM [facility] Comment: NOTE: eGFR is not calculated for patients <18 years of age. This is an estimated GFR (CKD EPI) and should not be used for calculating drug doses. 01/11/2018 5:27 AM AUTO RENTAL SUPERVISOR 01/11/2018 6:35 AM AUTO RENTAL SUPERVISOR us Generic Conversion Md [facility] Final R esult [facility] [address] [address] [place] [address], [place] [phone] * (ABNORMAL) CBC W/DIFF AUTOMATED (01/10/2018 6:32 AM AUTO RENTAL SUPERVISOR) [facility] WBC 8.8 4.4 - 11.0 x10'3/uL 01/10/2018 7:22 PM [facility] RBC 2.89(L) 4.50 - 5.10 x10'6/uL 01/10/2018 7:22 PM [facility] HGB 8.7(L) 12.3 - 15.3 G/DL 01/10/2018 7:22 PM [facility] HCT 27.2(L) 35.9 - 44.6 % 01/10/2018 7:22 PM [facility] MCV 94.1 80.0 - 96.0 FL 01/10/2018 7:22 PM [facility] MCH 30.1 25.3 - 30.9 PG 01/10/2018 7:22 PM [facility] MCHC 32.0 31.0 - 34.1 G/DL 01/10/2018 7:22 PM [facility] RDW 14.7 12.4 - 15.1 % 01/10/2018 7:22 PM [facility] PLT 213 151 - 353 x10'3/uL 01/10/2018 7:22 PM [facility] MPV 10.2 9.6 - 12.0 FL 01/10/2018 7:22 PM [facility] RBC MORPHOLOGY NORMAL 01/10/2018 7:22 PM [facility] PLT MORPH. NORMAL 01/10/2018 7:22 PM [facility] WBC MORPHOLOGY NORMAL 01/10/2018 7:22 PM [facility] LYMPHOCYTES % 9.5(L) 15.8 - 45.0 % 01/10/2018 7:22 PM [facility] NEUTROPHILS % 81.4(H) 42.1 - 71.9 % 01/10/2018 7:22 PM [facility] MONOCYTES % 7.4 5.7 - 12.5 % 01/10/2018 7:22 PM [facility] EOSINOPHILS 1.2 0.0 - 5.6 % 01/10/2018 7:22 PM [facility] BASOPHILS 0.2 0.0 - 1.3 % 01/10/2018 7:22 PM [facility] ABS. NEUTROPHILS TOTAL 7.17(H) 1.40 - 6.00 x10'3/uL 01/10/2018 7:22 PM [facility] IMMATURE GRANS % 0.3 0.0 - 0.5 % 01/10/2018 7:22 PM [facility] ABS. LYMPHOCYTES 0.84 0.80 - 4.70 x10'3/uL 01/10/2018 7:22 PM [facility] 01/10/2018 6:32 AM AUTO RENTAL SUPERVISOR 01/10/2018 6:57 PM [facility] us Generic Conversion Md [facility] Final R esult [facility] [address] [place] [address], * (ABNORMAL) BASIC METABOLIC PANEL (01/10/2018 6:27 AM AUTO RENTAL SUPERVISOR) Pathologist [facility] GLUCOSE 75 70 - 99 MG/DL 01/10/2018 9:22 AM [facility] BUN 25(H) 7 - 18 MG/DL 01/10/2018 9:22 AM [facility] CREATININE S/P/B 0.80 0.55 - 1.02 MG/DL 01/10/2018 9:22 AM [facility] SODIUM S/P/B 132(L) 136 - 145 MMOL/L 01/10/2018 9:22 AM [facility] POTASSIUM S/P/B 5.2(H) 3.5 - 5.1 MMOL/L 01/10/2018 9:22 AM [facility] CHLORIDE S/P/B 100 100 - 108 MMOL/L 01/10/2018 9:22 AM [facility] CO2 28.3 21 - 32 MMOL/L 01/10/2018 9:22 AM [facility] CALCIUM S/P/B 8.6 8.5 - 10.1 MG/DL 01/10/2018 9:22 AM [facility] ANION GAP 8.9 8 - 20 MMOL/L 01/10/2018 9:22 AM [facility] BUN CREATININE RATIO 31.2(H) 6 - 26 01/10/2018 9:22 AM [facility] EGFR NON-AFR. AMER. 74(L) >90 ML/MIN/1.7 3 M2 01/10/2018 9:22 AM [facility] EGFR AFR. AMER. 86(L) >90 ML/MIN/1.7 3 M2 01/10/2018 9:22 AM [facility] Comment: NOTE: eGFR is not calculated for patients <18 years of age. This is an estimated GFR (CKD EPI) and should not be used for calculating drug doses. 01/10/2018 6:27 AM AUTO RENTAL SUPERVISOR 01/10/2018 7:33 AM AUTO RENTAL SUPERVISOR us Generic Conversion Md [facility] Final R esult [facility] [address] [place] [address], [place] [phone] * OSMOLALITY, URINE (01/08/2018 6:15 AM AUTO RENTAL SUPERVISOR) OSMOLALITY (U) 556 50 - 1,200 MOSM/KG 01/08/2018 5:41 PM [facility] URINE SPECIMEN / Unknown 01/08/2018 6:15 AM AUTO RENTAL SUPERVISOR 01/08/2018 7:47 AM [facility] us Generic Conversion Md [facility] URINE ORDERABLES Final Result [facility] [address] [place] [address], [place] [phone] * (ABNORMAL) BASIC METABOLIC PANEL (01/08/2018 5:42 AM [facility]) Pathologist [facility] GLUCOSE 67(L) 70 - 99 MG/DL 01/08/2018 11:32 AM [facility] BUN 28(H) 7 - 18 MG/DL 01/08/2018 11:32 AM [facility] CREATININE S/P/B 0.68 0.55 - 1.02 MG/DL 01/08/2018 11:32 AM [facility] SODIUM S/P/B 129(L) 136 - 145 MMOL/L 01/08/2018 11:32 AM [facility] POTASSIUM S/P/B 4.2 3.5 - 5.1 MMOL/L 01/08/2018 11:32 AM [facility] CHLORIDE S/P/B 94(L) 100 - 108 MMOL/L 01/08/2018 11:32 AM [facility] CO2 26.8 21 - 32 MMOL/L 01/08/2018 11:32 AM [facility] CALCIUM S/P/B 8.3(L) 8.5 - 10.1 MG/DL 01/08/2018 11:32 AM [facility] ANION GAP 12.4 8 - 20 MMOL/L 01/08/2018 11:32 AM [facility] BUN CREATININE RATIO 41.2(H) 6 - 26 01/08/2018 11:32 AM [facility] EGFR NON-AFR. AMER. 88(L) >90 ML/MIN/1.7 3 M2 01/08/2018 11:32 AM [facility] EGFR AFR. AMER. >90 >90 ML/MIN/1.7 3 M2 01/08/2018 11:32 AM [facility] Comment: NOTE: eGFR is not calculated for patients <18 years of age. This is an estimated GFR (CKD EPI) and should not be used for calculating drug doses. 01/08/2018 5:42 AM AUTO RENTAL SUPERVISOR 01/08/2018 11:16 AM AUTO RENTAL SUPERVISOR us Generic Conversion Md [facility] Final R esult [facility] [address] [place] [address], [place] [phone] * LIPID PANEL (01/08/2018 5:42 AM [facility]) CHOLESTEROL 165 <200.0 MG/DL 01/08/2018 8:19 AM [facility] TRIGLYCERIDES 50 <150 MG/DL 01/08/2018 8:19 AM [facility] HDL 81 >40.0 MG/DL 01/08/2018 8:19 AM [facility] LDL (CALCULATED) 74 <100 MG/DL 01/09/20 18 8:19 AM [facility] NON HDL CHOLESTEROL 84 <130 MG/DL 01/08 8:19 AM [facility] CHOL/HDL RATIO 2.0 0.0 - 4.5 01/08/2018 8:19 AM [facility] VLDL CALCULATION 10 5 - 55 MG/DL 01/08/2018 8:19 AM AUTO RENTAL SUPERVISOR [facility] LIPID INTERPRETATION 01/08/2018 8:19 AM AUTO RENTAL SUPERVISOR [facility] Comment: [facility] REPORT RECOMMENDATIONS: ?ADULT ? CHILD ??LOW RISK: ?CHOLESTEROL ? <200 ? <170 ? TRIGLYCERIDE ?<150 ?--- ?HDL ? >=60 ?--- ?LDL ? <100 ? <110 ?? BORDERLINE: ?CHOLESTEROL ? 200-239 ?? 170-199 ?TRIGLYCERIDE ?150-199 ? --- ?HDL ? 40-59 ?--- ?LDL ? 100-159 ?? 110- 129 ?? HIGH RISK: ? CHOLESTEROL ? >=240 ?>=200 ?TRIGLYCERIDE ?>=200 ? --- ?HDL ?<40 ?--- ?LDL ? >=160 ?>=130 01/08/2018 5:42 AM AUTO RENTAL SUPERVISOR 01/08/2018 6:46 AM AUTO RENTAL SUPERVISOR us Generic Conversion Md [facility] Final R esult Performing Organization Address City/[facility]/ZIP Co de Phone Number [facility] [address] [place] [address], [place] [phone] * TSH W/REFLEX FT3 AND FT4 (01/08/2018 5:42 AM AUTO RENTAL SUPERVISOR) TSH CASCADE 2.785 0.358 - 3.74 uIU/mL 01/08/2018 8:19 AM AUTO RENTAL SUPERVISOR [facility] Comment: HIGH DOSES OF BIOTIN MAY INTERFERE WITH THIS TEST RESULT. CORRELATION TO CLINICAL HISTORY AND PRESENTATION RECOMMENDED. TSH WITHIN NORMAL RANGEFREE T3 NOT INDICATEDFREE T4 NOT INDICATED SERUM OR PLASMA SPECIMEN / Unknown 01/08/2018 5:42 AM AUTO RENTAL SUPERVISOR 01/08/2018 6:46 AM AUTO RENTAL SUPERVISOR us Generic Conversion Md [facility] Final R esult Performing Organization Address [facility]/ZIP Co de Phone Number [facility] [address] [place] [address], [place] [phone] * (ABNORMAL) VITAMIN B12 / FOLATE (01/08/2018 5:42 AM AUTO RENTAL SUPERVISOR) VITAMIN B12 S/P/B 1,871(H) 193 - 986 PG/ML 01/08/2018 8:19 AM AUTO RENTAL SUPERVISOR [facility] FOLATE 20.0 8.6 - 58.9 NG/ML 01/08/2018 8:19 AM AUTO RENTAL SUPERVISOR [facility] 01/08/2018 5:42 AM AUTO RENTAL SUPERVISOR 01/08/2018 6:46 AM AUTO RENTAL SUPERVISOR us Generic Conversion Md [facility] Final R esult Performing Organization Address City/[facility]/ZIP Co de Phone Number [facility] [address] [place] [address], [place] [phone] * OSMOLALITY, BLOOD (01/08/2018 5:42 AM AUTO RENTAL SUPERVISOR) OSMOLALITY (S/P/B) 275 270 - 290 MOSM/KG 01/08/2018 5:42 PM AUTO RENTAL SUPERVISOR [facility] SERUM SPECIMEN / Unknown 01/08/2018 5:42 AM AUTO RENTAL SUPERVISOR 01/08/2018 6:46 AM AUTO RENTAL SUPERVISOR us Generic Conversion Md [facility] Final R esult Performing Organization Address City/[facility]/ZIP Co de Phone Number [facility] [address] [place] [address], [place] [phone] * TROPONIN, QUANT (01/07/2018 4:46 PM AUTO RENTAL SUPERVISOR) Pathologist [facility] TROPONIN I 0.024 0.000 - 0.056 ng/mL. 01/07/2018 6:48 PM AUTO RENTAL SUPERVISOR [facility] Comment: NORMAL: LESS THAN OR EQUAL TO 0.056 NG/MLINDETERMINATE ZONE: 0.056 TO 0.599 NG/MLCONDITIONS RESULTING IN MYOCARDIAL CELL DAMAGE CAN POTENTIALLY INCREASE LEVELS ABOVE THE EXPECTED RANGE.HIGH DOSES OF BIOTIN MAY INTERFERE WITH THIS TEST RESULT. CORRELATION TO CLINICAL HISTORY AND PRESENTATION RECOMMENDED. SERUM OR PLASMA SPECIMEN / Unknown 01/07/2018 4:46 PM AUTO RENTAL SUPERVISOR 01/07/2018 5:51 PM AUTO RENTAL SUPERVISOR us Generic Conversion Md [facility] Final R esult Performing Organization Address City/[facility]/ZIP Co de Phone Number [facility] [address] [place] [address], [place] [phone] * (ABNORMAL) URINALYSIS WI REFLEX TO CULTURE (01/07/2018 12:19 PM AUTO RENTAL SUPERVISOR) COLOR (U) YELLOW 01/07/2018 1:52 PM AUTO RENTAL SUPERVISOR [facility] TRANSPARENCY HAZY 01/07/2018 1:52 PM AUTO RENTAL SUPERVISOR [facility] SPECIFIC GRAVITY (U) 1.015 1.000 - 1.030 01/07/2018 1:52 PM [facility] U PH 7.0 5.0 - 9.0 01/07/2018 1:52 PM [facility] LEUKOCYTES (U) NEGATIVE NEGATIVE 01/07/2018 1:52 PM [facility] NITRITES NEGATIVE NEGATIVE 01/07/2018 1:52 PM [facility] PROTEIN (U) 1+(A) NEGATIVE 01/07/2018 1:52 PM [facility] URINE GLUCOSE NEGATIVE NEGATIVE 01/07/2018 1:52 PM [facility] KETONES MG/DL (U) 2+(A) NEGATIVE 01/07/2018 1:52 PM [facility] BILIRUBIN (U) NEGATIVE NEGATIVE 01/07/2018 1:52 PM [facility] BLOOD (U) TRACE(A) NEGATIVE 01/07/2018 1:52 PM [facility] WBC/HPF 0-5 0 - 5 /HPF 01/07/2018 1:52 PM [facility] RBC/HPF 0-5 0 - 5 /HPF 01/07/2018 1:52 PM [facility] EPI/HPF FEW /HPF 01/07/2018 1:52 PM [facility] CULTURE & SENSITIVITY INDICATED? CULTURE IS NOT INDICATED 01/07/2018 1:52 PM [facility] OTHER CASTS (U) RARE /LPF 8 1:52 PM [facility] Comment:HYALINE CRYSTALS (U) FEW /HPF 01/07/2018 1:52 PM [facility] Comment:AMORPHOUS MATERIAL 01/07/2018 12:1 9 PM AUTO RENTAL SUPERVISOR 01/07/2018 1:39 PM AUTO RENTAL SUPERVISOR us Generic Conversion Md [facility] URINE ORDERABLES Final Result Performing Organization Address City/[facility]/ZIP Co de Phone Number [facility] [address] [place] [address], [place] [phone] * TROPONIN, QUANT (01/07/2018 9:43 AM AUTO RENTAL SUPERVISOR) TROPONIN I 0.026 0.000 - 0.056 ng/mL. 01/07/2018 2:42 PM AUTO RENTAL SUPERVISOR [facility] Comment: NORMAL: LESS THAN OR EQUAL TO 0.056 NG/MLINDETERMINATE ZONE: 0.056 TO 0.599 NG/MLCONDITIONS RESULTING IN MYOCARDIAL CELL DAMAGE CAN POTENTIALLY INCREASE LEVELS ABOVE THE EXPECTED RANGE.HIGH DOSES OF BIOTIN MAY INTERFERE WITH THIS TEST RESULT. CORRELATION TO CLINICAL HISTORY AND PRESENTATION RECOMMENDED. SERUM OR PLASMA SPECIMEN / Unknown 01/07/2018 9:43 AM AUTO RENTAL SUPERVISOR 01/07/2018 2:26 PM AUTO RENTAL SUPERVISOR us Generic Conversion Md [facility] Final R esult [facility] [address] [place] [address], [place] [phone] * (ABNORMAL) COMPREHENSIVE METABOLIC PANEL (01/07/2018 9:43 AM AUTO RENTAL SUPERVISOR) GLUCOSE 101(H) 70 - 99 MG/DL 01/07/2018 11:03 AM [facility] BUN 44(H) 7 - 18 MG/DL 01/07/2018 11:03 AM [facility] CREATININE S/P/B 1.09(H) 0.55 - 1.02 MG/DL 01/07/2018 11:03 AM [facility] SODIUM S/P/B 125(L) 136 - 145 MMOL/L 01/07/2018 11:03 AM [facility] POTASSIUM S/P/B 4.8 3.5 - 5.1 MMOL/L 01/07/2018 11:03 AM [facility] CHLORIDE S/P/B 85(L) 100 - 108 MMOL/L 01/07/2018 11:03 AM [facility] CO2 28.6 21 - 32 MMOL/L 01/07/2018 11:03 AM [facility] CALCIUM S/P/B 9.4 8.5 - 10.1 MG/DL 01/07/2018 11:03 AM [facility] BILIRUBIN TOTAL S/P/B 0.4 0.2 - 1.2 MG/DL 01/07/2018 11:03 AM [facility] TOTAL PROTEIN S/P/B 7.0 6.4 - 8.2 G/DL 01/07/2018 11:03 AM [facility] ALBUMIN S/P/B 3.6 3.4 - 5.0 G/DL 01/07/2018 11:03 AM [facility] AST 111(H) 15 - 37 U/L 01/07/2018 11:03 AM [facility] ALT 65(H) 14 - 55 U/L 01/07/2018 11:03 AM [facility] ALKALINE PHOSPHATASE S/P/B 105 50 - 136 U/L 01/07/2018 11:03 AM [facility] ANION GAP 16.2 8 - 20 MMOL/L 01/07/2018 11:03 AM [facility] BUN CREATININE RATIO 40.4(H) 6 - 26 01/07/2018 11:03 AM [facility] A/G RATIO 1.1 1.0 - 2.0 RATIO 01/07/2018 11:03 AM [facility] EGFR NON-AFR. AMER. 51(L) >90 ML/MIN/1.7 3 M2 01/07/2018 11:03 AM [facility] EGFR AFR. AMER. 59(L) >90 ML/MIN/1.7 3 M2 01/07/2018 11:03 AM [facility] Comment: NOTE: eGFR is not calculated for patients <18 years of age. This is an estimated GFR (CKD EPI) and should not be used for calculating drug doses. 01/07/2018 9:43 AM AUTO RENTAL SUPERVISOR 01/07/2018 10:47 AM AUTO RENTAL SUPERVISOR us Generic Conversion Md [facility] Final R esult [facility] [address] [place] [address], [place] [phone] * (ABNORMAL) CBC W/DIFF AUTOMATED (01/07/2018 9:43 AM AUTO RENTAL SUPERVISOR) WBC 13.6(H) 4.4 - 11.0 x10'3/uL 01/07/2018 10:51 AM [facility] RBC 4.18(L) 4.50 - 5.10 x10'6/uL 01/07/2018 10:51 AM [facility] HGB 12.3 12.3 - 15.3 G/DL 01/07/2018 10:51 AM [facility] HCT 35.7(L) 35.9 - 44.6 % 01/07/2018 10:51 AM [facility] MCV 85.4 80.0 - 96.0 FL 01/07/2018 10:51 AM [facility] MCH 29.4 25.3 - 30.9 PG 01/07/2018 10:51 AM [facility] MCHC 34.5(H) 31.0 - 34.1 G/DL 01/07/2018 10:51 AM [facility] RDW 13.3 12.4 - 15.1 % 01/07/2018 10:51 AM [facility] PLT 347 151 - 353 x10'3/uL 01/07/2018 10:51 AM [facility] MPV 9.9 9.6 - 12.0 FL 01/07/2018 10:51 AM [facility] SEG NEUTROPHILS 84(H) 42 - 72 % 8 11:09 AM [facility] LYMPHOCYTES 9(L) 15.8 - 45.0 % 01/07/2018 11:09 AM [facility] MONOCYTES 6 5.7 - 12.5 % 01/07/2018 11:09 AM [facility] EOSINOPHILS 1 0 - 5.6 % 01/07/2018 11:09 AM [facility] ABS. NEUTROPHILS TOTAL 11.42(H) 1.40 - 6.00 x10'3/uL 01/07/2018 11:09 AM [facility] ABS. LYMPHOCYTES 1.22 0.80 - 4.70 x10'3/uL 01/07/2018 11:09 AM [facility] PLT MORPH. NORMAL 01/07/2018 11:09 AM [facility] RBC MORPHOLOGY NORMAL 01/07/2018 11:09 AM [facility] WBC MORPHOLOGY NORMAL 01/07/2018 11:09 AM [facility] 01/07/2018 9:43 AM [employer] 01/07/2018 10:47 AM [facility] us Generic Conversion Md [facility] Final R esult [facility] [address] [place] [address], documented in this encounter Visit Diagnoses Diagnosis Hypo-osmolality and hyponatremia Hyposmolality and/or hyponatremia documented in this encounter
--- OUTSIDE RECORDS SUMMARY | 2024-02-20 19:42 | XMS_ITS | Encounter Summary ---
Author Organization [facility] Address [address] [place] [address]. [place], [place] [id number] [place] [id number] Care Team Providers Care Sliver Cutter Name Role Phone Unavailable Primary Care Provider Unavailabl e Reason for Visit * Reason Comments Echo (SCAN) Encounter Details Date Type Department Care Team ([facility] Contact Info) Description 01/11/2018 Scan [facility] AT [address] [id number] Scanned, Documents Echo (SCAN) Social History Tobacco Use Types Packs/Day Years [...] Procedure Name Priority Date/Time Associated Diagnosis Comments ECHO GENERIC (SCAN ORDER) Routine 01/11/2018 documented in this encounter Results * ECHO (01/11/2018) Anatomical Region Laterality Modality Other us Documents Scanned SCANNING Final Result documented in this encounter Visit Diagnoses Not on filedocumented in this encounter
--- OUTSIDE RECORDS SUMMARY | 2024-02-20 19:42 | XMS_ITS | Clinical Summary ---
Author Organization [facility] Address [address] [place] [address]. [place], [place] [id number] [place] [id number] Care Team Providers Care White Metal Corrosion Proofer Name Role Phone Unavailable Primary Care Provider Unavailabl e Social History Tobacco Use Types Packs/Day Years Used Date Smoking Tobacco: Never Assessed Comments Unknown Sex and Gender Information Value Date Recorded Sex Assigned at Not on file Legal Sex Female 4:45 PM CDT Gender Identity Not on file Sexual Orientation Not on file Plan of Treatment Health Maintenance Due Date Last Done Comments Hepatitis C 1963 DTaP, Tdap and Td Vaccines ( 1 - Tdap) 1965 Zoster Vaccines (1 of 2) 1996 Annual Medicare Wellness Visit 09/09/2011 Dexa Scan (General) 09/09/2011 Pneumococcal Vaccine: 65+ Ye ars (1 of 1 - PCV) 09/09/2011 RSV Immunization or 60+ Years (1 - 1-dose 75+ series) 2021 COVID-19 Vaccine ( - 2023-2 5 season) 2023 Influenza Adult (#1) 2023 Meningococcal Vaccine Aged Out No lorena preston eligible based on patient's age to complete this topic RSV Immunizations Under 20 Months Aged Out No longer eligible based on patient's age to complete this topic Insurance ESSENCE
--- OUTSIDE RECORDS SUMMARY | 2024-02-20 19:42 | XMS_ITS | Referral Summary ---
Author Organization [facility] Address [address] [place] [address] Care Team Providers Care Booker Name Role Phone Tee Kim DO Primary Care Provider [phone] Source Comments [facility],non-owned Affiliates and Associated Physician Practices is amultiple site organization consisting of ambulatory clinics and hospital sitesin [place], [place], [place] and [place]. This disclosure is being madepursuant to the Care Everywhere program and may not contain all information available regarding this patient. Last updated 17.[facility] Allergies No known active allergies Medications * [...] Comments Blood Pressure 119/73 01/02/2021 8:23 AM HOLE DIGGER Pulse 78 01/02/2021 8:23 AM HOLE DIGGER Temperature 36.4 ??C (97.6 ??F) 01/02/2021 8:23 AM CS T Respiratory Rate 16 01/02/2021 8:23 AM HOLE DIGGER Oxygen Saturation 100% 01/02/2021 8:23 AM HOLE DIGGER Inhaled Oxygen Concentration 21% 12/30/2020 6 :00 AM HOLE DIGGER Weight 53 kg (116 lb 13.5 oz) 12/31/2020 4:00 AM HOLE DIGGER Height 157.5 cm (5' 2 ) 12/30/2020 4:42 AM HOLE DIGGER Body Mass Index 21.37 12/30/2020 4:42 AM HOLE DIGGER Functional Status Functional Status Response Date of Assess ment Is person deaf or have serious hearing difficult y? No 12/30/2020 Is person blind or have serious difficulty seein g? No 12/30/2020 Does person have serious dif ficulty walking/climbing stairs? No 12/30/2020 Does person have difficulty dressing/bathing? No 12/30/2020 Does person have difficulty doing errands alone? Yes 12/30/2020 Cognitive Status Response Date of Assessm ent Does person have difficulty concentrating/remembering/making decisions? Yes 12/30/2020 Plan of Treatment Not on file Advance Directives * Full Code (Latest Code Status on File) Date Activated Date Inactivated Comments 12/29/2020 2:32 PM 01/02/2021 2:22 PM Care Teams Booker Relationship Specialty Start Date End Date Tee Kim DO [address] [place] [id number] PCP - General Internal Medicine 12/29/20
--- OUTSIDE RECORDS SUMMARY | 2024-02-20 19:42 | XMS_ITS | Encounter Summary ---
Author Organization [facility] Address [address] [place] [address]. [place], [place] [id number] [place] [id number] Care Team Providers Care Tie Hacker Name Role Phone Unavailable Primary Care Provider Unavailabl e Encounter Details Date Type Department Care Team (Late st Contact Info) Description 05/28/1995 Abstract [facility] CONVERSION [id number] [id number] , Generic Conversion, Social History Tobacco Use [...]
--- OUTSIDE RECORDS SUMMARY | 2024-02-20 19:42 | XMS_ITS | Encounter Summary ---
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 Role Phone Unavailable Primary Care Provider Unavailabl e Encounter Details Date Type Department Care Team (Late st Contact Info) Description 03/30/2013 Hospital Outpatient Visit Historic [facility] [address] [place] [id number] Shari Faulkner, DO [address] [phone] Discharge Disposition: Home or Self Care Social [...] Procedure Name Priority Date/Time Associated Diagnosis Comments MRI BREAST BILAT WWO CONTRAST Routine 03/30/2013 3:29 PM GOLF CADDIE documented in this encounter Results * MRI BREAST BILAT WWO CONTRAST (03/30/2013 3:29 PM GOLF CADDIE) Anatomical Region Laterality Modality Breast Bilateral Other Impressions 04/04/2013 2:34 PM GOLF CADDIE IMPRESSION: 1. No suspicious enhancement or axillary lymphadenopathy bilaterally. 2. Multiple small simple cysts throughout both breasts. RECOMMENDATION: Resume yearly screening mammography. BILATERAL BREAST MRI BI-RADS CATEGORY 2: BENIGN PYG Sneha Aquino MD is providing [facility] coverage for Larisa Musa MD. This report was approved ??by Tyler Bashir M.D. ?? on 03/30/2013 4:37 PM . I, Dr. SNEHA AQUINO M.D. have personally reviewed and interpreted this examination/study. This report was electronically signed by SNEHA AQUINO M.D. ??on 03/30/2013 4:48 PM . ADDENDUM #1 Comparison mammograms Outside mammograms from [facility] done 02/22/13, 08/10/12, and 12/26/10 as well [...] 2:34 PM . Narrative 04/04/2013 2:34 PM GOLF CADDIE ORIGINAL REPORT EXAM: ??BILATERAL BREAST MRI WITH [...] T1 fat sat images precontrast and 5 [id number] axial fat sat series dynamically. Subtraction was [...] BENIGN PYG Sneha Aquino MD is providing [facility] coverage for Larisa Musa MD. This report was approved by Tyler Bashir M.D. on 03/30/2013 4:37 PM . I, Dr. SNEHA AQUINO M.D. have personally reviewed and interpreted thisexamination/study. This report was electronically signed by SNEHA AQUINO M.D. on 03/30/20134:48 PM . ADDENDUM #1 Comparison mammograms Outside mammograms from [facility] done 02/22/13, 08/10/12, and12/26/10 as well [...] 2:34 PM . Historical Provider MR ORDERABLES documented in this encounter Visit Diagnoses Diagnosis Other sign and symptom in breast documented in this encounter
--- OUTSIDE RECORDS SUMMARY | 2024-02-20 19:42 | XMS_ITS | Encounter Summary ---
Author Organization [facility] Address [address] [place] [address] Care Team Providers Care Cisco Network Engineer Name Role Phone Tee Kim DO Primary Care Provider [phone] Reason for Visit * Reason Comments FACIAL DROOP Pt BIBEMS from home after noticed pt develop R sided facial droop RUE weakness and expressive aphasia at approx 1200, no blood thinner use, NIH 8, no obvious fall or trauma * Auth/Cert Specialty Diagnoses / Procedures Referred By Contac t Referred To Contact Referral ID Status Reason Start Date Expiration Date Visits Re quested Visits Authorized [id number] 1 1 Encounter Details Date Type Department Care Team (Latest Contact Info) Description 12/29/2020 2:12 PM QUALITY ASSURANCE MONITOR FINAL - 01/02/2021 1:10 PM QUALITY ASSURANCE MONITOR FINAL Hospital Encounter SL 5N ACUTE [address] [place] [id number] Steffen Winchester DO [address] [place] [address] Nimco John MD [address] [place] [address] Froy Koch MD [address] [facility] [address] [place] [phone] Neurology Discharge Disposition: Home or Self Care Social [...] on file documented as of this encounter Last Filed Vital Signs Vital Sign Reading Time Taken Comments Blood Pressure 119/73 01/02/2021 8:23 AM QUALITY ASSURANCE MONITOR FINAL Pulse 78 01/02/2021 8:23 AM QUALITY ASSURANCE MONITOR FINAL Temperature 36.4 ??C (97.6 ??F) 01/02/2021 8:23 AM CS T Respiratory Rate 16 01/02/2021 8:23 AM QUALITY ASSURANCE MONITOR FINAL Oxygen Saturation 100% 01/02/2021 8:23 AM QUALITY ASSURANCE MONITOR FINAL Inhaled Oxygen Concentration 21% 12/30/2020 6 :00 AM QUALITY ASSURANCE MONITOR FINAL Weight 53 kg (116 lb 13.5 oz) 12/31/2020 4:00 AM QUALITY ASSURANCE MONITOR FINAL Height 157.5 cm (5' 2 ) 12/30/2020 4:42 AM QUALITY ASSURANCE MONITOR FINAL Body Mass Index 21.37 12/30/2020 4:42 AM QUALITY ASSURANCE MONITOR FINAL documented in this encounter Functional Status Functional Status Response Date of [...] person have difficulty concentrating/remembering/making decisions? Yes 12/30/2020 documented as of this encounter Discharge Summaries * Anai Beaver MD - 01/02/2021 10:04 AM CST Physician Discharge Summary Patient ID: Susan Kam [id number] 75 year old 1945 Admit date: 12/29/2020 Discharge date: 01/02/2021 Admitting Physician: Froy Koch MD Discharge Physician: Froy Koch MD Admission Diagnoses: Aphasia Discharge Diagnoses: L punctate cortical infarcts, A fib Discharged Condition: Fair Hospital Course: 75 yo F with presented with acute onset aphasia and R sided facial droop. Per patient, she was LKW at around 1100 (~2.5 hours prior to arrival) (asked in a yes/no fashion due to severe expressive aphasia). Initial NIH was 8 with cortical sign (aphasia). CTH was negative for AICP. TNK was administered. IVR was activated but MT deferred due to no LVO on CTA. Post tPA MRI with no bleed but with punctate L cortical infarctions in the MCA territory. EKG and Telemetry with A fib withcontrolled heart rate. Surface ECHO unremarkable for PFO, thrombus or reduced EF. Patient subsequently discharged on Apixaban and Statin. Please note that the patient's blood pressures were labile during the admission. No new antihypertensives or Midodrine were started. Patient to continue with home Metoprolol succinate (switched to tartrate equivalent for ability to crush) initially prescribed for possible tilt table test. Consults: None Significant Diagnostic Studies: MRI brain 1. 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 2. No associated significant mass effect or midline shift is identified. 3. 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 Treatments: See hospital course Discharge Exam: Cortical Function Mental Status Awake, alert, follows commands Orientation Appropriate Language Severe aphasia with some improvement, comprehension intact Visual Piper Intact bilaterally to confrontation Neglect No visual neglect noted, no tactile neglect noted ?? Cranial Nerves II Pupils 3 mm and bilaterally reactive to light. VIII Hearing is intact to conversation III/IV/ Extraocular muscles intact. No diplopia, ptosis, nystagmus or convergence abnormalities noted. IX/X Palate elevated symmetrically without phonation abnormalities noted. V Facial sensation symmetric to light touch and intact bilaterally. XI Head turning and shoulder shrug are intact. VII R UMN facial palsy XII Tongue is midline with normal movements and no atrophy noted. ?? Motor Function Movement No abnormalities noted Bulk No abnormalities noted Tone No abnormalities noted ? Proximal Upper Distal Upper Proximal Lower Distal Lower Right 4/5 4/5 4+/5 5/5 Left 5/5 5/5 5/5 5/5 ?? Sensory Light Touch Symmetric and intact bilaterally ?? Cerebellar ?? FNF Right Intact Left Intact ?? Gait Deferred Disposition: Assisted living Patient Instructions: Current Discharge Medication List START taking these medications Instructions Authorizing Provider apixaban 5 MG tablet Commonly known as: Eliquis Take 1 (one) tablet by mouth 2 times daily Ned Kevin BARREL COOPER-VULNERABILITY RESEARCHER atorvastatin 40 MG tablet Commonly known as: Lipitor Take 1 (one) tablet by mouth at bedtime Ned Kevin BARREL COOPER-VULNERABILITY RESEARCHER buPROPion 75 MG tablet Commonly known as: Wellbutrin Replaces: buPROPion SR 12hr 150 MG tablet Take 1 (one) tablet by mouth 2 times daily Ned Kevin BARREL COOPER-VULNERABILITY RESEARCHER metoprolol tartrate 25 MG tablet Commonly known as: Lopressor Take 1 (one) tablet by mouth 2 times daily Ned Kevin BARREL COOPER-VULNERABILITY RESEARCHER CONTINUE taking these medications which have NOT CHANGED Instructions Authorizing Provider HYDROcodone-acetaminophen 10-325 MG tablet Commonly known as: [place] STOP taking these medications buPROPion SR 12hr 150 MG tablet Commonly known as: Wellbutrin-SR Replaced by: buPROPion 75 MG tablet celecoxib 200 MG capsule Commonly known as: CeleBREX doxycycline hyclate 20 MG tablet Commonly known as: Periostat metoprolol succinate XL 24hr 25 MG tablet Commonly known as: Toprol XL metoprolol succinate XL 24hr 50 MG tablet Commonly known as: Toprol XL pimecrolimus 1 % cream Commonly known as: Elidel Prolia 60 MG/ML SC injection Generic drug: denosumab Activity: activity as tolerated Diet: Mediterranean diet Wound Care: None needed Follow-up with neurology as scheduled. Signed: Anai Beaver MD 01/02/2021 2:24 PM ITY ASSURANCE MONITOR FINAL documented in this encounter Discharge Instructions * Discharge Instructions* Celia Chino RD/PARK - 01/01/2021 12:17 PM QUALITY ASSURANCE MONITOR FINAL Images from the original note were not included. Mediterranean Diet WHAT YOU NEED TO KNOW: A Mediterranean diet is a meal plan that includes foods that are commonly eaten in countries that border the Mediterranean Sea. This meal plan may provide several health benefits. These include losing or maintaining weight, and decreasing blood pressure, blood sugar, and cholesterol levels. It may also help protect against certain health conditions such as heart disease, cancer, type 2 diabetes, and Alzheimer disease. Work with a dietitian to develop a meal plan that is right for you. DISCHARGE INSTRUCTIONS: Foods to include in the Mediterranean diet: ?? Include fruits and vegetables in each meal. Eat a variety of fresh fruits and vegetables. ?? Choose whole grains every day. These foods include whole-grain breads, pastas, and cereals. It also includes brown rice, quinoa, and millet. ?? Use unsaturated fats instead of saturated fats. Cook with olive or canola oil. Limit saturated fats, such as butter, margarine, and shortening. Saturated fat is an unhealthy fat that can increase your cholesterol levels. ?? Choose plant foods, poultry, and fish as your main sources of protein. ? Eat plant-based foods that provide protein, such as lentils, beans, chickpeas, nuts, and seeds. Choose mostly plant-based foods in place of meat on most days of the week. ? Eat protein foods high in omega-3 fats. Fish high in omega-3 fats include salmon, trout, and tuna. Include these types of fish 1 or 2 times each week. Limit fish high in mercury, such as shark, swordfish, tilefish, and jacqueline mackerel. [place]-3 fats are also found in walnuts and flaxseed. ? Choose poultry (chicken or turkey) without skin instead of red meat. Red meat is high in saturated fat. Limit eggs and high-fat meats, such as oliver, sausage, and hot dogs. ?? Choose low-fat dairy foods such as nonfat or 1% milk, or low-fat almond, cashew, or soy milk. Other examples include low-fat cheese, yogurt, and cottage cheese. ?? Limit sweets. Limit your intake of high-sugar foods, such as soda, desserts, and candy. ?? Talk to your healthcare provider about alcohol. Studies have shown that moderate intake of wine may reduce the risk of heart disease. A moderate amount of wine is 1 serving for women and men 65 years and older each day. Two servings is recommended for men 21 to 64 years of age each day. A serving of wine is 5 ounces. Other things you need to know if you follow the Mediterranean diet: ?? Include foods high in iron and vitamin C. Plant-based foods that are high in iron include spinach, beans, tofu, and artichoke. Eat a serving of vitamin C with any iron-rich food to help your body absorb more iron. Examples include oranges, strawberries, cantaloupe, broccoli, and yellow peppers. ?? Get regular physical activity. The Mediterranean diet will have the most benefit if you get regular physical activity. Get 30 minutes of physical activity at least 5 days a week. Choose physical activities that increase your heart rate. Examples include walking, hiking, swimming, and riding a bike. Ask your healthcare provider about the best exercise plan for you. ?? Copyright [employer] 2020 Information is for End User's use only and may not be sold, redistributed or otherwise used for commercial purposes. All illustrations and images included in CareNotes?? are the copyrighted property of [employer]. or [employer] The above information is an biological aide only. It is not intended as medical advice for individual conditions or treatments. Talk to your doctor, nurse or pharmacist before following any medical regimen to see if it is safe and effective for you. ITY ASSURANCE MONITOR FINAL documented in this encounter Medications at Time of Discharge Medication Sig Dispensed Refills Start Date End Date apixaban (ELIQUIS) 5 MG tablet Take 1 (one) tablet by mouth 2 times daily 01/01/2021 atorvastatin (LIPITOR) 40 MG tablet Take 1 (one) tablet by mouth at bedtime 01/01/2021 buPROPion (WELLBUTRIN) 75 MG tablet Take 1 (one) tablet by mouth 2 times daily 01/01/2021 HYDROcodone-acetaminophen (NORCO) 10-325 MG tablet 12/03/2020 metoprolol tartrate (LOPRESSOR) 25 MG tablet Take 1 (one) tablet by mouth 2 times daily 01/01/2021 documented as of this encounter Progress Notes * Silvia Bright PT - 01/02/2021 12:22 PM CST [facility] Department of Physical Medicine & Rehabilitation Progress Note Patient: Susan Kam Med Record Number: [id number] Date of : 1945 Age: [age] year old 01/02/21 1200 Missed Visit Missed Visit Other (Comment) (pt discharging to SNF) ITY ASSURANCE MONITOR FINAL * Silvia Buitrago MSW - 01/02/2021 10:07 AM CST Facility Transfer Note Level of Care: Actual level of care at discharge: Assisted Living Facility Name: (include name of person confirming admission): [facility] Made Aware of Special Needs (if applicable): yes RN Call Report to: [phone] Fax D/C Orders to: [phone] Transportation (company and number): [employer] [phone] Certificate of Medical Necessity rationale: Completed and with d/c packet Date/time of transfer: 01/02/21 12:30 PM Accepting MD and contact #: Completed and Signed [id number] (if applicable): N/A Family/Other Notified of Transfer (name/phone): pt's spouse - mickey Authorization Skilled Care: N/A Authorization for Transportation: N/A Verified Qualifying Stay(Skilled Only): YES Comments: RN notfied and AVS faxed Name/Phone number: JESUS Blanco [phone] Slitting Machine Feeder-Care Coordination [phone] ITY ASSURANCE MONITOR FINAL * Audrey Aquino RN - 01/02/2021 9:32 AM CST Patient still experiencing severe slurred speech but remains alert and oriented x4. Bed locked in lowest position with alarm engaged and call light within reach. ITY ASSURANCE MONITOR FINAL * Silvia Buitrago MSW - 01/02/2021 8:50 AM CST ROBERT attempted to contact Rosio at [place] ([phone]) to get RN report number and Fax number. ROBERT LVM for Rosio to call back at [phone]. Pt scheduled to d/c today at 12:30 PM via [facility]. SW to follow. JESUS Matute Slitting Machine Feeder-Care Coordination [phone] ITY ASSURANCE MONITOR FINAL * Anai Beaver MD - 01/01/2021 3:21 PM CST Family Notification Documentation Contact made: 01/01/2021 3:21 PM Person(s) contacted: Method of communication: Phone Duration of discussion: 10 minutes Summary of discussion Updated the on her current medical progress and the discharge plan. All questions answered. ITY ASSURANCE MONITOR FINAL * Tere Villarreal - 01/01/2021 2:45 PM CST Initial visit with Susan. Susan was unable to respond verbally respond to sheet metal assembler, but smiled and nodded. For Machine Packaging Technician please call the staffing operations manager sheet metal assembler #[phone] [facility] #[phone] ITY ASSURANCE MONITOR FINAL * Anai Beaver MD - 01/01/2021 2:39 PM CST [facility] Stroke Progress Note Susan Kam Age: [age] year old Date of : 1945 Date of Admission: 12/29/2020 Hospital Day: 3 Subjective History of Present Illness 75 yo F with presenting with aphasia and R sided facial droop. Per patient, she was LKW at around 1100 (asked in a yes/no fashion due to severe expressive aphasia). Initial NIH was 8 with cortical sign (aphasia). CTH was negative for AICP. TNK was administered. IVR was activated but MT deferred dueto no LVO on CTA. Post tPA MRI with no bleed. Interval History No acute events overnight. Labile blood pressures. Objective Patient Vitals for the past 8 hrs: BP Temp Temp src Pulse Resp SpO2 01/01/21 1200 98/70 97.7 ??F (36.5 ??C) Oral 74 18 100 % 01/01/21 1159 102/65 -- -- -- -- -- 01/01/21 0801 153/90 97.7 ??F (36.5 ??C) Oral 74 16 100 % Exam: Cortical Function Mental Status Awake, alert, follows commands Orientation Appropriate Language Severe aphasia with some improvement, comprehension intact Visual Piper Intact bilaterally to confrontation Neglect No visual neglect noted, no tactile neglect noted Cranial Nerves II Pupils 3 mm and bilaterally reactive to light. VIII Hearing is intact to conversation III/IV/ Extraocular muscles intact. No diplopia, ptosis, nystagmus or convergence abnormalities noted. IX/X Palate elevated symmetrically without phonation abnormalities noted. V Facial sensation symmetric to light touch and intact bilaterally. XI Head turning and shoulder shrug are intact. VII R UMN facial palsy XII Tongue is midline with normal movements and no atrophy noted. Motor Function Movement No abnormalities noted Bulk No abnormalities noted Tone No abnormalities noted Proximal Upper Distal Upper Proximal Lower Distal Lower Right 4/5 4/5 4+/5 5/5 Left 5/5 5/5 5/5 5/5 Sensory Light Touch Symmetric and intact bilaterally Cerebellar FNF Right Intact Left Intact Gait Deferred Aphasia POA: Yes Weakness POA: Yes Cerebrovascular accident (CVA) POA: Yes Azotemia POA: Yes A-fib POA: Yes Dysphagia POA: Yes Assessment Susan Kam is a 75 year old female presenting for aphasia and R sided weakness. Stroke Type: Ischemic Stroke Mechanism: Cardioembolic Plan L MCA territory infarcts 2/2 A fib - Apixaban 5 BID - Atorvastatin 40 - ECHO UR - q4h vitals and neurochecks - HOB elevation - CTH for changes in exam Blood Pressure Goals: Patient has labile blood pressures and autonomic dysfunction confirmed with positive tilt table test. Normotension Midodrine 5 mg TID prn for SBP < 80 Lisinopril 5 mg daily with holding parameters for SBP < 120 Core Measures tPA administration: yes Anti-thrombotic: y Statin: y DVT prophylaxis: apixaban Swallow Evaluation: passed PT/OT Evaluation: rehab Smoking cessation; will children's counselor: n/a Atrial fibrillation - Rate controlled - Metoprolol tartrate 25 BID (home med for autonomic dysfunction) - Apixaban 5 mg BID Individual Modifiable Risk Factors Hypertension: yes Hyperlipidemia: no Diabetes: no Atrial Fibrillation: no Tobacco: no Anai Beaver MD Neurology Resident ITY ASSURANCE MONITOR FINAL * Celia Chino RD/MONISHAN - 01/01/2021 12:12 PM CST Nutrition Re-Assessment Nutrition Recommendations: Alter Minced and Moist diet to include Diabetic Consistent Carb Cardiac modifiers Comments: Pt scheduled for reassessment. Diet advanced to Minced and Moist per SENIOR EXAMINER recs with good po intakes. A1c 5.7%; per Stroke Policy, will alter diet to include Diabetic Consistent Carb Cardiac modifiers. Last BM noted BAY STOCKER- if accurate, Pt may need stronger bowel regimen if no BM in next 24-48h. Will continue to follow Pt and plan of care through admission. Assessment: Med/Surg History and Clinical Diagnoses: aphasia and right-sided weakness Diet order accuracy Current diet order: Minced & Moist (5) / Mech Altered (DYS2) Nutrition recommendation: agree with current nutrition order P.O.Intake for the past 48 hrs:% Meal Taken Av % Min: 100 % Max: 100 % Food Allergies: No known food allergies GI Concerns: None Chewing/Swallowing: Mechanically Altered Pain affecting intake: No Admission weight: Weight: 122 lb (55.3 kg) (12/29/20 1422) Filed Wts: 12/29/20 1422 12/30/20 0442 12/31/20 0400 Weight: 122 lb (55.3 kg) 122 lb (55.3 kg) 116 lb 13.5 oz (53 kg) Wt Comments: monitoring through admission Height: 5' 2 (157.5 cm) IBW/lb (Calculated) Female: 110, Body mass index is 21.37 kg/m??. Laboratory values reviewed. Current Facility-Administered Medications Medication ??? 0.9% NaCl injection 3 mL And ??? 0.9% NaCl injection 3 mL ??? apixaban (Eliquis) tablet 5 mg ??? atorvastatin (Lipitor) tablet 40 mg ??? buPROPion (Wellbutrin) tablet 75 mg ??? dextrose IV 12.5-25 g ??? glucagon (Glucagen) injection 1 mg ??? HYDROcodone-acetaminophen ([place]) 5-325 MG tablet 1 tablet ??? lisinopril (Prinivil; Zestril) tablet 10 mg ??? metoprolol tartrate (Lopressor) tablet 25 mg Skin/Wound: abrasions Estimated Energy Needs: KCAL: 5072-9299 (25-30 kcal/kg ABW) Protein (g): 55-66 (1-1.2gm/kg ABW) Fluid (ml): 1 ml/kcal Needs based on: Kcal/kg- (Comment) Recommended Access Route: PO Education needed: Stroke Nutrition Therapy Education Provided: Handout Provided Nutrition Care Process (1) Nutrition Diagnostic Statement: Inadequate oral intake related to:: decreased ability to consume or tolerate food and/or fluids due to illness as evidenced by:: --- (NPO, awaiting SENIOR EXAMINER) Nutrition Diagnostic Statement Progress: New diagnostic statement established Nutrition Intervention: Meals and snacks:;Medical Food Supplements: Monitoring: Meal and snack intakes, lab values, Wt, skin, BMs Evaluation: Nutrition Goal: Total intake will meet estimated nutrient needs Nutrition Goal Timeframe: Throughout stay Nutrition Goal Progress: Continue with current goal Ascom: [id number] ITY ASSURANCE MONITOR FINAL * Audrey Aquino, JIGAR - 01/01/2021 11:44 AM CST Patient alert and oriented x4 with slurred speech. Understands to use call light for assistance. Bed locked in lowest position, chair alarm engaged when up with call light within reach. ITY ASSURANCE MONITOR FINAL * Lidia Londono PT - 01/01/2021 11:20 AM CST [facility] Physical Medicine and Rehabilitation PhysicalTherapy Progress Note Patient: Susan Kam Med Record Number: [id number] Date of : 1945 Age: [age] year old Face Mask: Therapist wore procedural mask and eye protection throughout session Discharge Recommendation: Patient will benefit from multidisciplinary inpatient therapies. Subjective: Pt with expressive aphasia; pt is able to make needs known, agreeable to PT Mental Status: Alert, oriented to self, location, time At start of therapy session, patient found in patient bedside chair and with chair alarm on. Pain: Patient has 0/10 pain Follow-up for pain: No follow-up for pain indicated and patient agreed to proceed with treatment Weight Bearing Status: WBAT Mobility: not assessed; pt up in chair at this time and hypotensive - unable to attempt standing and pt wishes to stay in the chair at end of session Gait: not assessed this date due to hypotension Balance: not assessed this date Stairs : not assessed Vitals: (*Assess the 3 levels of oxygen saturations both for room air and 02 unless rest on room air is 88% or less). Rest BP: 89/71 99/62 HR: 74 Sp02 Sp02 100% Room Air L O2 Ex/Gait/Activity Without 02 BP: 100/62 HR: Sp02 Room Air Ex/Gait/Activity With 02 BP: HR: Sp02 L O2 Post Activity BP: HR: Sp02 Sp02 L O2 Room Air Observations: BP sitting in recliner with feet elevated 89/71, pt does report dizziness at this time; therapist recliner pt further in chair and patient reports improved symptoms and BP increases; patient does wish to stay in chair. Therapist educates patient that she needs to keep head reclined atthis time due to BP. Activity Tolerance: Patient's activity tolerance: poor plus due to BP this date Current Modified [place] Score: 4 Treatment/therapeutic Exercise: BRUNA LE AROM x10 reps - ankle pumps, quad sets, gluteal sets, knee flexion extension EDUCATION: While performing PT, Patient was instructed in:Home exercise program Patient demonstrated Fair understanding of instructions given. GOALS: Short Term Goals: Patient will perform bed mobility: Stand By Assist Patient will transfer sit to/from stand: Stand By Assist Patient will transfer bed to/from chair: Stand By Assist Patient will ambulate 25 feet with Stand By Assist and appropriate AD Patient will perform home exercise program independently ?? [facility] Goal(s): Patient to discharge to appropriate next level of inpatient care Update Treatment Plan: Continue PT per POC If patient is discharged from the facility, this note serves as a discharge note if further physical therapy visits did not occur. Following therapy session, patient left in patient bedside chair, with chair alarm on, with call light within reach and with RNAudrey aware. ITY ASSURANCE MONITOR FINAL * Ivana Andrade, OT - 01/01/2021 9:28 AM CST [facility] Medicine and Rehabilitation Occupational Therapy Progress Note Patient: Susan Kam Med Record Number: [id number] Date of : 1945 Age: [age] year old Face Mask: OT: droplet mask and protective eyewear Tech: no Discharge Recommendation: Patient will benefit from multidisciplinary inpatient therapies. Precautions: Subjective: Patient indicates that she is ok today, expressive aphasia noted but able to make needsknown with gestures, some words and pen/paper At start of therapy session, patient found in bed. Pain: Patient has 0/10 pain in n/a Follow-up for pain: No follow-up for pain indicated and patient agreed to proceed with treatment Activities of Daily Living Feeding: Independent with set up Grooming/Bathing: set up assist for light facial hygiene Upper Extremity Dressing: Minimal assist to don/doff gown Lower Extremity Dressing: Stand By Assist to adjust socks Toileting/Transfers: not tested declines need Mobility: Assist device: Wheeled Walker Rolling: not tested Supine to/from Sit:Minimal assist Sit to/from Stand: Minimal assist Bed to/from Chair: Minimal assist Functional Mobility: From bed to bathroom to doorway and back to chair with SBA/min assist, pt withnoted improvment in mobility this date Splint Issued/Checked: none Splint Check Completed: N/A Balance: Static Sitting: good Dynamic Sitting: good Static Standing: fair Dynamic Standing: fair Vitals: (*Assess the 3 levels of oxygen saturations both for room air and 02 unless rest on room air is 88% or less). Rest BP: 143/99 HR: 93 SpO2 SpO2 98 Room Air L 02 RA Ex/Gait/Activity Without 02 BP: HR: SpO2 Room Air Ex/Gait/Activity With 02 BP: HR: SpO2 L 02 Post Activity BP: HR: SpO2 SpO2 L 02 Room Air Observations: no complaints with mobility Activity tolerance: good Current Modified [place] Score: 4 Cognitive/Perceptual: A&Ox3, follows 1 step commands with 100%, expressive aphasia but receptive intact Good safety awareness. Treatment/Therapeutic Exercise: Treatment session this date focused on ADL training Functional transfer training Endurance training EDUCATION: While performing mobility, exercise and self care, Patient was instructed in: Functional mobility training/weight bearing status, Safety awareness/fall precaution, Home exerciseprogram, Discharge plan and Self care training Presented to patient who demonstrates Good understanding of instructions given. Equipment Issued: none Update Treatment Plan/Goals : Patient continues to benefit from skilled OT to improve independence with activities of daily living, increase strength, endurance, range of motion and decrease pain. Will continue per POC. Short Term Goals: Patient will perform grooming Standing at sink Patient will perform upper extremity dressing Standing at sink Patient will perform lower extremity dressing Standing at sink Patient will perform supine to sit Standing at sink Patient will perform sit to stand Standing at sink Patient will perform bed to chair Standing at sink ?? [facility] Goal:Patient to discharge to appropriate next level of inpatient care If patient is discharged from the facility, this note serves as a discharge note if further occupational therapy visits did not occur. Following therapy session, patient left in patient bedside chair, with chair alarm on and with calllight within reach. ITY ASSURANCE MONITOR FINAL * Froy Koch MD - 01/01/2021 9:04 AM CST Images from the original note were not included. I saw and examined the patient with the resident. I have verified the residents' note and agree with the residents documentation with additions and modifications as listed in my separate note. Multidisciplinary rounds were held at 9am and the patient's care and recovery plan were reviewed and developed with the assembled team. Susan Kam is a 75 year old F who presented with R facial droop, R sided extremity drift, and severe expressive aphasia. In a fib upon presentation. CTA with no LVO. Sp TNK. Exam improved - now producing some words with minimal facial droop and only subtle motor asymmetry. MR with small volume patchy LMCA infarction due to a fib. Now on apixaban. Await dc to SNF. Problem List Aphasia POA: Yes Weakness POA: Yes Cerebrovascular accident (CVA) POA: Yes Azotemia POA: Yes A-fib POA: Yes Dysphagia POA: Yes See Resident note for the remaining problem specific plan. 3 Disposition: tbd Date Estimated to be Medically Ready for Discharge: 01/01 MEDICATIONS FOR CURRENT ENCOUNTER: SCHEDULED MEDICATIONS: 0.9% NaCl injection 3 mL, Intracatheter, q8h apixaban (Eliquis) tablet 5 mg, Oral, BID atorvastatin (Lipitor) tablet 40 mg, Oral, AT BEDTIME buPROPion (Wellbutrin) tablet 75 mg, Oral, BID lisinopril (Prinivil; Zestril) tablet 10 mg, Oral, QDAY metoprolol tartrate (Lopressor) tablet 25 mg, Oral, BID [COMPLETED] barium (Varibar Thin) 40 % liquid SUSR 20 mL, Oral, Once [COMPLETED] barium (Varibar) 40 % paste PSTE, Oral, Once ?? [] 0.9% NaCl injection 10 mL, Intracatheter, intra-Procedure multiple ?? CONTINUOUS MEDICATIONS: PRN MEDICATIONS: 0.9% NaCl injection 3 mL, Intracatheter, PRN dextrose IV 12.5-25 g, Intravenous, PRN glucagon (Glucagen) injection 1 mg, Intramuscular, PRN ?? HYDROcodone-acetaminophen ([place]) 5-325 MG tablet 1 tablet, Oral, q4h PRN Patient Vitals for the past 24 hrs: Temp Pulse Resp BP 01/01/21 0801 97.7 ??F (36.5 ??C) 74 16 153/90 01/01/21 0352 97.7 ??F (36.5 ??C) 76 16 149/90 12/31/20 2351 97.8 ??F (36.6 ??C) 82 18 141/86 12/31/20 1950 97.6 ??F (36.4 ??C) 95 18 123/71 12/31/20 1609 97.6 ??F (36.4 ??C) 80 16 155/99 12/31/20 1154 97.6 ??F (36.4 ??C) 93 16 (!) 175/104 12/31/20 1145 -- -- -- (!) 186/117 12/31/20 1143 -- -- -- (!) 191/129 12/31/20 1133 -- 95 -- -- Recent Labs Component Name 01/01/215 12/30/20225212/29/20 2351 NA 139 142 140 CL 112* 111* 106 CO2 20* 20* 20* BUN 18 25 29* CREATININE 0.73 0.91 0.95 CALCIUM 8.4 8.0* 8.9 PHOS 1.8* 2.6* 3.6 Recent Labs Component Name 01/01/21 02312/30/20225212/29/202350 WBC 6.6 7.0 9.6 RBC 4.21 3.98 4.17 HGB 11.4* 10.8* 11.2* HCT 36.1 34.0* 35.5 Recent Labs Component Name 12/29/201914 CHOL 161 TRIG 47 HDL 57 LDLCALC 95 Recent Labs Component Name 12/29/201914 HGBA1C 5.7 EAG 117 Recent Labs Component Name 01/01/2123412/30/20225212/29/201 PLTCOUNT 269 [id number] 239 ITY ASSURANCE MONITOR FINAL * Silvia Buitrago MSW - 01/01/2021 8:32 AM CST ROBERT spoke with pt's spouse, Mickey ([phone]) about d/c plan. ROBERT informed pt's spouse that pt may not be able to get therapy everyday at [facility], but that they could provide therapy for pt. ROBERT attempted to contact Charito at [facility] ([phone]), to discuss d/c plan. Ketty did not answer. ROBERT LVM for Charito to call back at [phone]. ROBERT to follow. UPDATE: 2:43 PM Pt can return to [facility] on 01/02/21. EMS is set for 12:30 PM via [facility] ([phone]). ROBERT to follow. JESUS Matute Slitting Machine Feeder-Care Coordination [phone] ITY ASSURANCE MONITOR FINAL * Silvia Buitrago MSW - 12/31/2020 4:21 PM CST Spoke with Charito at [facility] ([phone]), they will be able to provide therapy for pt at their facility, however it may not be everyday. SW to speak with pt's family to see if they are agreeable or would like SNF referrals sent out. SW to follow. JESUS Matute Slitting Machine Feeder-Care Coordination [phone] ITY ASSURANCE MONITOR FINAL * Ivana Andrade OT - 12/31/2020 3:33 PM CST [facility] Occupational Therapy Initial Evaluation Note Patient: Susan Kam Med Record Number: [id number] Date of : 1945 Age: [age] year old Face Mask: OT/PT co-eval, droplet mask and protective eyewear Tech: no Discharge Recommendation: Patient will benefit from multidisciplinary inpatient therapies. In addition to the 1:1 evaluation of the patient, additional eval time was spent completing the chart review prior to the assessment, completing the multidisciplinary plan of care and education plan post evaluation and communicating results of the eval to other treatment team members. Plan: ADL training Functional transfer training Endurance training Energy conservation Safety awareness Physician Orders: Evaluation and Treat Precautions: DIAGNOSIS: Patient Active Problem List: Aphasia Weakness Cerebrovascular accident (CVA) Azotemia A-fib Dysphagia No past medical history on file. SUBJECTIVE: Patient indicates that she has been in an assisted living for 2 years, states she is tired but agreeable to evaluation PATIENT GOALS: does not state Home living: Type of Residence: Assisted Living Facility Lives with:: Alone Home Structure: One Story Equipment At Home: Walker-2 Wheeled Prior Function: Mobility: Ambulate-In Home ;With Assistive Device Fallen Within 6 Mos: No Have Help at Home?: Yes, there is help at home now Oxygen at Home: No Activity at Home: Active At start of therapy session, patient found in bed. Pain: Patient has c/o pain in body, not rated or specified Follow-up for pain: No follow-up for pain indicated and patient agreed to proceed with treatment OBJECTIVE: General Appearance: 75 year old female supine in bed in NAD Precautions: IV's: Peripheral line Edema: L knee with abrasion and edema noted Vitals: (*Assess the 3 levels of oxygen saturations both for room air and 02 unless rest on room air is 88% or less). Rest BP: 150/101 HR: 87-108 SpO2 SpO2 100 Room Air L 02 RA Ex/Gait/Activity Without 02 BP: 190/121 HR: Seated EOB 106-116 SpO2 100 Room Air RA Ex/Gait/Activity With 02 BP: HR: SpO2 L 02 Post Activity BP: EOB 178/119 Supine 178/102 HR: SpO2 SpO2 L 02 Room Air Observations: no complaints of dizziness with mobility Cognitive: A&Ox3, follows 1 step commands with 100%, expressive aphasia noted but able to communicate with gestures and able to make out a few words. Fair insight and safety awareness. Perceptual: wfl Upper extremity range of motion: B UE WFL- shoulder flexion limited, pt reports baseline Upper extremity strength: R elbow flexion/extension 4/5, L elbow flexion/extension 4-/5, nutritionalist good bilaterally Tone: None noted Coordination: wfl Sensation: Intact light touch Patient's activity tolerance: fair Comments: Fatigues quickly FUNCTIONAL MOBILITY Not tested Independent Stand by Assist Minimal Moderate Maximum Dependent Rolling x Supine to/from sit x Sit to/from Standing x Bed to/from chair x Functional mobility of ambulation to sink/bathroom with: NT, min-mod assist for side steps to HOB with w/w Balance: Static Sitting: good Dynamic Sitting: good minus Static Standing: fair Dynamic Standing: fair minus Activities of Daily Living Feeding:NT Grooming/Bathing: not tested Upper Extremity Dressing: Minimal assist to manage gown with transfers Lower Extremity Dressing: SBA to adjust socks at bed level Toileting/Transfers: not tested declines need, eval limited 2/2 high BP, see above Splint Issued/Checked: none TREATMENT / EDUCATION / EVALUATION: Purpose of Occupational Therapy evaluation explained. While performing mobility, exercise and self care, Patient was instructed in: Functional mobility training/weight bearing status, Safety awareness/fall precaution, Home exerciseprogram, Discharge plan and Self care training Presented to patient who demonstrates Good understanding of instructions given. INFORMED CONSENT TO TREATMENT: Plan of care including recommended therapy, goals and frequency, as well as potential risks and benefits of treatment/assessment explained to patient. Patient understands and agrees to proceed. ASSESSMENT: Functional performance limited due to: limited activities of daily living, pain, decreased mobility, upper extremity function and endurance and Patient continues to benefit from skilled Occupational Therapy to achieve the following functional goals. Current Modified [place] Score: 4 Nurse and PT contacted regarding patient status and/or discharge plan. Short Term Goals: Patient will perform grooming Standing at sink Patient will perform upper extremity dressing Standing at sink Patient will perform lower extremity dressing Standing at sink Patient will perform supine to sit Standing at sink Patient will perform sit to stand Standing at sink Patient will perform bed to chair Standing at sink Link Knitting Machine Operator Goal: Patient to discharge to appropriate next level of inpatient care If patient is discharged from the facility, this note serves as a discharge summary if further occupational therapy visits did not occur. Following therapy session, patient left in bed, with bed alarm on and with call light within reach. ITY ASSURANCE MONITOR FINAL * Lidia Londono, PT - 12/31/2020 3:30 PM CST [facility] Medicine [facility] Physical Therapy Initial Evaluation Note Patient: Susan Kam Med Record Number: [id number] Date of : 1945 Age: [age] year old Co-eval with OT due to unknown level of assist Face mask: Therapist wore procedural mask and eye protection throughout session Discharge Recommendation: Patient will benefit from multidisciplinary inpatient therapies. In addition to the 1:1 evaluation of the patient, additional eval time was spent completing the chart review prior to the assessment, completing the multidisciplinary plan of care and education plan post evaluation and communicating results of the eval to other treatment team members. Nurse and Occupational Therapy contacted regarding patient status and/or discharge plan. Physician Orders: Evaluation and Treat PRECAUTIONS: Fall Activity Level as tolerated DIAGNOSIS: Patient Active Problem List: Aphasia Weakness Cerebrovascular accident (CVA) Azotemia A-fib Dysphagia No past medical history on file. SUBJECTIVE: Pt with expressive aphasia, able to make needs known; agreeable to PT PATIENT GOALS: To feel better Home living: Type of Residence: Assisted Living Facility Lives with:: Alone Home Structure: One Story Equipment At Home: Walker-2 Wheeled Prior Function: Mobility: Ambulate-In Home ;With Assistive Device Fallen Within 6 Mos: No Have Help at Home?: Yes, there is help at home now Oxygen at Home: No Activity at Home: Active At start of therapy session, patient found in bed and with bed alarm on Pain: Patient reports soreness all over, does not quantify Follow-up for pain: No follow-up for pain indicated and patient agreed to proceed with treatment OBJECTIVE: General Appearance: Elderly adult female, in bed, NAD Precautions: IV's: Peripheral line Skin, Incisions, Edema: Abrasion to L knee, R forehead; multiples bruises Other: Vitals: (*Assess the 3 levels of oxygen saturations both for room air and 02 unless rest on room air is 88% or less). Rest BP: 150/101 HR: 87-108 SpO2 ?? SpO2 100 Room Air ?? L 02 ?? RA Ex/Gait/Activity Without 02 BP: 190/121 HR: Seated EOB 106-116 SpO2 100 Room Air RA Ex/Gait/Activity With 02 BP: ?? HR: ?? SpO2 ?? L 02 ?? Post Activity BP: EOB 178/119 Supine 178/102 HR: ?? SpO2 ?? SpO2 ?? L 02 ?? Room Air ?? Observations: pt has no c/o dizziness or shortness of breath with activity MENTAL STATUS: Alert and oriented times x3 DIRECTION FOLLOWING: Able to follow one step commands 100 % ROM: R LE WFL, L knee extension lacking ~15 degrees, all other motions WFL STRENGTH: L LE generally 4/5 throughout SENSATION:intact light touch sensation BRUNA LEs TONE: normal NEGLECT: none noted COORDINATION: intact FUNCTIONAL MOBILITY Not Tested Not Applicable Independent Stand by Assist Minimal Moderate Maximum Dependent Rolling x Scooting x Supine to/from sit x Sit to/from Stand x Bed to/ chair x Observation: cues for hand placement with transfer BALANCE: Sitting Static: fair plus Dynamic: fair Standing Static: fair minus with WW Dynamic: fair minus with WW Observation: GAIT: Weight Bearing: WBAT Distance: pt took ~4 side steps to HOB; limited mobility this date due to elevated BP Device: Wheeled Walker Assistance: Minimal assist of 2 Balance: fair minus Steps: not assessed fair endurance Observation: flexed posture, decreased foot clearance, cues for sequencing ACTIVITY TOLERANCE: Patient's activity tolerance: fair TREATMENT/INTERVENTIONS: evaluation, bed mobility training, transfer training, gait training, balance activities and monitoring of vitals EDUCATION: While performing PT, Patient was instructed in:Functional mobility training/weight bearing status, Safety awareness/fall precaution, Home exercise program, Discharge plan, Self care training and Use of adaptive equipment Patient demonstrated Good understanding of instructions given. INFORMED CONSENT TO TREATMENT: Plan of care including recommended therapy, goals and frequency, discussed with patient who understands and agrees to proceed. ASSESSMENT: Patient's functional performance presently limited due to: pain, precautions, strength, bed mobility, transfers, gait and balance and Patient would benefit from additional Physical Therapy to achievethe following functional goals to enhance independence. Current Modified [place] Score: 4 Short Term Goals: Goal Formation With patient Patient will perform bed mobility: Stand By Assist Patient will transfer sit to/from stand: Stand By Assist Patient will transfer bed to/from chair: Stand By Assist Patient will ambulate 25 feet with Stand By Assist and appropriate AD Patient will perform home exercise program independently Link Knitting Machine Operator Goal(s): Patient to discharge to appropriate next level of inpatient care Equipment Issued: gait belt Plan: If patient is discharged from the facility, this note serves as a discharge summary if further physical therapy visits did not occur. Following therapy session, patient left in bed, with bed alarm on, with call light within reach, with RN, Abraham aware and with RN/CP rehab cues written on white board ITY ASSURANCE MONITOR FINAL * Lidia Londono PT - 12/31/2020 2:00 PM CST [facility] Department of Physical Medicine & Rehabilitation Progress Note Patient: Susan Kam Med Record Number: [id number] Date of : 1945 Age: [age] year old 12/31/20 1400 Missed Visit Missed Visit Procedure Off Floor Patient off the floor (ECHO) ITY ASSURANCE MONITOR FINAL * Anai Beaver MD - 12/31/2020 1:16 PM CST [facility] Stroke Progress Note Susan Kam Age: [age] year old Date of : 1945 Date of Admission: 12/29/2020 Hospital Day: 2 Subjective History of Present Illness 75 yo F with presenting with aphasia and R sided facial droop. Per patient, she was LKW at around 1100 (asked in a yes/no fashion due to severe expressive aphasia). Initial NIH was 8 with cortical sign (aphasia). CTH was negative for AICP. TNK was administered. IVR was activated but MT deferred dueto no LVO on CTA. Interval History No acute events overnight. MRI with no bleed. Transferred to the floor. Objective Patient Vitals for the past 8 hrs: BP Temp Temp src Pulse Resp SpO2 12/31/20 1154 (!) 175/104 97.6 ??F (36.4 ??C) Oral 93 16 100 % 12/31/20 1145 (!) 186/117 -- -- -- -- -- 12/31/20 1143 (!) 191/129 -- -- -- -- -- 12/31/20 1133 -- -- -- 95 -- -- 12/31/20 0809 (!) 180/101 97.6 ??F (36.4 ??C) Oral 79 16 98 % Exam: Cortical Function Mental Status Awake, alert, follows commands Orientation Appropriate Language Severe aphasia mildly improved, comprehension intact Visual Piper Intact bilaterally to confrontation Neglect No visual neglect noted, no tactile neglect noted Cranial Nerves II Pupils 3 mm and bilaterally reactive to light. VIII Hearing is intact to conversation III/IV/ Extraocular muscles intact. No diplopia, ptosis, nystagmus or convergence abnormalities noted. IX/X Palate elevated symmetrically without phonation abnormalities noted. V Facial sensation symmetric to light touch and intact bilaterally. XI Head turning and shoulder shrug are intact. VII R UMN facial palsy XII Tongue is midline with normal movements and no atrophy noted. Motor Function Movement No abnormalities noted Bulk No abnormalities noted Tone No abnormalities noted Proximal Upper Distal Upper Proximal Lower Distal Lower Right 4/5 4/5 4+/5 5/5 Left 5/5 5/5 5/5 5/5 Sensory Light Touch Symmetric and intact bilaterally Cerebellar FNF Right Intact Left Intact Gait Deferred Aphasia POA: Yes Weakness POA: Yes Cerebrovascular accident (CVA) POA: Yes Azotemia POA: Yes A-fib POA: Yes Dysphagia POA: Yes Assessment Susan Kam is a 75 year old female presenting for aphasia and R sided weakness. Stroke Type: Ischemic Stroke Mechanism: Cardioembolic Plan L MCA territory infarcts 2/2 A fib - Apixaban 5 BID - Atorvastatin 40 - ECHO results pending - q4h vitals and neurochecks - HOB [facility] - [place] for changes in exam Blood Pressure Goals: Ischemic Post-tPA < 180/105 Coreg 12.5 BID Core Measures tPA administration: yes Anti-thrombotic: y Statin: y DVT prophylaxis: apixaban Swallow Evaluation: passed PT/OT Evaluation: rehab Smoking cessation; will children's counselor: n/a Atrial fibrillation - Rate controlled - Cored 12.5 BID - Apixaban 5 mg BID Individual Modifiable Risk Factors Hypertension: yes Hyperlipidemia: no Diabetes: no Atrial Fibrillation: no Tobacco: no Anai Beaver MD Neurology Resident ITY ASSURANCE MONITOR FINAL * Ankur Geronimo RN - 12/31/2020 12:09 PM CST Case Management Stroke Psychosocial Assessment Case Management screen completed & Welcome Letter given. Diagnosis: The primary encounter diagnosis was Dysphagia, unspecified type. Diagnoses of Weakness, Aphasia, and Cerebrovascular accident (CVA), unspecified mechanism were also pertinent to this visit. Met with patient and son Discharge Goals and Plans Plans: No discharge needs identified at this time. Consult Case Management if discharge planning needs arrise. Anticipated Discharge Date: 01/02/21 Family Support (name and phone): Extended Emergency Contact Information Primary Emergency Contact: MICKEY KAM Mobile Relation: Spouse Anticipated level of care at discharge: Fdc - Skilled Facility For patients discharging home with Home Health, [facility] [place] or other outpatient services, has thefamily or caregiver been assessed to determine their skills, capacity and resources available to meet the patient needs: No If patient requires HHC at discharge, he/she requests: Transportation at Discharge: Transportation at discharge: Ambulance Equipment at Home: Equipment At Home: None Additional equipment needed at home but does not have: Pharmacy benefit: Yes Medication affordability concerns: No Hunger Screening: Slitting Machine Feeder Referral: Yes Community Resources provided: Patient and/or Family Questions/Concerns: Will continue to follow. For any questions or needs please contact: Alarm Signal Operator Name/Phone number: Ankur Geronimo RN [phone] ITY ASSURANCE MONITOR FINAL * Ivana Andrade OT - 12/31/2020 11:31 AM CST [facility] Department of Physical Medicine & Rehabilitation Progress Note Patient: Susan Kam [facility] Record Number: [id number] Date of : 1945 Age: [age] year old 12/31/20 1100 Missed Visit Missed Visit Other (Comment) (BP elevated this AM 188/115, will attempt to see patient later today) ITY ASSURANCE MONITOR FINAL * Lidia Londono PT - 12/31/2020 10:24 AM CST [facility] Department of Physical Medicine & Rehabilitation Progress Note Patient: Susan Kam [facility] Record Number: [id number] Date of : 1945 Age: [age] year old 12/31/20 1023 Missed Visit Missed Visit Other (Comment) BP elevated this AM 188/115, will attempt to see patient later in day. ITY ASSURANCE MONITOR FINAL * Alec Correia SLP - 12/31/2020 9:05 AM CST [facility] Modified Barium Swallow Patient: Susan Kam [facility] Record Number [id number] Date of : 1945 Age: [age] year old PPE: n95, eye protection, gloves Referring Physician: Stroke Team Diagnosis: Patient Active Problem List: Aphasia Weakness Cerebrovascular accident (CVA) Azotemia A-fib Dysphagia No past medical history on file. Swallow Recommendations: Liquids: Thin liquids Diet: Minced & Moist (5)/Mech Altered (DYS2) Swallowing guidelines: Aspiration precautions as follows... - sit upright for oral intake (90 degree chin to neck angle) - small bites - small, single sips - alternate liquids and solids - slow rate - pills one at a time - 1:1 assist for tray set up and encouragement - oral care BID Recommended tests/consults: NA Discharge Recommendation: TBD, due to acute medical status Speech therapy is recommended to improve swallow function. Subjective: Alert and oriented x3-4. Expressive aphasia/ moderate dysarthria. Objective: Patient completed MBS in radiology suite. Patient completed trial of thin liquids, pureeand solid consistencies. Patient demonstrated the following: mildly delayed initiation, slow A-P transit of bolus, slow mastication of solid with oral residue post swallow, swallow triggers with bolus head in valleculae, penetration only with consecutive sips of thin liquids via cup and mild pharyng eal residue with solid consistency. ST is recommending Minced & Moist (5)/Mech Altered (DYS2) and thin liquids. ST will follow patient to assess diet tolerance and upgrade diet when able. Cognitive/Mental Status: Patient appears alert, oriented with no cognitive impairments that will interfere with therapy intervention. Procedure: This procedure was performed in conjunction with radiology using lateral views. The patient was given thin liquid, pudding consistency and cracker dipped in pudding/barium mix . Oral Stage: Mastication: Laborious Transit: Increased oral transit time Tongue Base Retraction: Functional- mild delay Comments: Patient demonstrated mildly delayed initiation and slow A-P transit of both puree and solid consistencies Pharyngeal Stage: Response Triggering: Mild delay Spillage of Bolus: Valleculae and Underside of epiglottis Epiglottic Function: Functional Stasis/Residue: Valleculae and Pyriform sinus Multi Penetration/Aspiration: Patient demonstrated trace penetration with consecutive cup sips- no aspiration was observed during this study Consistency: Thin Liquids Amount: Trace Cough: Present Esophageal Stage: Cricopharyngeal Function: Functional Swallowing Function: Patient demonstrated mild oropharyngeal dysphagia Dysphagia Outcome and Severity Scale (MARKO): ??? Level 7: Normal in all situations ??? Level 6: Within functional limits/modified independence ??? Level 5: Mild dysphagia: distant supervision, may need 1 diet consistency restricted ??? Level 4: Mild-moderate dysphagia: intermittent supervision/cueing, 1 or 2 consistencies restricted ??? Level 3: Moderate dysphagia: total assist, supervision or strategies, 2 or more diet consistencies restricted ??? Level 2: Moderately severe dysphagia: maximum assistance or use of strategies with partial per oral only (tolerates at least 1 consistency safely with total use of strategies) ??? Level 1: Severe dysphagia: not per oral: unable to tolerate any per oral safely Functional Oral Intake Scale (FOIS): ??? Level 7: Total oral diet with no limitations ??? Level 6: Total oral diet without special preparation but may need to avoid/modify specific items. ??? Level 5: Total oral diet with multiple consistencies but requiring special preparations or compensations. ??? Level 4: Total oral diet of a single consistency ??? Level 3: Tube dependent with consistent oral intake of at least one consistency of food or liquid. ??? Level 2: Tube dependent with minimal attempts of food or liquid (I.e. for pleasure/QoL/therapy) ??? Level 1: Nothing by Mouth (NPO) Education: Patient, Nursing and Physician instructed in recommedations and indicated understanding. Guidelines were posted (inpatient only): yes Informed Consent to Treatment: Plan of care including recommended therapy, goals and frequency, as well as potential risks and benefits of treatment/assessment explained to the patient who understands and agrees to proceed. Short Term Goal(s): Patient/staff/family to receive instruction in compensatory swallowing strategies andd/or recommendations and verbalize understandi., Patient to demonstrate no clinical signs/symptoms of aspiration or difficulty swallowing with recommended diet. and Patient to demonstrate gains in swallowing function as demonstrated by the ability to tolerate diet upgrade. Fci Goal(s): Patient to be independent/baseline with functional swallow and be able to safely discharge to priorlevel of care. If patient is discharged from this facility, this note serves as a discharge note if further speechtherapy visits did not occur. Alec Marshall M.A., [facility]-SENIOR EXAMINER Speech Language Pathologist [phone] ITY ASSURANCE MONITOR FINAL * Froy Koch MD - 12/31/2020 8:49 AM CST Images from the original note were not included. I saw and examined the patient with the resident. I have verified the residents' note and agree with the residents documentation with additions and modifications as listed in my separate note. Multidisciplinary rounds were held at 9am and the patient's care and recovery plan were reviewed and developed with the assembled team. Susan Kam is a 75 year old F who presented with R facial droop, R sided extremity drift, and severe expressive aphasia. In a fib upon presentation. CTA with no LVO. Sp TNK. Exam improved - now producing some words with minimal facial droop and only subtle motor asymmetry. MR with small volume patchy LMCA infarction. ESUS blackwood. Problem List Aphasia POA: Yes Weakness POA: Yes Cerebrovascular accident (CVA) POA: Yes Azotemia POA: Yes A-fib POA: Yes Dysphagia POA: Yes See Resident note for the remaining problem specific plan. 2 Disposition: tbd Date Estimated to be Medically Ready for Discharge: 01/01 MEDICATIONS FOR CURRENT ENCOUNTER: SCHEDULED MEDICATIONS: Or *Hold/Avoid Medication, Other, DIRECTED *Hold/Avoid Medication, Other, DIRECTED 0.9% NaCl injection 3 mL, Intracatheter, q8h 0.9% NaCl injection 3 mL, Intracatheter, q8h aspirin chew tablet 81 mg, Oral, QDAY aspirin suppository 300 mg, Rectal, QDAY atorvastatin (Lipitor) tablet 40 mg, Oral, AT BEDTIME heparin injection 5,000 Units, Subcutaneous, q8h insulin lispro (HumaLOG;ADMelog) 100 UNIT/ML pen 0-6 Units, Subcutaneous, TID WC iopamidol (Isovue 370) 76 % contrast, Intravenous, Contrast - Once [COMPLETED] aspirin suppository 300 mg, Rectal, Once ?? [COMPLETED] ketorolac (Toradol) injection 15 mg, Intravenous, Once CONTINUOUS MEDICATIONS: ?? dextrose 5 % and 0.9% nacl infusion, Intravenous, Continuous PRN MEDICATIONS: 0.9% NaCl injection 1-10 mL, Intracatheter, PRN 0.9% NaCl injection 3 mL, Intracatheter, PRN dextrose IV 12.5-25 g, Intravenous, PRN glucagon (Glucagen) injection 1 mg, Intramuscular, PRN glucose (Diabetic Use) (Dex4 Glucose) oral liquid, Oral, PRN ?? glucose (Diabetic Use) oral gel, Oral, PRN Patient Vitals for the past 24 hrs: Temp Pulse Resp BP 12/31/20 0809 97.6 ??F (36.4 ??C) 79 16 (!) 180/101 12/31/20 0509 99.3 ??F (37.4 ??C) 83 18 135/92 12/31/20 0004 98.2 ??F (36.8 ??C) 85 -- 142/96 12/30/20 2018 97.9 ??F (36.6 ??C) 77 18 144/89 12/30/201999 -- -- 16 -- 12/30/20 1849 98.1 ??F (36.7 ??C) 97 16 (!) 177/100 12/30/20 1800 -- 98 15 155/86 12/30/20 1700 -- -- 15 134/95 12/30/20 1600 98 ??F (36.7 ??C) 87 15 157/98 12/30/20 1500 -- 99 18 139/97 12/30/20 1400 97.9 ??F (36.6 ??C) 94 17 121/78 12/30/20 1300 -- 86 15 130/82 12/30/20 1200 98 ??F (36.7 ??C) 89 15 122/80 12/30/20 1100 -- 98 14 123/77 12/30/20 1000 98.3 ??F (36.8 ??C) 108 16 133/80 12/30/20 0900 -- (!) 110 14 116/76 Recent Labs Component Name 12/30/20225212/29/20235012/29/20 1430 NA 142 140 140 CL 111* 106 102 CO2 20* 20* 28 BUN 25 29* 36* CREATININE 0.91 0.95 0.95 CALCIUM 8.0* 8.9 10.4* PHOS 2.6* 3.6 - Recent Labs Component Name 12/30/20225212/29/20235012/29/20 1430 WBC 7.0 9.6 10.9* RBC 3.98 4.17 5.24* HGB 10.8* 11.2* 13.9 HCT 34.0* 35.5 44.0 Recent Labs Component Name 12/29/201914 CHOL 161 TRIG 47 HDL 57 LDLCALC 95 Recent Labs Component Name 12/29/201914 HGBA1C 5.7 EAG 117 Recent Labs Component Name 12/30/20 2253 12/29/20 2351 12/29/20 1430 PLTCOUNT [id number] ITY ASSURANCE MONITOR FINAL * Kitty Barrett, RN - 12/31/2020 1:36 AM CST Problem: Fall Risk Goal: Fall risk and fall related injury risk are minimized (interventions related to the fall risk can be found in the flowsheet documentation) Outcome: Progressing ITY ASSURANCE MONITOR FINAL * Ivana Thakkar, PT - 12/30/2020 11:12 AM CST [facility] Department of Physical Medicine & Rehabilitation Progress Note Patient: Susan Kam [facility] Record Number: [id number] Date of : 1945 Age: [age] year old 12/30/20 1112 Missed Visit Missed Visit Other (Comment) Per chart review, tPA initiated 1438 at 12/29. Defer therapy until 24 hours post tPA. ITY ASSURANCE MONITOR FINAL * Rosio Falcon SLP - 12/30/2020 10:28 AM CST [facility] Bedside Swallow Evaluation Patient: Susan Kam [facility] Record Number: [id number] Date of : 1945 Age: [age] year old Patient Active Problem List: Aphasia Weakness Cerebrovascular accident (CVA) Azotemia A-fib No past medical history on file. In addition to the 1:1 evaluation of the patient, additional eval time was spent completing the chart review prior to the assessment, completing the multidisciplinary plan of care and education plan post evaluation and communicating results of the eval to other treatment team members. PPE: PPE donned by SENIOR EXAMINER during this session - N95 mask, eye protection and gloves. Impressions: Patient presents with suspected oropharyngeal dysphagia in the presence of weakness and AMS secondary to possible CVA. Pt was administered trials of ice chips, purees by spoon, cracker and water via straw. Dysphagia is evidenced by residue post swallow and O2 drop during PO trials. Pt unable to initiate motor plan for cheek puff and tongue protrusion during OME. ST concerned Pt is silently aspirating due to decreased sensation and difficulty w/ oral motor control. Pt is aphasic--able to approximate name. Pt Y/N response seems to be accurate. ST recommends instrumental evaluation to ensure swallow safety. Pt is a poor candidate for oral intake at this time. ST will monitor pt for diet advance as appropriate. Swallow Recommendations Not a candidate for oral intake at this time and will benefit from non-oral feeding. Will continue to re-assess. Recommended tests/consults: Modified Barium Swallow Discharge Recommendations: TBD pending medical status. Speech therapy is recommended to improve swallow function. Current Diet: DIET NPO Except: NPO NO EXCEPTIONS Subjective Patient Goals: Pt wants to communicate verbally Pain: Patient has 0/10 pain Objective Mental Status: A&O XUnable to get verbal response for orientation questions, Alert, Difficulty communicating and Confused Positioning: Upright in bed Breathing Status: Room air Tracheostomy tube: N/A Dentition: good Oral function Exam: Impairments in the following areas: Other: Difficulty w/ control of articulators (could not complete some tasks) Laryngeal Function Exam: Impairments in the following areas: Volitional cough: Absent Trial Swallows: Ice Chips, Thin Liquids, Pureed and Solid Oral Phase: Oral residue after the swallow Pharyngeal Phase: Delayed/absent swallow response Signs of Aspiration: No overt signs and symptoms of aspiration/penetration Modifications: None attempted Assessment Swallow: Dysphagia: Oral: Minimal Pharyngeal: Minimal Behavior: Alert, Cooperative Cognitive-Communication: Mild to moderate deficits with further need for assessment. Speech/Language: Moderate to severe deficits with further need for assessment. Other: Severely aphasic Treatment Evaluation Education Patient and Nurse instructed in recommendations and indicated understanding. Informed Consent to Treat Plan of care including recommended therapy, goals, and frequency, as well as potential risks and benefits of treatment/assessment explained to patient. Patient understands and agrees to proceed. Short Term Goals Patient to demonstrate no clinical signs/symptoms of aspiration or difficulty swallowing with recommended diet. Patient to demonstrate understanding of swallow guidelines and strategies. Link Knitting Machine Operator Goals Patient to be independent/baseline with functional mobility and self care and be able to safely discharge to prior level of care. If patient is discharged from the facility, this note serves as a discharge note if further speech therapy visits did not occur. Zayra Sampson, [facility]-SENIOR EXAMINER Speech Language Pathologist ITY ASSURANCE MONITOR FINAL * Radhika Cm OT - 12/30/2020 8:02 AM CST [facility] Department of Physical Medicine & Rehabilitation Progress Note Patient: Susan Kam [facility] Record Number: [id number] Date of : 1945 Age: [age] year old 12/30/20 0800 Missed Visit Missed Visit Other (Comment) Per chart review, tPA initiated 1438 at 12/29. Defer therapy until 24 hours post tPA. ITY ASSURANCE MONITOR FINAL documented in this encounter H&P Notes * Froy Koch MD - 12/30/2020 8:03 AM CST I saw and examined the patient with the resident. I have verified the residents' note and agree with the residents documentation with additions and modifications as listed in my separate note. Susan Kam is a 75 year old F who presented with R facial droop, R sided extremity drift, and severe expressive aphasia. In a fib upon presentation. CTA with no LVO. Sp TNK. Exam improved - now producing some words with minimal facial droop and only subtle motor asymmetry. Problem List Aphasia POA: Yes Weakness POA: Yes Cerebrovascular accident (CVA) POA: Yes Azotemia POA: Yes See Resident note for the remaining problem specific plan. 1 Disposition: Date Estimated to be Medically Ready for Discharge: MEDICATIONS FOR CURRENT ENCOUNTER: ?? SCHEDULED MEDICATIONS: ?? *Hold/Avoid Medication, Other, DIRECTED ?? *Hold/Avoid Medication, Other, DIRECTED ?? 0.9% NaCl injection 3 mL, Intracatheter, q8h ?? 0.9% NaCl injection 3 mL, Intracatheter, q8h ?? atorvastatin (Lipitor) tablet 40 mg, Oral, AT BEDTIME ?? insulin lispro (HumaLOG;ADMelog) 100 UNIT/ML pen 0-6 Units, Subcutaneous, TID WC ?? iopamidol (Isovue 370) 76 % contrast, Intravenous, Contrast - Once ?? [COMPLETED] labetalol (Normodyne; Trandate) injection 10 mg, Intravenous, Once ?? [COMPLETED] tenecteplase (TNKase) injection 13.8 mg, Intravenous, Once ?? [] 0.9% NaCl injection 10 mL, Intracatheter, Once ?? [] 0.9% NaCl injection 10 mL, Intracatheter, Once ?? CONTINUOUS MEDICATIONS: ?? dextrose 5 % and 0.9% nacl infusion, Intravenous, Continuous ?? PRN MEDICATIONS: ?? 0.9% NaCl injection 1-10 mL, Intracatheter, PRN ?? 0.9% NaCl injection 3 mL, Intracatheter, PRN ?? dextrose IV 12.5-25 g, Intravenous, PRN ?? glucagon (Glucagen) injection 1 mg, Intramuscular, PRN ?? glucose (Diabetic Use) (Dex4 Glucose) oral liquid, Oral, PRN ?? glucose (Diabetic Use) oral gel, Oral, PRN Patient Vitals for the past 24 hrs: Temp Pulse Resp BP 12/30/20 0700 -- 107 -- 102/65 12/30/20 0600 98.7 ??F (37.1 ??C) 102 16 101/59 12/30/20 0500 -- 101 -- 97/65 12/30/20 0400 98.4 ??F (36.9 ??C) 85 18 103/59 12/30/20 0300 -- 97 16 111/64 12/30/20 0200 98.6 ??F (37 ??C) 65 12 81/51 12/30/20 0100 -- 81 14 133/93 12/30/20 0000 98.5 ??F (36.9 ??C) 93 12 137/88 12/29/20 2300 -- 83 16 122/76 12/29/200 -- 100 -- (!) 141/121 12/29/200 -- 79 18 126/64 12/29/202129 -- 72 -- 134/80 12/29/20 2100 -- 71 12 126/82 12/29/202029 -- 73 -- 116/74 12/29/201999 98 ??F (36.7 ??C) 72 18 102/67 12/29/20 1908 -- 100 -- -- 12/29/20 1900 -- 97 15 145/84 12/29/20 1845 97.7 ??F (36.5 ??C) 91 16 116/67 12/29/20 1830 -- 77 14 131/84 12/29/20 1550 -- 76 16 -- 12/29/20 1545 -- 97 -- 138/77 12/29/20 1540 -- 77 11 -- 12/29/20 1525 -- 90 15 -- 12/29/20 1523 98 ??F (36.7 ??C) 81 11 155/87 12/29/20 1515 -- 83 11 (!) 136/103 12/29/20 1510 -- 81 12 -- 12/29/20 1508 98 ??F (36.7 ??C) 72 12 (!) 174/106 12/29/20 1453 -- 79 10 166/87 12/29/20 1438 98 ??F (36.7 ??C) 87 16 167/89 12/29/20 1400 98 ??F (36.7 ??C) 98 18 (!) 220/134 Recent Labs Component Name 12/29/20235012/29/20 1430 NA 140 140 CL 106 102 CO2 20* 28 BUN 29* 36* CREATININE 0.95 0.95 CALCIUM 8.9 10.4* PHOS 3.6 - Recent Labs Component Name 12/29/20 23512/29/20 1430 WBC 9.6 10.9* RBC 4.17 5.24* HGB 11.2* 13.9 HCT 35.5 44.0 Recent Labs Component Name 12/29/20 1915 CHOL 161 TRIG 47 HDL 57 LDLCALC 95 No results for input(s): HGBA1C, A1C, [id number], EAG in the last 30517 hours. Recent Labs Component Name 12/29/20235012/29/20 1430 PLTCOUNT [id number] ITY ASSURANCE MONITOR FINAL * Anai Beaver MD - 12/29/2020 2:19 PM CST [facility] Stroke History and Physical Susan Buechler Age: [age] year old Date of : 1945 Date of Admission: 12/29/2020 Hospital Day: 1 Subjective Patient is a 75 year old female presents with R sided facial droop and aphasia. Date last known well: 12/29/2020 Time last known well: 1100 Blood Glucose: 122 Blood Pressure: 220/110 Timeline EMS called tPA started at [facility] Code Stroke Paged [phone] Arrival at [facility] ED 1413 NIHSS Completed 1417 First Imaging Slice 1420 tPA orders placed 1432 tPA begun 1438 History of Present Illness 75 yo F with unknown PMHx presenting with aphasia and R sided facial droop. Per patient, she was LKW at around 1100 (asked in a yes/no fashion due to severe expressive aphasia). Initial NIH was 8 with cortical sign (aphasia). CTH was negative for AICP. TNK was administered. IVR was activated but MTdeferred due to no LVO on CTA. Multiple attempts to reach the patient's at the number provided in the chart have been unsuccessful. Patient's PMHx and home medications are unknown at this time. However, patient was not on blood thinners (confirmed in yes/no fashion with the patient). No past medical history on file. No past surgical history on file. Medications Prior to Admission Medication Sig Dispense Refill ??? buPROPion SR 12hr (WELLBUTRIN-SR) 150 MG tablet ??? celecoxib (CELEBREX) 200 MG capsule ??? doxycycline hyclate (PERIOSTAT) 20 MG tablet ??? HYDROcodone-acetaminophen (NORCO) 10-325 MG tablet ??? metoprolol succinate XL 24hr (TOPROL XL) 25 MG tablet ??? metoprolol succinate XL 24hr (TOPROL XL) 50 MG tablet ??? pimecrolimus (ELIDEL) 1 % cream ??? PROLIA 60 MG/ML SC injection Allergy No Known Allergies Family History JANA Social History No smoking, alcohol, drugs Review of Systems Negative for pain anywhere in the body, SOB, changes in bowel/bladder pattern. Objective Patient Vitals for the past 8 hrs: BP Temp Temp src Pulse Resp SpO2 Height Weight 12/30/20 0700 102/65 -- -- 107 -- 96 % -- -- 12/30/20 0600 101/59 98.7 ??F (37.1 ??C) Oral 102 16 96 % -- -- 12/30/20 0500 97/65 -- -- 101 -- 97 % -- -- 12/30/20 0442 -- -- -- -- -- -- 5' 2 122 lb 12/30/20 0400 103/59 98.4 ??F (36.9 ??C) Oral 85 18 96 % -- -- 12/30/20 0300 111/64 -- -- 97 16 94 % -- -- 12/30/20 0200 81/51 98.6 ??F (37 ??C) Oral 65 12 97 % -- -- 12/30/20 0100 133/93 -- -- 81 14 98 % -- -- Exam: Cortical Function Mental Status Awake, alert, follows commands Orientation JANA Language Severe aphasia, comprehension intact Visual Piper Intact bilaterally to confrontation Neglect No visual neglect noted, no tactile neglect noted Cranial Nerves II Pupils 3 mm and bilaterally reactive to light. VIII Hearing is intact to conversation III/IV/ Extraocular muscles intact. No diplopia, ptosis, nystagmus or convergence abnormalities noted. IX/X Palate elevated symmetrically without phonation abnormalities noted. V Facial sensation symmetric to light touch and intact bilaterally. XI Head turning and shoulder shrug are intact. VII R UMN facial palsy XII Tongue is midline with normal movements and no atrophy noted. Motor Function Movement No abnormalities noted Bulk No abnormalities noted Tone No abnormalities noted Proximal Upper Distal Upper Proximal Lower Distal Lower Right 4/5 4/5 4+/5 5/5 Left 5/5 5/5 5/5 5/5 Sensory Light Touch Symmetric and intact bilaterally Cerebellar FNF Right Intact Left Intact Gait Deferred Ischemic Stroke Documentation Cardiovascular/Cerebrovascular Comorbidities Unknown NIHSS Stroke Scale: Interval: Baseline Time: 1414 Person Administering Scale: Anai Beaver MD 1a Level of consciousness 0 = Alert; keenly responsive. 1b LOC questions 2 = Aphasic and stuporous patients who do not comprehend the questions. 1c LOC commands 0 = Performs both tasks correctly. 2 Best gaze 0 = Normal. 3 Visual 0 = No visual loss. 4 Facial Palsy 2 = Partial paralysis (total or near-total paralysis of lower face). 5a Motor Left Arm 0 = No drift; limb holds 90 (or 45) degrees for full 10 seconds. 5b Motor Right Arm 1 = Drift; limb holds 90 (or 45) degrees, but drifts down before full 10 seconds; does not hit bed or other support. 6a Motor Left Leg 0 = No drift; leg holds 30 degree position for full 5 seconds. 6b Motor Right Leg 1 = Drift; leg falls by the end of the 5-second period but does not hit the bed. 7 Limb Ataxia 0 = Absent. 8 Sensory 0 = No loss 9 Best Language 2 = Severe aphasia; all communication is through fragmentary expression; great needfor inference, questioning, and guessing by the listener. Range of information that can be exchanged is limited; listener carries burden of communication. 10 Dysarthria 0 = Normal. 11 Extinction/Inattention 0 = No abnormality. Total - 8 tPA - INCLUSION criteria for treatment 0-3 hours from last known well: 1. Age greater than or equal to 18 years old? y 2. Clinical presentation consistent with acute ischemic stroke? y 3. Head CT excludes ICH as primary cause of stroke symptoms? y tPA - EXCLUSION criteria for treatment 0-3 hours from last known well: 1. Current intracranial hemorrhage or subarachnoid hemorrhage? n 2. Active internal bleeding? n 3. Recent (<3 months) intracranial/intra-spinal surgery or serious head trauma? n 4. Presence of intracranial conditions that may increase the risk of bleeding (some neoplasms, AVMs, or aneurysms)? n 5. Bleeding diathesis? n 6. Current severe uncontrolled hypertension? n tPA - Additional EXCLUSION criteria for treatment 3-4.5 hours from last known well: 1. Age greater than 80 years old? n 2. NIHSS greater than 25? n 3. History of stroke and diabetes mellitus? n 4. Oral anticoagulant use regardless of INR? n The patient was informed that tissue plasminogen activator would be administered to treat their potentially disabling acute stroke symptoms. The risks, benefits, and alternatives were explained. Family was included in this discussion if immediately available. No objection to utilizing the medication was indicated. Tenecteplase Administered?: Yes IF YES - Door to Needle >30 Minutes? Yes Verbal Informed Consent Obtained from: Patient Discussions to obtain informed consent for tPA included: risk (symptomatic bleeding into the brain up to 6.4% of patients which can result in ), benefit (improvement in 30% of patients at 90 days), and alternatives. Large Vessel Occlusion Suspected?: Yes IF YES - Thrombectomy Candidate?: yes IF YES - IVR Activated: yes Mechanical Thrombectomy - INCLUSION criteria: 1. Age greater than or equal to 18 years old? y 2. Clinical presentation consistent with acute ischemic stroke? y 3. Head CT excludes ICH as primary cause of stroke symptoms? y Mechanical Thrombectomy - EXCLUSION criteria: 1. Evidence of proximal large vessel intracranial occlusion? n 2. Completed large infarction on neuroimaging? n 3. Baseline disability with modified [place] score greater than or equal to 3? n 4. Patient and/or family refusal of treatment? n 5. Mild/non-disabling neurological deficits? n Mechanical Thrombectomy not considered due to: No LVO on CTA Aphasia POA: Yes Weakness POA: Yes Cerebrovascular accident (CVA) POA: Yes Azotemia POA: Yes A-fib POA: Yes Assessment Susan Kam is a 75 year old female presenting for aphasia and R sided weakness. Stroke Type: Ischemic Stroke Mechanism: Cardioembolic Plan Stroke Workup; active - Patient will be admitted to the stroke service. - CTH, CTA H/N, MRI Brain - TTE and Telemetry; if TTE negative, consider TORI - HbA1C, Lipid Panel, Cardiac Enzymes - UA and UDS - NPO until passes swallow Blood Pressure Goals: Ischemic Post-tPA < 180/105 Neurological Ischemic Stroke; active - Neurology critical care will be primary - Post-tPA monitoring - q1h vitals and neurological checks - Stat CT head for any change in neurological examination - MRI Brain or repeat CTH 24 hours post-tPA; okay to restart ASA and heparin if no bleed noted - Head of bed > 30?? - Avoid hypoglycemia, hyponatremia, and hyperthermia - Sodium goals: normal Core Measures tPA administration: yes Anti-thrombotic: p Statin: y DVT prophylaxis: pending Swallow Evaluation: pending PT/OT Evaluation: pending Smoking cessation; will children's counselor: n/a Cardiovascular Atrial fibrillation - Rate controlled - Holding AC in setting of recent TNK - 12-lead EKG - Cardiac markers x 3 - Transthoracic ECHO ordered - Blood pressure goal: SBP < 180, DBP < 105 - Hemodynamic monitoring - Maintain MAP ~ 65 Respiratory No acute issues - Aspiration precautions - Elevate head of bed - Maintain oxygen saturation > 92% - Monitor for respiratory distress Gastrointestinal No acute issues - SENIOR EXAMINER swallow evaluation Renal/Electrolytes Mild azotemia Monitor - Monitor intake and output - Replete electrolytes as needed Hematology No acute issues - Avoid unnecessary IM injections and arterial punctures during the first 24 hours post-tPA - Evaluate puncture sites for bleeding or hematoma - Evaluate emesis, secretions, stool, and urine for blood - No nasogastric tube insertions during the first 24 hours post-tPA - Transfuse for hemoglobin < 7.0 g/dL Endocrine No acute issues - Accuchecks + SSI Infectious Disease No acute issues - Monitor for fevers - Drew culture if febrile Musculoskeletal No acute issues Disposition - PT/OT pending Individual Modifiable Risk Factors Hypertension: yes Hyperlipidemia: p Diabetes: p Atrial Fibrillation: no Tobacco: no Anai Beaver MD Neurology Resident ITY ASSURANCE MONITOR FINAL documented in this encounter Consult Notes * Veronica Marquez RN - 12/31/2020 2:06 PM CSTAssociated Order(s): IP CONSULT TO MACHINE SILK SCREEN PRINTER I have been consulted due to the possibility or diagnosis of stroke, chart reviewed. Patient Name: Susan Kam Arrival: 12/29/2020 1413 Last Known Well: 12/29/2020 1100 Code Stroke: Yes Activated By: EMS Blood drawn in the field: No IV Placed: #18 LAC Initial NIHSS Score: NIH Total: 8 (12/29/20 1400) Last Documented NIHSS Score: NIH Total: 3 (12/31/20 0755) Initial Blood Pressure: BP: (!) 220/134 (12/29/20 1400) Current Blood Pressure: BP: (!) 175/104 (12/31/20 1154) Tenecteplase Administered? Yes Door to needle time >30 minutes: No DTN: 25 Minutes Large Vessel Occlusion Suspected? No Stroke Risk Factors: Age, Sex, Atrial fibrillation, Hyperlipidemia, Hypertension and Prior history of Stroke/Transient Ischemic Attack Quality Measures - Risk Factor Modification Antithrombotic by day 2: Received Antithrombotic: Aspirin and Eliquis (apixaban) VTE Prophylaxis by day 2: Received VTE Prophylaxis: SCDs Anticoagulant if in Afib: Ordered - Eliquis LDL= Recent Labs Component Name 12/29/201914 LDLCALC 95 High Intensity Statin: Received HGBA1C = Recent Labs Component Name 12/29/201914 HGBA1C 5.7 Appropriate Diet for patient based on HgBA1c: Diabetic/Cardiac Nursing Swallow Screen: Total Score of questionnaire (6 or greater did not advance to the water test): Total Row: 9 (12/29/201499) Water Test Results: Fail - (Clinical signs of aspiration noted) - Keep NPO, notify physician and place on aspiration precautions. (12/29/201999) Evaluated by Therapy: Received Discharge Recommendation: Inpatient Rehab Written Stroke Education: Provided Education Personalized: Received Depression Screen Score = Received PHQ-2 PHQ2 TOTAL SCORE: 0 PHQ-9 Nursing pending course of action: 1) Complete stroke/TIA education daily with documentation of handout given. 2) Individualize stroke care plan, document daily. 3) Complete neuro checks and document as ordered by MD. 4) Complete NIHSS per MD orders. (If patient has an NIHSS deviation of 4 or greater from baseline, or per nursing judgement, please call Neurologist and repeat swallow screen evaluation.) 5) Complete depression screener for patient's diagnosed with stroke/TIA on day 2 or prior to discharge to evaluate the patient's potential for developing depression. Imaging: MRI BRAIN WO CONTRAST Result Date: 12/30/2020 IMPRESSION: 1. 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 2. No associated significant mass effect or midline shift isidentified. 3. 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 Preliminary results were discussed with Dr. Andrade by Dr. Randhawa on 12/30/2020 at 3:54 PM This report was electronically signed by AKIL MAC on 12/30/2020 8:[address] ANGIO BRAIN NECK STROKE Result Date: 12/30/2020 IMPRESSION: 1. No large arterial occlusions or significant stenoses identified in the head or neck.Dictated by Nelson Cordero MD (residential lawn specialist) I, Dr. NESS TONG M.D. have personally reviewed and interpreted this examination/study. This report was electronically signed by NESS TONG M.D. on 12/30/2020 8:[address] BRAIN - Stroke Result Date: 12/30/2020 IMPRESSION: 1.No acute intracranial hemorrhage, mass effect or midline shift. 2.Chronic small vessel ischemic disease of the brain with cerebral volume loss. 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 I, Dr. NESS TONG M.D. have personally reviewed and interpreted this examination/study. This report was electronically signed by NESS TONG M.D. on 12/30/2020 8:27 AM . Thank you for allowing me to participate in the care of Susan Kam. Veronica Marquez, BSN, CNRN, SCRN Debt Counselor, [facility] Office: [phone] Ascom: [phone] Email: [email or web address] ITY ASSURANCE MONITOR FINAL * Celia Chino RD/PARK - 12/30/2020 9:07 AM CSTAssociated Order(s): IP CONSULT TO NUTRITIONAL SERV Initial Nutrition Assessment Nutrition Recommendations: Establish nutrition source as medically appropriate Diet per SENIOR EXAMINER recommendations Should enteral nutrition be warranted, recommend: Jevity 1.5 at 45 ml/hr +free water flush of 100ml q6h or per MD Provides 1620 kcal, 69 g protein, 233 g carbohydrate, 821 ml free water Comments: Consult per Stroke Protocol. Pt failed bedside swallow. Awaiting SENIOR EXAMINER evaluation. Will follow SENIOR EXAMINER recommendations for appropriate route of nutrition. TF recs above if warranted. Last BM BAY STOCKER.1+edema noted. Will continue to follow Pt and plan of care through admission. Assessment: Med/Surg History and Clinical Diagnoses: aphasia and right-sided weakness Height: 5' 2 (157.5 cm) Weight: 122 lb (55.3 kg) BMI: Body mass index is 22.31 kg/m??. BMI Range: Normal IBW/lb (Calculated) Female: 89, Recent Weights/Methods 12/29/2020 1422 12/30/2020 0442 Weight: 122 lb (55.3 kg) 122 lb (55.3 kg) Weight Method (Utilize Scales): Bedscale Bedscale Wt Comments: monitoring Diet order accuracy Current diet order: NPO Nutrition recommendation: alter/change nutrition order PO Intake for the past 48 hrs: No data recorded Food Allergies: No known food allergies GI Concerns: None Chewing/Swallowing: Other (Comment) (failed bedside swallow) Pain affecting intake: No Estimated Needs: KCAL: 3541-3050 (25-30 kcal/kg ABW) Protein (g): 55-66 (1-1.2gm/kg ABW) Fluid (ml): 1 ml/kcal Needs based on: Kcal/kg- (Comment) Recommended Access Route: PO;TF (per SENIOR EXAMINER) Pertinent Nutrition Labs: A1c pending, lipids WNL Current Facility-Administered Medications Medication ??? *Hold/Avoid Medication ??? *Hold/Avoid Medication ??? 0.9% NaCl injection 3 mL And ??? 0.9% NaCl injection 1-10 mL ??? 0.9% NaCl injection 3 mL And ??? 0.9% NaCl injection 3 mL ??? atorvastatin (Lipitor) tablet 40 mg ??? dextrose 5 % and 0.9% nacl infusion ??? dextrose IV 12.5-25 g ??? glucagon (Glucagen) injection 1 mg ??? glucose (Diabetic Use) (Dex4 Glucose) oral liquid ??? glucose (Diabetic Use) oral gel ??? insulin lispro (HumaLOG;ADMelog) 100 UNIT/ML pen 0-6 Units ??? iopamidol (Isovue 370) 76 % contrast Skin/Wound: abrasions Education needed: Stroke Nutrition Therapy Education Provided: Prior to Discharge (as appropriate) Nutrition Care Process (1) Nutrition Diagnostic Statement: Inadequate oral intake related to:: decreased ability to consume or tolerate food and/or fluids due to illness as evidenced by:: --- (NPO, awaiting SENIOR EXAMINER) Nutrition Diagnostic Statement Progress: New diagnostic statement established Nutrition Intervention: Collaboration with other providers Monitoring: Established nutrition source, lab values, Wt, skin, BMs Evaluation: Nutrition Goal: Total intake will meet estimated nutrient needs Nutrition Goal Timeframe: Throughout stay Nutrition Goal Progress: New goal established Ascom: [id number] ITY ASSURANCE MONITOR FINAL documented in this encounter ED Notes * Nicmo John MD - 12/29/2020 3:02 PM CST ASSUME CARE NOTE Patient signed out to me by Dr. Winchester at 3:02 PM. Briefly, the patient is being evaluated for R side weakness and aphasia. LKW 12:00 PM. Patient has PMH of vascular dementia. The plan at present is admit to Stroke ICU. Pending bed availability. Vitals: 12/29/20 1525 12/29/20 1540 12/29/20 1545 12/29/20 1550 BP: 138/77 Pulse: 90 77 97 76 Resp: 15 11 16 SpO2: 100% 99% 97% 99% Weight: There is no height or weight on file to calculate BMI. At this time the following studies are : Labs Reviewed CBC W AUTO DIFFERENTIAL - Abnormal; Notable for the following components: Result Value WBC 10.9 (*) RBC 5.24 (*) MCH 26.5 (*) RDW-CV 15.7 (*) MPV 9.0 (*) Neutrophils % 80.7 (*) Lymphocytes % 11.2 (*) Neutrophils Absolute 8.8 (*) All other components within normal limits COMPREHENSIVE METABOLIC PANEL - Abnormal; Notable for the following components: BUN 36 (*) Potassium 4.8 (*) Glucose 118 (*) Calcium 10.4 (*) BUN/Creatinine Ratio 38 (*) Albumin/Globulin Ratio 1.0 (*) eGFR by CKD-EPI 42 (*) All other components within normal limits PT-INR [facility] - Normal TROPONIN I - Normal CREATININE - POCT INTERFACED - Normal HEMOGLOBIN A1C LIPID PROFILE TROPONIN I INR WHOLE BLOOD - POINT OF CARE (IP) STROKE TYPE + SCREEN PANEL BLOOD TYPE VERIFICATION CT BRAIN - Stroke (Results Pending) CT ANGIO BRAIN NECK STROKE (Results Pending) CT HEAD NON CONTRAST (Results Pending) XR CHEST 1VW PORTABLE (Results Pending) MRI BRAIN WO CONTRAST (Results Pending) No results found. Clinical Impression: 1. Weakness 2. Aphasia 3. Cerebrovascular accident (CVA), unspecified mechanism ED Course: 3:11 PM: Patient reassessed and stable. Vitals WNL. 5:27 PM: Inpatient bed assigned. Disposition: Admit to Stroke ICU. By signing my name below, IEnrrique, attest that this documentation has been prepared under the direction and in the presence of Dr. John. Signed: Ben Durham. I, Dr. John, personally performed the services described in this documentation. All medical record entries made by the nitaibe were at my direction and in my presence. I have reviewed the chart andagree that the record reflects my personal performance and is accurate and complete. ITY ASSURANCE MONITOR FINAL * Roberto Ponce MD - 12/29/2020 2:34 PM CST [facility] Emergency Department Resident Note Patient was seen and evaluated with the attending physician, Dr. Winchester. Please see their note for full details. Briefly, this is a 71s female BMP EMS for aphasia and right-sided weakness with last known well at noon. CT head did not demonstrate any hemorrhage. Decision was made to give tenecteplase. Dispo: Admit to stroke ICU Roberto Ponce MD 12/29/2020 ITY ASSURANCE MONITOR FINAL * Rosio Villa RN - 12/29/2020 2:[address] complete, awaiting on TNK admin rec, Neuro on phone with attending Zee CALLAHAN ITY ASSURANCE MONITOR FINAL * Rosio Villa RN - 12/29/2020 2:32 PM CST BP resolved to 160s/80s, plan for TNK ITY ASSURANCE MONITOR FINAL * Rosio Villa RN - 12/29/2020 2:28 PM CST Labetolol 10mg given, BP 220/134 ITY ASSURANCE MONITOR FINAL * Steffen Winchester DO - 12/29/2020 2:20 PM CST Akilah Randolph [id number] [facility] EMERGENCY DEPARTMENT History No chief complaint on file. TRIAGE CHIEF COMPLAINT: No chief complaint on file. HPI: Akilah Randolph is a 89 year old female who presents LKW at noon today, 2 hrs 20 ago, with sudden onset of aphasia and generalized limb weakness R arm -- glc 120 in field, no meds and not sig PMHx indorsed (history otherwise unobtainable), per EMS, patient is in atrial fib. Stroke Team atthe bedside. REVIEW OF SYSTEMS: See HPI for further details. All 10 systems reviewed and otherwise negative unless detailed herein. PAST MEDICAL HISTORY: @PMHR@ CURRENT MEDICATIONS: No current outpatient medications on file. SURGICAL HISTORY: @PSHR@ FAMILY HISTORY: @FAMHXR@ SOCIAL HISTORY: Social History Socioeconomic History Marital status: Not on file Spouse name: Not on file Number of children: Not on file Years of education: Not on file Highest education level: Not on file Occupational History Not on file Tobacco Use Smoking status: Not on file Smokeless tobacco: Not on file Substance and Sexual Activity Alcohol use: Not on file Drug use: Not on file Sexual activity: Not on file Other Topics Concerns: Not on file Social History Narrative Not on file ALLERGIES: Patient has no allergy information on record. PHYSICAL EXAM: VITAL SIGNS: See nursing VS Constitutional: No acute distress HENT: airway patent, mostly aphasic/dysarthric, no facial droop Eyes: Conj pink, sclera clear, VFI, EOMs intact Cardiovascular: Irreg, Ireg normal heart rate Pulmonary/Chest: CTA bilaterally Neurologic: Alert & reactive, follows commands, drift of bruna upper extremities, Normal sensory function bruna, bruna F-->N ataxia NIH Stroke Scale Interval: Time: 2:27 PM Person Administering Scale: Steffen Winchester, DO Administer stroke scale items in the order listed. Record performance in each category after each subscale exam. Do not go back and change scores. Follow directions provided for each exam technique. Scores should reflect what the patient does, not what the clinician thinks the patient can do. The clinician should record answers while administering the exam and work quickly. Except where indicated, the patient should not be coached (i.e., repeated requests to patient to make a special effort). 1a Level of consciousness: 0 1b. LOC questions: TDS 1c. LOC commands: TDS 2. Best Gaze 0 3. Visual: 0 4. Facial Palsy: 0 5a. Motor left arm: 1 5b. Motor right arm: 1 6a. motor left le 6b Motor right le 7. Limb Ataxia: 3 8. Sensory: 0 9. Best Language: 3 10. Dysarthria:3 11. Extinction and Inattention: TDS 12. Distal motor function:0 Total: 11+ Laboratory: Labs Reviewed CBC W AUTO DIFFERENTIAL - Abnormal; Notable for the following components: WBC 10.9 (*) RBC 5.24 (*) MCH 26.5 (*) RDW-CV 15.7 (*) MPV 9.0 (*) Neutrophils % 80.7 (*) Lymphocytes % 11.2 (*) Neutrophils Absolute 8.8 (*) All other components within normal limits COMPREHENSIVE METABOLIC PANEL - Abnormal; Notable for the following components: BUN 36 (*) Potassium 4.8 (*) Glucose 118 (*) Calcium 10.4 (*) BUN/Creatinine Ratio 38 (*) Albumin/Globulin Ratio 1.0 (*) eGFR by CKD-EPI 42 (*) All other components within normal limits PT-INR [facility] - Normal TROPONIN I - Normal CREATININE - POCT INTERFACED - Normal HEMOGLOBIN A1C LIPID PROFILE INR WHOLE BLOOD - POINT OF CARE (IP) STROKE TYPE + SCREEN PANEL BLOOD TYPE VERIFICATION Radiology: CT BRAIN - Stroke (Results Pending) CT ANGIO BRAIN NECK STROKE (Results Pending) CT HEAD NON CONTRAST (Results Pending) XR CHEST 1VW PORTABLE (Results Pending) ECG impression: rate controlled atrial fib ED COURSE & MEDICAL DECISION MAKING: Pertinent Labs & Imaging studies reviewed. (See chart for details) Stable, alert, nontoxic, nonfocal with clinically apparent acute stroke, Stroke Team at the bedside. Elects TNK. End of shift handoff. Critical care time 30 minutes, exclusive of other separately billable procedures. Critical decision-making includes but not limited to acute stroke. The patient was reassessed three times. D/W consultants directly pertinent to patient care. DIFFERENTIAL DIAGNOSES CONSIDERED: acute stroke DECISION to ADMIT / DISCHARGE: 1430 CLINICAL IMPRESSION: 1 -- Acute Stroke 2 -- DISCHARGE INSTRUCTIONS: N/A Diet: Activity: New Meds: Follow-up: Return to ED: No past medical history on file. No past surgical history on file. No family history on file. Social History Socioeconomic History ??? Marital status: Not on file Spouse name: Not on file ??? Number of children: Not on file ??? Years of education: Not on file ??? Highest education level: Not on file Occupational History ??? Not on file Tobacco Use ??? Smoking status: Not on file ??? Smokeless tobacco: Not on file Substance and Sexual Activity ??? Alcohol use: Not on file ??? Drug use: Not on file ??? Sexual activity: Not on file Other Topics Concern ??? Not on file Social History Narrative ??? Not on file Social Determinants of Health Financial Resource Strain: Not on file Food Insecurity: Not on file Transportation Needs: Not on file Physical Activity: Not on file Stress: Not on file Social Connections: Not on file Intimate Partner Violence: Not on file Housing Stability: Not on file Review of Systems ROS Physical Exam There were no vitals taken for this visit. Physical Exam Medications No current outpatient medications on file. Procedures Procedures Lab/SPO2 Interpretation No results found for this visit on 12/29/20. CT BRAIN - Stroke (Results Pending) CT ANGIO BRAIN NECK STROKE (Results Pending) Progress Notes ED Course Clinical Impressions as of 12/29/20 1503 Weakness Aphasia Cerebrovascular accident (CVA), unspecified mechanism Medical Decision Making Orders Placed This Encounter ??? CT BRAIN - Stroke ??? CT ANGIO BRAIN NECK STROKE ??? CBC W AUTO DIFFERENTIAL ??? COMPREHENSIVE METABOLIC PANEL ??? PT-INR [facility] ??? TROPONIN I ??? TROPONIN I ??? CONSULT TO MACHINE SILK SCREEN PRINTER ??? EKG 12-LEAD ??? AND Linked Order Group ??? 0.9% NaCl injection 3 mL ??? 0.9% NaCl injection 1-10 mL ITY ASSURANCE MONITOR FINAL * Ruthy Lopes RN - 12/29/2020 2:12 PM CST Bed: 19 Expected date: Expected time: Means of arrival: Comments: CODE [id number] ITY ASSURANCE MONITOR FINAL documented in this encounter Plan of Treatment Not on file documented as of this encounter Procedures Procedure Name Priority Date/Time Associated Diagnosis Comments CBC W/O DIFFERENTIAL Routine 01/02/2021 5:34 AM QUALITY ASSURANCE MONITOR FINAL BASIC METABOLIC PANEL (CALCIUM TOTAL) Routine 01/02/2021 5:34 AM QUALITY ASSURANCE MONITOR FINAL PHOSPHORUS BLOOD Routine 01/02/2021 5:34 AM QUALITY ASSURANCE MONITOR FINAL MAGNESIUM BLOOD Routine 01/02/2021 5:34 AM QUALITY ASSURANCE MONITOR FINAL CBC W/O DIFFERENTIAL Routine 01/01/2021 2:35 AM QUALITY ASSURANCE MONITOR FINAL BASIC METABOLIC PANEL (CALCIUM TOTAL) Routine 01/01/2021 2:35 AM QUALITY ASSURANCE MONITOR FINAL PHOSPHORUS BLOOD Routine 01/01/2021 2:35 AM QUALITY ASSURANCE MONITOR FINAL MAGNESIUM BLOOD Routine 01/01/2021 2:35 AM QUALITY ASSURANCE MONITOR FINAL GLUCOSE - POINT OF CARE Routine 12/31/2020 4:08 PM QUALITY ASSURANCE MONITOR FINAL CARDIAC EKG ORDER 12/31/2020 2:3 8 PM QUALITY ASSURANCE MONITOR FINAL ECHO COMPLETE W BUBBLE STUDY Routine 12/31/2020 2:01 PM QUALITY ASSURANCE MONITOR FINAL Aphasia GLUCOSE - POINT OF CARE Routine 12/31/2020 11:41 AM QUALITY ASSURANCE MONITOR FINAL GLUCOSE - POINT OF CARE Routine 12/31/2020 9:52 AM QUALITY ASSURANCE MONITOR FINAL FL SWALLOWING FUNCTION STUDY Routine 12/31/2020 9:39 AM QUALITY ASSURANCE MONITOR FINAL Dysphagia, unspecified type GLUCOSE - POINT OF CARE Routine 12/31/2020 1:55 AM QUALITY ASSURANCE MONITOR FINAL CBC W/O DIFFERENTIAL Routine 12/30/2020 10:53 PM QUALITY ASSURANCE MONITOR FINAL BASIC METABOLIC PANEL (CALCIUM TOTAL) Routine 12/30/2020 10:53 PM QUALITY ASSURANCE MONITOR FINAL PHOSPHORUS BLOOD Routine 12/30/2020 10:5 3 PM QUALITY ASSURANCE MONITOR FINAL MAGNESIUM BLOOD Routine 12/30/2020 10:53 PM QUALITY ASSURANCE MONITOR FINAL GLUCOSE - POINT OF CARE Routine 12/30/2020 9:19 PM QUALITY ASSURANCE MONITOR FINAL GLUCOSE - POINT OF CARE Routine 12/30/2020 5:20 PM QUALITY ASSURANCE MONITOR FINAL MRI BRAIN WO CONTRAST STAT 12/30/2020 3:28 PM QUALITY ASSURANCE MONITOR FINAL Cerebrovascular accident (CVA), unspecified mechanism (HCC) GLUCOSE - POINT OF CARE Routine 12/30/2020 11:57 AM QUALITY ASSURANCE MONITOR FINAL GLUCOSE - POINT OF CARE Routine 12/30/2020 7:14 AM QUALITY ASSURANCE MONITOR FINAL CBC W/O DIFFERENTIAL Routine 12/29/2020 11:51 PM QUALITY ASSURANCE MONITOR FINAL BASIC METABOLIC PANEL (CALCIUM TOTAL) Routine 12/29/2020 11:51 PM QUALITY ASSURANCE MONITOR FINAL PHOSPHORUS BLOOD Routine 12/29/2020 11:5 1 PM QUALITY ASSURANCE MONITOR FINAL MAGNESIUM BLOOD Routine 12/29/2020 11:51 PM QUALITY ASSURANCE MONITOR FINAL GLUCOSE - POINT OF CARE Routine 12/29/2020 11:49 PM QUALITY ASSURANCE MONITOR FINAL URINALYSIS REFLEX MICROSCOPIC REFLEX CULTURE Routine 12/29/2020 10:36 PM QUALITY ASSURANCE MONITOR FINAL URINE DRUG SCREEN IMMUNOASSAY Routine 12/29/2020 10:36 PM QUALITY ASSURANCE MONITOR FINAL TROPONIN I Timed 12/29/2020 10:25 PM QUALITY ASSURANCE MONITOR FINAL XR PELVIS 1 OR 2VW Routine 12/29/2020 8: 13 PM QUALITY ASSURANCE MONITOR FINAL Cerebrovascular accident (CVA), unspecified mechanism (HCC) XR ABDOMEN KUB PORTABLE STAT 12/29/2020 8:13 PM QUALITY ASSURANCE MONITOR FINAL Cerebrovascular accident (CVA), unspecified mechanism (HCC) BLOOD TYPE VERIFICATION STAT 12/29/2020 7:15 PM QUALITY ASSURANCE MONITOR FINAL TROPONIN I Timed 12/29/2020 7:15 PM QUALITY ASSURANCE MONITOR FINAL HEMOGLOBIN A1C Add on 12/29/2020 7:15 PM QUALITY ASSURANCE MONITOR FINAL LIPID PROFILE STAT 12/29/2020 7:15 PM QUALITY ASSURANCE MONITOR FINAL XR CHEST 1VW PORTABLE STAT 12/29/2020 3:33 PM QUALITY ASSURANCE MONITOR FINAL Aphasia EKG 12-LEAD STAT 12/29/2020 2:46 PM QUALITY ASSURANCE MONITOR FINAL Weakness PT-INR [facility] STAT 12/29/2020 2:30 PM QUALITY ASSURANCE MONITOR FINAL TROPONIN I STAT 12/29/2020 2:30 PM QUALITY ASSURANCE MONITOR FINAL TYPE + SCREEN PANEL STAT 12/29/2020 2 :30 PM QUALITY ASSURANCE MONITOR FINAL CBC W AUTO DIFFERENTIAL STAT 12/29/2020 2:30 PM QUALITY ASSURANCE MONITOR FINAL COMPREHENSIVE METABOLIC PANEL STAT 12/29/2020 2:30 PM QUALITY ASSURANCE MONITOR FINAL INR WHOLE BLOOD - POINT OF CARE (IP) STROKE Routine 12/29/2020 2:26 PM QUALITY ASSURANCE MONITOR FINAL CREATININE - POCT INTERFACED Routine 12/29/2020 2:25 PM QUALITY ASSURANCE MONITOR FINAL CT BRAIN STROKE STAT 12/29/2020 2:21 PM QUALITY ASSURANCE MONITOR FINAL Weakness CT ANGIO BRAIN NECK STROKE STAT 12/29/2020 2:21 PM QUALITY ASSURANCE MONITOR FINAL Weakness documented in this encounter Results * (ABNORMAL) PHOSPHORUS BLOOD (01/02/2021 5:34 AM QUALITY ASSURANCE MONITOR FINAL) Phosphorus 1.9(L) 2.9 - 5.1 mg/dL 01/02/2021 6:21 AM [facility] Blood BLOOD SPECIMEN / Unknown Lab Venipuncture / Unknown 01/02/2021 5:34 AM QUALITY ASSURANCE MONITOR FINAL 01/02/2021 5:55 AM QUALITY ASSURANCE MONITOR FINAL Nimco John MD LAB - CHEMISTRY ORDScott LUNA [address] [address], [facility] [phone] * MAGNESIUM BLOOD (01/02/2021 5:34 AM QUALITY ASSURANCE MONITOR FINAL) Magnesium 1.9 1.6 - 2.6 mg/dL 01/02/2021 6:21 AM [facility] Blood BLOOD SPECIMEN / Unknown Lab Venipuncture / Unknown 01/02/2021 5:34 AM QUALITY ASSURANCE MONITOR FINAL 01/02/2021 5:55 AM QUALITY ASSURANCE MONITOR FINAL Nimco John MD LAB - CHEMISTRY ORDScott LUNA [address] [address], [facility] [phone] * (ABNORMAL) CBC W/O DIFFERENTIAL (01/02/2021 5:34 AM QUALITY ASSURANCE MONITOR FINAL) WBC 7.6 3.5 - 10.5 10? 3 /uL 01/02/2021 6:17 AM [facility] RBC 4.49 3.80 - 5.20 10? 6 /uL 01/02/2021 6:17 AM [facility] Hemoglobin 12.0 12.0 - 15.6 g/dL 01/02/2021 6:17 AM [facility] Hematocrit 39.1 35.0 - 45.0 % 01/02/2021 6:17 AM [facility] MCV 87.1 80.7 - 98.3 fL 01/02/2021 6:17 AM [facility] MCH 26.7 26.7 - 34.0 pg 01/02/2021 6:17 AM [facility] MCHC 30.7(L) 30.8 - 35.9 g/dL 01/02/2021 6:17 AM [facility] Platelet Count 289 150 - 400 10? 3 /uL 01/02/2021 6:17 AM [facility] RDW-SD 50.6(H) 36.0 - 50.0 fL 01/02/2021 6:17 AM [facility] RDW-CV 15.9(H) 11.2 - 14.8 % 01/02/2021 6:17 AM [facility] MPV 9.1(L) 9.4 - 12.9 fL 01/02/2021 6:17 AM [facility] nRBC Absolute 0.00 0 10? 3 /uL 01/02/2021 6:17 AM [facility] nRBC Auto 0.0 0 /100 WBC 01/02/2021 6:17 AM [facility] Blood BLOOD SPECIMEN / Unknown Lab Venipuncture / Unknown 01/02/2021 5:34 AM QUALITY ASSURANCE MONITOR FINAL 01/02/2021 5:56 AM [facility] Steffen Winchester DO LAB - HEMATOLOGY O RDERABLES [facility] [address] [place] [id number], [facility] [phone] * (ABNORMAL) BASIC METABOLIC PANEL (CALCIUM TOTAL) (01/02/2021 5:34 AM QUALITY ASSURANCE MONITOR FINAL) BUN 18 7 - 26 mg/dL 01/02/2021 6:21 AM [facility] Creatinine 0.88 0.56 - 0.96 mg/dL 01/02/2021 6:21 AM [facility] Sodium 139 136 - 145 mmol/L 01/02/2021 6:21 AM [facility] Potassium 3.9 3.5 - 4.5 mmol/L 01/02/2021 6:21 AM [facility] Chloride 110(H) 98 - 107 mmol/L 01/02/2021 6:21 AM [facility] CO2 17(L) 22 - 29 mmol/L 01/02/2021 6:21 AM [facility] Glucose 84 70 - 115 mg/dL 01/02/2021 6:21 AM [facility] Calcium 8.3(L) 8.4 - 10.2 mg/dL 01/02/2021 6:21 AM [facility] Anion Gap 16 8 - 18 01/02/2021 6:21 AM [facility] BUN/Creatinine Ratio 20 7 - 23 01/02/2021 6:21 AM [facility] Osmolality Calculated 289 270 - 300 mOsm/kg 01/02/2021 6:21 AM [facility] eGFR by CKD-EPI 65(L) >=90 mL/min/1.7 3 m2 01/02/2021 6:21 AM [facility] Blood BLOOD SPECIMEN / Unknown Lab Venipuncture / Unknown 01/02/2021 5:34 AM QUALITY ASSURANCE MONITOR FINAL 01/02/2021 5:55 AM QUALITY ASSURANCE MONITOR FINAL Steffen Winchester DO LAB - CHEMISTRY OR DERABLES [address] [address], [facility] [phone] * (ABNORMAL) PHOSPHORUS BLOOD (01/01/2021 2:35 AM QUALITY ASSURANCE MONITOR FINAL) Phosphorus 1.8(L) 2.9 - 5.1 mg/dL 01/01/2021 3:59 AM [facility] Blood BLOOD SPECIMEN / Unknown Lab Venipuncture / Unknown 01/01/2021 2:35 AM QUALITY ASSURANCE MONITOR FINAL 01/01/2021 3:33 AM QUALITY ASSURANCE MONITOR FINAL Nimco John MD LAB - CHEMISTRY ARIC LUNA [address] [address], [place] [phone] * MAGNESIUM BLOOD (01/01/2021 2:35 AM QUALITY ASSURANCE MONITOR FINAL) Magnesium 1.9 1.6 - 2.6 mg/dL 01/01/2021 3:59 AM [facility] Blood BLOOD SPECIMEN / Unknown Lab Venipuncture / Unknown 01/01/2021 2:35 AM QUALITY ASSURANCE MONITOR FINAL 01/01/2021 3:33 AM QUALITY ASSURANCE MONITOR FINAL Nimco John MD LAB - CHEMISTRY ARIC LUNA [facility] [address] [place] [address], [facility] [phone] * (ABNORMAL) CBC W/O DIFFERENTIAL (01/01/2021 2:35 AM QUALITY ASSURANCE MONITOR FINAL) WBC 6.6 3.5 - 10.5 10? 3 /uL 01/01/2021 3:44 AM [facility] RBC 4.21 3.80 - 5.20 10? 6 /uL 01/01/2021 3:44 AM [facility] Hemoglobin 11.4(L) 12.0 - 15.6 g/dL 01/01/2021 3:44 AM [facility] Hematocrit 36.1 35.0 - 45.0 % 01/01/2021 3:44 AM [facility] MCV 85.7 80.7 - 98.3 fL 01/01/2021 3:44 AM [facility] MCH 27.1 26.7 - 34.0 pg 01/01/2021 3:44 AM [facility] MCHC 31.6 30.8 - 35.9 g/dL 01/01/2021 3:44 AM [facility] Platelet Count 269 150 - 400 10? 3 /uL 01/01/2021 3:44 AM [facility] RDW-SD 50.4(H) 36.0 - 50.0 fL 01/01/2021 3:44 AM [facility] RDW-CV 16.1(H) 11.2 - 14.8 % 01/01/2021 3:44 AM [facility] MPV 9.3(L) 9.4 - 12.9 fL 01/01/2021 3:44 AM [facility] nRBC Absolute 0.00 0 10? 3 /uL 01/01/2021 3:44 AM [facility] nRBC Auto 0.0 0 /100 WBC 01/01/2021 3:44 AM [facility] Blood BLOOD SPECIMEN / Unknown Lab Venipuncture / Unknown 01/01/2021 2:35 AM QUALITY ASSURANCE MONITOR FINAL 01/01/2021 3:33 AM QUALITY ASSURANCE MONITOR FINAL Qamargunnar Chente Winchester DO LAB - HEMATOLOGY O RDERABLES [facility] [address] [place] [address], [facility] [phone] * (ABNORMAL) BASIC METABOLIC PANEL (CALCIUM TOTAL) (01/01/2021 2:35 AM QUALITY ASSURANCE MONITOR FINAL) BUN 18 7 - 26 mg/dL 01/01/2021 3:59 AM [facility] Creatinine 0.73 0.56 - 0.96 mg/dL 01/01/2021 3:59 AM [facility] Sodium 139 136 - 145 mmol/L 01/01/2021 3:59 AM [facility] Potassium 3.8 3.5 - 4.5 mmol/L 01/01/2021 3:59 AM [facility] Chloride 112(H) 98 - 107 mmol/L 01/01/2021 3:59 AM [facility] CO2 20(L) 22 - 29 mmol/L 01/01/2021 3:59 AM [facility] Glucose 86 70 - 115 mg/dL 01/01/2021 3:59 AM [facility] Calcium 8.4 8.4 - 10.2 mg/dL 01/01/2021 3:59 AM [facility] Anion Gap 11 8 - 18 01/01/2021 3:59 AM [facility] BUN/Creatinine Ratio 25(H) 7 - 23 01/01/2021 3:59 AM [facility] Osmolality Calculated 289 270 - 300 mOsm/kg 01/01/2021 3:59 AM [facility] eGFR by CKD-EPI 81(L) >=90 mL/min/1.7 3 m2 01/01/2021 3:59 AM [facility] Blood BLOOD SPECIMEN / Unknown Lab Venipuncture / Unknown 01/01/2021 2:35 AM QUALITY ASSURANCE MONITOR FINAL 01/01/2021 3:33 AM QUALITY ASSURANCE MONITOR FINAL Steffen Winchester DO LAB - CHEMISTRY OR DERABLES Performing Organization Address City/[facility]/ZIP Co de Phone Number [address] [address], [facility] [phone] * (ABNORMAL) GLUCOSE - POINT OF CARE (12/31/2020 4:08 PM QUALITY ASSURANCE MONITOR FINAL) Glucose WB/POC 145(H) 70 - 115 mg/dL 12/31/2020 4:12 PM QUALITY ASSURANCE MONITOR FINAL [facility] Specimen Type Cap Fingerstick 2020 4:12 PM QUALITY ASSURANCE MONITOR FINAL [facility] Blood BLOOD SPECIMEN / Unknown 12/31/2020 4:08 PM QUALITY ASSURANCE MONITOR FINAL 12/31/2020 4:12 PM QUALITY ASSURANCE MONITOR FINAL Froy Koch MD LAB - POINT OF CARE ORDERABLES Performing Organization Address [facility]/ZIP Co de Phone Number [address] [address], [facility] [phone] * CARDIAC EKG ORDER (12/31/2020 2:38 PM QUALITY ASSURANCE MONITOR FINAL) Narrative 12/31/2020 2:38 PM QUALITY ASSURANCE MONITOR FINAL Ordered by an unspecified provider. Scanned Document CARDIAC SERVICES ORD ERABLES * ECHO COMPLETE W BUBBLE STUDY (12/31/2020 2:01 PM QUALITY ASSURANCE MONITOR FINAL) Anatomical Region Laterality Modality Chest Echo 12/31/2020 1:02 PM QUALITY ASSURANCE MONITOR FINAL Narrative Procedure Note Madelyn Mello MD - 12/31/2020 Steffen Winchester DO ECHOCARDIOGRAPHY R ADIANT * GLUCOSE - POINT OF CARE (12/31/2020 11:41 AM QUALITY ASSURANCE MONITOR FINAL) Glucose WB/POC 114 70 - 115 mg/dL 12/31/2020 11:46 AM QUALITY ASSURANCE MONITOR FINAL [facility] Specimen Type Cap Fingerstick 2020 11:46 AM QUALITY ASSURANCE MONITOR FINAL [facility] Blood BLOOD SPECIMEN / Unknown 12/31/2020 11:41 AM QUALITY ASSURANCE MONITOR FINAL 12/31/2020 11:46 AM QUALITY ASSURANCE MONITOR FINAL Froy Koch MD LAB - POINT OF CARE ORDERABLES Performing Organization Address [facility]/ZIP Co de Phone Number [address] [address], [facility] [phone] * GLUCOSE - POINT OF CARE (12/31/2020 9:52 AM QUALITY ASSURANCE MONITOR FINAL) Glucose WB/POC 96 70 - 115 mg/dL 12/31/2020 9:57 AM QUALITY ASSURANCE MONITOR FINAL [facility] Specimen Type Cap Fingerstick 2020 9:57 AM QUALITY ASSURANCE MONITOR FINAL [facility] Blood BLOOD SPECIMEN / Unknown 12/31/2020 9:52 AM QUALITY ASSURANCE MONITOR FINAL 12/31/2020 9:57 AM QUALITY ASSURANCE MONITOR FINAL Froy Koch MD LAB - POINT OF CARE ORDERABLES Performing Organization Address [facility]/ZIP Co de Phone Number [address] [address], [facility] [phone] * FL SWALLOWING FUNCTION STUDY (12/31/2020 9:39 AM QUALITY ASSURANCE MONITOR FINAL) Anatomical Region Laterality Modality Chest Radiographic Cristina ging 12/31/2020 9:26 AM QUALITY ASSURANCE MONITOR FINAL Impressions 12/31/2020 6:00 PM QUALITY ASSURANCE MONITOR FINAL FINDINGS/IMPRESSION: Fluoroscopic assistance was provided for a procedure performed by Speech Therapy. ??Please see the separate report by Speech Therapy for further details. Fluoroscopy Time: 137 seconds Report drafted by Ellie Ace MD (Decorative Engraver Apprentice). I, Dr. GABBY LLOYD have personally reviewed and interpreted this examination/study. This report was electronically signed by GABBY LLOYD ??on 12/31/2020 6:00 PM . Narrative 12/31/2020 6:00 PM QUALITY ASSURANCE MONITOR FINAL EXAMINATION: FL SWALLOWING FUNCTION STUDY HISTORY: R13.10: Dysphagia, unspecified type Procedure Note Gabby Lloyd MD - 12/31/2020 EXAMINATION: FL SWALLOWING FUNCTION STUDY HISTORY: R13.10: Dysphagia, unspecified type FINDINGS/IMPRESSION: Fluoroscopic assistance was provided for a procedure performed by Speech Therapy. Please see the separate report by Speech Therapy for further details. Fluoroscopy Time: 137 seconds Report drafted by Ellie Ace MD (Decorative Engraver Apprentice). I, Dr. GABBY LLOYD have personally reviewed and interpreted this examination/study. This report was electronically signed by GABBY LLOYD on 12/31/2020 6:00 PM . Froy Koch MD FLUOROSCOPY ORDERABL ES * GLUCOSE - POINT OF CARE (12/31/2020 1:55 AM QUALITY ASSURANCE MONITOR FINAL) Glucose WB/POC 89 70 - 115 mg/dL 12/31/2020 1:56 AM QUALITY ASSURANCE MONITOR FINAL [facility] Specimen Type Cap Fingerstick 2020 1:56 AM QUALITY ASSURANCE MONITOR FINAL [facility] Blood BLOOD SPECIMEN / Unknown 12/31/2020 1:55 AM QUALITY ASSURANCE MONITOR FINAL 12/31/2020 1:56 AM QUALITY ASSURANCE MONITOR FINAL Froy Koch MD LAB - POINT OF CARE ORDERABLES [address] [address], [facility] [phone] * (ABNORMAL) PHOSPHORUS BLOOD (12/30/2020 10:53 PM QUALITY ASSURANCE MONITOR FINAL) Phosphorus 2.6(L) 2.9 - 5.1 mg/dL 12/30/2020 11:23 PM QUALITY ASSURANCE MONITOR FINAL [facility] Blood BLOOD SPECIMEN / Unknown Venipuncture / Unknown 12/30/2020 10:53 PM QUALITY ASSURANCE MONITOR FINAL 12/30/2020 10:58 PM QUALITY ASSURANCE MONITOR FINAL Nimco John MD LAB - CHEMISTRY ARIC LUNA [address] [address], [place] [phone] * MAGNESIUM BLOOD (12/30/2020 10:53 PM QUALITY ASSURANCE MONITOR FINAL) Magnesium 2.1 1.6 - 2.6 mg/dL 12/30/2020 11:23 PM [facility] Blood BLOOD SPECIMEN / Unknown Venipuncture / Unknown 12/30/2020 10:53 PM QUALITY ASSURANCE MONITOR FINAL 12/30/2020 10:58 PM QUALITY ASSURANCE MONITOR FINAL Nimco John MD LAB - CHEMISTRY ARIC LUNA Performing Organization Address City/[facility] Co de Phone Number [facility] [address] [place] [phone] [phone] * (ABNORMAL) CBC W/O DIFFERENTIAL (12/30/2020 10:53 PM QUALITY ASSURANCE MONITOR FINAL) [facility] WBC 7.0 3.5 - 10.5 10? 3 /uL 12/30/2020 11:06 PM [facility] RBC 3.98 3.80 - 5.20 10? 6 /uL 12/30/2020 11:06 PM [facility] Hemoglobin 10.8(L) 12.0 - 15.6 g/dL 12/30/2020 11:06 PM [facility] Hematocrit 34.0(L) 35.0 - 45.0 % 12/30/2020 11:06 PM [facility] MCV 85.4 80.7 - 98.3 fL 12/30/2020 11:06 PM [facility] MCH 27.1 26.7 - 34.0 pg 12/30/2020 11:06 PM [facility] MCHC 31.8 30.8 - 35.9 g/dL 12/30/2020 11:06 PM [facility] Platelet Count 262 150 - 400 10? 3 /uL 12/30/2020 11:06 PM [facility] RDW-SD 51.2(H) 36.0 - 50.0 fL 12/30/2020 11:06 PM [facility] RDW-CV 16.4(H) 11.2 - 14.8 % 12/30/2020 11:06 PM [facility] MPV 9.0(L) 9.4 - 12.9 fL 12/30/2020 11:06 PM [facility] nRBC Absolute 0.00 0 10? 3 /uL 12/30/2020 11:06 PM [facility] nRBC Auto 0.0 0 /100 WBC 12/30/2020 11:06 PM [facility] Blood BLOOD SPECIMEN / Unknown Venipuncture / Unknown 12/30/2020 10:53 PM QUALITY ASSURANCE MONITOR FINAL 12/30/2020 10:58 PM QUALITY ASSURANCE MONITOR FINAL Steffen Winchester DO LAB - HEMATOLOGY O RDERABLES [facility] [address] [place] [address], [facility] [phone] * (ABNORMAL) BASIC METABOLIC PANEL (CALCIUM TOTAL) (12/30/2020 10:53 PM [facility]) BUN 25 7 - 26 mg/dL 12/30/2020 11:23 PM [facility] Creatinine 0.91 0.56 - 0.96 mg/dL 12/30/2020 11:23 PM [facility] Sodium 142 136 - 145 mmol/L 12/30/2020 11:23 PM [facility] Potassium 4.0 3.5 - 4.5 mmol/L 12/30/2020 11:23 PM [facility] Chloride 111(H) 98 - 107 mmol/L 12/30/2020 11:23 PM [facility] CO2 20(L) 22 - 29 mmol/L 12/30/2020 11:23 PM [facility] Glucose 92 70 - 115 mg/dL 12/30/2020 11:23 PM [facility] Calcium 8.0(L) 8.4 - 10.2 mg/dL 12/30/2020 11:23 PM [facility] Anion Gap 15 8 - 18 12/30/2020 11:23 PM [facility] BUN/Creatinine Ratio 27(H) 7 - 23 12/30/2020 11:23 PM [facility] Osmolality Calculated 298 270 - 300 mOsm/kg 12/30/2020 11:23 PM [facility] eGFR by CKD-EPI 62(L) >=90 mL/min/1.7 3 m2 12/30/2020 11:23 PM QUALITY ASSURANCE MONITOR FINAL [facility] Blood BLOOD SPECIMEN / Unknown Venipuncture / Unknown 12/30/2020 10:53 PM QUALITY ASSURANCE MONITOR FINAL 12/30/2020 10:58 PM QUALITY ASSURANCE MONITOR FINAL Steffen Winchester DO LAB - CHEMISTRY OR DERABLES [address] [address], [place] [phone] * GLUCOSE - POINT OF CARE (12/30/2020 9:19 PM QUALITY ASSURANCE MONITOR FINAL) Glucose WB/POC 89 70 - 115 mg/dL 12/31/2020 1:56 AM QUALITY ASSURANCE MONITOR FINAL [facility] Specimen Type Cap Fingerstick 2020 1:56 AM QUALITY ASSURANCE MONITOR FINAL [facility] Blood BLOOD SPECIMEN / Unknown 12/30/2020 9:19 PM QUALITY ASSURANCE MONITOR FINAL 12/31/2020 1:56 AM QUALITY ASSURANCE MONITOR FINAL Froy Koch MD LAB - POINT OF CARE ORDERABLES Performing Organization Address City/[facility]/ZIP Co de Phone Number [address] [address], [place] [phone] * GLUCOSE - POINT OF CARE (12/30/2020 5:20 PM QUALITY ASSURANCE MONITOR FINAL) Glucose WB/POC 96 70 - 115 mg/dL 12/30/2020 5:28 PM QUALITY ASSURANCE MONITOR FINAL [facility] Specimen Type Cap Fingerstick 2020 5:28 PM QUALITY ASSURANCE MONITOR FINAL [facility] Blood BLOOD SPECIMEN / Unknown 12/30/2020 5:20 PM QUALITY ASSURANCE MONITOR FINAL 12/30/2020 5:28 PM QUALITY ASSURANCE MONITOR FINAL Froy Koch MD LAB - POINT OF CARE ORDERABLES [address] [address], [place] [phone] * MRI BRAIN WO CONTRAST (12/30/2020 3:28 PM QUALITY ASSURANCE MONITOR FINAL) Anatomical Region Laterality Modality Head Magnetic Resonan ce 12/30/2020 8:10 PM QUALITY ASSURANCE MONITOR FINAL Impressions 12/30/2020 8:23 PM QUALITY ASSURANCE MONITOR FINAL IMPRESSION: 1. Acute synchronous infarctions of the [...] 8:23 PM . Narrative 12/30/2020 8:23 PM QUALITY ASSURANCE MONITOR FINAL EXAMINATION: MRI OF THE BRAIN WITHOUT CONTRAST [...] . Nimco John MD MR ORDERABLES * GLUCOSE - POINT OF CARE (12/30/2020 11:57 AM QUALITY ASSURANCE MONITOR FINAL) Glucose WB/POC 89 70 - 115 mg/dL 12/30/2020 12:02 PM QUALITY ASSURANCE MONITOR FINAL [facility] Specimen Type Cap Fingerstick 2020 12:02 PM QUALITY ASSURANCE MONITOR FINAL [facility] Blood BLOOD SPECIMEN / Unknown 12/30/2020 11:57 AM QUALITY ASSURANCE MONITOR FINAL 12/30/2020 12:02 PM QUALITY ASSURANCE MONITOR FINAL Froy Koch MD LAB - POINT OF CARE ORDERABLES [address] [address], [place] [phone] * GLUCOSE - POINT OF CARE (12/30/2020 7:14 AM QUALITY ASSURANCE MONITOR FINAL) Glucose WB/POC 91 70 - 115 mg/dL 12/30/2020 7:34 AM QUALITY ASSURANCE MONITOR FINAL [facility] Specimen Type Cap Fingerstick 2020 7:34 AM QUALITY ASSURANCE MONITOR FINAL [facility] Blood BLOOD SPECIMEN / Unknown 12/30/2020 7:14 AM QUALITY ASSURANCE MONITOR FINAL 12/30/2020 7:34 AM QUALITY ASSURANCE MONITOR FINAL Froy Koch MD LAB - POINT OF CARE ORDERABLES Performing Organization Address City/[facility]/ZIP Co de Phone Number [address] [address], [place] [phone] * PHOSPHORUS BLOOD (12/29/2020 11:51 PM QUALITY ASSURANCE MONITOR FINAL) Phosphorus 3.6 2.9 - 5.1 mg/dL 12/30/2020 12:22 AM QUALITY ASSURANCE MONITOR FINAL [facility] Blood BLOOD SPECIMEN / Unknown Venipuncture / Unknown 12/29/2020 11:51 PM QUALITY ASSURANCE MONITOR FINAL 12/29/2020 11:55 PM QUALITY ASSURANCE MONITOR FINAL Nimco John MD LAB - CHEMISTRY ARIC [facility] [place] [address] [place] [address], [facility] [phone] * MAGNESIUM BLOOD (12/29/2020 11:51 PM QUALITY ASSURANCE MONITOR FINAL) Magnesium 1.8 1.6 - 2.6 mg/dL 12/30/2020 12:22 AM [facility] Blood BLOOD SPECIMEN / Unknown Venipuncture / Unknown 12/29/2020 11:51 PM QUALITY ASSURANCE MONITOR FINAL 12/29/2020 11:55 PM QUALITY ASSURANCE MONITOR FINAL Nimco John MD LAB - CHEMISTRY ARIC LUNA [facility] [address] [place] [address], [facility] [phone] * (ABNORMAL) CBC W/O DIFFERENTIAL (12/29/2020 11:51 PM QUALITY ASSURANCE MONITOR FINAL) WBC 9.6 3.5 - 10.5 10? 3 /uL 12/30/2020 12:00 AM [facility] RBC 4.17 3.80 - 5.20 10? 6 /uL 12/30/2020 12:00 AM [facility] Hemoglobin 11.2(L) 12.0 - 15.6 g/dL 12/30/2020 12:00 AM [facility] Hematocrit 35.5 35.0 - 45.0 % 12/30/2020 12:00 AM [facility] MCV 85.1 80.7 - 98.3 fL 12/30/2020 12:00 AM [facility] MCH 26.9 26.7 - 34.0 pg 12/30/2020 12:00 AM [facility] MCHC 31.5 30.8 - 35.9 g/dL 12/30/2020 12:00 AM [facility] Platelet Count 239 150 - 400 10? 3 /uL 12/30/2020 12:00 AM [facility] RDW-SD 49.3 36.0 - 50.0 fL 12/30/2020 12:00 AM [facility] RDW-CV 16.0(H) 11.2 - 14.8 % 12/30/2020 12:00 AM [facility] MPV 9.5 9.4 - 12.9 fL 12/30/2020 12:00 AM [facility] nRBC Absolute 0.00 0 10? 3 /uL 12/30/2020 12:00 AM [facility] nRBC Auto 0.0 0 /100 WBC 12/30/2020 12:00 AM [facility] Blood BLOOD SPECIMEN / Unknown Venipuncture / Unknown 12/29/2020 11:51 PM QUALITY ASSURANCE MONITOR FINAL 12/29/2020 11:55 PM QUALITY ASSURANCE MONITOR FINAL Steffen Winchester DO LAB - HEMATOLOGY O RDERABLES [facility] [address] [place] [address], [facility] [phone] * (ABNORMAL) BASIC METABOLIC PANEL (CALCIUM TOTAL) (12/29/2020 11:51 PM QUALITY ASSURANCE MONITOR FINAL) BUN 29(H) 7 - 26 mg/dL 12/30/2020 12:22 AM [facility] Creatinine 0.95 0.56 - 0.96 mg/dL 12/30/2020 12:22 AM [facility] Sodium 140 136 - 145 mmol/L 12/30/2020 12:22 AM [facility] Potassium 4.5 3.5 - 4.5 mmol/L 12/30/2020 12:22 AM [facility] Chloride 106 98 - 107 mmol/L 12/30/2020 12:22 AM [facility] CO2 20(L) 22 - 29 mmol/L 12/30/2020 12:22 AM [facility] Glucose 120(H) 70 - 115 mg/dL 12/30/2020 12:22 AM [facility] Calcium 8.9 8.4 - 10.2 mg/dL 12/30/2020 12:22 AM [facility] Anion Gap 19(H) 8 - 18 12/30/2020 12:22 AM [facility] BUN/Creatinine Ratio 31(H) 7 - 23 12/30/2020 12:22 AM [facility] Osmolality Calculated 297 270 - 300 mOsm/kg 12/30/2020 12:22 AM [facility] eGFR by CKD-EPI 59(L) >=90 mL/min/1.7 3 m2 12/30/2020 12:22 AM [facility] Blood BLOOD SPECIMEN / Unknown Venipuncture / Unknown 12/29/2020 11:51 PM QUALITY ASSURANCE MONITOR FINAL 12/29/2020 11:55 PM QUALITY ASSURANCE MONITOR FINAL Steffen Winchester DO LAB - CHEMISTRY OR DERABLES [address] [address], [place] [phone] * (ABNORMAL) GLUCOSE - POINT OF CARE (12/29/2020 11:49 PM QUALITY ASSURANCE MONITOR FINAL) Glucose WB/POC 124(H) 70 - 115 mg/dL 12/30/2020 12:17 PM [facility] Specimen Type Cap Fingerstick 2020 12:17 PM [facility] Blood BLOOD SPECIMEN / Unknown 12/29/2020 11:49 PM QUALITY ASSURANCE MONITOR FINAL 12/30/2020 12:17 PM QUALITY ASSURANCE MONITOR FINAL Froy Koch MD LAB - POINT OF CARE ORDERABLES [address] [address], [place] [phone] * (ABNORMAL) URINE DRUG SCREEN IMMUNOASSAY (12/29/2020 10:36 PM QUALITY ASSURANCE MONITOR FINAL) Pathologist [facility] Amphetamines Screen Urine Negative Negative : < 1000 ng/mL 12/29/2020 11:00 PM [facility] Barbiturates Screen Urine Negative Negative : < 200 ng/mL 12/29/2020 11:00 PM [facility] Benzodiazepine Screen Urine Negative Negative : < 200 ng/mL 12/29/2020 11:00 PM [facility] Opiates Urine Positive(A) Negative : < 300 ng/mL 12/29/2020 11:00 PM [facility] Comment:Positive urine opiat e screening results should be confirmed by another generally accepted non-immunological method such as gas chromatography or mass spectrometry. Cocaine Metabolites Urine Negative Negative : < 300 ng/mL 12/29/2020 11:00 PM [facility] Phencyclidine Screen Urine Negative Negative : < 25 ng/ml 12/29/2020 11:00 PM [facility] Cannabinoids Screen Urine Negative Negative : <50 ng/mL 12/29/2020 11:00 PM [facility] Methadone Screen Urine Negative Negative : < 300 ng/mL 12/29/2020 11:00 PM [facility] Fentanyl Screen Urine Negative Negative : <1.0 ng/mL 12/29/2020 11:00 PM [facility] Urine URINE / Unknown Collection / Unknown 12/29/2020 10:36 PM [facility] 12/29/2020 10:47 PM [facility] - 12/29/2020 11:00 PM [facility] The Urine Toxicology Screening Panel does not screen for Propoxyphene, Meprobamate, Carisoprodol, Trazodone, imas-svi-tgpxorj medications and/or volatiles (Acetone, Isopropanol, Methanol or Ethylene Glycol). Ethanol, Salicylate, Acetaminophen, Tricyclic Antidepressants and several therapeutic drugs may be individually assayed in serum or plasma specimen. Toxicology testing by the [facility] is an aid to medical diagnosis and treatment of patients. No documented chain of custody was maintained. Results are intended to be used for clinical purposes only. ? Froy Koch MD LAB - URINE CHEMISTR Y ORDERABLES [facility] [address] [place] [address], [facility] [phone] * (ABNORMAL) URINALYSIS REFLEX MICROSCOPIC REFLEX CULTURE (12/29/2020 10:36 PM QUALITY ASSURANCE MONITOR FINAL) Color UA Yellow Straw, Yellow 12/29/2020 10:50 PM [facility] Clarity UA Clear Clear 12/29/2020 10:50 PM [facility] Specific Etoile UA 1.042(H) 1.005 - 1.030 12/29/2020 10:50 PM [facility] pH UA 7.0 5.0 - 8.0 pH 12/29/2020 10:50 PM [facility] Protein UA Negative Negative 12/29/2020 10:50 PM [facility] Glucose UA Negative Negative 12/29/2020 10:50 PM [facility] Ketone UA 1+(A) Negative 12/29/2020 10:50 PM [facility] Bilirubin UA Negative Negative 12/29/2020 10:50 PM [facility] Blood UA Negative Negative 12/29/2020 10:50 PM [facility] Nitrite UA Negative Negative 12/29/2020 10:50 PM [facility] Leukocyte Esterase Negative Negative 12/29/2020 10:50 PM [facility] Urobilinogen UA Negative Negative mg/dL 12/29/2020 10:50 PM [facility] Comment UA Microscopic not indicated. 12/29/2020 10:50 PM [facility] Urine URINE SPECIMEN OBTAINED BY CLEAN CATCH PROCEDURE / Unknown Collection / Unknown 12/29/2020 10:36 PM QUALITY ASSURANCE MONITOR FINAL 12/29/2020 10:42 PM QUALITY ASSURANCE MONITOR FINAL Narrative [facility] - 12/29/2020 10:50 PM QUALITY ASSURANCE MONITOR FINAL Froy Koch MD LAB - URINALYSIS ORD ERABLES Performing Organization Address City/[facility]/ZIP Co de Phone Number [facility] [address] [place] [address], [facility] [phone] * TROPONIN I (12/29/2020 10:25 PM QUALITY ASSURANCE MONITOR FINAL) Troponin I <0.010 <0.032 ng/mL 12/29/2020 10:57 PM QUALITY ASSURANCE MONITOR FINAL [facility] Blood BLOOD SPECIMEN / Unknown Venipuncture / Unknown 12/29/2020 10:25 PM QUALITY ASSURANCE MONITOR FINAL 12/29/2020 10:28 PM QUALITY ASSURANCE MONITOR FINAL Qamargunnar Eldridge Ranulfo DO LAB - CHEMISTRY OR DERABLES Performing Organization Address City/State/[facility] Co de Phone Number [facility] [address] [place] [address], [facility] [phone] * XR PELVIS 1 OR 2VW (12/29/2020 8:13 PM QUALITY ASSURANCE MONITOR FINAL) Anatomical Region Laterality Modality Pelvis Radiographic Cristina ging 12/30/2020 8:32 AM QUALITY ASSURANCE MONITOR FINAL Impressions 12/30/2020 12:30 PM QUALITY ASSURANCE MONITOR FINAL IMPRESSION: No evidence of bowel obstruction. No acute osseous injury of the pelvis. Dictated by Timmy Hollis MD (residential lawn specialist). I, Dr. RAO GUILLEN MD have personally reviewed and interpreted this examination/study. This report was electronically signed by RAO GUILLEN MD ??on 12/30/2020 12:30 PM . Narrative 12/30/2020 12:30 PM QUALITY ASSURANCE MONITOR FINAL EXAMINATION: XR ABDOMEN KUB PORTABLE, XR PELVIS [...] the pelvis. Dictated by Timmy Hollis MD (residential lawn specialist). Dr. RAO Washington MD have personally reviewed and interpreted this examination/study. This report was electronically signed by RAO GUILLEN MD on12/30/2020 12:30 PM . Froy Koch MD DIAGNOSTIC IMAGING O RDERABLES * XR ABDOMEN KUB PORTABLE (12/29/2020 8:13 PM QUALITY ASSURANCE MONITOR FINAL) Anatomical Region Laterality Modality Abdomen Radiographic Cristina ging 12/30/2020 8:32 AM QUALITY ASSURANCE MONITOR FINAL Impressions 12/30/2020 12:30 PM QUALITY ASSURANCE MONITOR FINAL IMPRESSION: No evidence of bowel obstruction. No acute osseous injury of the pelvis. Dictated by Timmy Hollis MD (residential lawn specialist). Dr. RAO Washington MD have personally reviewed and interpreted this examination/study. This report was electronically signed by RAO GUILLEN MD ??on 12/30/2020 12:30 PM . Narrative 12/30/2020 12:30 PM QUALITY ASSURANCE MONITOR FINAL EXAMINATION: XR ABDOMEN KUB PORTABLE, XR PELVIS [...] the pelvis. Dictated by Timmy Hollis MD (residential lawn specialist). I, Dr. RAO GUILLEN MD have personally reviewed and interpreted this examination/study. This report was electronically signed by RAO GUILLEN MD on12/30/2020 12:30 PM . Froy Koch MD DIAGNOSTIC IMAGING O RDERABLES * LIPID PROFILE (12/29/2020 7:15 PM [facility]) [facility] Signature Cholesterol Total 161 <200 mg/dL 12/29/2020 7:43 PM [facility] HDL 57 >40 mg/dL 12/29/2020 7:43 PM [facility] Comment: ATP III Classification of HDL Cholesterol: ? <40 mg/dL: ??Considered a major risk factor. ? >60 mg/dL: ??Considered a negative risk factor. ? LDL Calculated 95 <100 mg/dL 12/29/2020 7:43 PM [facility] Comment: ATP III Classification of LDL Cholesterol: ?<100 mg/dL: ??Optimal ? 100 - 129 mg/dL: ??Near Optimal/Above Optimal ? 130 - 159 mg/dL: ??Borderline High ? 160 - 189 mg/dL: ??High ?>190 mg/dL: ??Very High ? Triglycerides 47 <150 mg/dL 12/29/2020 7:43 PM [facility] Comment: ATP III Classification of Triglycerides: ?<150 mg/dL: ??Normal ? 150 - 199 mg/dL: ??Borderline High ? 200 - 400 mg/dL: ??High ?>500 mg/dL: ??Very High Blood BLOOD SPECIMEN / Unknown Venipuncture / Unknown 12/29/2020 7:15 PM QUALITY ASSURANCE MONITOR FINAL 12/29/2020 7:19 PM QUALITY ASSURANCE MONITOR FINAL Steffen Winchester DO LAB - CHEMISTRY OR DERABLES [facility] [address] [place] [address], [facility] [phone] * HEMOGLOBIN A1C (12/29/2020 7:15 PM QUALITY ASSURANCE MONITOR FINAL) [facility] Hemoglobin A1c 5.7 4.4 - 6.3 % 12/30/2020 12:44 PM QUALITY ASSURANCE MONITOR FINAL [facility] Comment:Hemoglobin variant d etected. Abnormal hemoglobin may not form glycated product at the same rate as hemoglobin A and/or hemoglobin variant may interfere with the accurate measurement of HbA1C. Consider measurement of HbA1C by alternative method. Recommend hemoglobin electrophoresis to evaluate the variant hemoglobin if clinically indicated. Estimated Average Glucose 117 mg/dL 12/30/2020 12:44 PM QUALITY ASSURANCE MONITOR FINAL [facility] Comment: HbA1c Interpretation: Treatment target values recommended by ADA and other clinical organizations should be used to evaluate metabolic control in patients. Treatment Target Values: Normal : < 5.7% Pre-diabetes: 5.7-6.4% Diabetes: Equal to or greater than 6.5% Reference: [place] [employer] Standards of Care in Diabetes -2014 In patients 70 years and older consider HbA1c target range of 7.0-7.5% Reference: ??Diabetes Mellitus in Older People: Position Statement on behalf of the International Association of Gerontology and Geriatrics (IAGG), the Diabetes Working Alliance Party for Older People (EDWPOP), and the International Task Force of Experts in Diabetes. ??Rajesh Carl et al. J [place] [employer] Association. 2012 Test results diagnostic of diabetes should be repeated for confirmation. The Sebia Capillary 2 assay for the measurement of HbA1c is a National Glycohemoglobin Standardization Program (NGSP)certified method. Blood BLOOD SPECIMEN / Unknown Venipuncture / Unknown 12/29/2020 7:15 PM QUALITY ASSURANCE MONITOR FINAL 12/29/2020 7:20 PM QUALITY ASSURANCE MONITOR FINAL Steffen Winchester LAB - CHEMISTRY OR DERABLES Performing Organization Address City/[facility]/ZIP Co de Phone Number [address] [address], [place] [phone] * BLOOD TYPE VERIFICATION (12/29/2020 7:15 PM QUALITY ASSURANCE MONITOR FINAL) ABO Rh O NEG 12/29/2020 7:4 2 PM QUALITY ASSURANCE MONITOR FINAL [facility] LAB Blood Bank BLOOD SPECIMEN / Unknown Venipuncture / Unknown 12/29/2020 7:15 PM QUALITY ASSURANCE MONITOR FINAL 12/29/2020 7:18 PM QUALITY ASSURANCE MONITOR FINAL Martín Fam MD LAB - BLOOD BANK ORD ERABLES Performing Organization Address City/[facility]/ZIP Co de Phone Number [facility] [address] [place] [id number], [place] [phone] * TROPONIN I (12/29/2020 7:15 PM QUALITY ASSURANCE MONITOR FINAL) Troponin I <0.010 <0.032 ng/mL 12/29/2020 7:42 PM QUALITY ASSURANCE MONITOR FINAL [facility] Blood BLOOD SPECIMEN / Unknown Venipuncture / Unknown 12/29/2020 7:15 PM QUALITY ASSURANCE MONITOR FINAL 12/29/2020 7:42 PM QUALITY ASSURANCE MONITOR FINAL Steffen Winchester LAB - CHEMISTRY OR DERABLES Performing Organization Address City/[facility]/ZIP Co de Phone Number [address] [address], [place] [phone] * XR CHEST 1VW PORTABLE (12/29/2020 3:33 PM QUALITY ASSURANCE MONITOR FINAL) Anatomical Region Laterality Modality Chest Radiographic Cristina ging 12/29/2020 3:26 PM QUALITY ASSURANCE MONITOR FINAL Impressions 12/31/2020 1:21 PM QUALITY ASSURANCE MONITOR FINAL FINDINGS/IMPRESSION: *Cervical thoracic spinal fusion hardware is partially visualized. Rounded airspace opacity in the right peripheral midlung zone. There is no focal consolidation, pleural effusion, or pneumothorax. The cardiomediastinal silhouette is normal. Degenerative changes are noted in the shoulders. No acute osseous injury. Dictated by Nelson Cordero MD (residential lawn specialist). Dr. RAO Washington MD have personally reviewed and interpreted this examination/study. This report was electronically signed by RAO GUILLEN MD ??on 12/31/2020 1:21 PM . Narrative 12/31/2020 1:21 PM QUALITY ASSURANCE MONITOR FINAL EXAMINATION: XR CHEST 1VW PORTABLE HISTORY: R47.01: [...] osseous injury. Dictated by Nelson Cordero MD (residential lawn specialist). Dr. RAO Washington MD have personally reviewed and interpreted this examination/study. This report was electronically signed by RAO GUILLEN MD on12/31/2020 1:21 PM . Steffen Winchester DO DIAGNOSTIC IMAGING ORDERABLES * EKG 12-LEAD (12/29/2020 2:46 PM QUALITY ASSURANCE MONITOR FINAL) Ventricular Rate 84 BPM [facility] MUSE QRS Duration ms 86 ms [facility] MUSE Q-T Interval ms 376 ms [facility] MUSE QTC Calculation (Bezet) 444 ms SL MUSE Calculated R [place] 2 degrees SL MUSE Calculated T [place] -88 degrees [facility] MUSE Interpretation EKG ATRIAL FIBRILLATION WITH A COMPETING JUNCTIONAL PACEMAKER ST & T WAVE ABNORMALITY, CONSIDER INFEROLATERAL ISCHEMIA ABNORMAL ECG Confirmed by Mauro Collazo ([id number]) on 01/01/2021 4:47:57 PM [facility] MUSE 12/29/2020 2:46 PM QUALITY ASSURANCE MONITOR FINAL 01/01/2021 4:47 PM QUALITY ASSURANCE MONITOR FINAL Qamargunnar Chente Winchester DO ECG ORDERABLES Performing Organization Address [facility] Co de Phone Number [facility] MUSE * TYPE + SCREEN PANEL (12/29/2020 2:30 PM QUALITY ASSURANCE MONITOR FINAL) Pathologist [facility] Antibody Screen NEG 3:14 PM QUALITY ASSURANCE MONITOR FINAL [facility]OD [facility] LAB ABO Rh O NEG 12/29/2020 3:14 PM QUALITY ASSURANCE MONITOR FINAL [facility] Blood Bank BLOOD SPECIMEN / Unknown Venipuncture / Unknown 12/29/2020 2:30 PM QUALITY ASSURANCE MONITOR FINAL 12/29/2020 2:35 PM QUALITY ASSURANCE MONITOR FINAL Steffen Winchester DO LAB - BLOOD BANK O RDERABLES Performing Organization Address [facility] Co de Phone Number [facility] [address] [place] [address], [place] [phone] * TROPONIN I (12/29/2020 2:30 PM QUALITY ASSURANCE MONITOR FINAL) Pathologist [facility] Troponin I <0.010 <0.032 ng/mL 12/29/2020 2:56 PM QUALITY ASSURANCE MONITOR FINAL [facility] Blood BLOOD SPECIMEN / Unknown Venipuncture / Unknown 12/29/2020 2:30 PM QUALITY ASSURANCE MONITOR FINAL 12/29/2020 2:32 PM QUALITY ASSURANCE MONITOR FINAL Qamargunnar Chente Winchester DO LAB - CHEMISTRY OR DERABLES Performing Organization Address [facility] Co de Phone Number [facility] [address] [place] [address], [place] [phone] * PT-INR [facility] (12/29/2020 2:30 PM QUALITY ASSURANCE MONITOR FINAL) Pathologist [facility] PT 12.2 12.1 - 14.8 Seconds 12/29/2020 2:46 PM QUALITY ASSURANCE MONITOR FINAL [facility] INR 0.9 See Comment 12/29/2020 2:46 PM QUALITY ASSURANCE MONITOR FINAL [facility] Comment:The suggested therap eutic range for standard coumadin (warfarin) therapy is an INR of 2.0-3.0. For high-risk patients (Mechanical Mitral Valve Prosthesis, etc.), the suggested prophylactic therapeutic range is an INR of 2.5-3.5. Blood BLOOD SPECIMEN / Unknown Venipuncture / Unknown 12/29/2020 2:30 PM QUALITY ASSURANCE MONITOR FINAL 12/29/2020 2:32 PM QUALITY ASSURANCE MONITOR FINAL Steffen Winchester DO LAB - COAGULATION ORDERABLES Performing Organization Address City/State/[facility] Co de Phone Number [facility] [address] [place] [address], [facility] [phone] * (ABNORMAL) COMPREHENSIVE METABOLIC PANEL (12/29/2020 2:30 PM QUALITY ASSURANCE MONITOR FINAL) BUN 36(H) 7 - 26 mg/dL 12/29/2020 2:51 PM [facility] Creatinine 0.95 0.56 - 0.96 mg/dL 12/29/2020 2:51 PM [facility] Sodium 140 136 - 145 mmol/L 12/29/2020 2:51 PM [facility] Potassium 4.8(H) 3.5 - 4.5 mmol/L 12/29/2020 2:51 PM [facility] Chloride 102 98 - 107 mmol/L 12/29/2020 2:51 PM [facility] CO2 28 22 - 29 mmol/L 12/29/2020 2:51 PM [facility] Glucose 118(H) 70 - 115 mg/dL 12/29/2020 2:51 PM [facility] Calcium 10.4(H) 8.4 - 10.2 mg/dL 12/29/2020 2:51 PM [facility] Protein Total 8.1 6.0 - 8.3 g/dL 12/29/2020 2:51 PM [facility] Albumin 4.0 3.4 - 5.0 g/dL 12/29/2020 2:51 PM [facility] Bilirubin Total 0.3 0.2 - 1.2 mg/dL 12/29/2020 2:51 PM [facility] Alkaline Phosphatase 144 40 - 150 U/L 12/29/2020 2:51 PM [facility] ALT 22 5 - 55 U/L 12/29/2020 2:51 PM [facility] AST 27 5 - 34 U/L 12/29/2020 2:51 PM [facility] Anion Gap 15 8 - 18 12/29/2020 2:51 PM [facility] BUN/Creatinine Ratio 38(H) 7 - 23 12/29/2020 2:51 PM [facility] Osmolality Calculated 299 270 - 300 mOsm/kg 12/29/2020 2:51 PM [facility] Albumin/Globulin Ratio 1.0(L) 1.1 - 2.3 12/29/2020 2:51 PM [facility] eGFR by CKD-EPI 42(L) >=90 mL/min/1.7 3 m2 12/29/2020 2:51 PM [facility] Blood BLOOD SPECIMEN / Unknown Venipuncture / Unknown 12/29/2020 2:30 PM QUALITY ASSURANCE MONITOR FINAL 12/29/2020 2:32 PM [facility] Steffen Winchester DO LAB - CHEMISTRY OR DERABLES Performing Organization Address City/State/[facility] Co de Phone Number [facility] [address] [place] [phone] [phone] * (ABNORMAL) CBC W AUTO DIFFERENTIAL (12/29/2020 2:30 PM QUALITY ASSURANCE MONITOR FINAL) WBC 10.9(H) 3.5 - 10.5 10? 3 /uL 12/29/2020 2:39 PM [facility] RBC 5.24(H) 3.80 - 5.20 10? 6 /uL 12/29/2020 2:39 PM [facility] Hemoglobin 13.9 12.0 - 15.6 g/dL 12/29/2020 2:39 PM [facility] Hematocrit 44.0 35.0 - 45.0 % 12/29/2020 2:39 PM [facility] MCV 84.0 80.7 - 98.3 fL 12/29/2020 2:39 PM [facility] MCH 26.5(L) 26.7 - 34.0 pg 12/29/2020 2:39 PM [facility] MCHC 31.6 30.8 - 35.9 g/dL 12/29/2020 2:39 PM [facility] Platelet Count 335 150 - 400 10? 3 /uL 12/29/2020 2:39 PM [facility] RDW-SD 47.8 36.0 - 50.0 fL 12/29/2020 2:39 PM [facility] RDW-CV 15.7(H) 11.2 - 14.8 % 12/29/2020 2:39 PM [facility] MPV 9.0(L) 9.4 - 12.9 fL 12/29/2020 2:39 PM [facility] nRBC Absolute 0.00 0 10? 3 /uL 12/29/2020 2:39 PM [facility] nRBC Auto 0.0 0 /100 WBC 12/29/2020 2:39 PM [facility] Neutrophils % 80.7(H) 35.0 - 70.0 % 12/29/2020 2:39 PM [facility] Lymphocytes % 11.2(L) 20.0 - 43.0 % 12/29/2020 2:39 PM [facility] Monocytes % 5.3 5.0 - 13.0 % 12/29/2020 2:39 PM [facility] Eosinophils % 2.0 0.0 - 6.0 % 12/29/2020 2:39 PM [facility] Basophil % 0.4 0.0 - 2.0 % 12/29/2020 2:39 PM [facility] Neutrophils Absolute 8.8(H) 1.6 - 7.0 10? 3 /uL 12/29/2020 2:39 PM [facility] Lymphocyte Absolute 1.2 1.1 - 3.9 10? 3 /uL 12/29/2020 2:39 PM [facility] Monocytes Absolute 0.58 0.26 - 1.07 10? 3 /uL 12/29/2020 2:39 PM [facility] Eosinophils Absolute 0.22 0.00 - 0.47 10? 3 /uL 12/29/2020 2:39 PM [facility] Basophils Absolute 0.04 0.00 - 0.08 10? 3 /uL 12/29/2020 2:39 PM [facility] Immature Granulocytes % 0.4 0.0 - 1.0 % 12/29/2020 2:39 PM [facility] Immature Granulocytes Absolute 0.04 12/29/2020 2:39 PM [facility] Blood BLOOD SPECIMEN / Unknown Venipuncture / Unknown 12/29/2020 2:30 PM QUALITY ASSURANCE MONITOR FINAL 12/29/2020 2:33 PM QUALITY ASSURANCE MONITOR FINAL Steffen Winchester DO LAB - HEMATOLOGY O RDERABLES [facility] [address] [place] [phone], [facility] [phone] * INR WHOLE BLOOD - POINT OF CARE (IP) STROKE (12/29/2020 2:26 PM QUALITY ASSURANCE MONITOR FINAL) INR 0.9 0.9 - 1.2 12/29/2020 2:28 PM [facility] Device [id number] 12/29/2020 2:28 PM [facility] Airconditioning Drafting Officer ID [id number] 12/29/2020 2:28 PM [facility] Blood BLOOD SPECIMEN / Unknown 12/29/2020 2:26 PM QUALITY ASSURANCE MONITOR FINAL 12/29/2020 2:28 PM QUALITY ASSURANCE MONITOR FINAL Steffen Winchester DO LAB - POINT OF CAR E ORDERABLES [address] [address], [facility] [phone] * CREATININE - POCT INTERFACED (12/29/2020 2:25 PM QUALITY ASSURANCE MONITOR FINAL) Creatinine POCT 0.67 0.30 - 1.30 mg/dL 12/29/2020 2:39 PM [facility] eGFR >60 >60 mL/min/1.7 3 m2 12/29/2020 2:39 PM [facility] Blood BLOOD SPECIMEN / Unknown 12/29/2020 2:25 PM QUALITY ASSURANCE MONITOR FINAL 12/29/2020 2:39 PM QUALITY ASSURANCE MONITOR FINAL Steffen Winchester DO LAB - POINT OF CAR E ORDERABLES [place] [id number] [place] [address], [facility] [phone] * CT ANGIO BRAIN NECK STROKE (12/29/2020 2:21 PM QUALITY ASSURANCE MONITOR FINAL) Anatomical Region Laterality Modality Head Computed Tomogra phy 12/29/2020 2:37 PM QUALITY ASSURANCE MONITOR FINAL Impressions 12/30/2020 8:37 AM QUALITY ASSURANCE MONITOR FINAL IMPRESSION: 1. No large arterial occlusions or significant stenoses identified in the head or neck. Dictated by Nelson Cordero MD (residential lawn specialist) I, Dr. NESS TONG M.D. have personally reviewed and interpreted this examination/study. This report was electronically signed by NESS TONG M.D. ??on 12/30/2020 8:37 AM . Narrative 12/30/2020 8:37 AM QUALITY ASSURANCE MONITOR FINAL CT ANGIO BRAIN NECK STROKE DATE: 12/29/2020 [...] or neck. Dictated by Nelson Cordero MD (residential lawn specialist) Dr. NESS Washington M.D. have personally reviewed and interpreted this examination/study. This report was electronically signed by NESS TONG M.D. on 12/30/2020 8:37 AM . Steffen Winchester DO CT ORDERABLES * CT BRAIN - Stroke (12/29/2020 2:21 PM QUALITY ASSURANCE MONITOR FINAL) Anatomical Region Laterality Modality Head Computed Tomogra phy 12/29/2020 2:29 PM QUALITY ASSURANCE MONITOR FINAL Impressions 12/30/2020 8:27 AM QUALITY ASSURANCE MONITOR FINAL IMPRESSION: 1.No acute intracranial hemorrhage, mass effect or midline shift. 2.Chronic small vessel ischemic disease of the brain with cerebral volume loss. 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 Dr. NESS Washington M.D. have personally reviewed and interpreted this examination/study. This report was electronically signed by NESS TONG M.D. ??on 12/30/2020 8:27 AM . Narrative 12/30/2020 8:27 AM QUALITY ASSURANCE MONITOR FINAL CT BRAIN STROKE EXAMINATION: Computed tomography (CT) [...] AM . Steffen Winchester DO CT ORDERABLES documented in this encounter Visit Diagnoses Diagnosis Dysphagia, unspecified type- Primary Weakness Other malaise and fatigue Aphasia Cerebrovascular accident (CVA), unspecified mechanism (HCC) Aphasia Weakness Other malaise and fatigue Cerebrovascular accident (CVA) (HCC) Azotemia Other abnormal blood chemistry A-fib (HCC) Atrial fibrillation Dysphagia documented in this encounter Administered Medications Inactive Administered Medications - up to 3 most recent administrations Medication Order MAR Action Action Date Dose Rate Site 0.9% NaCl infusion at 50 mL/hr, Intravenous, CONTINUOUS, Starting on 12/29/20 at 1515, Until Thu12/30/20 at 0755, .. Right AC preferred site. $ New Bag/Syringe 12/29/2020 7:51 PM QUALITY ASSURANCE MONITOR FINAL 50 mL/hr 0.9% NaCl injection 10 mL 10 mL, Intracatheter, INTRA-PROCEDURE MULTIPLE, Starting on 12/31/20 at 1359, Until Thu12/31/20 at 1758, For Echo Procedure - Per Protocol Agitate saline before administration. $ Given 12/31/2020 1:56 PM QUALITY ASSURANCE MONITOR FINAL 10 mL $ Given 12/31/2020 1:55 PM QUALITY ASSURANCE MONITOR FINAL 10 mL 0.9% NaCl injection 3 mL 3 mL, Intracatheter, EVERY 8 HOURS, First dose on 12/29/20 at 1445, Until Discontinued, Flush peripheral IV catheter with 3 mL of normal saline every 8 hours. $ Given 12/31/2020 4:44 AM QUALITY ASSURANCE MONITOR FINAL 3 mL $ Given 12/30/2020 10:32 PM QUALITY ASSURANCE MONITOR FINAL 3 mL $ Given 12/30/2020 6:07 AM QUALITY ASSURANCE MONITOR FINAL 3 mL 0.9% NaCl injection 3 mL 3 mL, Intracatheter, EVERY 8 HOURS, First dose on 12/29/20 at 1515, Until Discontinued $ Given 01/02/2021 4:06 AM QUALITY ASSURANCE MONITOR FINAL 3 mL $ Given 01/01/2021 8:21 PM QUALITY ASSURANCE MONITOR FINAL 3 mL $ Given 01/01/2021 1:56 PM QUALITY ASSURANCE MONITOR FINAL 3 mL 0.9% NaCl injection 3 mL 3 mL, Intracatheter, PRN, Other, peripheral line flush, Starting on 12/29/20 at 1431, Until Thu01/02/21 at 1417, Flush after each use and blood draws. apixaban (Eliquis) tablet 5 mg 5 mg, Oral, 2 TIMES DAILY, First dose (after last modification) on 12/31/20 at 2100, Until Discontinued $ Given 01/02/2021 8:43 AM QUALITY ASSURANCE MONITOR FINAL 5 mg $ Given 01/01/2021 8:21 PM QUALITY ASSURANCE MONITOR FINAL 5 mg $ Given 01/01/2021 9:00 AM QUALITY ASSURANCE MONITOR FINAL 5 mg aspirin suppository 300 mg 300 mg, Rectal, ONCE, 1 dose, On 12/30/20 at 1800 $ Given 12/30/2020 5:21 PM QUALITY ASSURANCE MONITOR FINAL 300 mg aspirin suppository 300 mg 300 mg, Rectal, DAILY, First dose on Thu12/31/20 at 0900, Until Discontinued $ Given 12/31/2020 8:16 AM QUALITY ASSURANCE MONITOR FINAL 300 mg atorvastatin (Lipitor) tablet 40 mg 40 mg, Oral, AT BEDTIME, First dose on 12/29/20 at 2130, Until Discontinued $ Given 01/01/2021 8:20 PM QUALITY ASSURANCE MONITOR FINAL 40 mg $ Given 12/31/2020 8:20 PM QUALITY ASSURANCE MONITOR FINAL 40 mg barium (Varibar Thin) 40 % liquid SUSR 20 mL 20 mL, Oral, ONCE, 1 dose, On Thu12/31/20 at 0930 $ Given - Contrast 12/31/2020 9:10 AM QUALITY ASSURANCE MONITOR FINAL 45 mL barium (Varibar) 40 % paste PSTE Oral, ONCE, 1 dose, On Thu12/31/20 at 0930 $ Given - Contrast 12/31/2020 9:10 AM QUALITY ASSURANCE MONITOR FINAL 15 mL buPROPion (Wellbutrin) tablet 75 mg 75 mg, Oral, 2 TIMES DAILY, First dose (after last modification) on Thu01/01/21 at 0930, Until Discontinued $ Given 01/02/2021 8:43 AM QUALITY ASSURANCE MONITOR FINAL 75 mg $ Given 01/01/2021 8:21 PM QUALITY ASSURANCE MONITOR FINAL 75 mg $ Given 01/01/2021 9:13 AM QUALITY ASSURANCE MONITOR FINAL 75 mg carvedilol (Coreg) tablet 12.5 mg 12.5 mg, Oral, 2 TIMES DAILY WITH MEALS, First dose on Thu12/31/20 at 1100, Until Discontinued, Take with food $ Given 12/31/2020 6:00 PM QUALITY ASSURANCE MONITOR FINAL 12.5 mg $ Given 12/31/2020 11:33 AM QUALITY ASSURANCE MONITOR FINAL 12.5 mg dextrose 5 % and 0.9% nacl infusion at 50 mL/hr, Intravenous, CONTINUOUS, Starting on Thu12/30/20 at 0830, Until Thu12/31/20 at 1616 $ New Bag/Syringe 12/31/2020 5:18 AM QUALITY ASSURANCE MONITOR FINAL 50 mL/hr Current Rate 12/30/2020 6:00 PM QUALITY ASSURANCE MONITOR FINAL 50 mL/hr Current Rate 12/30/2020 2:00 PM QUALITY ASSURANCE MONITOR FINAL 50 mL/hr dextrose IV 12.5-25 g 12.5-25 g, Intravenous, PRN, Bedside Glucose less than 70 mg/dL -If NOT able to eat and/or NPO and with IV Access, Starting on 12/29/20 at 2250, Until Thu01/02/21 at 1417, If NOT able to eat and/or NPO and with IV Access: For Bedside Glucose 54-69 mg/dL give 12.5 g (25 mL) D50W IVP STAT For Bedside Glucose LESS than 54 mg/dl verify with a second Bedside Glucose (from a different site) and give 25 g (50 mL) D50W IVP STAT Re-check and Re-treat blood glucose EVERY 10-25 minutes until blood glucose GREATER than or equal to 80 mg/dl. NOTIFY PROVIDER OF HYPOGLYCEMIC EVENT. glucagon (Glucagen) injection 1 mg 1 mg, Intramuscular, PRN, Bedside Glucose less than 70 mg/dL - If NOT able to eat and/or NPO and withOUT IV Access, Starting on 12/29/20 at 2250, Until Thu01/02/21 at 1417, If NOT able to eat and/or NPO and NO IV Access: For Bedside glucose 54-69 mg/dL Give 1 mg IM or SQ For Bedside Glucose LESS than 54 mg/dl verify with a second bedside glucose (from a different site) and Give 1 mg IM or SQ Re-check and Re-treat blood glucose EVERY 10-25 minutes until blood glucose GREATER than or equal to 80 mg/dl. NOTIFY PROVIDER OF HYPOGLYCEMIC EVENT. Reconstitute vial with 1 mL of sterile water for injection for a final concentration of 1 mg/mL; shake vial gently; use immediately and discard unused portion heparin injection 5,000 Units 5,000 Units, Subcutaneous, EVERY 8 HOURS, First dose on Thu12/31/20 at 0815, Until Discontinued $ Given 12/31/2020 8:16 AM QUALITY ASSURANCE MONITOR FINAL 5,000 Units Abdominal Tissue HYDROcodone-acetaminophen ([place]) 5-325 MG tablet 1 tablet 1 tablet, Oral, EVERY 4 HOURS PRN, Moderate Pain, Severe Pain, Starting on Thu12/31/20 at 1055, Until Thu12/31/20 at 1151 $ Given 12/31/2020 11:33 AM QUALITY ASSURANCE MONITOR FINAL 1 tablet HYDROcodone-acetaminophen ([place]) 5-325 MG tablet 1 tablet 1 tablet, Oral, EVERY 4 HOURS PRN, Severe Pain, Starting on Thu12/31/20 at 1151, Until Thu01/02/21 at 1417 $ Given 01/02/2021 11:43 AM QUALITY ASSURANCE MONITOR FINAL 1 tablet $ Given 01/01/2021 8:21 PM QUALITY ASSURANCE MONITOR FINAL 1 tablet $ Given 01/01/2021 1:59 PM QUALITY ASSURANCE MONITOR FINAL 1 tablet iopamidol (Isovue 370) 76 % contrast Intravenous, CONTRAST ONCE, Starting on Thu12/29/20 at 1506, Until 12/31/20 at 1236 $ Given - Contrast 12/29/2020 2:30 PM QUALITY ASSURANCE MONITOR FINAL 75 mL ketorolac (Toradol) injection 15 mg 15 mg, Intravenous, ONCE, 1 dose, On 12/30/20 at 1430 $ Given 12/30/2020 2:10 PM QUALITY ASSURANCE MONITOR FINAL 15 mg labetalol (Normodyne; Trandate) injection 10 mg 10 mg, Intravenous, ONCE, 1 dose, On 12/29/20 at 1430, Max IV dose is 300mg/24 hours. $ Given 12/29/2020 2:28 PM QUALITY ASSURANCE MONITOR FINAL 10 mg lisinopril (Prinivil; Zestril) tablet 10 mg 10 mg, Oral, DAILY, First dose on Thu01/01/21 at 0900, Until Discontinued $ Given 01/01/2021 9:00 AM QUALITY ASSURANCE MONITOR FINAL 10 mg lisinopril (Prinivil; Zestril) tablet 5 mg 5 mg, Oral, DAILY, First dose (after last modification) on Thu01/02/21 at 0900, Until Discontinued, Hold for SBP <120 metoprolol tartrate (Lopressor) tablet 25 mg 25 mg, Oral, 2 TIMES DAILY, First dose on Thu01/01/21 at 0930, Until Discontinued $ Given 01/02/2021 8:43 AM QUALITY ASSURANCE MONITOR FINAL 25 mg $ Given 01/01/2021 8:21 PM [employer]AL[employer]ANCE [employer]IT[employer] FINAL 25 mg $ Given 01/01/2021 9:02 AM [employer]AL[employer] ASS[employer]ANCE MONITOR FINAL 25 mg midodrine (Proamatine) tablet 5 mg 5 mg, Oral, 3 TIMES DAILY PRN, SBP < 80, Starting on Thu01/01/21 at 1442, Until Thu01/02/21 at 1417, Do not administer after evening meal or less than 4 hours before bedtime tenecteplase (TNKase) injection 13.8 mg 13.8 mg (rounded from 13.825 mg = 0.25 mg/kg ? 55.3 kg), Intravenous, ONCE, 1 dose, On 12/29/20 at 1500, Give rapid bolus over 5 seconds. Dilute to 5 mg/mL; Administer over 5 seconds, Diagnosis of ischemic stroke causing measurable neurological deficit (loss of motor function, aphasia, vision) with Last Known Well less than 4.5 hrs before beginning treatment. Agree, INR less than or equal to 1.7. Patient is not taking therapeutic Lovenox, dabigatran (Pradaxa), rivaroxaban (Xarelto), apixaban (Eliquis) or other Factor Xa inhibitor. Platelets greater than or equal to 100,000. Glucose greater than or equal to 50. Agree, Symptoms are not suggestive of subarachnoid hemorrhage. Symptoms are not suggestive of infective endocarditis. No history of intracranial hemorrhage. No head trauma, prior stroke or intracranial/intraspinal surgery in the past 3 months. Agree, No GI malignancy. No GI/ hemorrhage in past 21 days. No evidence of active internal bleeding or acute trauma on exam. No major arterial puncture at a noncompressible site in the previous 7 days. Agree, Blood pressure has maintained less than or equal to 185 mmHg systolic, and less than or equal to 110 mmHg diastolic. Use of IV antihypertensives are acceptable. Agree, CT does not show a new stroke greater than 1/3 of the MCA territory. No hemorrhage on CT. Agree, NO Major surgery in the past 14 days . No evidence of acute trauma on examination. No spinal tap in past 7 days. Thrombolytics may be given, consider risk vs. benefit. I understand, Mild symptoms (not including speech, vision or motor) or symptoms completely resolved. Thrombolytics may be given, consider risk vs. benefit. I understand, Seizure at onset of stroke; (consider thrombolytics if impairments are secondary to stroke rather than a postictal phenomenon). Thrombolytics may be given, consider risk vs. benefit. I understand, Caution in (known or suspected) OR if less than 14 days post . Thrombolytics may be given, consider risk vs. benefit. I understand, The patient and or family members understand the potential risks and benefits from treatment. I understand $ Given 12/29/2020 2:38 PM QUALITY ASSURANCE MONITOR FINAL 13.8 m g documented in this encounter Active and Recently Administered Medications Times are shown in QUALITY ASSURANCE MONITOR FINAL. Scheduled Medication Order 12/31/2020 01/01/2021 01/02/2021 0.9% NaCl injection 10 mL () 10 mL, Intracatheter, INTRA-PROCEDURE MULTIPLE, Starting on Thu12/31/20 at 1359, Until Thu12/31/20 at 1758, For Echo Procedure - Per Protocol Agitate saline before administration. 1355 ($ Given - Provider: Darleen Gilmore RN)1356 ($ Given - Provider: Darleen Gilmore RN) 0.9% NaCl injection 3 mL (CANCELED)(Linked Group 1) 3 mL, Intracatheter, EVERY 8 HOURS, First dose on 12/29/20 at 1445, Until Discontinued, Flush peripheral IV catheter with 3 mL of normal saline every 8 hours. 0444 ($ Given - Provider: Kitty Barrett RN)1206 (Not Administered - Provider: Christa Chase RN - Reason: IV Currently Infusing) 0.9% NaCl injection 3 mL(Linked Group 2) 3 mL, Intracatheter, EVERY 8 HOURS, First dose on Thu12/29/20 at 1515, Until Discontinued 0444 ($ Given - Provider: Kitty Barrett RN)1205 (Not Administered - Provider: Christa Chase RN - Reason: IV Currently Infusing)2019 ($ Given - Provider: Heather Staley RN) 0448 ($ Given - Provider: Heather Staley RN)1356 ($ Given - Provider: Audrey Aquino RN)2020 ($ Given - Provider: Heather Staley RN) 0406 ($ Given - Provider: Heather Staley RN) apixaban (Eliquis) tablet 5 mg 5 mg, Oral, 2 TIMES DAILY, First dose (after last modification) on Thu12/31/20 at 2100, Until Discontinued 2019 ($ Given - Provider: Heather Staley RN) 0900 ($ Given - Provider: Audrey Aquino RN)2020 ($ Given - Provider: Heather Staley RN) 0843 ($ Given - Provider: Audrey Aquino RN) aspirin suppository 300 mg (CANCELED)(Linked Group 3) 300 mg, Rectal, DAILY, First dose on Thu12/31/20 at 0900, Until Discontinued 0816 ($ Given - Provider: Christa Chase RN) atorvastatin (Lipitor) tablet 40 mg 40 mg, Oral, AT BEDTIME, First dose on Thu12/29/20 at 2130, Until Discontinued 2019 ($ Given - Provider: Heather Staley RN) 2019 ($ Given - Provider: Heather Staley RN) barium (Varibar Thin) 40 % liquid SUSR 20 mL (COMPLETED) 20 mL, Oral, ONCE, 1 dose, On Thu12/31/20 at 0930 0910 ($ Given - Contrast - Provider: RT Delmis(R)) barium (Varibar) 40 % paste PSTE (COMPLETED) Oral, ONCE, 1 dose, On Thu12/31/20 at 0930 0910 ($ Given - Contrast - Provider: RT Delmis(R)) buPROPion (Wellbutrin) tablet 75 mg 75 mg, Oral, 2 TIMES DAILY, First dose (after last modification) on Thu01/01/21 at 0930, Until Discontinued 09 ($ Given - Provider: Audrey Aquino RN)2020 ($ Given - Provider: Heather Staley RN) 0843 ($ Given - Provider: Audrey Aquino RN) carvedilol (Coreg) tablet 12.5 mg (CANCELED) 12.5 mg, Oral, 2 TIMES DAILY WITH MEALS, First dose on Thu12/31/20 at 1100, Until Discontinued, Take with food 1133 ($ Given - Provider: Christa Chase RN)1800 ($ Given - Provider: Christa Chase RN) heparin injection 5,000 Units (CANCELED) 5,000 Units, Subcutaneous, EVERY 8 HOURS, First dose on Thu12/31/20 at 0815, Until Discontinued 0816 ($ Given - Provider: Christa Chase RN) lisinopril (Prinivil; Zestril) tablet 10 mg (CANCELED) 10 mg, Oral, DAILY, First dose on Thu01/01/21 at 0900, Until Discontinued 0900 ($ Given - Provider: Audrey Aquino RN) lisinopril (Prinivil; Zestril) tablet 5 mg 5 mg, Oral, DAILY, First dose (after last modification) on Thu01/02/21 at 0900, Until Discontinued, Hold for SBP <120 0843 (Not Administered - Provider: Audrey Aquino RN - Reason: See Comments - Comment: held per md) metoprolol tartrate (Lopressor) tablet 25 mg 25 mg, Oral, 2 TIMES DAILY, First dose on Thu01/01/21 at 0930, Until Discontinued 09 ($ Given - Provider: Audrey Aquino RN)2020 ($ Given - Provider: Heather Staley RN) 0843 ($ Given - Provider: Audrey Aquino RN) Continuous Medication Order 12/31/2020 01/01/2021 01/02/2021 dextrose 5 % and 0.9% nacl infusion (CANCELED) at 50 mL/hr, Intravenous, CONTINUOUS, Starting on Thu12/30/20 at 0830, Until 12/31/20 at 1616 0518 ($ New Bag/Syringe - Provider: Kitty Barrett RN) PRN Medication Order 12/31/2020 01/01/2021 01/02/2021 0.9% NaCl injection 3 mL(Linked Group 2) 3 mL, Intracatheter, PRN, Other, peripheral line flush, Starting on 12/29/20 at 1431, Until Thu01/02/21 at 1417, Flush after each use and blood draws. dextrose IV 12.5-25 g 12.5-25 g, Intravenous, PRN, Bedside Glucose less than 70 mg/dL -If NOT able to eat and/or NPO and with IV Access, Starting on 12/29/20 at 2250, Until Thu01/02/21 at 1417, If NOT able to eat and/or NPO and with IV Access: For Bedside Glucose 54-69 mg/dL give 12.5 g (25 mL) D50W IVP STAT For Bedside Glucose LESS than 54 mg/dl verify with a second Bedside Glucose (from a different site) and give 25 g (50 mL) D50W IVP STAT Re-check and Re-treat blood glucose EVERY 10-25 minutes until blood glucose GREATER than or equal to 80 mg/dl. NOTIFY PROVIDER OF HYPOGLYCEMIC EVENT. glucagon (Glucagen) injection 1 mg 1 mg, Intramuscular, PRN, Bedside Glucose less than 70 mg/dL - If NOT able to eat and/or NPO and withOUT IV Access, Starting on 12/29/20 at 2250, Until Thu01/02/21 at 1417, If NOT able to eat and/or NPO and NO IV Access: For Bedside glucose 54-69 mg/dL Give 1 mg IM or SQ For Bedside Glucose LESS than 54 mg/dl verify with a second bedside glucose (from a different site) and Give 1 mg IM or SQ Re-check and Re-treat blood glucose EVERY 10-25 minutes until blood glucose GREATER than or equal to 80 mg/dl. NOTIFY PROVIDER OF HYPOGLYCEMIC EVENT. Reconstitute vial with 1 mL of sterile water for injection for a final concentration of 1 mg/mL; shake vial gently; use immediately and discard unused portion HYDROcodone-acetaminophe n ([place]) 5-325 MG tablet 1 tablet (CANCELED) 1 tablet, Oral, EVERY 4 HOURS PRN, Moderate Pain, Severe Pain, Starting on Thu12/31/20 at 1055, Until Thu12/31/20 at 1151 1133 ($ Given - Provider: Christa Chase RN) HYDROcodone-acetaminophe n ([place]) 5-325 MG tablet 1 tablet 1 tablet, Oral, EVERY 4 HOURS PRN, Severe Pain, Starting on Thu12/31/20 at 1151, Until Thu01/02/21 at 1417 2020 ($ Given - Provider: Heather Staley RN) 0617 ($ Given - Provider: Heather Staley RN)1359 ($ Given - Provider: Audrey Aquino RN)202 ($ Given - Provider: Heather Staley RN) 1143 ($ Given - Provider: Audrey Aquino RN) midodrine (Proamatine) tablet 5 mg 5 mg, Oral, 3 TIMES DAILY PRN, SBP < 80, Starting on Thu01/01/21 at 1442, Until Thu01/02/21 at 1417, Do not administer after evening meal or less than 4 hours before bedtime Linked Groups Order Group 1: SALINE LOCK, INSERT AND MAINTAIN (CANCELED) Routine, CONTINUOUS, Starting on Thu12/29/20 at 1415, Until Specified, New collection, Task Completed: Yes And 0.9% NaCl injection 3 mL (CANCELED)Jump to med 3 mL, Intracatheter, EVERY 8 HOURS, First dose on Thu12/29/20 at 1445, Until Discontinued, Flush peripheral IV catheter with 3 mL of normal saline every 8 hours. And 0.9% NaCl injection 1-10 mL (CANCELED) 1-10 mL, Intracatheter, PRN, Other, peripheral line flush, Starting on 12/29/20 at 1400, Until Thu12/31/20 at 1619, Flush peripheral IV catheter with 1-10 mL of normal saline before and after medications and prn to clear blood from the line or to verify patency. Group 2: SALINE LOCK, INSERT AND MAINTAIN (CANCELED) Routine, CONTINUOUS, Starting on 12/29/20 at 1445, Until Specified, IN OPPOSITE ARM., New collection, Task Completed: Yes And 0.9% NaCl injection 3 mLJump to med 3 mL, Intracatheter, EVERY 8 HOURS, First dose on Thu12/29/20 at 1515, Until Discontinued And 0.9% NaCl injection 3 mLJump to med 3 mL, Intracatheter, PRN, Other, peripheral line flush, Starting on 12/29/20 at 1431, Until Thu01/02/21 at 1417, Flush after each use and blood draws. Group 3: aspirin suppository 300 mg (CANCELED)Jump to med 300 mg, Rectal, DAILY, First dose on Thu12/31/20 at 0900, Until Discontinued Or aspirin chew tablet 81 mg (CANCELED) 81 mg, Oral, DAILY, First dose on Thu12/31/20 at 0900, Until Discontinued documented in this encounter Care Teams [employer] Network Engineer Relationship Specialty Start Date End Date Tee Kim DO [address] [place] [address] PCP - General Internal Medicine 12/29/20 documented as of this encounter
== END 2024-02-17 12:15 ==
LOC: ANHED 15:09 → ANH2MED 21:57 → ANH3MEDSUR 02-18 07:20
PROVIDERS: Nurse Practitioner Family; Physician Assistant; Admitting Provider General Practice; Emergency Provider Emergency Medicine; PCP Nurse Practitioner; Visit Provider Hospitalist
DX: R55 Syncope and collapse (principal); I48.91 Unspecified atrial fibrillation; M51.369 Other intervertebral disc degeneration, lumbar region without mention of lumbar back pain or lower extremity pain; I10 Essential (primary) hypertension; I69.351 Hemiplegia and hemiparesis following cerebral infarction affecting right dominant side; I69.328 Other speech and language deficits following cerebral infarction; I70.0 Atherosclerosis of aorta; G95.89 Other specified diseases of spinal cord; E78.5 Hyperlipidemia, unspecified; E03.9 Hypothyroidism, unspecified; I73.00 Raynaud's syndrome without gangrene; F32.A Depression, unspecified; F41.9 Anxiety disorder, unspecified; R51.9 Headache, unspecified; M19.012 Primary osteoarthritis, left shoulder; M85.80 Other specified disorders of bone density and structure, unspecified site; Q68.8 Other specified congenital musculoskeletal deformities; M19.90 Unspecified osteoarthritis, unspecified site; H54.7 Unspecified visual loss; Z79.899 Other long term (current) drug therapy; Z79.01 Long term (current) use of anticoagulants
CPT/HCPCS: 36415; 70450; 71045; 80048; 80053; 81003; 82948; 83735; 83880; 84443; 84484; 85025; 85610; 85730; 93005; 93306; 93880; 96365; 96366; 96375; 99285; A9270; G0378; J0360; J3475; J7030; J7040

== ENCOUNTER 2024-03-22 10:45 | Outpatient (CLI) | payer OTHER, SELFPAY ==
--- NOTE | ~2024-03-22 | DEXA_ITS ---
Bone Density Report Name: MITA KAM Age: 78 Sex: Female Ethnicity: White Date of : 1945 Indication: postmenopausal; screening for osteoporosis; height loss; Referring Provider: CARSON PAINTING Study: Bone densitometry was performed. Exam Date: March 22, 2024 Accession number: [id number] Bone Density: Region BMD T-score Z-score Classification AP Spine(L1, L2, L3) 0.867 -1.4 1.1 Osteopenia Femoral Neck (Left) 0.618 -2.1 0.1 Osteopenia Total Hip (Left) 0.703 -2.0 0.0 Osteopenia Femoral Neck (Right) 0.591 -2.3 -0.1 Osteopenia Total Hip (Right) 0.638 -2.5 -0.6 Osteoporosis Total Hip Mean 0.670 -2.3 -0.3 Osteopenia World Health Organization criteria for BMD impression classify patients as: Normal (T-score at or above -1.0), Osteopenia (T-score between -1.0 and -2.5), or Osteoporosis (T-score at or below -2.5). 10-year Fracture Risk: FRAX not reported because: Some T-score for Spine Total or Hip Total or Femoral Neck at or below -2.5 Treated for osteoporosis Clinical Information Provided by Patient: Is being treated for osteoporosis Has used the following medications: Prolia (i.e. denosumab), Vitamin D, Calcium Patient maximum height was 63.5 Menopause Age: 50 No regular weight bearing exercise Onset of menses at age 12 Number of children 1 Impression: The patient has osteoporosis, based on the Right Total Hip T-score. Discussion: It is important to ask patients whether they are taking their medications and to encourage continued and appropriate compliance with their osteoporosis therapies to reduce fracture risk. It is also important to review their risk factors and encourage appropriate calcium and vitamin D intakes, exercise, fall prevention and other lifestyle measures. Follow-Up: Consider a repeat BMD and Vertebral Fracture Assessment (VFA) exam in 2 years or sooner if medically necessary, to reassess this patient's status. Reported by: DEION on 03/22/2024 11:45:00 AM. Reviewed, dictated and finalized at location [facility]ARTIN
--- OUTSIDE RECORDS SUMMARY | 2024-03-22 12:06 | XMS_ITS | Clinical Summary ---
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
--- OUTSIDE RECORDS SUMMARY | 2024-03-22 12:06 | XMS_ITS | Patient Health Summary ---
Author Organization [facility] Address [address] [place] [address] Care Team Providers Care Laceworker Name Role Phone Tee Kim Primary Care Provider [phone] Note from [facility],non-owned Affiliates and Associated Physician Practices is amultiple site organization consisting of ambulatory clinics and hospital sitesin [place], [place], [place] and [place]. This disclosure is being madepursuant to the Care Everywhere program and may not contain all information available regarding this patient. Last updated 17.[facility] Allergies No known active allergies [...] Comments Blood Pressure 119/73 01/02/2021 8:23 AM FOUNDRY SUPERVISOR Pulse 78 01/02/2021 8:23 AM FOUNDRY SUPERVISOR Temperature 36.4 C (97.6 F) 01/02/2021 8:23 AM FOUNDRY SUPERVISOR Respiratory Rate 16 01/02/2021 8:23 AM FOUNDRY SUPERVISOR Oxygen Saturation 100% 01/02/2021 8:23 AM FOUNDRY SUPERVISOR Inhaled Oxygen Concentration 21% 12/30/2020 6 :00 AM FOUNDRY SUPERVISOR Weight 53 kg (116 lb 13.5 oz) 12/31/2020 4:00 AM FOUNDRY SUPERVISOR Height 157.5 cm (5' 2 ) 12/30/2020 4:42 AM FOUNDRY SUPERVISOR Body Mass Index 21.37 12/30/2020 4:42 AM FOUNDRY SUPERVISOR Procedures * PHOSPHORUS BLOOD(Performed 01/02/2021) * MAGNESIUM [...] 12/29/2020) * TROPONIN I(Performed 12/29/2020) * PT-INR [facility](Performed 12/29/2020) * COMPREHENSIVE METABOLIC PANEL(Performed 12/29/2020) * CBC W AUTO DIFFERENTIAL(Performed 12/29/2020) * INR WHOLE BLOOD - POINT OF CARE (IP) STROKE(Performed 12/29/2020) * CREATININE - POCT INTERFACED(Performed 12/29/2020) * CT ANGIO BRAIN NECK STROKE(Performed 12/29/2020) Performed for Weakness * CT BRAIN STROKE(Performed 12/29/2020) Performed for Weakness * MRI BREAST BILAT WWO CONTRAST(Performed 03/30/2013) Results * (ABNORMAL) CBC W/O DIFFERENTIAL (01/02/2021 5:34 AM FOUNDRY SUPERVISOR) Only the most recent of4 resultswithin the time period is included. WBC 7.6 3.5 - 10.5 10 3/uL 01/02/2021 6:17 AM [facility] RBC 4.49 3.80 - 5.20 10 6/uL 01/02/2021 6:17 AM [facility] Hemoglobin 12.0 12.0 - 15.6 g/dL 01/02/2021 6:17 AM [facility] Hematocrit 39.1 35.0 - 45.0 % 01/02/2021 6:17 AM [facility] MCV 87.1 80.7 - 98.3 fL 01/02/2021 6:17 AM [facility] MCH 26.7 26.7 - 34.0 pg 01/02/2021 6:17 AM [facility] MCHC 30.7(L) 30.8 - 35.9 g/dL 01/02/2021 6:17 AM [facility] Platelet Count 289 150 - 400 10 3/uL 01/02/2021 6:17 AM [facility] RDW-SD 50.6(H) 36.0 - 50.0 fL 01/02/2021 6:17 AM [facility] RDW-CV 15.9(H) 11.2 - 14.8 % 01/02/2021 6:17 AM [facility] MPV 9.1(L) 9.4 - 12.9 fL 01/02/2021 6:17 AM [facility] nRBC Absolute 0.00 0 10 3/uL 01/02/2021 6:17 AM [facility] nRBC Auto 0.0 0 /100 WBC 01/02/2021 6:17 AM [facility] Blood BLOOD SPECIMEN / Unknown Lab Venipuncture / Unknown 01/02/2021 5:34 AM FOUNDRY SUPERVISOR 01/02/2021 5:56 AM FOUNDRY SUPERVISOR Steffen Winchester DO LAB - HEMATOLOGY O RDERABLES [facility] [address] [place] [address], [facility] [phone] * (ABNORMAL) BASIC METABOLIC PANEL (CALCIUM TOTAL) (01/02/2021 5:34 AM [facility]) Only the most recent of4 resultswithin the time period is included. BUN 18 7 - 26 mg/dL 01/02/2021 6:21 AM [facility] Creatinine 0.88 0.56 - 0.96 mg/dL 01/02/2021 6:21 AM [facility] Sodium 139 136 - 145 mmol/L 01/02/2021 6:21 AM [facility] Potassium 3.9 3.5 - 4.5 mmol/L 01/02/2021 6:21 AM [facility] Chloride 110(H) 98 - 107 mmol/L 01/02/2021 6:21 AM [facility] CO2 17(L) 22 - 29 mmol/L 01/02/2021 6:21 AM [facility] Glucose 84 70 - 115 mg/dL 01/02/2021 6:21 AM [facility] Calcium 8.3(L) 8.4 - 10.2 mg/dL 01/02/2021 6:21 AM [facility] Anion Gap 16 8 - 18 01/02/2021 6:21 AM [facility] BUN/Creatinine Ratio 20 7 - 23 01/02/2021 6:21 AM [facility] Osmolality Calculated 289 270 - 300 mOsm/kg 01/02/2021 6:21 AM FOUNDRY SUPERVISOR [facility] eGFR by CKD-EPI 65(L) >=90 mL/min/1.7 3 m2 01/02/2021 6:21 AM FOUNDRY SUPERVISOR [facility] Blood BLOOD SPECIMEN / Unknown Lab Venipuncture / Unknown 01/02/2021 5:34 AM FOUNDRY SUPERVISOR 01/02/2021 5:55 AM FOUNDRY SUPERVISOR Steffen Winchester DO LAB - CHEMISTRY OR DERABLES Performing Organization Address City/[facility]/ZIP Co de Phone Number [address] [address], [place] [phone] * (ABNORMAL) PHOSPHORUS BLOOD (01/02/2021 5:34 AM FOUNDRY SUPERVISOR) Only the most recent of4 resultswithin the time period is included. Phosphorus 1.9(L) 2.9 - 5.1 mg/dL 01/02/2021 6:21 AM FOUNDRY SUPERVISOR [facility] Blood BLOOD SPECIMEN / Unknown Lab Venipuncture / Unknown 01/02/2021 5:34 AM FOUNDRY SUPERVISOR 01/02/2021 5:55 AM FOUNDRY SUPERVISOR Nimco John MD LAB - CHEMISTRY ARIC LUNA Performing Organization Address [facility]/ZIP Co de Phone Number [address] [address], [place] [phone] * MAGNESIUM BLOOD (01/02/2021 5:34 AM FOUNDRY SUPERVISOR) Only the most recent of4 resultswithin the time period is included. Magnesium 1.9 1.6 - 2.6 mg/dL 01/02/2021 6:21 AM FOUNDRY SUPERVISOR [facility] Blood BLOOD SPECIMEN / Unknown Lab Venipuncture / Unknown 01/02/2021 5:34 AM FOUNDRY SUPERVISOR 01/02/2021 5:55 AM FOUNDRY SUPERVISOR Nimco John MD LAB - CHEMISTRY ARIC LUNA [address] [address], [place] [phone] * (ABNORMAL) GLUCOSE - POINT OF CARE (12/31/2020 4:08 PM FOUNDRY SUPERVISOR) Only the most recent of9 resultswithin the time period is included. Glucose WB/POC 145(H) 70 - 115 mg/dL 12/31/2020 4:12 PM FOUNDRY SUPERVISOR [facility] Specimen Type Cap Fingerstick 2020 4:12 PM FOUNDRY SUPERVISOR [facility] Blood BLOOD SPECIMEN / Unknown 12/31/2020 4:08 PM FOUNDRY SUPERVISOR 12/31/2020 4:12 PM FOUNDRY SUPERVISOR Froy Koch MD LAB - POINT OF CARE ORDERABLES Performing Organization Address City/State/[facility] Co de Phone Number [facility] [address] [place] [phone], [facility] [phone] * CARDIAC EKG ORDER (12/31/2020 2:38 PM FOUNDRY SUPERVISOR) Narrative 12/31/2020 2:38 PM FOUNDRY SUPERVISOR Ordered by an unspecified provider. Scanned Document CARDIAC SERVICES ORD ERABLES * ECHO COMPLETE W BUBBLE STUDY (12/31/2020 2:01 PM FOUNDRY SUPERVISOR) Anatomical Region Laterality Modality Chest Echo 12/31/2020 1:02 PM FOUNDRY SUPERVISOR Narrative Procedure Note Madelyn Mello MD - 12/31/2020 Steffen Winchester DO ECHOCARDIOGRAPHY R ADIANT * FL SWALLOWING FUNCTION STUDY (12/31/2020 9:39 AM FOUNDRY SUPERVISOR) Anatomical Region Laterality Modality Chest Radiographic Cristina ging 12/31/2020 9:26 AM FOUNDRY SUPERVISOR Impressions 12/31/2020 6:00 PM FOUNDRY SUPERVISOR FINDINGS/IMPRESSION: Fluoroscopic assistance was provided for a procedure performed by Speech Therapy. Please see the separate report by Speech Therapy for further details. Fluoroscopy Time: 137 seconds Report drafted by Ellie Ace MD (Unhairer). I, Dr. GABBY LLOYD have personally reviewed and interpreted this examination/study. This report was electronically signed by GABBY LLOYD on 12/31/2020 6:00 PM . Narrative 12/31/2020 6:00 PM FOUNDRY SUPERVISOR EXAMINATION: FL SWALLOWING FUNCTION STUDY HISTORY: R13.10: Dysphagia, unspecified type Procedure Note Gabby Lloyd MD - 12/31/2020 EXAMINATION: FL SWALLOWING FUNCTION STUDY HISTORY: R13.10: Dysphagia, unspecified type FINDINGS/IMPRESSION: Fluoroscopic assistance was provided for a procedure performed by Speech Therapy. Please see the separate report by Speech Therapy for further details. Fluoroscopy Time: 137 seconds Report drafted by Ellie Ace MD (Unhairer). I, Dr. GABBY LLOYD have personally reviewed and interpreted this examination/study. This report was electronically signed by GABBY LLOYD on 12/31/2020 6:00 PM . Froy Koch MD FLUOROSCOPY ORDERABL ES * MRI BRAIN WO CONTRAST (12/30/2020 3:28 PM FOUNDRY SUPERVISOR) Anatomical Region Laterality Modality Head Magnetic Resonan ce 12/30/2020 8:10 PM FOUNDRY SUPERVISOR Impressions 12/30/2020 8:23 PM FOUNDRY SUPERVISOR IMPRESSION: 1. Acute synchronous infarctions of the [...] AKIL MAC on 12/30/2020 8:23 PM . Narrative 12/30/2020 8:23 PM FOUNDRY SUPERVISOR EXAMINATION: MRI OF THE BRAIN WITHOUT CONTRAST [...] REFLEX MICROSCOPIC REFLEX CULTURE (12/29/2020 10:36 PM FOUNDRY SUPERVISOR) Color UA Yellow Straw, Yellow 12/29/2020 10:50 PM [facility] Clarity UA Clear Clear 12/29/2020 10:50 PM [facility] Specific [place] UA 1.042(H) 1.005 - 1.030 12/29/2020 10:50 PM [facility] pH UA 7.0 5.0 - 8.0 pH 12/29/2020 10:50 PM [facility] Protein UA Negative Negative 12/29/2020 10:50 PM [facility] Glucose UA Negative Negative 12/29/2020 10:50 PM [facility] Ketone UA 1+(A) Negative 12/29/2020 10:50 PM [facility] Bilirubin UA Negative Negative 12/29/2020 10:50 PM [facility] Blood UA Negative Negative 12/29/2020 10:50 PM [facility] Nitrite UA Negative Negative 12/29/2020 10:50 PM FOUNDRY SUPERVISOR [facility] Leukocyte Esterase Negative Negative 12/29/2020 10:50 PM [facility] Urobilinogen UA Negative Negative mg/dL 12/29/2020 10:50 PM [facility] Comment UA Microscopic not indicated. 12/29/2020 10:50 PM [facility] Urine URINE SPECIMEN OBTAINED BY CLEAN CATCH PROCEDURE / Unknown Collection / Unknown 12/29/2020 10:36 PM FOUNDRY SUPERVISOR 12/29/2020 10:42 PM FOUNDRY SUPERVISOR Narrative [facility] - 12/29/2020 10:50 PM FOUNDRY SUPERVISOR Froy Koch MD LAB - URINALYSIS ORD ERABLES [facility] [address] [place] [address], [facility] [phone] * (ABNORMAL) URINE DRUG SCREEN IMMUNOASSAY (12/29/2020 10:36 PM FOUNDRY SUPERVISOR) Pathologist [facility] Amphetamines Screen Urine Negative Negative : < 1000 ng/mL 12/29/2020 11:00 PM [facility] Barbiturates Screen Urine Negative Negative : < 200 ng/mL 12/29/2020 11:00 PM [facility] Benzodiazepine Screen Urine Negative Negative : < 200 ng/mL 12/29/2020 11:00 PM [facility] Opiates Urine Positive(A) Negative : < 300 ng/mL 12/29/2020 11:00 PM [facility] Comment:Positive urine opiat e screening results should be confirmed by another generally accepted non-immunological method such as gas chromatography or mass spectrometry. Cocaine Metabolites Urine Negative Negative : < 300 ng/mL 12/29/2020 11:00 PM [facility] Phencyclidine Screen Urine Negative Negative : < 25 ng/ml 12/29/2020 11:00 PM [facility] Cannabinoids Screen Urine Negative Negative : <50 ng/mL 12/29/2020 11:00 PM [facility] Methadone Screen Urine Negative Negative : < 300 ng/mL 12/29/2020 11:00 PM [facility] Fentanyl Screen Urine Negative Negative : <1.0 ng/mL 12/29/2020 11:00 PM [facility] Urine URINE / Unknown Collection / Unknown 12/29/2020 10:36 PM FOUNDRY SUPERVISOR 12/29/2020 10:47 PM FOUNDRY SUPERVISOR Narrative [facility] - 12/29/2020 11:00 PM FOUNDRY SUPERVISOR The Urine Toxicology Screening Panel does not screen for Propoxyphene, Meprobamate, Carisoprodol, Trazodone, fewr-[id number] medications and/or volatiles (Acetone, Isopropanol, Methanol or Ethylene Glycol). Ethanol, Salicylate, Acetaminophen, Tricyclic Antidepressants and several therapeutic drugs may be individually assayed in serum or plasma specimen. Toxicology testing by the [facility] is an aid to medical diagnosis and treatment of patients. No documented chain of custody was maintained. Results are intended to be used for clinical purposes only. Froy Koch MD LAB - URINE CHEMISTR Y ORDERABLES Performing Organization Address City/[facility]/ZIP Co de Phone Number [address] [address], [facility] [phone] * TROPONIN I (12/29/2020 10:25 PM FOUNDRY SUPERVISOR) Only the most recent of3 resultswithin the time period is included. Troponin I <0.010 <0.032 ng/mL 12/29/2020 10:57 PM FOUNDRY SUPERVISOR [facility] Blood BLOOD SPECIMEN / Unknown Venipuncture / Unknown 12/29/2020 10:25 PM FOUNDRY SUPERVISOR 12/29/2020 10:28 PM FOUNDRY SUPERVISOR Steffen Winchester DO LAB - CHEMISTRY OR DERABLES [address] [address], [place] [phone] * XR PELVIS 1 OR 2VW (12/29/2020 8:13 PM FOUNDRY SUPERVISOR) Anatomical Region Laterality Modality Pelvis Radiographic Cristina ging 12/30/2020 8:32 AM FOUNDRY SUPERVISOR Impressions 12/30/2020 12:30 PM FOUNDRY SUPERVISOR IMPRESSION: No evidence of bowel obstruction. No acute osseous injury of the pelvis. Dictated by Timmy Hollis MD (vice president industrial relations). Dr. RAO Washington MD have personally reviewed and interpreted this examination/study. This report was electronically signed by RAO GUILLEN MD on 12/30/2020 12:30 PM . Narrative 12/30/2020 12:30 PM FOUNDRY SUPERVISOR EXAMINATION: XR ABDOMEN KUB PORTABLE, XR PELVIS [...] the pelvis. Dictated by Timmy Hollis MD (vice president industrial relations). Dr. RAO Washington MD have personally reviewed and interpreted this examination/study. This report was electronically signed by RAO GUILLEN MD on12/30/2020 12:30 PM . Froy Koch MD DIAGNOSTIC IMAGING O RDERABLES * XR ABDOMEN KUB PORTABLE (12/29/2020 8:13 PM FOUNDRY SUPERVISOR) Anatomical Region Laterality Modality Abdomen Radiographic Cristina ging 12/30/2020 8:32 AM FOUNDRY SUPERVISOR Impressions 12/30/2020 12:30 PM FOUNDRY SUPERVISOR IMPRESSION: No evidence of bowel obstruction. No acute osseous injury of the pelvis. Dictated by Timmy Hollis MD (vice president industrial relations). Dr. RAO Washington MD have personally reviewed and interpreted this examination/study. This report was electronically signed by RAO GUILLEN MD on 12/30/2020 12:30 PM . Narrative 12/30/2020 12:30 PM FOUNDRY SUPERVISOR EXAMINATION: XR ABDOMEN KUB PORTABLE, XR PELVIS [...] the pelvis. Dictated by Timmy Hollis MD (vice president industrial relations). Dr. RAO Washington MD have personally reviewed and interpreted this examination/study. This report was electronically signed by RAO GUILLEN MD on12/30/2020 12:30 PM . Froy Koch MD DIAGNOSTIC IMAGING O RDERABLES * BLOOD TYPE VERIFICATION (12/29/2020 7:15 PM FOUNDRY SUPERVISOR) ABO Rh O NEG 12/29/2020 7:4 2 PM FOUNDRY SUPERVISOR [facility] B[facility] LAB Blood Bank BLOOD SPECIMEN / Unknown Venipuncture / Unknown 12/29/2020 7:15 PM FOUNDRY SUPERVISOR 12/29/2020 7:18 PM FOUNDRY SUPERVISOR Martín Fam MD LAB - BLOOD BANK ORD ERABLES [facility] [address] [place] [address], [facility] [phone] * HEMOGLOBIN A1C (12/29/2020 7:15 PM FOUNDRY SUPERVISOR) Hemoglobin A1c 5.7 4.4 - 6.3 % 12/30/2020 12:44 PM [facility] Comment:Hemoglobin variant d etected. Abnormal hemoglobin may not form glycated product at the same rate as hemoglobin A and/or hemoglobin variant may interfere with the accurate measurement of HbA1C. Consider measurement of HbA1C by alternative method. Recommend hemoglobin electrophoresis to evaluate the variant hemoglobin if clinically indicated. Estimated Average Glucose 117 mg/dL 12/30/2020 12:44 PM FOUNDRY SUPERVISOR [facility] Comment: HbA1c Interpretation: Treatment target values recommended by ADA and other clinical organizations should be used to evaluate metabolic control in patients. Treatment Target Values: Normal : < 5.7% Pre-diabetes: 5.7-6.4% Diabetes: Equal to or greater than 6.5% Reference: [place] [employer] Standards of Care in Diabetes -2014 In patients 70 years and older consider HbA1c target range of 7.0-7.5% Reference: Diabetes Mellitus in Older People: Position Statement on behalf of the International Association of Gerontology and Geriatrics (IAGG), the Diabetes Working Libertarian for Older People (EDWPOP), and the International Task Force of Experts in Diabetes. Rajesh Carl, et al. J [place] [employer]. 2012 Test results diagnostic of diabetes should be repeated for confirmation. The Sebia Capillary 2 assay for the measurement of HbA1c is a National Glycohemoglobin Standardization Program (NGSP)certified method. Blood BLOOD SPECIMEN / Unknown Venipuncture / Unknown 12/29/2020 7:15 PM FOUNDRY SUPERVISOR 12/29/2020 7:20 PM FOUNDRY SUPERVISOR Edward Lothar Fieg DO LAB - CHEMISTRY OR DERABLES Performing Organization Address [facility]/ZIP Co de Phone Number [facility] [address] [place] [address], [facility] [phone] * LIPID PROFILE (12/29/2020 7:15 PM FOUNDRY SUPERVISOR) Cholesterol Total 161 <200 mg/dL 12/29/2020 7:43 PM [facility] HDL 57 >40 mg/dL 12/29/2020 7:43 PM [facility] Comment: ATP III Classification of HDL Cholesterol: <40 mg/dL: Considered a major risk factor. >60 mg/dL: Considered a negative risk factor. LDL Calculated 95 <100 mg/dL 12/29/2020 7:43 PM [facility] Comment: ATP III Classification of LDL Cholesterol: <100 mg/dL: Optimal 100 - 129 mg/dL: Near Optimal/Above Optimal 130 - 159 mg/dL: Borderline High 160 - 189 mg/dL: High >190 mg/dL: Very High Triglycerides 47 <150 mg/dL 12/29/2020 7:43 PM [facility] Comment: ATP III Classification of Triglycerides: <150 mg/dL: Normal 150 - 199 mg/dL: Borderline High 200 - 400 mg/dL: High >500 mg/dL: Very High Blood BLOOD SPECIMEN / Unknown Venipuncture / Unknown 12/29/2020 7:15 PM FOUNDRY SUPERVISOR 12/29/2020 7:19 PM FOUNDRY SUPERVISOR Steffen Winchester DO LAB - CHEMISTRY OR DERABLES Performing Organization Address [facility]/ZIP Co de Phone Number [address] [address], [facility] [phone] * XR CHEST 1VW PORTABLE (12/29/2020 3:33 PM FOUNDRY SUPERVISOR) Anatomical Region Laterality Modality Chest Radiographic Cristina ging 12/29/2020 3:26 PM FOUNDRY SUPERVISOR Impressions 12/31/2020 1:21 PM FOUNDRY SUPERVISOR FINDINGS/IMPRESSION: *Cervical thoracic spinal fusion hardware is partially visualized. Rounded airspace opacity in the right peripheral midlung zone. There is no focal consolidation, pleural effusion, or pneumothorax. The cardiomediastinal silhouette is normal. Degenerative changes are noted in the shoulders. No acute osseous injury. Dictated by Nelson Cordero MD (vice president industrial relations). Dr. RAO Washington MD have personally reviewed and interpreted this examination/study. This report was electronically signed by RAO GUILLEN MD on 12/31/2020 1:21 PM . Narrative 12/31/2020 1:21 PM FOUNDRY SUPERVISOR EXAMINATION: XR CHEST 1VW PORTABLE HISTORY: R47.01: [...] osseous injury. Dictated by Nelson Cordero MD (vice president industrial relations). Dr. RAO Washington MD have personally reviewed and interpreted this examination/study. This report was electronically signed by RAO GUILLEN MD on12/31/2020 1:21 PM . Steffen Reciojasmyn DO DIAGNOSTIC IMAGING ORDERABLES * EKG 12-LEAD (12/29/2020 2:46 PM FOUNDRY SUPERVISOR) Ventricular Rate 84 BPM [facility] MUSE QRS Duration ms 86 ms [facility] MUSE Q-T Interval ms 376 ms [facility] MUSE QTC Calculation (Bezet) 444 ms SL MUSE Calculated R [place] 2 degrees SL MUSE Calculated T [place] -88 degrees [facility] MUSE Interpretation EKG ATRIAL FIBRILLATION WITH A COMPETING JUNCTIONAL PACEMAKER ST & T WAVE ABNORMALITY, CONSIDER INFEROLATERAL ISCHEMIA ABNORMAL ECG Confirmed by Mauro Collazo ([id number]) on 01/01/2021 4:47:57 PM [facility] MUSE 12/29/2020 2:46 PM FOUNDRY SUPERVISOR 01/01/2021 4:47 PM FOUNDRY SUPERVISOR Steffen Winchester DO ECG ORDERABLES Performing Organization Address [facility] Co de Phone Number [facility] MUSE * PT-INR [facility] (12/29/2020 2:30 PM FOUNDRY SUPERVISOR) [facility] PT 12.2 12.1 - 14.8 Seconds 12/29/2020 2:46 PM FOUNDRY SUPERVISOR [facility] INR 0.9 See Comment 12/29/2020 2:46 PM FOUNDRY SUPERVISOR [facility] Comment:The suggested therap eutic range for standard coumadin (warfarin) therapy is an INR of 2.0-3.0. For high-risk patients (Mechanical Mitral Valve Prosthesis, etc.), the suggested prophylactic therapeutic range is an INR of 2.5-3.5. Blood BLOOD SPECIMEN / Unknown Venipuncture / Unknown 12/29/2020 2:30 PM FOUNDRY SUPERVISOR 12/29/2020 2:32 PM FOUNDRY SUPERVISOR Steffen Winchester DO LAB - COAGULATION ORDERABLES Performing Organization Address [facility] Co de Phone Number [facility] [address] [place] [phone], [place] [phone] * TYPE + SCREEN PANEL (12/29/2020 2:30 PM FOUNDRY SUPERVISOR) [facility] Antibody Screen NEG 3:14 PM FOUNDRY SUPERVISOR [facility] B[facility]OD [facility] LAB ABO Rh O NEG 12/29/2020 3:14 PM FOUNDRY SUPERVISOR [facility] LAB Blood Bank BLOOD SPECIMEN / Unknown Venipuncture / Unknown 12/29/2020 2:30 PM FOUNDRY SUPERVISOR 12/29/2020 2:35 PM FOUNDRY SUPERVISOR Steffen Eldridge Purer [employer] LAB - BLOOD BANK O RDERABLES Performing Organization Address [facility] Co de Phone Number [facility] [address] [place] [phone], [facility] [phone] * (ABNORMAL) CBC W AUTO DIFFERENTIAL (12/29/2020 2:30 PM FOUNDRY SUPERVISOR) [facility] WBC 10.9(H) 3.5 - 10.5 10 3/uL 12/29/2020 2:39 PM [facility] RBC 5.24(H) 3.80 - 5.20 10 6/uL 12/29/2020 2:39 PM [facility] Hemoglobin 13.9 12.0 - 15.6 g/dL 12/29/2020 2:39 PM [facility] Hematocrit 44.0 35.0 - 45.0 % 12/29/2020 2:39 PM [facility] MCV 84.0 80.7 - 98.3 fL 12/29/2020 2:39 PM [facility] MCH 26.5(L) 26.7 - 34.0 pg 12/29/2020 2:39 PM [facility] MCHC 31.6 30.8 - 35.9 g/dL 12/29/2020 2:39 PM [facility] Platelet Count 335 150 - 400 10 3/uL 12/29/2020 2:39 PM [facility] RDW-SD 47.8 36.0 - 50.0 fL 12/29/2020 2:39 PM [facility] RDW-CV 15.7(H) 11.2 - 14.8 % 12/29/2020 2:39 PM [facility] MPV 9.0(L) 9.4 - 12.9 fL 12/29/2020 2:39 PM [facility] nRBC Absolute 0.00 0 10 3/uL 12/29/2020 2:39 PM [facility] nRBC Auto 0.0 0 /100 WBC 12/29/2020 2:39 PM [facility] Neutrophils % 80.7(H) 35.0 - 70.0 % 12/29/2020 2:39 PM [facility] Lymphocytes % 11.2(L) 20.0 - 43.0 % 12/29/2020 2:39 PM [facility] Monocytes % 5.3 5.0 - 13.0 % 12/29/2020 2:39 PM [facility] Eosinophils % 2.0 0.0 - 6.0 % 12/29/2020 2:39 PM [facility] Basophil % 0.4 0.0 - 2.0 % 12/29/2020 2:39 PM [facility] Neutrophils Absolute 8.8(H) 1.6 - 7.0 10 3/uL 12/29/2020 2:39 PM [facility] Lymphocyte Absolute 1.2 1.1 - 3.9 10 3/uL 12/29/2020 2:39 PM [facility] Monocytes Absolute 0.58 0.26 - 1.07 10 3/uL 12/29/2020 2:39 PM [facility] Eosinophils Absolute 0.22 0.00 - 0.47 10 3/uL 12/29/2020 2:39 PM [facility] Basophils Absolute 0.04 0.00 - 0.08 10 3/uL 12/29/2020 2:39 PM [facility] Immature Granulocytes % 0.4 0.0 - 1.0 % 12/29/2020 2:39 PM [facility] Immature Granulocytes Absolute 0.04 12/29/2020 2:39 PM [facility] Blood BLOOD SPECIMEN / Unknown Venipuncture / Unknown 12/29/2020 2:30 PM FOUNDRY SUPERVISOR 12/29/2020 2:33 PM [facility] Steffen Winchester DO LAB - HEMATOLOGY O RDERABLES Performing Organization Address City/State/[facility] [place] Co de Phone Number [address] [address], [facility] [phone] * (ABNORMAL) COMPREHENSIVE METABOLIC PANEL (12/29/2020 2:30 PM FOUNDRY SUPERVISOR) BUN 36(H) 7 - 26 mg/dL 12/29/2020 2:51 PM [facility] Creatinine 0.95 0.56 - 0.96 mg/dL 12/29/2020 2:51 PM [facility] Sodium 140 136 - 145 mmol/L 12/29/2020 2:51 PM [facility] Potassium 4.8(H) 3.5 - 4.5 mmol/L 12/29/2020 2:51 PM [facility] Chloride 102 98 - 107 mmol/L 12/29/2020 2:51 PM [facility] CO2 28 22 - 29 mmol/L 12/29/2020 2:51 PM [facility] Glucose 118(H) 70 - 115 mg/dL 12/29/2020 2:51 PM [facility] Calcium 10.4(H) 8.4 - 10.2 mg/dL 12/29/2020 2:51 PM [facility] Protein Total 8.1 6.0 - 8.3 g/dL 12/29/2020 2:51 PM [facility] Albumin 4.0 3.4 - 5.0 g/dL 12/29/2020 2:51 PM [facility] Bilirubin Total 0.3 0.2 - 1.2 mg/dL 12/29/2020 2:51 PM [facility] Alkaline Phosphatase 144 40 - 150 U/L 12/29/2020 2:51 PM [facility] ALT 22 5 - 55 U/L 12/29/2020 2:51 PM [facility] AST 27 5 - 34 U/L 12/29/2020 2:51 PM [facility] Anion Gap 15 8 - 18 12/29/2020 2:51 PM [facility] BUN/Creatinine Ratio 38(H) 7 - 23 12/29/2020 2:51 PM [facility] Osmolality Calculated 299 270 - 300 mOsm/kg 12/29/2020 2:51 PM [facility] Albumin/Globulin Ratio 1.0(L) 1.1 - 2.3 12/29/2020 2:51 PM [facility] eGFR by CKD-EPI 42(L) >=90 mL/min/1.7 3 m2 12/29/2020 2:51 PM [facility] Blood BLOOD SPECIMEN / Unknown Venipuncture / Unknown 12/29/2020 2:30 PM FOUNDRY SUPERVISOR 12/29/2020 2:32 PM FOUNDRY SUPERVISOR Steffen Winchester DO LAB - CHEMISTRY OR DERABLES [facility] [address] [place] [address], [facility] [phone] * INR WHOLE BLOOD - POINT OF CARE (IP) STROKE (12/29/2020 2:26 PM FOUNDRY SUPERVISOR) INR 0.9 0.9 - 1.2 12/29/2020 2:28 PM FOUNDRY SUPERVISOR [facility] Device [id number] 12/29/2020 2:28 PM FOUNDRY SUPERVISOR [facility] Organ Recovery Coordinator ID [id number] 12/29/2020 2:28 PM [facility] Blood BLOOD SPECIMEN / Unknown 12/29/2020 2:26 PM FOUNDRY SUPERVISOR 12/29/2020 2:28 PM FOUNDRY SUPERVISOR [employer] Eld[employer] LAB - POINT OF CAR E ORDERABLES [address] [address], [facility] [phone] * CREATININE - POCT INTERFACED (12/29/2020 2:25 PM FOUNDRY SUPERVISOR) Creatinine POCT 0.67 0.30 - 1.30 mg/dL 12/29/2020 2:39 PM [facility] eGFR >60 >60 mL/min/1.7 3 m2 12/29/2020 2:39 PM [facility] Blood BLOOD SPECIMEN / Unknown 12/29/2020 2:25 PM FOUNDRY SUPERVISOR 12/29/2020 2:39 PM FOUNDRY SUPERVISOR [employer] Eldridge [employer] LAB - POINT OF CAR E ORDERABLES [address] [address], [facility] [phone] * CT BRAIN - Stroke (12/29/2020 2:21 PM FOUNDRY SUPERVISOR) Anatomical Region Laterality Modality Head Computed Tomogra phy 12/29/2020 2:29 PM FOUNDRY SUPERVISOR Impressions 12/30/2020 8:27 AM FOUNDRY SUPERVISOR IMPRESSION: 1.No acute intracranial hemorrhage, mass effect or midline shift. 2.Chronic small vessel ischemic disease of the brain with cerebral volume loss. 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 I, Dr. NESS TONG M.D. have personally reviewed and interpreted this examination/study. This report was electronically signed by NESS TONG M.D. on 12/30/2020 8:27 AM . Narrative 12/30/2020 8:[address] BRAIN STROKE EXAMINATION: Computed tomography (CT) [...] the right anterior mcallister radiata andbasal ganglia. Dr. NESS Washington M.D. have personally reviewed and interpreted this examination/study. This report was electronically signed by NESS TONG M.D. on 12/30/2020 8:27 AM . Steffen Winchester DO CT ORDERABLES * CT ANGIO BRAIN NECK STROKE (12/29/2020 2:21 PM FOUNDRY SUPERVISOR) Anatomical Region Laterality Modality Head Computed Tomogra phy 12/29/2020 2:37 PM FOUNDRY SUPERVISOR Impressions 12/30/2020 8:37 AM FOUNDRY SUPERVISOR IMPRESSION: 1. No large arterial occlusions or significant stenoses identified in the head or neck. Dictated by Nelson Cordero MD (vice president industrial relations) Dr. NESS Washington M.D. have personally reviewed and interpreted this examination/study. This report was electronically signed by NESS TONG M.D. on 12/30/2020 8:37 AM . Narrative 12/30/2020 8:[address] ANGIO BRAIN NECK STROKE DATE: 12/29/2020 [...] or neck. Dictated by Nelson Cordero MD (vice president industrial relations) Dr. NESS Washington M.D. have personally reviewed and interpreted this examination/study. This report was electronically signed by NESS TONG M.D. on 12/30/2020 8:37 AM . Steffen Bonnertherese Fieg DO CT ORDERABLES * MRI BREAST BILAT WWO CONTRAST (03/30/2013 3:29 PM FOUNDRY SUPERVISOR) Anatomical Region Laterality Modality Breast Bilateral Other Impressions 04/04/2013 2:34 PM FOUNDRY SUPERVISOR IMPRESSION: 1. No suspicious enhancement or axillary lymphadenopathy bilaterally. 2. Multiple small simple cysts throughout both breasts. RECOMMENDATION: Resume yearly screening mammography. BILATERAL BREAST MRI BI-RADS CATEGORY 2: BENIGN PYG Sneha Aquino MD is providing locums coverage for Larisa Musa MD. This report was approved by Tyler Bashir M.D. on 03/30/2013 4:[address] SNEHA Washington M.D. have personally reviewed and interpreted this examination/study. This report was electronically signed by SNEHA AQUINO M.D. on 03/30/2013 4:48 PM . ADDENDUM #1 Comparison mammograms Outside mammograms from [facility] done 02/22/13, 08/10/12, and 12/26/10 as well [...] was electronically signed by EUGENIE JUAN M.D. on 04/04/2013 2:34 PM . Narrative 04/04/2013 2:34 PM FOUNDRY SUPERVISOR ORIGINAL REPORT EXAM: BILATERAL BREAST MRI WITH AND WITHOUT CONTRAST WITH DYNACAD ANALYSIS CLINICAL INFORMATION: 67-year-old female with positive family history for breast cancer and dense breast tissue COMPARISON: No prior MRI CONTRAST: 5 cc IV Gadavist. TECHNICAL INFORMATION: Study performed on a 1.5 Opal magnet. A breast coil was utilized. Bilateral axial T1 and T2 FSE with and without fat sat, followed by 3D axial T1 fat sat images precontrast and 5 postcontrast 3D axial fat sat series dynamically. Subtraction was performed on all postcontrast images. Images were reviewed on a workstation and dynaCAD was utilized. INTERPRETATION: Images reviewed with dynaCAD. There is moderate background enhancement. Right breast: There is no suspicious [...] T1 fat sat images precontrast and 5 [id number] axial fat sat series dynamically. Subtraction was performed on all postcontrast images. Images werereviewed on a workstation and [employer] was utilized. INTERPRETATION: Images reviewed with dynaCAD. [...] BILATERAL BREAST MRI BI-RADS CATEGORY 2: BENIGN DOUGLASG Sneha Aquino MD is providing [facility] coverage for Larisa Musa MD. This report was approved by Tyler Bashir M.D. on 03/30/2013 4:37 PM . I, Dr. SNEHA AQUINO M.D. have personally reviewed and interpreted thisexamination/study. This report was electronically signed by SNEHA AQUINO M.D. on 03/30/20134:48 PM . ADDENDUM #1 Comparison mammograms Outside mammograms from [facility] done 02/22/13, 08/10/12, and12/26/10 as well [...] M.D. on04/04/2013 2:34 PM . Historical Provider MD DOMINGUEZ ORDERABLES Care Teams Laceworker Relationship Specialty Start Date End Date Tee Kim DO [address] [place] [address] PCP - General Internal Medicine 12/29/20
--- OUTSIDE RECORDS SUMMARY | 2024-03-22 12:06 | XMS_ITS | Clinical Summary ---
Author Organization [facility] Address [address] [place] [address] Care Team Providers Care Brick Loader Name Role Phone Tee Kim DO Primary Care Provider [phone] Source Comments [facility],non-owned Affiliates and Associated Physician Practices is amultiple site organization consisting of ambulatory clinics and hospital sitesin [place], [place], [place] and [place]. This disclosure is being madepursuant to the Care Everywhere program and may not contain all information available regarding this patient. Last updated 17.[facility] Miraculins Allergies No known active allergies Medications * [...] Comments Blood Pressure 119/73 01/02/2021 8:23 AM WORD PROCESSING SUPERVISOR Pulse 78 01/02/2021 8:23 AM WORD PROCESSING SUPERVISOR Temperature 36.4 C (97.6 F) 01/02/2021 8:23 AM WORD PROCESSING SUPERVISOR Respiratory Rate 16 01/02/2021 8:23 AM WORD PROCESSING SUPERVISOR Oxygen Saturation 100% 01/02/2021 8:23 AM WORD PROCESSING SUPERVISOR Inhaled Oxygen Concentration 21% 12/30/2020 6 :00 AM WORD PROCESSING SUPERVISOR Weight 53 kg (116 lb 13.5 oz) 12/31/2020 4:00 AM WORD PROCESSING SUPERVISOR Height 157.5 cm (5' 2 ) 12/30/2020 4:42 AM WORD PROCESSING SUPERVISOR Body Mass Index 21.37 12/30/2020 4:42 AM WORD PROCESSING SUPERVISOR Plan of Treatment Health Maintenance Due Date Last Done Comments BONE DENSITY TESTING 1945 HEPATITIS C SCREENING 09/03/1964 DTAP/TDAP/TD VACCINES (1 - Tdap) 1965 PNEUMOCOCCAL VACCINE 50+ (1 of 1 - PCV) 1996 ZOSTER VACCINE (1 of 2) 1996 Respiratory Syncytial Virus (RSV) Vaccine Pt: or over 60 yrs (1 - 1-dose 75+ series) 2021 COVID-19 VACCINE ( - 2023-2 5 season) 2023 INFLUENZA VACCINE (#1) 2023 DEPRESSION SCREENING 02/10/2024 MEDICARE AWV CALENDAR YEAR 2024 HEPATITIS B VACCINE Aged Out No longe r eligible based on patient's age to complete this topic HIB VACCINE Aged Out No longer eligi ble based on patient's age to complete this topic HPV VACCINE Aged Out No longer eligi ble based on patient's age to complete this topic MENINGOCOCCAL (Group B) VACCINE Aged Out No longer eligible based on patient's age to complete this topic MENINGOCOCCAL VACCINE Aged Out No lorena preston eligible based on patient's age to complete this topic Advance Directives * Full Code (Latest Code Status on File) Date Activated Date Inactivated Comments 12/29/2020 2:32 PM 01/02/2021 2:22 PM Care Teams Brick Loader Relationship Specialty Start Date End Date Tee Kim DO [address] [address] PCP - General Internal Medicine 12/29/20
--- OUTSIDE RECORDS SUMMARY | 2024-03-22 12:06 | XMS_ITS | Referral Summary ---
Author Organization [facility] Address [address] [place] [address] Care Team Providers Care Paleontology Teacher Name Role Phone Tee Kim DO Primary Care Provider [phone] Source Comments [facility],non-owned Affiliates and Associated Physician Practices is amultiple site organization consisting of ambulatory clinics and hospital sitesin [place], [place], [place] and [place]. This disclosure is being madepursuant to the Care Everywhere program and may not contain all information available regarding this patient. Last updated 17.[facility] Allergies No known active allergies Medications * [...] Comments Blood Pressure 119/73 01/02/2021 8:23 AM PAVING CONTRACTOR Pulse 78 01/02/2021 8:23 AM PAVING CONTRACTOR Temperature 36.4 C (97.6 F) 01/02/2021 8:23 AM PAVING CONTRACTOR Respiratory Rate 16 01/02/2021 8:23 AM PAVING CONTRACTOR Oxygen Saturation 100% 01/02/2021 8:23 AM PAVING CONTRACTOR Inhaled Oxygen Concentration 21% 12/30/2020 6 :00 AM PAVING CONTRACTOR Weight 53 kg (116 lb 13.5 oz) 12/31/2020 4:00 AM PAVING CONTRACTOR Height 157.5 cm (5' 2 ) 12/30/2020 4:42 AM PAVING CONTRACTOR Body Mass Index 21.37 12/30/2020 4:42 AM PAVING CONTRACTOR Functional Status Functional Status Response Date of [...] 2:32 PM 01/02/2021 2:22 PM Care Teams Paleontology Teacher Relationship Specialty Start Date End Date Tee Kim DO [address] [address] PCP - General Internal Medicine 12/29/20
== END 2024-03-22 10:46 | disposition home or self-care (01) ==
PROVIDERS: PCP Nurse Practitioner; Visit Provider Nurse Practitioner
DX: M85.89 Other specified disorders of bone density and structure, multiple sites (principal); Z78.0 Asymptomatic menopausal state
CPT/HCPCS: 77080

== ENCOUNTER 2024-08-08 07:51 | Inpatient (IN) | payer OTHER, SELFPAY ==
[2024-08-08] VITALS (41 sets, daily range): BP systolic 121–182; BP diastolic 63–128; PULSE 49–85; RESP 9–24; TEMP 36–37; O2SAT 91–100; BMI 22.5
--- NOTE | ~2024-08-08 | CT_ITS ---
CT brain wo con Ordering provider: Miles Cohen III DO History: 78 years Female with . weakness . Comparison: February 13, 2024 Technique: CT of the head without contrast. Radiation reduction technique utilized.The dose-length pr oduct was 605.33 mGy-cm. FINDINGS: BRAIN PARENCHYMA AND CSF SPACES: Mild leukoaraiosis and diffuse cortical atrophy. Mild atheromatous d isease. No midline shift, mass effect or hemorrhage. The brain parenchyma and CSF spaces are otherwi se normal. VISUALIZED PARANASAL SINUSES: Well aerated. MASTOIDS: Well aerated. BONES: The bones appear intact. SOFT TISSUES: Visualized nasopharynx is normal. Superficial soft tissues are normal. IMPRESSION: No acute intracranial findings. Reviewed, dictated and finalized at location A.
--- NOTE | ~2024-08-08 | CT_ITS ---
EXAMINATION: CT diagnostic chest wo con DATE: 08/08/2024 18:42 INDICATION: pneumonia TECHNIQUE: Computed tomography (CT) of the chest was performed with 100 mL Omnipaque-350 intravenous contrast. Automated exposure control and iterative reconstruction technique were employed. The dose-l ength product was 136.88 mGy-cm. COMPARISON: X-ray chest, same date. FINDINGS: CHEST: Thoracic aorta: No significant dilation. Mild atherosclerotic calcification. Low-density blood pool a s can be seen with anemia. Lung parenchyma and airways: Scattered groundglass opacities in the right upper lobe. Bibasilar atele ctasis. Patent airways. Thoracic inlet, axillae and chest wall: Subcentimeter thyroid hypodensity, too requires no additional evaluation. No axillary lymphadenopathy. Mediastinum: No mass or lymphadenopathy. Heart and pericardium: Cardiomegaly. No pericardial effusion. Coronary artery calcifications: Moderate. Pleura: No effusion or mass. Upper abdomen: No significant finding. Thoracic bones: No acute osseous finding in the chest. Uncomplicated appearing, partially visualized anterior cervical and posterior cervical thoracic fusion hardware. Chronic right scapular fracture IMPRESSION: Scattered right upper lobe ground glass opacities may reflect hypersensitivity pneumonitis, respirato ry bronchitis, or infectious airways disease. Moderate right and small left pleural effusions with adjacent atelectasis. Reviewed, dictated and finalized at location K. IMPRESSION: Scattered right upper lobe ground glass opacities may reflect hypersensitivity pneumonitis, respiratory bronchitis, or infectious airways disease. Moderate right and small left pleural effusions with adjacent atelectasis.
--- NOTE | ~2024-08-08 | US_ITS ---
EXAMINATION: US thoracentesis DATE: 08/10/2024 18:46 INDICATION: pleural effusion TECHNIQUE: The procedure and its risks, benefits, and alternatives were discussed with the patient's . Potential risks discussed included bleeding, infection, and pneumothorax. The patient's understood the risks and agreed to proceed. A timeout was then performed as per protocol. The skin was prepped and draped in sterile fashion. 1% lidocaine was used for local anesthesia. Under ultrasound guidance, a 5 Fr catheter with trocar was advanced into the right pleural effusion, and the trocar needle removed. The catheter was then attached to vacuum suction. The pleural effusion was evacuated in its entirety. The catheter was then removed, and a sterile dressing was applied. There were no immediate complications. Fluid was sent for the requested studies. FINDINGS: Ultrasound images demonstrate a moderate pleural effusion and the catheter within the fluid. IMPRESSION: 1. Successful ultrasound-guided thoracentesis yielding 600 mL of sanguinous fluid. Reviewed, dictated and finalized at location A. IMPRESSION: 1. Successful ultrasound-guided thoracentesis yielding 600 mL of sanguinous fl uid.
--- NOTE | ~2024-08-08 | XR_ITS ---
Exam: Abdomen 1V HISTORY: Vomiting, CODE BLUE, OG PLACEMENT COMPARISON: None. TECHNIQUE: Supine images of the lower chest and upper abdomen FINDINGS: Orogastric tube extends into the left upper quadrant, presumably within the stomach. IMPRESSION: Orogastric tube in good position and ready for immediate use. Within the visualized abdomen are multiple loops of dilated small bowel with mural thickening, with a maximal caliber of 6 cm from which further interrogation of the stomach is suggested. Reviewed, dictated and finalized at location A. IMPRESSION: Orogastric tube in good position and ready for immediate use. Within the visualized abdomen are multiple loops of dilated small bowel with mu ral thickening, with a maximal caliber of 6 cm from which further interrogation of the stomach is suggested.
--- NOTE | ~2024-08-08 | XR_ITS ---
[id number] Ordering provider: Madelyn Granado MD History: 78 years Female with . post thora . Comparison: None. FINDINGS: MEDIASTINUM: The cardiac silhouette is not enlarged. Congestive souleymane. LUNGS: No pneumothorax. Opacification in the left lung base suggestive of atelectasis versus pneumoni a with pleural effusion. Small opacity in the right midzone most likely a granuloma. 6 months follow-up advised. OTHER: No free air under the diaphragm. Bilateral shoulder osteoarthritic changes. IMPRESSION: Left basilar atelectasis versus pneumonia with pleural effusion. Opacity in the right midzone which may be a granuloma. 6 months follow-up advised. Reviewed, dictated and finalized at location A. IMPRESSION: Left basilar atelectasis versus pneumonia with pleural effusion. Opacity in the right midzone which may be a granuloma. 6 months follow-up advis ed.
--- NOTE | ~2024-08-08 | XR_ITS ---
EXAMINATION: XR chest 1V portable DATE: 08/08/2024 08:38 INDICATION: Weakness TECHNIQUE: frontal view of the chest was obtained. COMPARISON: Chest radiograph dated 02/13/2024 FINDINGS: Opacities in the bilateral lung bases with blunting at the costophrenic angles consistent with small bilateral pleural effusions and associated basilar atelectasis versus pneumonia. Calcified nodule right midlung zone consistent with old granulomatous disease. No pulmonary edema or pneumothorax. Heart size within normal limits for AP technique. Chronic right rotator cuff tear and a dvanced bilateral glenohumeral osteoarthritis. IMPRESSION: 1. New small bilateral pleural effusions with bibasilar atelectasis versus pneumonia. Reviewed, dictated and finalized at location B. IMPRESSION: 1. New small bilateral pleural effusions with bibasilar atelectasis versus pneu monia.
--- NOTE | ~2024-08-08 | XR_ITS ---
CHEST RADIOGRAPH CLINICAL HISTORY: Respiratory failure, CODE BLUE, ETT PLACEMENT . COMPARISON: 08/10/2024 TECHNIQUE: Single portable view of the chest. FINDINGS Endotracheal tube is identified with its tip projecting approximately 2 cm above the base of the marko na. Orogastric tube identified with its tip extending below the left hemidiaphragm, presumably within the stomach. The remainder of the cardiomediastinal silhouette is otherwise unremarkable. Large right-sided pleural effusion, increased from prior. The left hemithorax is clear. IMPRESSION: Large right-sided pleural effusion. Supportive lines and tubes in good position. Reviewed, dictated and finalized at location A.
--- NOTE | 2024-08-08 08:02 | ECG_ITS ---
Test Date: 2024-08-08 08:13:11 Measurements Intervals [place] Rate: 61 P: 0 TN: 0 QRS: 18 QRSD: 108 T: 180 QT: 438 QTc: 444 Interpretive Statements ATRIAL FIBRILLATION INCOMPLETE LEFT BUNDLE BRANCH BLOCK CANNOT R/O SEPTAL INFARCT, AGE INDETERMINATE ST-T WAVE ABNORMALITY IN ANTEROLAT/HIGH LAT LEADS- CONSIDER ISCHEMIA BASELINE ARTIFACT- I, III, AVR, AVL, AVF, V1-V3 ABNORMAL ECG Compared to ECG 02/13/2024 12:38:52 HEART RATE HAS INCREASED Electronically Signed On 08-08-2024 08:25:30 CDT by Wei Crorea D.O.
--- NOTE | 2024-08-08 08:04 | ED.GENADULT ---
HPI - General Adult General Chief complaint: Unspecified Stated complaint: bodyaches Time Seen by Provider: 08/08/24 07:59 History of Present Illness HPI narrative: Pt has an autoimmune disease but is not aware of the name. Pt has been in bed for two days. Pt is normally alert and active but feels very weak and hurts all over. Pt denies fever or dysuria or frequency or cough. Related Data Home Medications ?Medication ?Instructions ?Recorded ?Confirmed ?Last Taken ?Type acetaminophen 500 mg tablet 500 mg PO BID PRN pain 01/11/19 08/08/24 Unknown History cholecalciferol (vitamin D3) 25 25 mcg PO BID 08/20/20 08/08/24 Unknown History mcg (1,000 unit) capsule calcium carbonate (Tums) 1,000 mg PO BID 12/31/23 08/08/24 Unknown History doxycycline hyclate 20 mg tablet 40 mg PO QHS 08/08/24 08/08/24 Unknown History hydrocodone 10 mg-acetaminophen 1 tablet PO TID PRN pain 08/08/24 08/08/24 Unknown History 325 mg tablet gwvbufht-fhe-blhba acid 0.4 1 tablet PO DAILY 08/08/24 08/08/24 Unknown History mg-lycopene 300 mcg-lutein 250 mcg tablet (Centravites 50 Plus) Allergies Allergy/AdvReac Type Severity Reaction Status Date / Time No Known Allergies Allergy Unknown Verified 02/13/24 12:40 Review of Systems Review of Systems: All systems reviewed & are unremarkable except as noted in HPI and below PMFSH Past Medical History Medical History Chronic anticoagulation Cerebrovascular accident (2020) received thrombolytics, has mild speech issues Depression Body mass index (BMI) less than 20 Impaired glucose tolerance Raynaud's phenomenon without gangrene Myelomalacia of cervical cord Hyperlipidemia Hypertension Anemia Osteopenia after menopause Anxiety Hypothyroidism Chronic headaches DJD of left shoulder Rotator cuff arthropathy of right shoulder Arthrogryposis Arthritis Vision loss Family History Family History (Updated 08/08/24 @ 14:19 by Olga Cross RN) Sibling Family history of osteoarthritis Family history of Alzheimer's disease Family history of atrial fibrillation Skin cancer Cerebrovascular accident Mother Patient's mother is Family history of Alzheimer's disease Family history of malignant neoplasm of breast in first degree relative Family history of tuberculosis Family history of Parkinson's disease, Onset Age: 79 Father Patient's father is Hypertension Social History Social History Social History: Surrogate medical decision maker: Hayder Fournier, spouse. Code status: Full code. Smoking status: Never smoker Second hand tobacco smoke exposure: No Alcohol intake: never Substance use: never Substance use type: does not use Do You Feel Safe in your Home?: Yes Lack of Transportation: No Lack of Food: Never True Current Housing: I Have Housing Concerned About Future Housing: No Difficulty Paying Gas/Electric Bills: No Difficulty Paying for Meds: No Currently Unemployed: No Education: Master's Degree or Higher Difficulty w/ Childcare or Family Care: No Living arrangements: assisted living Additional living arrangements comments: . Her lives in [place], she is at [facility]. 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 concerns: No Exam Const: General: cooperative and no acute distress HENMT: Mouth: Yes dry mucous membranes Eyes: EOM: EOMs intact bilaterally Neck: Neck: normal visual inspection, full ROM, no lymphadenopathy and no meningeal signs Resp: Effort & Inspection: normal respiratory effort and able to speak in complete sentences Auscultation: wheezes Cardio: Rate: regular rate Rhythm: regular rhythm GI: Inspection: normal to inspection Auscultation: normal bowel sounds Back/Spine/Pelvis: Back: no CVA tenderness Skin: General skin exam: other (pale) Lesions: no lesions Rashes: no rashes Neuro: General: patient oriented x3, no meningeal signs and no focal motor deficits Extrem: General: no clubbing, cyanosis or edema Psych: Appearance: grossly normal Mental Status: mental status grossly normal Course Vital Signs Vital signs: Vital Signs Pulse Rate 66 08/08/24 07:58 Respiratory Rate 11 L 08/08/24 07:58 Pulse Oximetry 95 08/08/24 07:58 Temperature 96.8 F L 08/08/24 14:00 Pulse Rate 70 08/08/24 14:00 Respiratory Rate 15 08/08/24 14:00 Blood Pressure 134/78 08/08/24 14:00 Pulse Oximetry 94 08/08/24 14:00 Oxygen Delivery Room Air 08/08/24 07:59 Medical Decision Making MDM Narrative Medical decision making narrative: Pt presents with generlaized weakness and whole body pain. could be flare up of auto immune disorder but could also be an infection or anemia among many other things. will do AMS work up and give some fluids as clinically she appears dehydrated. Pt does not have autoimmune disorder pe daughter but has had diarrhea for weeks and has been eating only applesauce and crackers. discussed with Dr Parrish and agrees to admit Vital Signs Vital Signs: Vital Signs Pulse Rate 66 08/08/24 07:58 Respiratory Rate 11 L 08/08/24 07:58 Pulse Oximetry 95 08/08/24 07:58 Temperature 96.8 F L 08/08/24 14:00 Pulse Rate 70 08/08/24 14:00 Respiratory Rate 15 08/08/24 14:00 Blood Pressure 134/78 08/08/24 14:00 Pulse Oximetry 94 08/08/24 14:00 Oxygen Delivery Room Air 08/08/24 07:59 Lab Data 08/08/24 08:15 08/08/24 08:15 Labs: Lab Results 08/08/24 08/08/24 Range/Units 08:15 08:23 WBC 6.1 (4.5-10.0) K/mm3 RBC 3.65 L (4.2-5.4) M/mm3 Hgb 10.8 L (12.0-15.0) g/dL Hct 33.5 L (37.0-47.0) % MCV 91.8 (80-100) fl MCH 29.6 (26-34) pg MCHC 32.2 (32-36) g/dl RDW 15.4 H (11.5-14.5) % Plt Count 186 (150-375) k/mm3 MPV 10.5 H (7.4-10.4) fl Immature Gran % (Auto) 0.3 (0-0.5) % Neut % (Auto) 76.7 H (45.5-73.1) % Lymph % (Auto) 14.1 L (18.3-44.2) % Bryan % (Auto) 8.2 (2.6-8.5) % Eos % (Auto) 0.5 (0-4.4) % Baso % (Auto) 0.2 (0.2-1.2) % Lymph # (Auto) 0.86 L (0.9-3.2) K/mm3 Bryan # (Auto) 0.5 (0.1-0.6) K/mm3 Eos # (Auto) 0.0 (0-0.3) K/mm3 Baso # (Auto) 0.0 (0.0-0.1) K/mm3 Abs Immat Gran (auto) 0.02 (0.00-0.031) K/mm3 Absolute Neuts (auto) 4.7 (1.3-6.7) K/mm3 Absolute Nucleated RBC 0.000 (0.0-0.012) K/mm3 Nucleated RBC % 0.0 (0.0-0.2) % PT 19.5 H (11.1-14.7) Seconds INR 1.7 APTT 39.2 H (22.3-36.8) Seconds Sodium 141 (137-145) mmol/L Potassium 2.9 L (3.4-5.0) mmol/L Chloride 102 (98-107) mmol/L Carbon Dioxide 34 H (22-30) mmol/L Anion Gap 5 (4-12) mmol/L BUN 21 H (7-17) mg/dL Creatinine 0.68 L (0.7-1.0) mg/dL Estim Creat Clear Calc 45 ml/min Estimated GFR > 60 (59 - ) Glucose 106 (65-110) mg/dL Lactic Acid 1.3 (0.7-2.0) mmol/L Calcium 8.9 (8.4-10.2) mg/dL Magnesium 1.1 L (1.6-2.3) mg/dL Total Bilirubin 0.3 (0.2-1.3) mg/dL AST 71 H (14-36) U/L ALT 50 H (6-35) U/L Alkaline Phosphatase 73 (38-126) U/L Troponin I 0.014 (0.000-0.034) ng/mL NT-Pro-B Natriuret Pep 5370 H (19.9-100) pg/mL Total Protein 5.9 L (6.3-8.2) g/dL Albumin 3.4 L (3.5-5.1) g/dL Urine Color Yellow (Yellow) Urine Appearance Clear (Clear) Urine pH 6.5 (5.0-9.0) Ur Specific [place] 1.019 (1.001-1.035) Urine Protein 1+ H (Negative) mg/dL Urine Glucose (UA) Negative (Negative) mg/dL Urine Ketones Trace H (Negative) mg/dL Ur Blood (Man) 3+ H (Negative) Urine Nitrate Negative (Negative) Urine Bilirubin Negative (Negative) Urine Urobilinogen 0.2 (<2.0) mg/dL Leukocyte Esterase Rfl Negative (Negative) ULI/UL Urine RBC 51-100 H (0-2) /hpf Urine WBC 0-5 (0-3) /hpf Ur Squamous Epith Cells None seen (Few) /hpf Urine Bacteria None seen /hpf Urine Casts 0-2 Influenza A (RT-PCR) Negative (Negative) Influenza B (RT-PCR) Negative (Negative) RSV (RT-PCR) Negative (Negative) SARS-CoV-2 RNA (RT-PCR) Negative (Negative) Discharge Plan Discharge Clinical Impression: Acute hypokalemia, Hypomagnesemia, Weakness Patient Disposition: Still a Patient Condition: Stable
[2024-08-08 08:21] LABS: Hematocrit 33.5 % (37.0-47.0); Hemoglobin 10.8 g/dL (12.0-15.0); Immature Granulocyte Percent A 0.3 % (0-0.5); Lymphocytes Absolute Auto 0.86 K/mm3 (0.9-3.2); Mean Corpuscular HGB Conc 32.2 g/dl (32-36); Mean Corpuscular Hemoglobin 29.6 pg (26-34); Mean Corpuscular Volume 91.8 fl (80-100); Nucleated Red Blood Cells Absolute Auto 0.000 K/mm3 (0.0-0.012); Nucleated Red Blood Cells Perc 0.0 % (0.0-0.2); Platelet Count Result 186 k/mm3 (150-375); Red Blood Count 3.65 M/mm3 (4.2-5.4); White Blood Count 6.1 K/mm3 (4.5-10.0)
[2024-08-08] MEDS: SODIUM CHLORIDE 0.9% IV 1,000 ML 999 ML IV CONT (08:24)
[2024-08-08 08:34] LABS: Alanine Aminotransferase 50 U/L (6-35); Albumin Level 3.4 g/dL (3.5-5.1); Alkaline Phosphatase 73 U/L (38-126); Anion Gap 5 mmol/L (4-12); Aspartate Amino Transferase 71 U/L (14-36); Bilirubin,Total 0.3 mg/dL (0.2-1.3); Blood Urea Nitrogen 21 mg/dL (7-17); Calcium 8.9 mg/dL (8.4-10.2); Carbon Dioxide 34 mmol/L (22-30); Chloride 102 mmol/L (98-107); Estimated CRCL calculation 45 ml/min; Estimated Glomerular Filt Rate > 60; Glucose 106 mg/dL (65-110); INR 1.7; Magnesium 1.1 mg/dL (1.6-2.3); Partial Thromboplastin Time 39.2 Seconds (22.3-36.8); Potassium 2.9 mmol/L (3.4-5.0); Prothrombin Time 19.5 Seconds (11.1-14.7); Sodium 141 mmol/L (137-145); Total Protein 5.9 g/dL (6.3-8.2)
[2024-08-08 08:37] LABS: Add Urine Microscopic? YES; Appearance Urine Clear (Clear); Glucose Urine UA Negative (Negative); Leukocyte Esterase Ur Negative LEU/UL (Negative); Nitrate Urine Negative (Negative); Non Pathogenic Casts 0-2; Specific Grav Ur 1.019 (1.001-1.035)
[2024-08-08 08:45] LABS: NT Pro B Type Natriuretic Pept 5370 pg/mL (19.9-100); Troponin I 0.014 ng/mL (0.000-0.034)
[2024-08-08 08:56] LABS: Influenza A QL RT-PCR Negative (Negative); Influenza B QL RT-PCR Negative (Negative); RSV RNA, RT-PCR Negative (Negative); SARS-CoV-2 RNA PCR Negative (Negative)
[2024-08-08] MEDS: POTASSIUM CHLORIDE 20 MEQ ER TABLET PO (09:46)
[2024-08-08] MEDS: MAGNESIUM SULF 1 GM/D5W 100 ML 1 GM/100 ML BAG IVPB (09:46)
--- NOTE | 2024-08-08 10:00 | PC.NURSE ---
Pt is unable to stand up, pt is unable to perform orthostatics BP.
[2024-08-08] MEDS: KCL 20 MEQ/SW 100 ML 100 ML 50 MEQ IVPB (10:47)
--- NOTE | 2024-08-08 14:17 | ADMGEN ---
This patient, Susan Fournier, was admitted to [facility] Surg Room 306-01. Patient/family oriented to hospital policies and general routines including ID bracelet, bed and alarms, visiting hours, pain management, procedures, bathroom and other care routines, personal items, smoking policy, room service/diet, and visiting hours. Information on how to activate the Rapid Response Team has been discussed. Patient/Family are encouraged to report perceived risks to care and to ask questions if they do not understand what they are told or what they should do.
--- NOTE | 2024-08-08 17:54 | PM.IMHP ---
H&P: HPI History of Present Illness Date/Time: 08/08/24 17:54 Chief Complaint: Generalized weakness Narrative: A 78-year-old female with history of stroke, paroxysmal atrial fibrillation on chronic anticoagulation, dyslipidemia who presented to the ER on account of Generalized weakness. Patient was lethargic at bedside, and but was oriented x3. Unable to provide history however, Nurse noted that patient's reported she had diarrhea 2 weeks which has resolved prior to presentation. Also reported she has been having poor appetite and worsening generalized weakness. Has been mostly bed bound the past day, and today complained of generalized body aches which prompted presentation to the ER. ER eval notable for Bp 175/79, Hb 10.8, Troponin negative, NT-ProBNP 5370, Mg 1.1 and K 2.9, CXR showed new small bilateral pleural effusions with bibasilar atelectasiss versus pneumonia. Review of Systems Review of Systems: Unable to do review of systems as patient was lethargic and unable to provide history PMFSH Past Medical History Medical History Chronic anticoagulation Cerebrovascular accident (2020) received thrombolytics, has mild speech issues Depression Body mass index (BMI) less than 20 Impaired glucose tolerance Raynaud's phenomenon without gangrene Myelomalacia of cervical cord Hyperlipidemia Hypertension Anemia Osteopenia after menopause Anxiety Hypothyroidism Chronic headaches DJD of left shoulder Rotator cuff arthropathy of right shoulder Arthrogryposis Arthritis Vision loss Family History Family History (Updated 08/08/24 @ 14:19 by Olga Cross RN) Sibling Family history of osteoarthritis Family history of Alzheimer's disease Family history of atrial fibrillation Skin cancer Cerebrovascular accident Mother Patient's mother is Family history of Alzheimer's disease Family history of malignant neoplasm of breast in first degree relative Family history of tuberculosis Family history of Parkinson's disease, Onset Age: 79 Father Patient's father is Hypertension Social History Social History Social History: Surrogate medical decision maker: Hayder Fournier, spouse. Code status: Full code. Smoking status: Never smoker Second hand tobacco smoke exposure: No Alcohol intake: never Substance use: never Substance use type: does not use Do You Feel Safe in your Home?: Yes Lack of Transportation: No Lack of Food: Never True Current Housing: I Have Housing Concerned About Future Housing: No Difficulty Paying Gas/Electric Bills: No Difficulty Paying for Meds: No Currently Unemployed: No Education: Master's Degree or Higher Difficulty w/ Childcare or Family Care: No Living arrangements: assisted living Additional living arrangements comments: . Her lives in [place], she is at [facility]. 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 Spiritual care concerns: No Meds Home Medications and Allergies Home Medications ?Medication ?Instructions ?Recorded ?Confirmed ?Type acetaminophen 500 mg tablet 500 mg PO BID PRN pain 01/11/19 08/08/24 History cholecalciferol (vitamin D3) 25 25 mcg PO BID 08/20/20 08/08/24 History mcg (1,000 unit) capsule denosumab 60 mg/mL subcutaneous 60 mg subcut [id number] #1 mL 11/02/23 08/08/24 Rx syringe (Prolia) calcium carbonate (Tums) 1,000 mg PO BID 12/31/23 08/08/24 History metoprolol succinate 50 mg See Rx Instructions .Route 03/28/24 08/08/24 Rx tablet,extended release 24 hr .COMPLEX #90 tabs apixaban 5 mg tablet (Eliquis) See Rx Instructions .Route 03/29/24 08/08/24 Rx .COMPLEX #180 tabs atorvastatin 40 mg tablet See Rx Instructions .Route 03/29/24 08/08/24 Rx .COMPLEX #90 tabs bupropion HCl 150 mg tablet,12 hr See Rx Instructions .Route 04/21/24 08/08/24 Rx sustained-release .COMPLEX #90 tabs ferrous sulfate 325 mg (65 mg 325 mg PO DAILY #30 tabs 06/27/24 08/08/24 Rx iron) tablet,delayed release doxycycline hyclate 20 mg tablet 40 mg PO QHS 08/08/24 08/08/24 History hydrocodone 10 mg-acetaminophen 1 tablet PO TID PRN pain 08/08/24 08/08/24 History 325 mg tablet apwpozeh-dhh-fctlc acid 0.4 1 tablet PO DAILY 08/08/24 08/08/24 History mg-lycopene 300 mcg-lutein 250 mcg tablet (Centravites 50 Plus) Allergies Allergy/AdvReac Type Severity Reaction Status Date / Time No Known Allergies Allergy Unknown Verified 02/13/24 12:40 Vital Signs Vital Signs - 24 hr 08/08/24 07:58 08/08/24 07:59 08/08/24 07:59 Temperature 97.7 F Pulse Rate 66 68 64 Respiratory Rate 11 L 16 18 Blood Pressure 161/93 H 175/79 H Pulse Oximetry 95 99 91 Oxygen Delivery Room Air 08/08/24 08:00 08/08/24 08:01 08/08/24 08:04 Temperature Pulse Rate 70 68 Respiratory Rate 15 12 16 Blood Pressure 161/93 H Pulse Oximetry 97 96 96 Oxygen Delivery 08/08/24 08:15 08/08/24 08:16 08/08/24 08:43 Temperature Pulse Rate 72 62 70 Respiratory Rate 15 12 14 Blood Pressure 177/102 H Pulse Oximetry 96 96 97 Oxygen Delivery 08/08/24 08:45 08/08/24 09:07 08/08/24 09:29 Temperature Pulse Rate 73 58 L 65 Respiratory Rate 14 12 17 Blood Pressure Pulse Oximetry 97 98 98 Oxygen Delivery 08/08/24 09:30 08/08/24 09:54 08/08/24 09:55 Temperature Pulse Rate 64 66 77 Respiratory Rate 17 16 19 Blood Pressure 162/85 H Pulse Oximetry 96 98 100 Oxygen Delivery 08/08/24 10:00 08/08/24 10:03 08/08/24 10:20 Temperature Pulse Rate 65 68 49 L Respiratory Rate 12 15 15 Blood Pressure 182/105 H Pulse Oximetry 97 98 99 Oxygen Delivery 08/08/24 10:30 08/08/24 10:31 08/08/24 10:45 Temperature Pulse Rate 53 L 55 L 63 Respiratory Rate 9 L 13 24 H Blood Pressure 159/84 H Pulse Oximetry 99 98 100 Oxygen Delivery 08/08/24 10:46 08/08/24 11:00 08/08/24 11:01 Temperature Pulse Rate 63 64 63 Respiratory Rate 12 14 14 Blood Pressure 152/88 H 162/108 H Pulse Oximetry 100 99 99 Oxygen Delivery 08/08/24 11:16 08/08/24 11:32 08/08/24 11:37 Temperature Pulse Rate 74 70 69 Respiratory Rate 15 20 10 L Blood Pressure 141/105 H 165/89 H Pulse Oximetry 92 96 99 Oxygen Delivery 08/08/24 12:02 08/08/24 12:15 08/08/24 12:16 Temperature Pulse Rate 69 69 68 Respiratory Rate 13 10 L 10 L Blood Pressure 139/128 H 161/126 H Pulse Oximetry 97 98 96 Oxygen Delivery 08/08/24 12:30 08/08/24 12:31 08/08/24 12:45 Temperature Pulse Rate 64 69 70 Respiratory Rate 9 L 14 Blood Pressure 175/91 H Pulse Oximetry 92 99 Oxygen Delivery 08/08/24 12:46 08/08/24 13:00 08/08/24 13:01 Temperature Pulse Rate 75 75 69 Respiratory Rate 15 17 Blood Pressure 175/93 H 152/105 H Pulse Oximetry 99 99 Oxygen Delivery 08/08/24 13:15 08/08/24 13:16 08/08/24 14:00 Temperature 96.8 F L Pulse Rate 85 82 70 Respiratory Rate 19 15 15 Blood Pressure 168/123 H 134/78 Pulse Oximetry 99 94 Oxygen Delivery Exam Narrative: General: Lethargic Eyes: EOMI, PERRLA ENNT External ears normal, Neck is supple, no masses, Respiratory systems: Clear to auscultation Cardiovascular S1, S2, normal rhythm, no murmur, rub, or gallop; no thrill or palpable murmurs on palpation. Gastrointestinal: soft, non-tender, and non-distended abdomen with no masses; BS present Skin: no rash, lesions, ulcerations, subcutaneous nodules or induration Musculoskeletal: no abnormality and no tenderness, normal ROM Neurologic: Alert and oriented x3, non focal, lethargic H&P: Results Labs Labs: Short CBC 08/08/24 Range/Units 08:15 WBC 6.1 (4.5-10.0) K/mm3 Hgb 10.8 L (12.0-15.0) g/dL Hct 33.5 L (37.0-47.0) % Plt Count 186 (150-375) k/mm3 BMP 08/08/24 08:15 Sodium 141 Potassium 2.9 L Chloride 102 Carbon Dioxide 34 H BUN 21 H Creatinine 0.68 L Glucose 106 Calcium 8.9 Cardiac Enzymes 08/08/24 Range/Units 08:15 Troponin I 0.014 (0.000-0.034) ng/mL Liver Function 08/08/24 Range/Units 08:15 Total Bilirubin 0.3 (0.2-1.3) mg/dL AST 71 H (14-36) U/L ALT 50 H (6-35) U/L Alkaline Phosphatase 73 (38-126) U/L Albumin 3.4 L (3.5-5.1) g/dL Urine /30/ Range/Units 08:23 Urine Color Yellow (Yellow) Urine Appearance Clear (Clear) Urine pH 6.5 (5.0-9.0) Ur Specific [place] 1.019 (1.001-1.035) Urine Protein 1+ H (Negative) mg/dL Urine Glucose (UA) Negative (Negative) mg/dL Assessment and Plan Assessment and plan (1) Atrial fibrillation: Code(s): I48.91 - Unspecified atrial fibrillation Status: Acute (2) Weakness: Code(s): R53.1 - Weakness Status: Acute Plan Generalized weakness Patient had 2 weeks diarrhea which has resolved prior to admission Also had poor oral intake CXR showed new small bilateral pleural effusions ? Pneumonia CT Chest, ECHO ordered gentle rehydration, PT/OT/ST and dietitian consulted Hypokalemia and Hypomagnesemia Likely from diarrhea K 2.9 and Mg 1.1 replaced and monitor Atrial fibrillation rate controlled on Eliquis and Metoprolol monitor Hypothyroidism Continue home MEvothyroxine HTN Continue home meds Anemia On PO iron iron panel ordered Hb 10.8, monitor and transfuse when hb is below 7 Stroke continue home meds HLD Continue Lipitor DVT prophylaxis on Eliquis Full code Hospitalist MIPS Advance Care Plan I have confirmed that the patient's Advanced Care Plan is present, code status is documented, or surrogate decision maker is listed in patient medical record.: Yes Medication Reconciliation I have utilized all available resources to obtain, update and review the patients current medications (includes all prescriptions, OTC, herbals, cannabis, and nutritional supplements).: Yes
[2024-08-08] MEDS: MAGNESIUM SULF 4 GM/WATER100ML 4 GM/100 ML BAG IVPB (18:08)
[2024-08-08] MEDS: HYDROcodone/acetaminophen (*CRX) 10-325 MG TABLET 1 TAB PO (18:08)
[2024-08-08] MEDS: POTASSIUM CHLORIDE INJ 40 MEQ in SODIUM CHLORIDE 0.9% IV 500 ML 130 MEQ IVPB (18:09)
[2024-08-08] MEDS: APIXABAN 5 MG TABLET PO (21:04)
[2024-08-08] MEDS: ATORVASTATIN 40 MG TABLET PO (21:04)
[2024-08-08] MEDS: POTASSIUM CHLORIDE 20 MEQ ER TABLET 40 MEQ PO (21:04)
[2024-08-08] MEDS: SODIUM CHLORIDE 0.9% IV 1,000 ML 50 ML IV CONT (22:26)
[2024-08-09] VITALS (10 sets, daily range): BP systolic 141–152; BP diastolic 65–93; PULSE 54–82; RESP 16–18; TEMP 36.4–36.8; O2SAT 92–95; BMI 22.5
--- NOTE | 2024-08-09 | ECHO_ITS ---
Patient Info Name: Susan Fournier Age: 78 years : 1945 Gender: Female Ht: 61 in Wt: 117 lbs BSA: 1.52 m2 HR: 76 bpm BP: 145 / 65 mmHg Technical Quality: Good Exam Date: 08/09/2024 11:07 AM Patient Status: O Admit Date: 08/08/2024 Exam Type: CA echo dop color flow w con Complete two-dimensional, color flow and Doppler transthoracic echocardiogram is performed with contrast to opacify the left ventricle and to improve the deliniation of the left ventricle endocardial borders. Staff Referring Physician: Vivian [employer] Technician: Allison Bella Attending Provider: Waqas Parrish Contrast/Agitated Saline Contrast/Ag. Saline: Definity Amount: 2.00 ml Administered By: Allison Bella Existing IV Access: Yes IV Access Condition: patent with no signs of infiltration Summary 1. Left ventricular chamber dimension is normal. 2. There is no increased left ventricular wall thickness. 3. Left ventricular systolic function is normal, estimated at 50-55. 4. Right ventricular chamber dimension is normal. 5. Right ventricular systolic function is reduced. 6. There is mild to moderate mitral valve regurgitation. 7. There is moderate to severe tricuspid valve regurgitation. Cannot rule out leaflet perforation. 8. Severe pulmonary hypertension, estimated pulmonary arterial systolic pressure is 60 mmHg. Recommendations * Consider TORI to assess tricuspid valve if clinically indicated. Left Ventricle Left ventricular chamber dimension is normal. Left ventricular systolic function is normal, estimated at 50-55. There is no increased left ventricular wall thickness. Left ventricular septal wall motion is normal. The left ventricular diastolic function is indeterminate. Right Ventricle Right ventricular chamber dimension is normal. Right ventricular systolic function is reduced. Left Atria Left atrial chamber dimension is enlarged. Right Atria Right atrial chamber dimension is enlarged. Aortic Valve The aortic valve is trileaflet. There is no aortic valve sclerosis. There is no aortic valve stenosis. There is no aortic valve regurgitation. Pulmonic Valve The pulmonic valve is normal. There is no pulmonic valve stenosis. There is mild pulmonic regurgitation. Mitral Valve The mitral valve has normal leaflets. There is no mitral valve stenosis. There is mild to moderate mitral valve regurgitation. Tricuspid Valve The tricuspid valve leaflets are normal. There is no significant tricuspid valve stenosis. There is moderate to severe tricuspid valve regurgitation. Cannot rule out leaflet perforation. Severe pulmonary hypertension, estimated pulmonary arterial systolic pressure is 60 mmHg. Pericardium/Pleural The pericardium appears normal. There is trivial pericardial effusion. Inferior Vena Cava Normal inferior vena cava with >50% collapse upon inspiration consistent with elevated right atrial pressure, 8 mmHg. Aorta The aortic root size at the sinus of Valsalva is normal. The prox ascending aorta size is normal. Left Ventricular Outflow Tract Name Value Normal LVOT 2D LVOT Diameter 2.0 cm LVOT Doppler LVOT Peak Velocity 97 cm/s LVOT Peak Gradient 4 mmHg LVOT Mean Gradient 2 mmHg LVOT VTI 20 cm LVOT Stroke Volume 60 ml LVOT CO 4.5 l/min LVOT CI 3.0 l/min/m2 Pulmonic Valve Name Value Normal RVOT Doppler RVOT Peak Velocity 46 cm/s RVOT Peak Gradient 1 mmHg PV Doppler PV Peak Velocity 82 cm/s PV Peak Gradient 3 mmHg Mitral Valve Name Value Normal MV Diastolic Function MV E Peak Velocity 74 cm/s MV A Peak Velocity 19 cm/s MV E/A 3.9 MV Decel Time (PW) 222 ms MV Annular TDI MV E/e' (Septal) 13.4 MV E/e' (Lateral) 6.8 MV E/e' (Average) 10.1 Tricuspid Valve Name Value Normal TV Regurgitation Doppler TR Peak Velocity 524 cm/s TR Peak Gradient 52 mmHg Estimated PAP/RSVP RA Pressure 8 mmHg <=5 PA Systolic Pressure 60 mmHg <36 RV Systolic Pressure 118 mmHg <36 Aortic Valve Name Value Normal AV Doppler AV Peak Velocity 140 cm/s AV Peak Gradient 8 mmHg AV Area (Cont Eq Manuel) 2.1 cm2 AV DI (Manuel) 0.69 AV Regurgitation 2D LVOT Area 3.0 cm2 Ventricles Name Value Normal LV Dimensions 2D/MM IVS Diastolic Thickness (2D) 0.8 cm 0.6-1.0 LVID Diastole (2D) 3.9 cm 3.8-5.2 LVIW Diastolic Thickness (2D) 0.8 cm 0.6-0.9 LVID Systole (2D) 2.6 cm 2.2-3.5 LVOT Diameter 2.0 cm LV Mass (2D Cubed) 84.08 g 67.00-162.00 LV Mass Index (2D Cubed) 55 g/m2 43-95 Relative Wall Thickness (2D) 0.38 <=0.42 LV Fractional Shortening/Ejection Fraction 2D/MM LV Fractional Shortening (2D) 33 % 27-45 LV EF (2D Teichholz) 62 % LV Diastolic Volume (4C MOD) 58 ml LV EF (4C MOD) 41 % LV Diastolic Volume (2C MOD) 72 ml LV EF (2C MOD) 49 % LV Diastolic Volume (BP MOD) 67 ml 46-106 LV Diastolic Volume Index (BP MOD) 44 ml/m2 29-61 LV Systolic Volume (BP MOD) 36 ml 14-42 LV Systolic Volume Index (BP MOD) 24 ml/m2 8-24 LV EF (BP MOD) 45 % 54-74 LV Diastolic Length (4C) 6.3 cm LV Systolic Length (4C) 5.7 cm LV Stroke Volume (4C MOD) 24 ml Atria Name Value Normal LA Dimensions LA Volume (4C A-L) 64 ml LA Volume (BP A-L) 58 ml RA Dimensions RA Systolic Major Dudley Length (4C) 6.1 cm 2.2-2.8 RA Area (4C) 22.0 cm2 <=18.0 Report Signatures
[2024-08-09] MEDS: HYDROcodone/acetaminophen (*CRX) 10-325 MG TABLET 1 TAB PO ×3 (05:06→20:52)
[2024-08-09 06:29] LABS: Hematocrit 32.9 % (37.0-47.0); Hemoglobin 10.4 g/dL (12.0-15.0); Immature Granulocyte Percent A 0.8 % (0-0.5); Lymphocytes Absolute Auto 0.97 K/mm3 (0.9-3.2); Mean Corpuscular HGB Conc 31.6 g/dl (32-36); Mean Corpuscular Hemoglobin 29.4 pg (26-34); Mean Corpuscular Volume 92.9 fl (80-100); Nucleated Red Blood Cells Absolute Auto 0.000 K/mm3 (0.0-0.012); Nucleated Red Blood Cells Perc 0.0 % (0.0-0.2); Platelet Count Result 197 k/mm3 (150-375); Red Blood Count 3.54 M/mm3 (4.2-5.4); White Blood Count 7.2 K/mm3 (4.5-10.0)
[2024-08-09 06:43] LABS: Iron 32 ug/dL (37-170)
[2024-08-09 06:51] LABS: Alanine Aminotransferase 44 U/L (6-35); Albumin Level 3.2 g/dL (3.5-5.1); Alkaline Phosphatase 75 U/L (38-126); Anion Gap 5 mmol/L (4-12); Aspartate Amino Transferase 57 U/L (14-36); Bilirubin,Total 0.4 mg/dL (0.2-1.3); Blood Urea Nitrogen 16 mg/dL (7-17); Calcium 8.1 mg/dL (8.4-10.2); Carbon Dioxide 27 mmol/L (22-30); Chloride 108 mmol/L (98-107); Estimated CRCL calculation 45 ml/min; Estimated Glomerular Filt Rate > 60; Glucose 93 mg/dL (65-110); Magnesium 2.4 mg/dL (1.6-2.3); Potassium 5.0 mmol/L (3.4-5.0); Sodium 140 mmol/L (137-145); Total Protein 5.6 g/dL (6.3-8.2)
[2024-08-09 06:52] LABS: Percent Iron Saturation 11 % (20-50)
[2024-08-09 07:18] LABS: Ferritin 208.00 ng/mL (11.1-264)
--- NOTE | 2024-08-09 07:40 | P.PNIM_ITS ---
Progress Note: A&P Assessment and Plan (1) Generalized weakness: Code(s): R53.1 - Weakness Status: Acute Assessment and Plan: * Patient had 2 weeks diarrhea which has resolved prior to admission * Also had poor oral intake * CXR showed new small bilateral pleural effusions ? Pneumonia * CT Chest: Scattered right upper lobe ground glass opacities may reflect hypersensitivity pneumonitis, respiratory bronchitis, or infectious airways disease. Moderate right and small left pleural effusions with adjacent atelectasis. * Afebrile, no leukocytosis, physical exam benign * Consider pulm consult * Echo still pending at this time * gentle rehydration * PT/OT/ST and dietitian consulted (2) Atrial fibrillation: Code(s): I48.91 - Unspecified atrial fibrillation Status: Acute Assessment and Plan: * rate controlled * on Eliquis and Metoprolol * monitor (3) Electrolyte imbalance: Code(s): E87.8 - Other disorders of electrolyte and fluid balance, not elsewhere classified Status: Acute Assessment and Plan: * Likely from diarrhea * K 2.9 and Mg 1.1 * replaced and monitor * 08/09: K 5.0, Mg 2.4 * Continue daily monitoring of labs and replacing as necessary (4) Hypertension: Qualifiers: Hypertension type: primary hypertension Qualified Code(s): I10 - Essential (primary) hypertension Code(s): I10 - Essential (primary) hypertension Status: Acute Assessment and Plan: * Patient's blood pressure was reviewed on * Blood pressure remains well controlled. * Will continue current medications. (5) Anemia: Code(s): D64.9 - Anemia, unspecified Status: Acute Assessment and Plan: * Hgb 10.4 * add iron, TIBC, ferritin, B12, folic acid, and TSH * transfuse if <7 * trend H&H (6) Hyperlipidemia: Qualifiers: Hyperlipidemia type: unspecified Qualified Code(s): E78.5 - Hyperlipidemia, unspecified Code(s): E78.5 - Hyperlipidemia, unspecified Status: Acute Assessment and Plan: * Continue Lipitor Subjective Date/time seen: 08/09/24 07:40 Interval history: 78-year-old female with history of stroke, paroxysmal atrial fibrillation on chronic anticoagulation, dyslipidemia who presented to the ER on account of Generalized weakness. 08/09/2024 Patient sitting and better upon examination. Denies any chest pain, shortness a breath, nausea/vomiting. Does endorse some slight lower back pain, which is chronic in nature. Also endorses some generalized weakness, but otherwise has no complaints and concerns. Planning for echocardiogram and chest CT scan today, along with PT/OT evaluations. Hypokalemia has subsided, 5.0 today up from 2.9 yesterday. Hypomagnesemia corrected as well, up from 1.1 to 2.4 today. Review of Systems Review of Systems: Unable to do review of systems as patient was lethargic and unable to provide history Exam Narrative: General: Lethargic Eyes: EOMI, PERRLA ENNT External ears normal, Neck is supple, no masses, Respiratory systems: Clear to auscultation Cardiovascular S1, S2, normal rhythm, no murmur, rub, or gallop; no thrill or palpable murmurs on palpation. Gastrointestinal: soft, non-tender, and non-distended abdomen with no masses; BS present Skin: no rash, lesions, ulcerations, subcutaneous nodules or induration Musculoskeletal: no abnormality and no tenderness, normal ROM Neurologic: Alert and oriented x3, non focal, lethargic Objective Data Vital Signs Vital Signs: Vital Signs - 24 hr 08/08/24 07:58 08/08/24 07:59 08/08/24 07:59 Temperature 97.7 F Pulse Rate 66 68 64 Respiratory Rate 11 L 16 18 Blood Pressure 161/93 H 175/79 H Pulse Oximetry 95 99 91 Oxygen Delivery Room Air 08/08/24 08:00 08/08/24 08:01 08/08/24 08:04 Temperature Pulse Rate 70 68 Respiratory Rate 15 12 16 Blood Pressure 161/93 H Pulse Oximetry 97 96 96 Oxygen Delivery 08/08/24 08:15 08/08/24 08:16 08/08/24 08:43 Temperature Pulse Rate 72 62 70 Respiratory Rate 15 12 14 Blood Pressure 177/102 H Pulse Oximetry 96 96 97 Oxygen Delivery 08/08/24 08:45 08/08/24 09:07 08/08/24 09:29 Temperature Pulse Rate 73 58 L 65 Respiratory Rate 14 12 17 Blood Pressure Pulse Oximetry 97 98 98 Oxygen Delivery 08/08/24 09:30 08/08/24 09:54 08/08/24 09:55 Temperature Pulse Rate 64 66 77 Respiratory Rate 17 16 19 Blood Pressure 162/85 H Pulse Oximetry 96 98 100 Oxygen Delivery 08/08/24 10:00 08/08/24 10:03 08/08/24 10:20 Temperature Pulse Rate 65 68 49 L Respiratory Rate 12 15 15 Blood Pressure 182/105 H Pulse Oximetry 97 98 99 Oxygen Delivery 08/08/24 10:30 08/08/24 10:31 08/08/24 10:45 Temperature Pulse Rate 53 L 55 L 63 Respiratory Rate 9 L 13 24 H Blood Pressure 159/84 H Pulse Oximetry 99 98 100 Oxygen Delivery 08/08/24 10:46 08/08/24 11:00 08/08/24 11:01 Temperature Pulse Rate 63 64 63 Respiratory Rate 12 14 14 Blood Pressure 152/88 H 162/108 H Pulse Oximetry 100 99 99 Oxygen Delivery 08/08/24 11:16 08/08/24 11:32 08/08/24 11:37 Temperature Pulse Rate 74 70 69 Respiratory Rate 15 20 10 L Blood Pressure 141/105 H 165/89 H Pulse Oximetry 92 96 99 Oxygen Delivery 08/08/24 12:02 08/08/24 12:15 08/08/24 12:16 Temperature Pulse Rate 69 69 68 Respiratory Rate 13 10 L 10 L Blood Pressure 139/128 H 161/126 H Pulse Oximetry 97 98 96 Oxygen Delivery 08/08/24 12:30 08/08/24 12:31 08/08/24 12:45 Temperature Pulse Rate 64 69 70 Respiratory Rate 9 L 14 Blood Pressure 175/91 H Pulse Oximetry 92 99 Oxygen Delivery 08/08/24 12:46 08/08/24 13:00 08/08/24 13:01 Temperature Pulse Rate 75 75 69 Respiratory Rate 15 17 Blood Pressure 175/93 H 152/105 H Pulse Oximetry 99 99 Oxygen Delivery 08/08/24 13:15 08/08/24 13:16 08/08/24 14:00 Temperature 96.8 F L Pulse Rate 85 82 70 Respiratory Rate 19 15 15 Blood Pressure 168/123 H 134/78 Pulse Oximetry 99 94 Oxygen Delivery 08/08/24 16:00 08/08/24 20:00 08/08/24 20:15 Temperature Pulse Rate 76 66 Respiratory Rate Blood Pressure Pulse Oximetry Oxygen Delivery Room Air 08/08/24 20:52 08/09/24 00:00 08/09/24 04:00 Temperature 98.6 F Pulse Rate 68 54 L 60 Respiratory Rate 16 Blood Pressure 121/63 Pulse Oximetry 96 Oxygen Delivery 08/09/24 06:00 Temperature 97.7 F Pulse Rate 72 Respiratory Rate 18 Blood Pressure 145/65 H Pulse Oximetry 95 Oxygen Delivery Intake/Output Intake/Output: Intake & Output 08/06/24 08/07/24 08/08/24 08/09/24 23:59 23:59 23:59 23:59 Intake Total 1440 0 Balance 1440 0 Meds/Results Medications: Active Medications Generic Name Dose Route Start Last Admin Trade Name Freq PRN Reason Stop Dose Admin Hydrocodone Bitart/Acetaminophen 1 tab 08/08/24 17:55 08/09/24 05:06 Hydrocodone/Acetaminophen (*Crx) 10-325 Mg Tablet PO 1 tab TID PRN Administration pain 4-6 Apixaban 5 mg 08/08/24 21:00 08/08/24 21:04 Apixaban 5 Mg Tablet PO 5 mg Q12HR LUIS Administration Atorvastatin Calcium 40 mg 08/08/24 21:00 08/08/24 21:04 Atorvastatin 40 Mg Tablet PO 40 mg HS LUIS Administration Bupropion HCl 150 mg 08/09/24 09:00 Bupropion Hcl Sr (12 Hr) 150 Mg Tab BY MOUTH DAILY LUIS Ferrous Sulfate 325 mg 08/09/24 09:00 Ferrous Sulfate [address] PO DAILY LUIS Sodium Chloride 1,000 mls @ 50 mls/hr 08/08/24 18:15 08/08/24 22:26 Normal Saline Iv IV CONT 50 mls/hr .Q20H LUIS Administration Metoprolol Succinate 50 mg 08/09/24 09:00 Metoprolol Succinate Ext Rel 50 Mg Tabcr BY MOUTH DAILY LUIS Perflutren Lipid Microsphere 0 ml 08/08/24 18:22 Perflutren Lipid Microspheres 1.5 Ml Vial Diluted To 10 Ml Total Volume IV PUSH 08/11/24 18:22 ONCE PRN adequate visualization Protocol Radiology Results: ITS Impressions Head CT 08/08/24 08:35 IMPRESSION: No acute intracranial findings. Chest X-Ray 08/08/24 08:52 IMPRESSION: 1. New small bilateral pleural effusions with bibasilar atelectasis versus p neumonia. Chest CT 08/08/24 18:53 IMPRESSION: Scattered right upper lobe ground glass opacities may reflect hypersensitivity pneumonitis, respiratory bronchitis, or infectious airways disease. Moderate right and small left pleural effusions with adjacent atelectasis. Labs Labs: Laboratory Results - last 24 hr 08/08/24 08/08/24 08/09/24 08:15 08:23 05:53 WBC 6.1 7.2 RBC 3.65 L 3.54 L Hgb 10.8 L 10.4 L Hct 33.5 L 32.9 L MCV 91.8 92.9 MCH 29.6 29.4 MCHC 32.2 31.6 L RDW 15.4 H 15.5 H Plt Count 186 197 MPV 10.5 H 10.9 H Immature Gran % (Auto) 0.3 0.8 H Neut % (Auto) 76.7 H 76.0 H Lymph % (Auto) 14.1 L 13.5 L Pepin % (Auto) 8.2 8.9 H Eos % (Auto) 0.5 0.4 Baso % (Auto) 0.2 0.4 Lymph # (Auto) 0.86 L 0.97 Pepin # (Auto) 0.5 0.6 Eos # (Auto) 0.0 0.0 Baso # (Auto) 0.0 0.0 Abs Immat Gran (auto) 0.02 0.06 H Absolute Neuts (auto) 4.7 5.5 Absolute Nucleated RBC 0.000 0.000 Nucleated RBC % 0.0 0.0 PT 19.5 H INR 1.7 APTT 39.2 H Sodium 141 140 Potassium 2.9 L 5.0 Chloride 102 108 H Carbon Dioxide 34 H 27 Anion Gap 5 5 BUN 21 H 16 Creatinine 0.68 L 0.68 L Estim Creat Clear Calc 45 45 Estimated GFR > 60 > 60 Glucose 106 93 Lactic Acid 1.3 Calcium 8.9 8.1 L Magnesium 1.1 L 2.4 H Iron 32 L TIBC 283 % Saturation 11 L Ferritin 208.00 Total Bilirubin 0.3 0.4 AST 71 H 57 H ALT 50 H 44 H Alkaline Phosphatase 73 75 Troponin I 0.014 NT-Pro-B Natriuret Pep 5370 H Total Protein 5.9 L 5.6 L Albumin 3.4 L 3.2 L Urine Color Yellow Urine Appearance Clear Urine pH 6.5 Ur Specific [place] 1.019 Urine Protein 1+ H Urine Glucose (UA) Negative Urine Ketones Trace H Ur Blood (Man) 3+ H Urine Nitrate Negative Urine Bilirubin Negative Urine Urobilinogen 0.2 Leukocyte Esterase Rfl Negative Urine RBC 51-100 H Urine WBC 0-5 Ur Squamous Epith Cells None seen Urine Bacteria None seen Urine Casts 0-2 Influenza A (RT-PCR) Negative Influenza B (RT-PCR) Negative RSV (RT-PCR) Negative SARS-CoV-2 RNA (RT-PCR) Negative Quality VTE Prophylaxis VTE prophylaxis: pharmacologic ordered
[2024-08-09] MEDS: APIXABAN 5 MG TABLET PO (09:11)
[2024-08-09] MEDS: buPROPion HCL SR (12 HR) 150 MG TAB BY MOUTH (09:11)
[2024-08-09] MEDS: METOPROLOL SUCCINATE EXT REL 50 MG TABCR BY MOUTH (09:11)
[2024-08-09] MEDS: FERROUS SULFATE 325 MG TABLET DR PO (09:11)
--- NOTE | 2024-08-09 10:34 | PCSTNOTE ---
Communication Evaluation This pleasant 78 year old female patient was admitted to [facility] on 08/08/24 due to generalized weakness. She has a past medical history of a stroke that occurred in late 2020 and received speech therapy to improve intelligibility, word finding skills, and oral motor. Goals targeting oral motor were met. Pt stated that speech services were discontinued due to her hitting a plateau with her goals and that how she is communicating now is her baseline. Pt's RN, Clare, stated that the pt is intelligible to her but demonstrates a quiet vocal quality. Speech therapy additionally noticed that the pt demonstrated an inconsistent shaky vocal quality. A communication evaluation was completed with the pt demonstrating 100% accuracy on auditory comprehension tasks including identifying body parts/objects, answering simple and complex yes/no questions, following 1-2 step directives, and answering questions following a simple paragraph. The pt demonstrated 80% accuracy when answering questions following a moderate paragraph. The pt completed verbal expression tasks and demonstrated 100% accuracy on imitating single words, phrases, and sentences. The pt additionally exhibited 100% accuracy when completing open ended cued speech and rote speech tasks. The pt stated an objects function without difficulty, but would occasionally get her words jumbled when answering wh- questions. Without encouragement, the pt was able to stop what she was saying, slow down, and speak fluently. She demonstrates the ability to use compensatory strategies to increase intelligibility with no prompts needed. Due to the pts abilities represented on this communication evaluation, the pt stating this is her baseline, and the pts RN having no concerns with the pts intelligibility/communication, it is recommended this pt not receive speech therapy services at this time. ODALIS Ann, and RN, Clare were notified of communication evaluation results and recommendations. Thank you for this referral.
[2024-08-09] MEDS: PERFLUTREN LIPID MICROSPHERES 1.5 ML VIAL DILUTED TO 10 ML TOTAL VOLUME IV PUSH (11:35)
--- NOTE | 2024-08-09 12:00 | IVDEFINITY ---
Prior to administration of IV Definity the patient was educated on the risks and benefits of the imaging enhancing agent including potential adverse side effects. The patient verbalized understanding. Allergies were verified. No exclusion criteria were identified and at least one of the following inclusion criteria were met: 1) physician request, 2) patient technically difficult to image (per the [place] [employer]ocardi[employer] guidelines of two or more segments not discernable within the apical view), or 3) questionable left ventricular function. ?
--- NOTE | 2024-08-09 12:58 | PCPTNOTE ---
Spoke with current hospitalist, DONAVON to remove bedrest orders for safe participation with therapy. Will notify nursing of changing.
--- NOTE | 2024-08-09 15:31 | PM.CNPUL ---
Assessment and Plan Assessment and plan (1) Pleural effusion: Code(s): J90 - Pleural effusion, not elsewhere classified Status: Acute Assessment and Plan: bilateral pleural effusions R>L; cause is not clear. She has new RV dysfunction, severe pulmonary hypertension and severe tricuspid regurgitation. (2) Decreased right ventricular systolic function: Code(s): I51.89 - Other ill-defined heart diseases Status: Acute Assessment and Plan: New echo shows right ventricular systolic function is reduced, this is new compared to February; she has mild to moderate mitral valve regurgitation, moderate to severe tricuspid valve regurgitation. Cannot rule out leaflet perforation. THIS IS WORSE. Echo shows new severe pulmonary hypertension, estimated pulmonary arterial systolic pressure is 60 mmHg. Pulmonary pressures cannot acutely increasd above 40 mmHg. I think that she had some pre-existing pulmonary hypertension but it has increased over the last 6 months. Plan plan: stop Eliquis in anticipation of a thoracentesis Diagnostic and therapeutic thoracentesis. She has new worsening severe tricuspid valve regurgitation, care asst cannot rule out leaflet perforation. She does not have a pacemaker, so did not have a pacing wire that could have torn the tricupsid valve. She has ground glass opacities in the RUL, can work this up as an infectious process. This is not her main issue right now. History of Present Illness History of Present Illness Consult date: 08/10/24 Chief complaint: hypokalemia Narrative: Patient was seen August 09, 2024 at 4:40 p.m., room 306 bed 1 NEW: Susan Caruso is a 78-year-old female with an abnormal chest CT, moderately large right pleural effusion, smaller left pleural effusion with right upper lobe ground-glass opacities, differential per the radiologist may include infection, respiratory bronchial bronchitis and hypersensitivity pneumonitis. The patient's main complaint was weakness. Karina lived in a NH for the last 6 years. She is not a smoker. She has had a history of a stroke, paroxysmal atrial fibrillation on anticoagulation, hyperlipidemia. On admission her lactic acid was 1.3. Magnesium was 1.1, this was replaced and found to be in the normal range. Sodium 141 potassium 2.9 also replaced. Chloride 102, carbon dioxide 34, BUN 21, creatinine 0.68, glucose 106. White blood cell count 6.1 with 76% segmented cells, hemoglobin 10.8 grams/deciliter, hematocrit 33.5%, ProTime elevated 19.5, PTT 39.2, elevated. Protein 5.6, albumin 3.2. ISIS was negative on 01/18/2018. Serology negative for influenza a, influenza B, RSV and SARS-CoV-2. Iron is low, 32. Iron saturation low, 11%, ferritin is 208. Arterial blood gas pH 7.456, pCO2 38, PO2 83, HC03 26, saturation 96% on room air. She completed an echo August 09, and compared to February of this year her ejection fraction is lower 50-55%, the right ventricle is normal in size but the repeat function is reduced, she has severe tricuspid regurgitation and severe pulmonary hypertension with an estimated pulmonary artery systolic pressure of 60. Acutely, pulmonary artery pressures can not rise above 40 so I think some of this is acute on chronic ppulmonary hypertension. DATA * 08/08/24; chest CT; CHEST: Thoracic aorta: No significant dilation. Mild atherosclerotic calcification. Low-density blood pool as can be seen with anemia. Lung parenchyma and airways: Scattered groundglass opacities in the right upper lobe. Bibasilar atelectasis. Patent airways. Thoracic inlet, axillae and chest wall: Subcentimeter thyroid hypodensity, too requires no additional evaluation. No axillary lymphadenopathy. Mediastinum: No mass or lymphadenopathy. Heart and pericardium: Cardiomegaly. No pericardial effusion. Coronary artery calcifications: Moderate. Pleura: No effusion or mass. Upper abdomen: No significant finding. Thoracic bones: No acute osseous finding in the chest. Uncomplicated appearing, partially visualized anterior cervical and posterior cervical thoracic fusion hardware. Chronic right scapular fracture IMPRESSION: Scattered right upper lobe ground glass opacities may reflect hypersensitivity pneumonitis, respiratory bronchitis, or infectious airways disease. Moderate right and small left pleural effusions with adjacent atelectasis. * 08/09/24. echo 1. Left ventricular chamber dimension is normal. 2. There is no increased left ventricular wall thickness. 3. Left ventricular systolic function is normal, estimated at 50-55%. THIS IS LOWER compared to Feb 2024. 4. Right ventricular chamber dimension is normal. 5. Right ventricular systolic function is reduced. NEW 6. There is mild to moderate mitral valve regurgitation. 7. There is moderate to severe tricuspid valve regurgitation. Cannot rule out leaflet perforation. THIS IS WORSE. 8. Severe pulmonary hypertension, estimated pulmonary arterial systolic pressure is 60 mmHg. NEW She had an echo, 02/16/24; Left ventricular chamber dimension is normal. 2. Left ventricular systolic function is normal, estimated at 60-65%. 3. Right ventricular systolic function is normal. 4. Left atrial chamber dimension is severely enlarged. 5. Right atrial chamber dimension is severely enlarged. 6. There is mild mitral valve regurgitation. 7. There is mild tricuspid valve regurgitation. Review of Systems Review of Systems: All systems reviewed & are unremarkable except as noted in HPI and below PMFSH Past Medical History Medical History Chronic anticoagulation Cerebrovascular accident (2020) received thrombolytics, has mild speech issues Depression Body mass index (BMI) less than 20 Impaired glucose tolerance Raynaud's phenomenon without gangrene Myelomalacia of cervical cord Hyperlipidemia Hypertension Anemia Osteopenia after menopause Anxiety Hypothyroidism Chronic headaches DJD of left shoulder Rotator cuff arthropathy of right shoulder Arthrogryposis Arthritis Vision loss Family History Family History (Updated 08/08/24 @ 14:19 by Olga Cross, RN) Sibling Family history of osteoarthritis Family history of Alzheimer's disease Family history of atrial fibrillation Skin cancer Cerebrovascular accident Mother Patient's mother is Family history of Alzheimer's disease Family history of malignant neoplasm of breast in first degree relative Family history of tuberculosis Family history of Parkinson's disease, Onset Age: 79 Father Patient's father is Hypertension Social History Social History Social History: Surrogate medical decision maker: Hayder Fournier, spouse. Code status: Full code. Smoking status: Never smoker Second hand tobacco smoke exposure: No Alcohol intake: never Substance use: never Substance use type: does not use Do You Feel Safe in your Home?: Yes Lack of Transportation: No Lack of Food: Never True Current Housing: I Have Housing Concerned About Future Housing: No Difficulty Paying Gas/Electric Bills: No Difficulty Paying for Meds: No Currently Unemployed: No Education: Master's Degree or Higher Difficulty w/ Childcare or Family Care: No Living arrangements: assisted living Additional living arrangements comments: . Her lives in [place], she is at [facility]. 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: No Meds Home Medications and Allergies Home Medications ?Medication ?Instructions ?Recorded ?Confirmed ?Type acetaminophen 500 mg tablet 500 mg PO BID PRN pain 01/11/19 08/08/24 History cholecalciferol (vitamin D3) 25 25 mcg PO BID 08/20/20 08/08/24 History mcg (1,000 unit) capsule denosumab 60 mg/mL subcutaneous 60 mg subcut [id number] #1 mL 11/02/23 08/08/24 Rx syringe (Prolia) calcium carbonate (Tums) 1,000 mg PO BID 12/31/23 08/08/24 History metoprolol succinate 50 mg See Rx Instructions .Route 03/28/24 08/08/24 Rx tablet,extended release 24 hr .COMPLEX #90 tabs apixaban 5 mg tablet (Eliquis) See Rx Instructions .Route 03/29/24 08/08/24 Rx .COMPLEX #180 tabs atorvastatin 40 mg tablet See Rx Instructions .Route 03/29/24 08/08/24 Rx .COMPLEX #90 tabs bupropion HCl 150 mg tablet,12 hr See Rx Instructions .Route 04/21/24 08/08/24 Rx sustained-release .COMPLEX #90 tabs ferrous sulfate 325 mg (65 mg 325 mg PO DAILY #30 tabs 06/27/24 08/08/24 Rx iron) tablet,delayed release doxycycline hyclate 20 mg tablet 40 mg PO QHS 08/08/24 08/08/24 History hydrocodone 10 mg-acetaminophen 1 tablet PO TID PRN pain 08/08/24 08/08/24 History 325 mg tablet [id number] acid 0.4 1 tablet PO DAILY 08/08/24 08/08/24 History mg-lycopene 300 mcg-lutein 250 mcg tablet (Centravites 50 Plus) Allergies Allergy/AdvReac Type Severity Reaction Status Date / Time No Known Allergies Allergy Unknown Verified 02/13/24 12:40 Vital Signs Vital Signs - 24 hr 08/08/24 16:00 08/08/24 20:00 08/08/24 20:15 Temperature Pulse Rate 76 66 Respiratory Rate Blood Pressure Pulse Oximetry Oxygen Delivery Room Air 08/08/24 20:52 08/09/24 00:00 08/09/24 04:00 Temperature 37.0 C Pulse Rate 68 54 L 60 Respiratory Rate 16 Blood Pressure 121/63 Pulse Oximetry 96 Oxygen Delivery 08/09/24 06:00 08/09/24 08:00 08/09/24 09:11 Temperature 36.5 C Pulse Rate 72 72 Respiratory Rate 18 Blood Pressure 145/65 H Pulse Oximetry 95 Oxygen Delivery Room Air 08/09/24 13:21 08/09/24 13:36 Temperature 36.4 C Pulse Rate 63 Respiratory Rate 18 Blood Pressure 141/80 H Pulse Oximetry 92 Oxygen Delivery Room Air Exam Narrative: GEN: Alert, oriented, not in distress. She is lying almost completely supine, she is not short of breath. She does not have distended neck veins. HEENT: pupils are equal, EOMI, symmetrical face; oral membranes moist, Mallampati II airway NECK: Trachea is midline CHEST: Equal air entry, diminished breath sounds right more diminished than left base. Few crackles posteriorly. No wheezing. CV: Regular S1S2 no m/g/r ABD : (+) bowel sounds Extremities : no clubbing, cyanosis, or edema PSYCH: She was alert and oritneted to per son and place. i did not ask her the date. Results Laboratory Findings 08/10/24 08:05 08/10/24 08:05 ABG, PT/INR, D-dimer: PT/INR, D-dimer PT 19.5 Seconds (11.1-14.7) H 08/08/24 08:15 INR 1.7 08/08/24 08:15 Abnormal lab findings: Abnormal Labs 08/08/24 08/08/24 08/09/24 08:15 08:23 05:53 RBC 3.65 L 3.54 L Hgb 10.8 L 10.4 L Hct 33.5 L 32.9 L MCHC 31.6 L RDW 15.4 H 15.5 H MPV 10.5 H 10.9 H Immature Gran % (Auto) 0.8 H Neut % (Auto) 76.7 H 76.0 H Lymph % (Auto) 14.1 L 13.5 L [place] % (Auto) 8.9 H Lymph # (Auto) 0.86 L Abs Immat Gran (auto) 0.06 H PT 19.5 H APTT 39.2 H Potassium 2.9 L Chloride 108 H Carbon Dioxide 34 H BUN 21 H Creatinine 0.68 L 0.68 L Calcium 8.1 L Magnesium 1.1 L 2.4 H Iron 32 L % Saturation 11 L AST 71 H 57 H ALT 50 H 44 H NT-Pro-B Natriuret Pep 5370 H Total Protein 5.9 L 5.6 L Albumin 3.4 L 3.2 L Urine Protein 1+ H Urine Ketones Trace H Ur Blood (Man) 3+ H Urine RBC 51-100 H
[2024-08-09] MEDS: SODIUM CHLORIDE 0.9% IV 1,000 ML 50 ML IV CONT (17:37)
[2024-08-09] MEDS: ATORVASTATIN 40 MG TABLET PO (20:52)
[2024-08-10] VITALS (12 sets, daily range): BP systolic 113–147; BP diastolic 60–86; PULSE 74–90; RESP 14–18; TEMP 36.3–36.9; O2SAT 98–100
--- NOTE | 2024-08-10 03:40 | PC.NURSE ---
On 08/10/24, JIGAR Byers, provided care and completed [employer] documentation on this patient with this nurse available for assistance/questions. I have reviewed Modesta's documentation and agree with the findings.
--- NOTE | 2024-08-10 07:12 | P.PNIM_ITS ---
Progress Note: A&P Assessment and Plan (1) Generalized weakness: Code(s): R53.1 - Weakness Status: Acute Assessment and Plan: * Patient had 2 weeks diarrhea which has resolved prior to admission * Also had poor oral intake * CXR showed new small bilateral pleural effusions ? Pneumonia * CT Chest: Scattered right upper lobe ground glass opacities may reflect hypersensitivity pneumonitis, respiratory bronchitis, or infectious airways disease. Moderate right and small left pleural effusions with adjacent atelectasis. * Afebrile, no leukocytosis, physical exam benign * Consider pulm consult * Echo: * LV chamber dimension normal, no increased LV wall thickness, EF 50 55%, [id number] MVR, moderate to severe TVR, severe pulmonary hypertension. Consider TORI to assess tricuspid valve if clinically indicated * Cardio consult for further recommendations * gentle rehydration * PT/OT/ST and dietitian consulted (2) Atrial fibrillation: Code(s): I48.91 - Unspecified atrial fibrillation Status: Acute Assessment and Plan: * rate controlled * on Eliquis and Metoprolol * monitor (3) Pleural effusion: Code(s): J90 - Pleural effusion, not elsewhere classified Status: Acute Assessment and Plan: * CXR: New small bilateral pleural effusions with bibasilar atelectasis versus pneumonia. * Chest CT: Scattered right upper lobe ground glass opacities may reflect hypersensitivity pneumonitis, respiratory bronchitis, or infectious airways disease. Moderate right and small left pleural effusions with adjacent atelectasis. * Vitals and physical exam stable, not on O2 supplementation * Pulm consult, appreciate further recommendations * Hold Eliquis, plan for thoracentesis * Likely Thoracentesis tomorrow (4) Electrolyte imbalance: Code(s): E87.8 - Other disorders of electrolyte and fluid balance, not elsewhere classified Status: Acute Assessment and Plan: * Likely from diarrhea * K 2.9 and Mg 1.1 * replaced and monitor * Continue daily monitoring of labs and replacing as necessary * 08/10: K , Mg , (5) Hypertension: Qualifiers: Hypertension type: primary hypertension Qualified Code(s): I10 - Essential (primary) hypertension Code(s): I10 - Essential (primary) hypertension Status: Acute Assessment and Plan: * Patient's blood pressure was reviewed on * Blood pressure remains well controlled. * Will continue current medications. (6) Anemia: Code(s): D64.9 - Anemia, unspecified Status: Acute Assessment and Plan: * Hgb 10.4 * add iron, TIBC, ferritin, B12, folic acid, and TSH * transfuse if <7 * trend H&H (7) Hyperlipidemia: Qualifiers: Hyperlipidemia type: unspecified Qualified Code(s): E78.5 - Hyperlipidemia, unspecified Code(s): E78.5 - Hyperlipidemia, unspecified Status: Acute Assessment and Plan: * Continue Lipitor Subjective Date/time seen: 08/10/24 07:12 Interval history: 78-year-old female with history of stroke, paroxysmal atrial fibrillation on chronic anticoagulation, dyslipidemia who presented to the ER on account of Generalized weakness. 08/10/2024 Patient sitting comfortably at time examination. Denies any chest pain, shortn ess or breath, nausea/vomiting. Pulm consulted regarding pleural effusions, plan for thoracentesis likely tomorrow, hold Eliquis for the time being. Can continue diet today, NPO at midnight for thoracentesis tomorrow. Review of Systems Review of Systems: All systems reviewed & are unremarkable except as noted in HPI and below Exam Narrative: General: Lethargic Eyes: EOMI, PERRLA ENNT External ears normal, Neck is supple, no masses, Respiratory systems: Clear to auscultation Cardiovascular S1, S2, normal rhythm, no murmur, rub, or gallop; no thrill or palpable murmurs on palpation. Gastrointestinal: soft, non-tender, and non-distended abdomen with no masses; BS present Skin: no rash, lesions, ulcerations, subcutaneous nodules or induration Musculoskeletal: no abnormality and no tenderness, normal ROM Neurologic: Alert and oriented x3, non focal, lethargic Objective Data Vital Signs Vital Signs: Vital Signs - 24 hr 08/09/24 08:00 08/09/24 08:03 08/09/24 09:11 Temperature Pulse Rate 67 72 Respiratory Rate Blood Pressure Pulse Oximetry Oxygen Delivery Room Air 08/09/24 12:01 08/09/24 13:21 08/09/24 13:36 Temperature 97.6 F Pulse Rate 74 63 Respiratory Rate 18 Blood Pressure 141/80 H Pulse Oximetry 92 Oxygen Delivery Room Air 08/09/24 15:35 08/09/24 16:03 08/09/24 20:00 Temperature Pulse Rate 76 Respiratory Rate Blood Pressure Pulse Oximetry Oxygen Delivery Room Air Room Air 08/09/24 20:00 08/09/24 22:00 08/10/24 00:00 Temperature 98.2 F Pulse Rate 82 79 90 Respiratory Rate 16 Blood Pressure 152/93 H Pulse Oximetry 93 Oxygen Delivery 08/10/24 04:00 08/10/24 06:00 08/10/24 06:35 Temperature 98.4 F Pulse Rate 86 83 Respiratory Rate 16 Blood Pressure 126/60 Pulse Oximetry 98 Oxygen Delivery Intake/Output Intake/Output: Intake & Output 08/07/24 08/08/24 08/09/24 08/10/24 23:59 23:59 23:59 23:59 Intake Total 1440 1199.2 0 Output Total 200 150 Balance 1440 999.2 -150 Meds/Results Medications: Active Medications Generic Name Dose Route Start Last Admin Trade Name Freq PRN Reason Stop Dose Admin Hydrocodone Bitart/Acetaminophen 1 tab 08/08/24 17:55 08/09/24 20:52 Hydrocodone/Acetaminophen (*Crx) 10-325 Mg Tablet PO 1 tab TID PRN Administration pain 4-6 Atorvastatin Calcium 40 mg 08/08/24 21:00 08/09/24 20:52 Atorvastatin 40 Mg Tablet PO 40 mg HS LUIS Administration Bupropion HCl 150 mg 08/09/24 09:00 08/09/24 09:11 Bupropion Hcl Sr (12 Hr) 150 Mg Tab BY MOUTH 150 mg DAILY LUIS Administration Ferrous Sulfate 325 mg 08/09/24 09:00 08/09/24 09:11 Ferrous Sulfate [address] PO 325 mg DAILY LUIS Administration Sodium Chloride 1,000 mls @ 50 mls/hr 08/08/24 18:15 08/09/24 17:37 Normal Saline Iv IV CONT 50 mls/hr .Q20H LUIS Administration Metoprolol Succinate 50 mg 08/09/24 09:00 08/09/24 09:11 Metoprolol Succinate Ext Rel 50 Mg Tabcr BY MOUTH 50 mg DAILY LUIS Administration Radiology Results: ITS Impressions Head CT 08/08/24 08:35 IMPRESSION: No acute intracranial findings. Chest X-Ray 08/08/24 08:52 IMPRESSION: 1. New small bilateral pleural effusions with bibasilar atelectasis versus pneumonia. Chest CT 08/08/24 18:53 IMPRESSION: Scattered right upper lobe ground glass opacities may reflect hypersensitivity pneumonitis, respiratory bronchitis, or infectious airways disease. Moderate right and small left pleural effusions with adjacent atelectasis. Labs Labs: Laboratory Results - last 24 hr 08/09/24 05:53 Ferritin 208.00 Quality VTE Prophylaxis VTE prophylaxis: pharmacologic ordered
[2024-08-10 08:33] LABS: Hematocrit 34.9 % (37.0-47.0); Hemoglobin 11.1 g/dL (12.0-15.0); Immature Granulocyte Percent A 0.6 % (0-0.5); Lymphocytes Absolute Auto 0.86 K/mm3 (0.9-3.2); Mean Corpuscular HGB Conc 31.8 g/dl (32-36); Mean Corpuscular Hemoglobin 29.7 pg (26-34); Mean Corpuscular Volume 93.3 fl (80-100); Nucleated Red Blood Cells Absolute Auto 0.000 K/mm3 (0.0-0.012); Nucleated Red Blood Cells Perc 0.0 % (0.0-0.2); Platelet Count Result 201 k/mm3 (150-375); Red Blood Count 3.74 M/mm3 (4.2-5.4); White Blood Count 14.8 K/mm3 (4.5-10.0)
[2024-08-10 08:46] LABS: Magnesium 1.7 mg/dL (1.6-2.3)
[2024-08-10] MEDS: METOPROLOL SUCCINATE EXT REL 50 MG TABCR BY MOUTH (08:46)
[2024-08-10] MEDS: FERROUS SULFATE 325 MG TABLET DR PO (08:46)
[2024-08-10] MEDS: buPROPion HCL SR (12 HR) 150 MG TAB BY MOUTH (08:46)
[2024-08-10 08:47] LABS: Alanine Aminotransferase 48 U/L (6-35); Albumin Level 3.5 g/dL (3.5-5.1); Alkaline Phosphatase 80 U/L (38-126); Anion Gap 7 mmol/L (4-12); Aspartate Amino Transferase 56 U/L (14-36); Bilirubin,Total 0.6 mg/dL (0.2-1.3); Blood Urea Nitrogen 15 mg/dL (7-17); Calcium 8.4 mg/dL (8.4-10.2); Carbon Dioxide 23 mmol/L (22-30); Chloride 107 mmol/L (98-107); Estimated CRCL calculation 47 ml/min; Estimated Glomerular Filt Rate > 60; Glucose 111 mg/dL (65-110); Potassium 4.6 mmol/L (3.4-5.0); Sodium 137 mmol/L (137-145); Total Protein 6.3 g/dL (6.3-8.2)
[2024-08-10] MEDS: HYDROcodone/acetaminophen (*CRX) 10-325 MG TABLET 1 TAB PO ×2 (08:47→20:44)
--- NOTE | 2024-08-10 17:29 | P.PNPL_ITS ---
Progress Note: A&P Assessment and Plan (1) Pleural effusion: Code(s): J90 - Pleural effusion, not elsewhere classified Status: Acute Assessment and Plan: bilateral pleural effusions R>L; cause is not clear. She has new RV dysfunction, severe pulmonary hypertension and severe tricuspid regurgitation. She is had a right thoracentesis today. History of Present Illness History of Present Illness Consult date: 08/10/24 Chief complaint: hypokalemia Narrative: Patient was seen August 09, 2024 at 4:40 p.m., room 306 bed 1 NEW: Susan Caruso is a 78-year-old female with an abnormal chest CT, moderately large right pleural effusion, smaller left pleural effusion with right upper lobe ground-glass opacities, differential per the radiologist may include infection, respiratory bronchial bronchitis and hypersensitivity pneumonitis. The patient's main complaint was weakness. Karina lived in a [place] for the last 6 years. She is not a smoker. She has had a history of a stroke, paroxysmal atrial fibrillation on anticoagulation, hyperlipidemia. On admission her lactic acid was 1.3. Magnesium was 1.1, this was replaced and found to be in the normal range. Sodium 141 potassium 2.9 also replaced. Chloride 102, carbon dioxide 34, BUN 21, creatinine 0.68, glucose 106. White blood cell count 6.1 with 76% segmented cells, hemoglobin 10.8 grams/deciliter, hematocrit 33.5%, ProTime elevated 19.5, PTT 39.2, elevated. Protein 5.6, albumin 3.2. ISIS was negative on 01/18/2018. Serology negative for influenza a, influenza B, RSV and SARS-CoV-2. Iron is low, 32. Iron saturation low, 11%, ferritin is 208. Arterial blood gas pH 7.456, pCO2 38, PO2 83, HC03 26, saturation 96% on room air. She completed an echo August 09 today, and compared to February of this year her ejection fraction is lower 50-55%, the right ventricle is normal in size but the repeat function is reduced, she has severe tricuspid regurgitation and severe pulmonary hypertension with an estimated pulmonary artery systolic pressure of 60. Acutely, pulmonary artery pressures can not rise above 40 so I think some of this is acute on chronic ppulmonary hypertension. DATA * 08/08/24; chest CT; CHEST: Thoracic aorta: No significant dilation. Mild atherosclerotic calcification. Low-density blood pool as can be seen with anemia. Lung parenchyma and airways: Scattered groundglass opacities in the right upper lobe. Bibasilar atelectasis. Patent airways. Thoracic inlet, axillae and chest wall: Subcentimeter thyroid hypodensity, too requires no additional evaluation. No axillary lymphadenopathy. Mediastinum: No mass or lymphadenopathy. Heart and pericardium: Cardiomegaly. No pericardial effusion. Coronary artery calcifications: Moderate. Pleura: No effusion or mass. Upper abdomen: No significant finding. Thoracic bones: No acute osseous finding in the chest. Uncomplicated appearing, partially visualized anterior cervical and posterior cervical thoracic fusion hardware. Chronic right scapular fracture IMPRESSION: Scattered right upper lobe ground glass opacities may reflect hypersensitivity pneumonitis, respiratory bronchitis, or infectious airways disease. Moderate right and small left pleural effusions with adjacent atelectasis. * 08/09/24. echo 1. Left ventricular chamber dimension is normal. 2. There is no increased left ventricular wall thickness. 3. Left ventricular systolic function is normal, estimated at 50-55%. THIS IS LOWER compared to Feb 2024. 4. Right ventricular chamber dimension is normal. 5. Right ventricular systolic function is reduced. NEW 6. There is mild to moderate mitral valve regurgitation. 7. There is moderate to severe tricuspid valve regurgitation. Cannot rule out leaflet perforation. THIS IS WORSE. 8. Severe pulmonary hypertension, estimated pulmonary arterial systolic pressure is 60 mmHg. NEW She had an echo, 02/16/24; Left ventricular chamber dimension is normal. 2. Left ventricular systolic function is normal, estimated at 60-65%. 3. Right ventricular systolic function is normal. 4. Left atrial chamber dimension is severely enlarged. 5. Right atrial chamber dimension is severely enlarged. 6. There is mild mitral valve regurgitation. 7. There is mild tricuspid valve regurgitation. (2) Decreased right ventricular systolic function: Code(s): I51.89 - Other ill-defined heart diseases Status: Acute Assessment and Plan: New echo shows right ventricular systolic function is reduced, this is new compared to February; she has mild to moderate mitral valve regurgitation, moderate to severe tricuspid valve regurgitation. Cannot rule out leaflet perforation. THIS IS WORSE. Echo shows new severe pulmonary hypertension, estimated pulmonary arterial systolic pressure is 60 mmHg. Pulmonary pressures cannot acutely increased above 40 mmHg. I think that she had some pre-existing pulmonary hypertension but it has increased over the last 6 months. (3) Ground glass opacity present on imaging of lung: Code(s): R91.8 - Other nonspecific abnormal finding of lung field Status: Acute Assessment and Plan: This is often present with an infectious process; she had thoracentesis today, now on Vanco and Zosyn 08/10/24 and culture results are pending. Plan plan: Review all data from thoracentesis. Start vancomycin Zosyn empirically with white blood cells in the pleural fluid as this suggest infection. I communicated with Ollie Chow PA-C, hospitalist, about her echo findings and probable need for Cardiology to evaluate her. Subjective Date/time seen: 08/10/24 17:29 Interval history: august 09, 2024, new consult; Susan Caruso is a 78-year-old female with an abnormal chest CT, moderately large right pleural effusion, smaller left pleural effusion with right upper lobe ground-glass opacities, differential per the radiologist may include infection, respiratory bronchial bronchitis and hypersensitivity pneumonitis. The patient's main complaint was weakness. Sheha s lived in a [place] for the last 6 years. She is not a smoker. She has had a history of a stroke, paroxysmal atrial fibrillation on anticoagulation, hyperlipidemia. On admission her lactic acid was 1.3. Magnesium was 1.1, this was replaced and found to be in the normal range. Sodium 141 potassium 2.9 also replaced. Chloride 102, carbon dioxide 34, BUN 21, creatinine 0.68, glucose 106. White blood cell count 6.1 with 76% segmented cells, hemoglobin 10.8 grams/deciliter, hematocrit 33.5%, ProTime elevated 19.5, PTT 39.2, elevated. Protein 5.6, albumin 3.2. ISIS was negative on 01/18/2018. Serology negative for influenza a, influenza B, RSV and SARS-CoV-2. Iron is low, 32. Iron saturation low, 11%, ferritin is 208. Arterial blood gas pH 7.456, pCO2 38, PO2 83, HC03 26, saturation 96% on room air. She completed an echo August 09, today, and compared to February of this year her ejection fraction is lower 50-55%, the right ventricle is normal in size but the repeat function is reduced, she has severe tricuspid regurgitation and severe pulmonary hypertension with an estimated pulmonary artery systolic pressure of 60. Acutely, pulmonary artery pressures can not rise above 40 so I think some of this is acute on chronic pulmonary hypertension. 08/10/24; She was in Radiology having her right thoracentesis when I came by her room. I did not see her today however her nurse called later and told me that her pleural fluid had white blood cells in it. I requested starting vancomycin Zosyn per pharmacy protocol. DATA * 08/08/24; chest CT; CHEST: Thoracic aorta: No significant dilation. Mild atherosclerotic calcification. Low-density blood pool as can be seen with anemia. Lung parenchyma and airways: Scattered groundglass opacities in the right upper lobe. Bibasilar atelectasis. Patent airways. Thoracic inlet, axillae and chest wall: Subcentimeter thyroid hypodensity, too requires no additional evaluation. No axillary lymphadenopathy. Mediastinum: No mass or lymphadenopathy. Heart and pericardium: Cardiomegaly. No pericardial effusion. Coronary artery calcifications: Moderate. Pleura: No effusion or mass. Upper abdomen: No significant finding. Thoracic bones: No acute osseous finding in the chest. Uncomplicated appearing, partially visualized anterior cervical and posterior cervical thoracic fusion hardware. Chronic right scapular fracture IMPRESSION: Scattered right upper lobe ground glass opacities may reflect hypersensitivity pneumonitis, respiratory bronchitis, or infectious airways disease. Moderate right and small left pleural effusions with adjacent atelectasis. * 08/09/24. echo 1. Left ventricular chamber dimension is normal. 2. There is no increased left ventricular wall thickness. 3. Left ventricular systolic function is normal, estimated at 50-55%. THIS IS LOWER compared to Feb 2024. 4. Right ventricular chamber dimension is normal. 5. Right ventricular systolic function is reduced. NEW 6. There is mild to moderate mitral valve regurgitation. 7. There is moderate to severe tricuspid valve regurgitation. Cannot rule out leaflet perforation. THIS IS WORSE. 8. Severe pulmonary hypertension, estimated pulmonary arterial systolic pressure is 60 mmHg. NEW She had an echo, 02/16/24; Left ventricular chamber dimension is normal. 2. Left ventricular systolic function is normal, estimated at 60-65%. 3. Right ventricular systolic function is normal. 4. Left atrial chamber dimension is severely enlarged. 5. Right atrial chamber dimension is severely enlarged. 6. There is mild mitral valve regurgitation. 7. There is mild tricuspid valve regurgitation. Review of Systems Review of Systems: All systems reviewed & are unremarkable except as noted in HPI and below Exam Narrative: No exam today, patient was not in the room when I came by Objective Data Vital Signs Vital Signs: Vital Signs - 24 hr 08/09/24 20:00 08/09/24 20:00 08/09/24 22:00 Temperature 36.8 C Pulse Rate 82 79 Respiratory Rate 16 Blood Pressure 152/93 H Pulse Oximetry 93 Oxygen Delivery Room Air 08/10/24 00:00 08/10/24 04:00 08/10/24 06:00 Temperature 36.9 C Pulse Rate 90 86 83 Respiratory Rate 16 Blood Pressure Pulse Oximetry 98 Oxygen Delivery 08/10/24 06:35 08/10/24 08:00 08/10/24 08:46 Temperature Pulse Rate 87 80 Respiratory Rate Blood Pressure 126/60 Pulse Oximetry Oxygen Delivery 08/10/24 12:00 08/10/24 14:00 Temperature 36.3 C L Pulse Rate 88 78 Respiratory Rate 14 Blood Pressure 113/71 Pulse Oximetry 98 Oxygen Delivery Intake/Output Intake/Output: Intake & Output 08/07/24 08/08/24 08/09/24 08/10/24 23:59 23:59 23:59 23:59 Intake Total 1440 1199.2 0 Output Total 200 150 Balance 1440 999.2 -150 Meds/Results Medications: Active Medications Generic Name Dose Route Start Last Admin Trade Name Freq PRN Reason Stop Dose Admin Hydrocodone Bitart/Acetaminophen 1 tab 08/08/24 17:55 08/10/24 08:47 Hydrocodone/Acetaminophen (*Crx) 10-325 Mg Tablet PO 1 tab TID PRN Administration pain 4-6 Atorvastatin Calcium 40 mg 08/08/24 21:00 08/09/24 20:52 Atorvastatin 40 Mg Tablet PO 40 mg HS LUIS Administration Bupropion HCl 150 mg 08/09/24 09:00 08/10/24 08:46 Bupropion Hcl Sr (12 Hr) 150 Mg Tab BY MOUTH 150 mg DAILY LUIS Administration Ferrous Sulfate 325 mg 08/09/24 09:00 08/10/24 08:46 Ferrous Sulfate [address] PO 325 mg DAILY LUIS Administration Sodium Chloride 1,000 mls @ 50 mls/hr 08/08/24 18:15 08/09/24 17:37 Normal Saline Iv IV CONT 50 mls/hr .Q20H LUIS Administration Metoprolol Succinate 50 mg 08/09/24 09:00 08/10/24 08:46 Metoprolol Succinate Ext Rel 50 Mg Tabcr BY MOUTH 50 mg DAILY LUIS Administration Radiology Results: ITS Impressions Head CT 08/08/24 08:35 IMPRESSION: No acute intracranial findings. Chest X-Ray 08/08/24 08:52 IMPRESSION: 1. New small bilateral pleural effusions with bibasilar atelectasis versus pneumonia. Chest CT 08/08/24 18:53 IMPRESSION: Scattered right upper lobe ground glass opacities may reflect hypersensitivity pneumonitis, respiratory bronchitis, or infectious airways disease. Moderate right and small left pleural effusions with adjacent atelectasis. Labs Labs: Laboratory Results - last 24 hr 08/10/24 08:05 WBC 14.8 H RBC 3.74 L Hgb 11.1 L Hct 34.9 L MCV 93.3 MCH 29.7 MCHC 31.8 L RDW 15.9 H Plt Count 201 MPV 11.0 H Immature Gran % (Auto) 0.6 H Neut % (Auto) 88.0 H Lymph % (Auto) 5.8 L [place] % (Auto) 5.2 Eos % (Auto) 0.1 Baso % (Auto) 0.3 Lymph # (Auto) 0.86 L [place] # (Auto) 0.8 H Eos # (Auto) 0.0 Baso # (Auto) 0.0 Abs Immat Gran (auto) 0.09 H Absolute Neuts (auto) 13.1 H Absolute Nucleated RBC 0.000 Nucleated RBC % 0.0 Sodium 137 Potassium 4.6 Chloride 107 Carbon Dioxide 23 Anion Gap 7 BUN 15 Creatinine 0.65 L Estim Creat Clear Calc 47 Estimated GFR > 60 Glucose 111 H Calcium 8.4 Magnesium 1.7 Total Bilirubin 0.6 AST 56 H ALT 48 H Alkaline Phosphatase 80 Total Protein 6.3 Albumin 3.5
--- NOTE | 2024-08-10 17:35 | CY_PTH ---
PATIENT: Susan Fournier LOC: [facility] U#:[id number] AGE/SX: 78/F ROOM: ICU RE08/10/[address]: Ollie Chow PA-C : 1945 BED: 3 DIS: 08/12/2024 SPEC #: [id number] RECD: 08/11/24 07:57 STATUS: RAZ RENani #: [id number] GOPI: 08/10/24 17:[address]: Anna Goss DEPT: [facility] Cytology RECD BY: Vanita Butler ENTERED: 08/11/24 07:58 SP TYPE: Cytology OTHR DR: YI Arciniega APRN Abdur R. Khan, MD Onyema Nnanna, MD Amardeep Shrestha, MD Tissues: A - Pleural Fluid Procedures: Hematoxylin and Eosin Stain Cell Block Cytopathology Cytospin
--- NOTE | 2024-08-10 18:38 | PM.OP ---
Procedure Note - Brief Procedure Note - Brief Date of procedure: 08/10/24 pleural effusion Post-op diagnosis: Same Procedure performed: US guided R pleural effusion Surgeon: Madelyn Granado MD Findings: Pt remained in the supine position sterile technique US guidance modified seldinger technique 5F Yueh catheter placed into R pleural space 600cc serous fluid removed catheter removed, sterile dressing applied fluid sent for requested studies Description of procedure: as above Complications: None Condition: Stable Disposition: Floor
[2024-08-10 19:31] LABS: Appearance Pleural Fluid Cloudy (Clear); Color Pleural Fluid Other (Colorless)
[2024-08-10 19:32] LABS: Lymphocytes Pleural Fluid 24 %; Monocytes Pleural Fluid 22 %; Neutrophils Pleural Fluid 41 % (0-25)
[2024-08-10 19:33] LABS: Macrophages Pleural Fluid 13 %
[2024-08-10 20:35] LABS: Cholesterol 115 mg/dL (0-200); Glucose 79 mg/dL (65-110); Total Protein 6.0 g/dL (6.3-8.2)
[2024-08-10] MEDS: ATORVASTATIN 40 MG TABLET PO (20:44)
[2024-08-10] MEDS: PIPERACILLN/TAZ 3.375GM/NS50ML 3.375 GM/50 ML BAG IVPB (20:48)
[2024-08-10] MEDS: VANCOMYCIN 1,250 MG/NS 250 ML 1,250 MG/250 ML BAG 166.67 MG IVPB (21:25)
[2024-08-11] VITALS (12 sets, daily range): BP systolic 120–169; BP diastolic 76–86; PULSE 67–108; RESP 16; TEMP 36.1–36.7; O2SAT 92–100
--- NOTE | 2024-08-11 02:12 | PC.NURSE ---
On 08/11/24, JIGAR Byers, provided care and completed [employer] documentation on this patient with this nurse available for assistance. I have reviewed Modesta's documentation and agree with the findings.
[2024-08-11] MEDS: PIPERACILLN/TAZ 3.375GM/NS50ML 3.375 GM/50 ML BAG IVPB ×4 (02:38→20:39)
[2024-08-11] MEDS: SODIUM CHLOR 3% 15 ML NEB (RESPIRATORY THERAPY) 6 ML INHALATION (04:58)
--- NOTE | 2024-08-11 05:37 | PCRCNOTE ---
patient was not able to submit a sputum sample
--- NOTE | 2024-08-11 05:45 | PCRCNOTE ---
patient was unable to submit a sputum sample
[2024-08-11 05:47] LABS: Hematocrit 33.5 % (37.0-47.0); Hemoglobin 10.4 g/dL (12.0-15.0); Immature Granulocyte Percent A 0.3 % (0-0.5); Lymphocytes Absolute Auto 0.88 K/mm3 (0.9-3.2); Mean Corpuscular HGB Conc 31.0 g/dl (32-36); Mean Corpuscular Hemoglobin 29.4 pg (26-34); Mean Corpuscular Volume 94.6 fl (80-100); Nucleated Red Blood Cells Absolute Auto 0.000 K/mm3 (0.0-0.012); Nucleated Red Blood Cells Perc 0.0 % (0.0-0.2); Platelet Count Result 182 k/mm3 (150-375); Red Blood Count 3.54 M/mm3 (4.2-5.4); White Blood Count 12.6 K/mm3 (4.5-10.0)
[2024-08-11 06:01] LABS: Alanine Aminotransferase 41 U/L (6-35); Albumin Level 3.1 g/dL (3.5-5.1); Alkaline Phosphatase 71 U/L (38-126); Anion Gap 7 mmol/L (4-12); Aspartate Amino Transferase 50 U/L (14-36); Bilirubin,Total 0.7 mg/dL (0.2-1.3); Blood Urea Nitrogen 18 mg/dL (7-17); Calcium 8.7 mg/dL (8.4-10.2); Carbon Dioxide 24 mmol/L (22-30); Chloride 108 mmol/L (98-107); Estimated CRCL calculation 37 ml/min; Estimated Glomerular Filt Rate > 60; Glucose 76 mg/dL (65-110); Potassium 4.7 mmol/L (3.4-5.0); Sodium 139 mmol/L (137-145); Total Protein 5.8 g/dL (6.3-8.2)
--- NOTE | 2024-08-11 07:37 | P.PNIM_ITS ---
Progress Note: A&P Assessment and Plan (1) Pleural effusion: Code(s): J90 - Pleural effusion, not elsewhere classified Status: Acute Assessment and Plan: * CXR: New small bilateral pleural effusions with bibasilar atelectasis versus pneumonia. * Chest CT: Scattered right upper lobe ground glass opacities may reflect hypersensitivity pneumonitis, respiratory bronchitis, or infectious airways disease. Moderate right and small left pleural effusions with adjacent atelectasis. * Vitals and physical exam stable, not on O2 supplementation * Pulm consult, appreciate further recommendations * Hold Eliquis, plan for thoracentesis * Likely Thoracentesis tomorrow * 08/11 * Thoracentesis last night * Showed WBC but no organism * pH 7.5 - no evidence of empyema or severe infection. * Started on Vanc + Zosyn (2) Generalized weakness: Code(s): R53.1 - Weakness Status: Acute Assessment and Plan: * Patient had 2 weeks diarrhea which has resolved prior to admission * Also had poor oral intake * CXR showed new small bilateral pleural effusions ? Pneumonia * CT Chest: Scattered right upper lobe ground glass opacities may reflect hypersensitivity pneumonitis, respiratory bronchitis, or infectious airways disease. Moderate right and small left pleural effusions with adjacent atelectasis. * Afebrile, no leukocytosis, physical exam benign * Echo: * LV chamber dimension normal, no increased LV wall thickness, EF 50 55%, [id number] MVR, moderate to severe TVR, severe pulmonary hypertension. Consider TORI to assess tricuspid valve if clinically indicated * Cardio consult for further recommendations * gentle rehydration * PT/OT/ST and dietitian consulted * Pulm following for pleural effusion (3) Atrial fibrillation: Code(s): I48.91 - Unspecified atrial fibrillation Status: Acute Assessment and Plan: * rate controlled * on Eliquis and Metoprolol * monitor (4) Electrolyte imbalance: Code(s): E87.8 - Other disorders of electrolyte and fluid balance, not elsewhere classified Status: Acute Assessment and Plan: * Likely from diarrhea * K 2.9 and Mg 1.1 * replaced and monitor * Continue daily monitoring of labs and replacing as necessary * 08/11: K 4.7 , Mg 1.7 (5) Hypertension: Qualifiers: Hypertension type: primary hypertension Qualified Code(s): I10 - Essential (primary) hypertension Code(s): I10 - Essential (primary) hypertension Status: Acute Assessment and Plan: * Patient's blood pressure was reviewed on 08/11 * Blood pressure remains well controlled. * Will continue current medications. * 147/86 (6) Anemia: Code(s): D64.9 - Anemia, unspecified Status: Acute Assessment and Plan: * Hgb 10.4 * add iron, TIBC, ferritin, B12, folic acid, and TSH * transfuse if <7 * trend H&H * 08/11: Hgb 10.4 (7) Hyperlipidemia: Qualifiers: Hyperlipidemia type: unspecified Qualified Code(s): E78.5 - Hyperlipidemia, unspecified Code(s): E78.5 - Hyperlipidemia, unspecified Status: Acute Assessment and Plan: * Continue Lipitor (8) Pulmonary hypertension: Code(s): I27.20 - Pulmonary hypertension, unspecified Status: Acute Assessment and Plan: * Echo on 08/09: Severe pulmonary hypertension, estimated pulmonary arterial systolic pressure is 60 mmHg. * Recommend TORI to assess Tricuspid valve * Cardio consult given new echo findings Subjective Date/time seen: 08/11/24 07:37 Interval history: 78-year-old female with history of stroke, paroxysmal atrial fibrillation on chronic anticoagulation, dyslipidemia who presented to the ER on account of Generalized weakness. 08/11/2024 Patient sitting comfortably at time examination. Denies any chest pain, shortness or breath, nausea/vomiting. Thoracentesis last night - 600 mls of sanguinious fluids removed, showed WBC but no organism. No evidence of empyema. Leukocytosis improved. Pulm started pt on Zosyn and Vanc. Pt otherwise feels good today, no specific complaints. Cardio consult pending for new pulm htn/echo findings. Review of Systems Review of Systems: All systems reviewed & are unremarkable except as noted in HPI and below Exam Narrative: General: Alert, oriented, not in distress. Sitting at bedside Eyes: EOMI, PERRLA ENNT External ears normal, Neck is supple, no masses, Respiratory systems: Clear to auscultation Cardiovascular S1, S2, normal rhythm, no murmur, rub, or gallop; no thrill or palpable murmurs on palpation. Gastrointestinal: soft, non-tender, and non-distended abdomen with no masses; BS present Skin: no rash, lesions, ulcerations, subcutaneous nodules or induration Musculoskeletal: no abnormality and no tenderness, normal ROM Neurologic: Alert and oriented x3, non focal, lethargic Objective Data Vital Signs Vital Signs: Vital Signs - 24 hr 08/10/24 08:00 08/10/24 08:46 08/10/24 12:00 Temperature Pulse Rate 87 80 88 Respiratory Rate Blood Pressure Pulse Oximetry Oxygen Delivery 08/10/24 14:00 08/10/24 16:00 08/10/24 19:42 Temperature 97.4 F L Pulse Rate 78 74 Respiratory Rate 14 Blood Pressure 113/71 Pulse Oximetry 98 99 Oxygen Delivery Room Air 08/10/24 20:00 08/10/24 20:00 08/10/24 21:07 Temperature 98.2 F Pulse Rate 74 78 Respiratory Rate 18 Blood Pressure 147/86 H Pulse Oximetry 100 Oxygen Delivery Room Air 08/11/24 00:00 08/11/24 04:00 08/11/24 05:00 Temperature Pulse Rate 67 69 69 Respiratory Rate 16 Blood Pressure Pulse Oximetry Oxygen Delivery 08/11/24 05:10 Temperature Pulse Rate 73 Respiratory Rate 16 Blood Pressure Pulse Oximetry Oxygen Delivery Intake/Output Intake/Output: Intake & Output 08/08/24 08/09/24 08/10/24 08/11/24 23:59 23:59 23:59 23:59 Intake Total 1440 1199.2 300 200 Output Total 200 750 50 Balance 1440 999.2 -450 150 Meds/Results Medications: Active Medications Generic Name Dose Route Start Last Admin Trade Name Freq PRN Reason Stop Dose Admin Hydrocodone Bitart/Acetaminophen 1 tab 08/08/24 17:55 08/10/24 20:44 Hydrocodone/Acetaminophen (*Crx) 10-325 Mg Tablet PO 1 tab TID PRN Administration pain 4-6 Atorvastatin Calcium 40 mg 08/08/24 21:00 08/10/24 20:44 Atorvastatin 40 Mg Tablet PO 40 mg HS LUIS Administration Bupropion HCl 150 mg 08/09/24 09:00 08/10/24 08:46 Bupropion Hcl Sr (12 Hr) 150 Mg Tab BY MOUTH 150 mg DAILY LUIS Administration Ferrous Sulfate 325 mg 08/09/24 09:00 08/10/24 08:46 Ferrous Sulfate [address] PO 325 mg DAILY LUIS Administration Piperacillin/Tazobactam/Dextrose 3.375 gm in 50 mls @ 100 mls/hr 08/10/24 20:00 08/11/24 03:08 Zosyn 3.375 Gm/Ns 50 Ml IVPB Infused Q6H LUIS Infusion Vancomycin HCl 1,000 mg in 250 mls @ 250 mls/hr 08/11/24 22:00 Vancomycin 1,000 Mg/Ns 250 Ml IVPB Q24H LUIS Metoprolol Succinate 50 mg 08/09/24 09:00 08/10/24 08:46 Metoprolol Succinate Ext Rel 50 Mg Tabcr BY MOUTH 50 mg DAILY LUIS Administration Sodium Chloride 6 ml 08/11/24 05:00 08/11/24 04:58 Sodium Chlor 3% 15 Ml Neb (Respiratory Therapy) INHALATION 08/13/24 05:01 6 ml DAILY@0500 LUIS Administration Radiology Results: ITS Impressions Head CT 08/08/24 08:35 IMPRESSION: No acute intracranial findings. Chest CT 08/08/24 18:53 IMPRESSION: Scattered right upper lobe ground glass opacities may reflect hypersensitivity pneumonitis, respiratory bronchitis, or infectious airways disease. Moderate right and small left pleural effusions with adjacent atelectasis. Chest X-Ray 08/10/24 18:22 IMPRESSION: Left basilar atelectasis versus pneumonia with pleural effusion. Opacity in the right midzone which may be a granuloma. 6 months follow-up advised. Thoracentesis Ultrasound 08/10/24 18:58 IMPRESSION: 1. Successful ultrasound-guided thoracentesis yielding 600 mL of sanguinous fluid. Labs Labs: Laboratory Results - last 24 hr 08/10/24 08/10/24 08/10/24 08:05 18:03 20:18 WBC 14.8 H RBC 3.74 L Hgb 11.1 L Hct 34.9 L MCV 93.3 MCH 29.7 MCHC 31.8 L RDW 15.9 H Plt Count 201 MPV 11.0 H Immature Gran % (Auto) 0.6 H Neut % (Auto) 88.0 H Lymph % (Auto) 5.8 L [place] % (Auto) 5.2 Eos % (Auto) 0.1 Baso % (Auto) 0.3 Lymph # (Auto) 0.86 L [place] # (Auto) 0.8 H Eos # (Auto) 0.0 Baso # (Auto) 0.0 Abs Immat Gran (auto) 0.09 H Absolute Neuts (auto) 13.1 H Absolute Nucleated RBC 0.000 Nucleated RBC % 0.0 Sodium 137 Potassium 4.6 Chloride 107 Carbon Dioxide 23 Anion Gap 7 BUN 15 Creatinine 0.65 L Estim Creat Clear Calc 47 Estimated GFR > 60 Glucose 111 H 79 Calcium 8.4 Magnesium 1.7 Total Bilirubin 0.6 AST 56 H ALT 48 H Alkaline Phosphatase 80 Lactate Dehydrogenase 405 H Total Protein 6.3 6.0 L Albumin 3.5 Cholesterol 115 Pleural Fluid Source Pleural fluid Pleural Color Other Pleural Appearance Cloudy Pleural pH > 7.500 H Pleural RBC TNP Pleural Nuc Cells TNP Pleural Neutrophils 41 H Pleural Lymphocytes 24 Pleural Monocytes 22 Pleural Macrophages 13 08/11/24 05:32 WBC 12.6 H RBC 3.54 L Hgb 10.4 L Hct 33.5 L MCV 94.6 MCH 29.4 MCHC 31.0 L RDW 15.7 H Plt Count 182 MPV 10.3 Immature Gran % (Auto) 0.3 Neut % (Auto) 83.6 H Lymph % (Auto) 7.0 L [place] % (Auto) 6.3 Eos % (Auto) 2.4 Baso % (Auto) 0.4 Lymph # (Auto) 0.88 L [place] # (Auto) 0.8 H Eos # (Auto) 0.3 Baso # (Auto) 0.1 Abs Immat Gran (auto) 0.04 H Absolute Neuts (auto) 10.5 H Absolute Nucleated RBC 0.000 Nucleated RBC % 0.0 Sodium 139 Potassium 4.7 Chloride 108 H Carbon Dioxide 24 Anion Gap 7 BUN 18 H Creatinine 0.84 Estim Creat Clear Calc 37 Estimated GFR > 60 Glucose 76 Calcium 8.7 Magnesium Total Bilirubin 0.7 AST 50 H ALT 41 H Alkaline Phosphatase 71 Lactate Dehydrogenase Total Protein 5.8 L Albumin 3.1 L Cholesterol Pleural Fluid Source Pleural Color Pleural Appearance Pleural pH Pleural RBC Pleural Nuc Cells Pleural Neutrophils Pleural Lymphocytes Pleural Monocytes Pleural Macrophages Quality VTE Prophylaxis VTE prophylaxis: pharmacologic ordered
[2024-08-11 08:28] LABS: MRSA (PCR) NOT DETECTED (NOT DETECTE)
[2024-08-11] MEDS: HYDROcodone/acetaminophen (*CRX) 10-325 MG TABLET 1 TAB PO ×3 (09:47→21:01)
[2024-08-11] MEDS: FERROUS SULFATE 325 MG TABLET DR PO (09:48)
[2024-08-11] MEDS: buPROPion HCL SR (12 HR) 150 MG TAB BY MOUTH (09:48)
[2024-08-11] MEDS: METOPROLOL SUCCINATE EXT REL 50 MG TABCR BY MOUTH (09:48)
--- NOTE | 2024-08-11 12:56 | PM.PNPUL ---
Progress Note: A&P Assessment and Plan (1) Pleural effusion: Code(s): J90 - Pleural effusion, not elsewhere classified Status: Acute Assessment and Plan: thoracentesis completed (2) Decreased right ventricular systolic function: Code(s): I51.89 - Other ill-defined heart diseases Status: Acute Assessment and Plan: Noted on echo, right ventricular systolic function is reduced, new compared to February; mild to moderate mitral valve regurgitation, moderate to severe tricuspid valve regurgitation. Cannot rule out leaflet perforation. Echo shows new severe pulmonary hypertension, estimated pulmonary arterial systolic pressure is 60 mmHg. Pulmonary pressures cannot acutely increased above 40 mmHg; this is due to pre-existing pulmonary hypertension as PA pressure cannot acutely rise above 40 mmHg. (3) Ground glass opacity present on imaging of lung: Code(s): R91.8 - Other nonspecific abnormal finding of lung field Status: Acute Assessment and Plan: This is often present with an infectious process; she had thoracentesis today, now on Vanco and Zosyn 08/10/24 and culture results are pending. Plan plan: Review all data from thoracentesis. Start vancomycin Zosyn empirically with white blood cells in the pleural fluid as this suggest infection. I communicated with Ollie Chow PA-C, hospitalist, about her echo findings and probable need for Cardiology to evaluate her. Subjective Date/time seen: 08/11/24 12:56 Interval history: august 09, 2024, new consult; Susan Caruso is a 78-year-old female with an abnormal chest CT, moderately large right pleural effusion, smaller left pleural effusion with right upper lobe ground-glass opacities, differential per the radiologist may include infection, respiratory bronchial bronchitis and hypersensitivity pneumonitis. The patient's main complaint was weakness. Karina lived in a [place] for the last 6 years. She is not a smoker. She has had a history of a stroke, paroxysmal atrial fibrillation on anticoagulation, hyperlipidemia. On admission her lactic acid was 1.3. Magnesium was 1.1, this was replaced and found to be in the normal range. Sodium 141 potassium 2.9 also replaced. Chloride 102, carbon dioxide 34, BUN 21, creatinine 0.68, glucose 106. White blood cell count 6.1 with 76% segmented cells, hemoglobin 10.8 grams/deciliter, hematocrit 33.5%, ProTime elevated 19.5, PTT 39.2, elevated. Protein 5.6, albumin 3.2. ISIS was negative on 01/18/2018. Serology negative for influenza a, influenza B, RSV and SARS-CoV-2. Iron is low, 32. Iron saturation low, 11%, ferritin is 208. Arterial blood gas pH 7.456, pCO2 38, PO2 83, HC03 26, saturation 96% on room air. She completed an echo August 09, today, and compared to February of this year her ejection fraction is lower 50-55%, the right ventricle is normal in size but the repeat function is reduced, she has severe tricuspid regurgitation and severe pulmonary hypertension with an estimated pulmonary artery systolic pressure of 60. Acutely, pulmonary artery pressures can not rise above 40 so I think some of this is acute on chronic pulmonary hypertension. 08/10/24; She was in Radiology having her right thoracentesis when I came by her room. I did not see her today however her nurse called later and told me that her pleural fluid had white blood cells in it. I requested starting vancomycin Zosyn per pharmacy protocol. 08/11/24; the patient had 600 mils of sanguinous fluid removed removed yesterday during her right thoracentesis. The Gram stain showed numerous white blood cells but no organisms. This is not normal. There should not be white blood cells in the pleural space. The pH is 7.50 which is normal, indicating that there is no evidence of an empyema or severe infection. Her white blood cell count was elevated yesterday, 14.8, today is 12.6. I started vancomycin and Zosyn due to the white blood cells in the pleural fluid. DATA * 08/08/24; chest CT; CHEST: Thoracic aorta: No significant dilation. Mild atherosclerotic calcification. Low-density blood pool as can be seen with anemia. Lung parenchyma and airways: Scattered groundglass opacities in the right upper lobe. Bibasilar atelectasis. Patent airways. Thoracic inlet, axillae and chest wall: Subcentimeter thyroid hypodensity, too requires no additional evaluation. No axillary lymphadenopathy. Mediastinum: No mass or lymphadenopathy. Heart and pericardium: Cardiomegaly. No pericardial effusion. Coronary artery calcifications: Moderate. Pleura: No effusion or mass. Upper abdomen: No significant finding. Thoracic bones: No acute osseous finding in the chest. Uncomplicated appearing, partially visualized anterior cervical and posterior cervical thoracic fusion hardware. Chronic right scapular fracture IMPRESSION: Scattered right upper lobe ground glass opacities may reflect hypersensitivity pneumonitis, respiratory bronchitis, or infectious airways disease. Moderate right and small left pleural effusions with adjacent atelectasis. * 08/09/24. echo 1. Left ventricular chamber dimension is normal. 2. There is no increased left ventricular wall thickness. 3. Left ventricular systolic function is normal, estimated at 50-55%. THIS IS LOWER compared to Feb 2024. 4. Right ventricular chamber dimension is normal. 5. Right ventricular systolic function is reduced. NEW 6. There is mild to moderate mitral valve regurgitation. 7. There is moderate to severe tricuspid valve regurgitation. Cannot rule out leaflet perforation. THIS IS WORSE. 8. Severe pulmonary hypertension, estimated pulmonary arterial systolic pressure is 60 mmHg. NEW She had an echo, 02/16/24; Left ventricular chamber dimension is normal. 2. Left ventricular systolic function is normal, estimated at 60-65%. 3. Right ventricular systolic function is normal. 4. Left atrial chamber dimension is severely enlarged. 5. Right atrial chamber dimension is severely enlarged. 6. There is mild mitral valve regurgitation. 7. There is mild tricuspid valve regurgitation. Review of Systems Review of Systems: All systems reviewed & are unremarkable except as noted in HPI and below Exam Narrative: GEN: Alert, oriented, not in distress. HEENT: pupils are equal, EOMI, symmetrical face; oral membranes moist NECK: Trachea is midline CHEST: Equal air entry, diminished breath sounds right more diminished than left base. Few crackles posteriorly. No wheezing. CV: Regular S1S2 no m/g/r ABD : (+) bowel sounds Extremities : no clubbing, cyanosis, or edema Objective Data Vital Signs Vital Signs: Vital Signs - 24 hr 08/10/24 14:00 08/10/24 16:00 08/10/24 19:42 Temperature 36.3 C L Pulse Rate 78 74 Respiratory Rate 14 Blood Pressure 113/71 Pulse Oximetry 98 99 Oxygen Delivery Room Air 08/10/24 20:00 08/10/24 20:00 08/10/24 21:07 Temperature 36.8 C Pulse Rate 74 78 Respiratory Rate 18 Blood Pressure 147/86 H Pulse Oximetry 100 Oxygen Delivery Room Air 08/11/24 00:00 08/11/24 04:00 08/11/24 05:00 Temperature Pulse Rate 67 69 69 Respiratory Rate 16 Blood Pressure Pulse Oximetry Oxygen Delivery 08/11/24 05:10 08/11/24 08:00 08/11/24 08:00 Temperature Pulse Rate 73 70 Respiratory Rate 16 Blood Pressure Pulse Oximetry Oxygen Delivery Room Air 08/11/24 09:48 Temperature Pulse Rate 70 Respiratory Rate Blood Pressure Pulse Oximetry Oxygen Delivery Intake/Output Intake/Output: Intake & Output 08/08/24 08/09/24 08/10/24 08/11/24 23:59 23:59 23:59 23:59 Intake Total 1440 1199.2 300 370 Output Total 200 750 50 Balance 1440 999.2 -450 320 Meds/Results Medications: Active Medications Generic Name Dose Route Start Last Admin Trade Name Freq PRN Reason Stop Dose Admin Hydrocodone Bitart/Acetaminophen 1 tab 08/08/24 17:55 08/11/24 09:47 Hydrocodone/Acetaminophen (*Crx) 10-325 Mg Tablet PO 1 tab TID PRN Administration pain 4-6 Atorvastatin Calcium 40 mg 08/08/24 21:00 08/10/24 20:44 Atorvastatin 40 Mg Tablet PO 40 mg HS LUIS Administration Bupropion HCl 150 mg 08/09/24 09:00 08/11/24 09:48 Bupropion Hcl Sr (12 Hr) 150 Mg Tab BY MOUTH 150 mg DAILY LUIS Administration Ferrous Sulfate 325 mg 08/09/24 09:00 08/11/24 09:48 Ferrous Sulfate [address] PO 325 mg DAILY LUIS Administration Piperacillin/Tazobactam/Dextrose 3.375 gm in 50 mls @ 100 mls/hr 08/10/24 20:00 08/11/24 10:17 Zosyn 3.375 Gm/Ns 50 Ml IVPB Infused Q6H LUIS Infusion Vancomycin HCl 1,000 mg in 250 mls @ 250 mls/hr 08/11/24 22:00 Vancomycin 1,000 Mg/Ns 250 Ml IVPB Q24H LUIS Metoprolol Succinate 50 mg 08/09/24 09:00 08/11/24 09:48 Metoprolol Succinate Ext Rel 50 Mg Tabcr BY MOUTH 50 mg DAILY LUIS Administration Sodium Chloride 6 ml 08/11/24 05:00 08/11/24 04:58 Sodium Chlor 3% 15 Ml Neb (Respiratory Therapy) INHALATION 08/13/24 05:01 6 ml DAILY@0500 LUIS Administration Radiology Results: ITS Impressions Head CT 08/08/24 08:35 IMPRESSION: No acute intracranial findings. Chest CT 08/08/24 18:53 IMPRESSION: Scattered right upper lobe ground glass opacities may reflect hypersensitivity pneumonitis, respiratory bronchitis, or infectious airways disease. Moderate right and small left pleural effusions with adjacent atelectasis. Chest X-Ray 08/10/24 18:22 IMPRESSION: Left basilar atelectasis versus pneumonia with pleural effusion. Opacity in the right midzone which may be a granuloma. 6 months follow-up advised. Thoracentesis Ultrasound 08/10/24 18:58 IMPRESSION: 1. Successful ultrasound-guided thoracentesis yielding 600 mL of sanguinous fluid. Labs Labs: Laboratory Results - last 24 hr 08/10/24 08/10/24 08/11/24 18:03 20:18 05:32 WBC 12.6 H RBC 3.54 L Hgb 10.4 L Hct 33.5 L MCV 94.6 MCH 29.4 MCHC 31.0 L RDW 15.7 H Plt Count 182 MPV 10.3 Immature Gran % (Auto) 0.3 Neut % (Auto) 83.6 H Lymph % (Auto) 7.[address] [place] % (Auto) 6.3 Eos % (Auto) 2.4 Baso % (Auto) 0.4 Lymph # (Auto) 0.[address] [place] # (Auto) 0.8 H Eos # (Auto) 0.3 Baso # (Auto) 0.1 Abs Immat Gran (auto) 0.04 H Absolute Neuts (auto) 10.5 H Absolute Nucleated RBC 0.000 Nucleated RBC % 0.0 Sodium 139 Potassium 4.7 Chloride 108 H Carbon Dioxide 24 Anion Gap 7 BUN 18 H Creatinine 0.84 Estim Creat Clear Calc 37 Estimated GFR > 60 Glucose 79 76 Calcium 8.7 Total Bilirubin 0.7 AST 50 H ALT 41 H Alkaline Phosphatase 71 Lactate Dehydrogenase 405 H Total Protein 6.0 L 5.8 L Albumin 3.1 L Cholesterol 115 Pleural Fluid Source Pleural fluid Pleural Color Other Pleural Appearance Cloudy Pleural pH > 7.500 H Pleural RBC TNP Pleural Nuc Cells TNP Pleural Neutrophils 41 H Pleural Lymphocytes 24 Pleural Monocytes 22 Pleural Macrophages 13 Nasal MRSA (PCR) 08/11/24 07:13 WBC RBC Hgb Hct MCV MCH MCHC RDW Plt Count MPV Immature Gran % (Auto) Neut % (Auto) Lymph % (Auto) [place] % (Auto) Eos % (Auto) Baso % (Auto) Lymph # (Auto) [place] # (Auto) Eos # (Auto) Baso # (Auto) Abs Immat Gran (auto) Absolute Neuts (auto) Absolute Nucleated RBC Nucleated RBC % Sodium Potassium Chloride Carbon Dioxide Anion Gap BUN Creatinine Estim Creat Clear Calc Estimated GFR Glucose Calcium Total Bilirubin AST ALT Alkaline Phosphatase Lactate Dehydrogenase Total Protein Albumin Cholesterol Pleural Fluid Source Pleural Color Pleural Appearance Pleural pH Pleural RBC Pleural Nuc Cells Pleural Neutrophils Pleural Lymphocytes Pleural Monocytes Pleural Macrophages Nasal MRSA (PCR) Not detected
[2024-08-11] MEDS: ATORVASTATIN 40 MG TABLET PO (20:36)
[2024-08-11] MEDS: DOXYCYCLINE 100 MG/NS 100 ML 100 MG/100 ML BAG IVPB (21:18)
[2024-08-12] VITALS (12 sets, daily range): BP systolic 53–163; BP diastolic 32–90; PULSE 95–144; RESP 16; TEMP 36.2; O2SAT 94; BMI 22.5
[2024-08-12] MEDS: PIPERACILLN/TAZ 3.375GM/NS50ML 3.375 GM/50 ML BAG IVPB ×2 (01:51→08:33)
[2024-08-12] MEDS: SODIUM CHLOR 3% 15 ML NEB (RESPIRATORY THERAPY) 6 ML INHALATION (04:38)
[2024-08-12 06:14] LABS: Hematocrit 46.7 % (37.0-47.0); Hemoglobin 13.7 g/dL (12.0-15.0); Immature Granulocyte Percent A 1.3 % (0-0.5); Lymphocytes Absolute Auto 1.46 K/mm3 (0.9-3.2); Mean Corpuscular HGB Conc 29.3 g/dl (32-36); Mean Corpuscular Hemoglobin 29.0 pg (26-34); Mean Corpuscular Volume 98.9 fl (80-100); Nucleated Red Blood Cells Absolute Auto 0.000 K/mm3 (0.0-0.012); Nucleated Red Blood Cells Perc 0.0 % (0.0-0.2); Platelet Count Result 261 k/mm3 (150-375); Red Blood Count 4.72 M/mm3 (4.2-5.4); White Blood Count 13.4 K/mm3 (4.5-10.0)
[2024-08-12 06:25] LABS: Alanine Aminotransferase 38 U/L (6-35); Albumin Level 3.0 g/dL (3.5-5.1); Alkaline Phosphatase 62 U/L (38-126); Anion Gap 16 mmol/L (4-12); Aspartate Amino Transferase 44 U/L (14-36); Bilirubin,Total 1.2 mg/dL (0.2-1.3); Blood Urea Nitrogen 37 mg/dL (7-17); Calcium 9.6 mg/dL (8.4-10.2); Carbon Dioxide 17 mmol/L (22-30); Chloride 110 mmol/L (98-107); Estimated CRCL calculation 26 ml/min; Estimated Glomerular Filt Rate 42; Glucose 78 mg/dL (65-110); Potassium 5.4 mmol/L (3.4-5.0); Sodium 143 mmol/L (137-145); Total Protein 5.7 g/dL (6.3-8.2)
--- NOTE | 2024-08-12 07:19 | P.PNIM_ITS ---
Progress Note: A&P Assessment and Plan (1) Pleural effusion: Code(s): J90 - Pleural effusion, not elsewhere classified Status: Acute Assessment and Plan: * CXR: New small bilateral pleural effusions with bibasilar atelectasis versus pneumonia. * Chest CT: Scattered right upper lobe ground glass opacities may reflect hypersensitivity pneumonitis, respiratory bronchitis, or infectious airways disease. Moderate right and small left pleural effusions with adjacent atelectasis. * Vitals and physical exam stable, not on O2 supplementation * Pulm consult, appreciate further recommendations * Hold Eliquis, plan for thoracentesis * Likely Thoracentesis tomorrow * 08/12 * Vanc+Zosyn * WBC 13.4 (2) Generalized weakness: Code(s): R53.1 - Weakness Status: Acute Assessment and Plan: * Patient had 2 weeks diarrhea which has resolved prior to admission * Also had poor oral intake * CXR showed new small bilateral pleural effusions ? Pneumonia * CT Chest: Scattered right upper lobe ground glass opacities may reflect hypersensitivity pneumonitis, respiratory bronchitis, or infectious airways disease. Moderate right and small left pleural effusions with adjacent atelectasis. * Afebrile, no leukocytosis, physical exam benign * Echo: * LV chamber dimension normal, no increased LV wall thickness, EF 50 55%, [id number] MVR, moderate to severe TVR, severe pulmonary hypertension. Consider TORI to assess tricuspid valve if clinically indicated * Cardio consult for further recommendations * gentle rehydration * PT/OT/ST and dietitian consulted * Pulm following for pleural effusion (3) Atrial fibrillation: Code(s): I48.91 - Unspecified atrial fibrillation Status: Acute Assessment and Plan: * rate controlled * on Eliquis and Metoprolol * monitor (4) Electrolyte imbalance: Code(s): E87.8 - Other disorders of electrolyte and fluid balance, not elsewhere classified Status: Acute Assessment and Plan: * Likely from diarrhea * K 2.9 and Mg 1.1 * replaced and monitor * Continue daily monitoring of labs and replacing as necessary * 08/12: K 5.4 * Hold off on further supp * Lokelma? (5) Hypertension: Qualifiers: Hypertension type: primary hypertension Qualified Code(s): I10 - Essential (primary) hypertension Code(s): I10 - Essential (primary) hypertension Status: Acute Assessment and Plan: * Patient's blood pressure was reviewed on 08/11 * Blood pressure remains well controlled. * Will continue current medications. * 100/55 (6) Anemia: Code(s): D64.9 - Anemia, unspecified Status: Acute Assessment and Plan: * Hgb 10.4 * add iron, TIBC, ferritin, B12, folic acid, and TSH * transfuse if <7 * trend H&H * 08/12: Hgb 13 (7) Hyperlipidemia: Qualifiers: Hyperlipidemia type: unspecified Qualified Code(s): E78.5 - Hyperlipidemia, unspecified Code(s): E78.5 - Hyperlipidemia, unspecified Status: Acute Assessment and Plan: * Continue Lipitor (8) Pulmonary hypertension: Code(s): I27.20 - Pulmonary hypertension, unspecified Status: Acute Assessment and Plan: * Echo on 08/09: Severe pulmonary hypertension, estimated pulmonary arterial systolic pressure is 60 mmHg. * Recommend TORI to assess Tricuspid valve * Cardio consult given new echo findings Subjective Date/time seen: 08/12/24 07:19 Interval history: 78-year-old female with history of stroke, paroxysmal atrial fibrillation on chronic anticoagulation, dyslipidemia who presented to the ER on account of Generalized weakness. 08/12/2024 Patient sitting comfortably at time examination. Review of Systems Review of Systems: All systems reviewed & are unremarkable except as noted in HPI and below Exam Narrative: General: Alert, oriented, not in distress. Sitting at bedside Eyes: EOMI, PERRLA ENNT External ears normal, Neck is supple, no masses, Respiratory systems: Clear to auscultation Cardiovascular S1, S2, normal rhythm, no murmur, rub, or gallop; no thrill or palpable murmurs on palpation. Gastrointestinal: soft, non-tender, and non-distended abdomen with no masses; BS present Skin: no rash, lesions, ulcerations, subcutaneous nodules or induration Musculoskeletal: no abnormality and no tenderness, normal ROM Neurologic: Alert and oriented x3, non focal, lethargic Objective Data Vital Signs Vital Signs: Vital Signs - 24 hr 08/11/24 08:00 08/11/24 08:00 08/11/24 09:48 Temperature Pulse Rate 70 70 Respiratory Rate Blood Pressure Pulse Oximetry Oxygen Delivery Room Air 08/11/24 12:00 08/11/24 14:00 08/11/24 16:00 Temperature 96.9 F L Pulse Rate 79 83 83 Respiratory Rate 16 Blood Pressure 169/76 H Pulse Oximetry 100 Oxygen Delivery 08/11/24 20:00 08/11/24 20:00 08/11/24 20:46 Temperature 98.1 F Pulse Rate 108 H 97 Respiratory Rate 16 Blood Pressure 120/86 Pulse Oximetry 95 Oxygen Delivery Room Air 08/11/24 21:17 08/12/24 00:00 08/12/24 04:00 Temperature Pulse Rate 115 H 100 Respiratory Rate Blood Pressure Pulse Oximetry 92 Oxygen Delivery Room Air 08/12/24 04:39 08/12/24 04:50 08/12/24 05:57 Temperature 97.1 F L Pulse Rate 102 H 105 H 95 Respiratory Rate 16 16 16 Blood Pressure 100/55 L Pulse Oximetry 94 Oxygen Delivery Intake/Output Intake/Output: Intake & Output 08/09/24 08/10/24 08/11/24 08/12/24 23:59 23:59 23:59 23:59 Intake Total 1199.2 300 470 Output Total 200 750 400 150 Balance 999.2 -450 70 -150 Meds/Results Medications: Active Medications Generic Name Dose Route Start Last Admin Trade Name Freq PRN Reason Stop Dose Admin Hydrocodone Bitart/Acetaminophen 1 tab 08/08/24 17:55 08/11/24 21:01 Hydrocodone/Acetaminophen (*Crx) 10-325 Mg Tablet PO 1 tab TID PRN Administration pain 4-6 Atorvastatin Calcium 40 mg 08/08/24 21:00 08/11/24 20:36 Atorvastatin 40 Mg Tablet PO 40 mg HS LUIS Administration Bupropion HCl 150 mg 08/09/24 09:00 08/11/24 09:48 Bupropion Hcl Sr (12 Hr) 150 Mg Tab BY MOUTH 150 mg DAILY LUIS Administration Ferrous Sulfate 325 mg 08/09/24 09:00 08/11/24 09:48 Ferrous Sulfate [address] PO 325 mg DAILY LUIS Administration Piperacillin/Tazobactam/Dextrose 3.375 gm in 50 mls @ 100 mls/hr 08/10/24 20:00 08/12/24 01:51 Zosyn 3.375 Gm/Ns 50 Ml IVPB 100 mls/hr Q6H LUIS Administration Doxycycline Hyclate 100 mg in 100 mls @ 100 mls/hr 08/11/24 21:00 08/11/24 21:18 Vibramycin 100 Mg/Ns 100 Ml IVPB 100 mls/hr Q12H LUIS Administration Metoprolol Succinate 50 mg 08/09/24 09:00 08/11/24 09:48 Metoprolol Succinate Ext Rel 50 Mg Tabcr BY MOUTH 50 mg DAILY LUIS Administration Sodium Chloride 6 ml 08/11/24 05:00 08/12/24 04:38 Sodium Chlor 3% 15 Ml Neb (Respiratory Therapy) INHALATION 08/13/24 05:01 6 ml DAILY@0500 LUIS Administration Radiology Results: ITS Impressions Head CT 08/08/24 08:35 IMPRESSION: No acute intracranial findings. Chest CT 08/08/24 18:53 IMPRESSION: Scattered right upper lobe ground glass opacities may reflect hypersensitivity pneumonitis, respiratory bronchitis, or infectious airways disease. Moderate right and small left pleural effusions with adjacent atelectasis. Chest X-Ray 08/10/24 18:22 IMPRESSION: Left basilar atelectasis versus pneumonia with pleural effusion. Opacity in the right midzone which may be a granuloma. 6 months follow-up advised. Thoracentesis Ultrasound 08/10/24 18:58 IMPRESSION: 1. Successful ultrasound-guided thoracentesis yielding 600 mL of sanguinous fluid. Labs Labs: Laboratory Results - last 24 hr 08/11/24 08/12/24 07:13 05:40 WBC 13.4 H RBC 4.72 Hgb 13.7 D Hct 46.7 MCV 98.9 MCH 29.0 MCHC 29.3 L RDW 15.9 H Plt Count 261 MPV 11.1 H Immature Gran % (Auto) 1.3 H Neut % (Auto) 79.7 H Lymph % (Auto) 10.9 L [place] % (Auto) 7.8 Eos % (Auto) 0.1 Baso % (Auto) 0.2 Lymph # (Auto) 1.46 [place] # (Auto) 1.0 H Eos # (Auto) 0.0 Baso # (Auto) 0.0 Abs Immat Gran (auto) 0.18 H Absolute Neuts (auto) 10.7 H Absolute Nucleated RBC 0.000 Nucleated RBC % 0.0 Sodium 143 Potassium 5.4 H Chloride 110 H Carbon Dioxide 17 L Anion Gap 16 H BUN 37 H D Creatinine 1.23 H Estim Creat Clear Calc 26 Estimated GFR 42 L Glucose 78 Calcium 9.6 Total Bilirubin 1.2 AST 44 H ALT 38 H Alkaline Phosphatase 62 Total Protein 5.7 L Albumin 3.0 L Nasal MRSA (PCR) Not detected Quality VTE Prophylaxis VTE prophylaxis: pharmacologic ordered
--- NOTE | 2024-08-12 09:01 | P.CODEBLUE_ITS ---
Code Blue Note Code Blue Note Time Arrived at Code Blue: 0832 Initial Rhythm on Arrival: PEA Airway Management: Pt intubated during resuscitation Chest Compressions: In process on arrival to bedside Result of Code Blue: Pt transferred to ICU Cardiac Rhythm Post Code: Sinus tachycardia Code Blue Summary: Responded to code blue on 3rd floor. Brief history obtained from patient's nurse. CPR was being performed. Large amount of brown fecal and emesis coming out of patient's mouth. Patient unresponsive. She was in PE a. CPR was being performed. Her mouth was suctioned and large amount of brownish black liquid suctioned. ACLS protocol was followed and patient was given epinephrine, which she had elevated potassium and low bicarb on the morning labs hence patient was given calcium, bicarb. Patient was intubated emergently with difficulty. Large amount of brownish black liquid was seen coming out of patient's esophagus and trachea. Patient was intubated and again a large amount of liquids was suctioned from her ET tube. CPR was continued and resuscitation process was continued for approximately half an hour. Patient was given following medications along with intubation Epinephrine x 6, bicarb x 2, calcium chloride x 1, D50 x 1. We obtained cross cut at 859 a.m. resuscitation was initiated at 8:30 a.m. Patient was then transferred to ICU. On arrival to ICU patient was placed on mechanical ventilation and OG tube was placed and again stomach was emptied with large amount of coffee-ground frequent smelling liquid. Patient was placed on mechanical ventilation CMV 20 350 100% and 8 of PEEP. RT try to obtain ABG but was unable to do so. Patient was also hypotensive and AFib with RVR. Patient also had 1 peripheral IV I emergently placed a right femoral arterial catheter to obtain a samples and also accurately but monitor blood pressure. ABG was obtained. Labs were obtained. Chest x-ray showed large right pleural effusion with good position of endotracheal tube and orogastric tube. KUB was also reviewed. Type and screen was sent patient was cleaned up and then I wanted to place a central venous catheter for better IV access. Patient was comatose and I was planning to start the TTM protocol. A CT of the head chest abdomen pelvis was ordered and was pending. Patient was tachypneic and a synchronous with the ventilator. Patient was given Versed and a dose of rocuronium. While I was attempting to place central venous catheter patient went into PEA again. Procedure was aborted. By this time patient was already receiving LR fluid bolus and Levophed infusion. CPR was initiated patient was given 1 dose of epinephrine and ROSC was obtained. At this time patient's came at bedside and I updated him with events since morning. He told me that he was not aware of the situation was so serious and she had a cardiac arrest and received CPR twice. Once he saw patient intubated and on mechanical ventilation he told us that he believes the patient did not want these heroic measures. Patient was DNR in the past and has a old POLST form in the chart clearly stating that patient wanted to be DNR. I discussed option of making patient DNR and also option of palliative extubation considering her current condition. He told me that he wanted to talk to the picker feeder and then take her off the ventilator and let her go in peace. I told him the patient has received rocuronium we will let rocuronium affect wear off before extubation. He verbalized understanding and agreed to proceed with this plan. Approximately 10 minute later patient went to PEA again and lost her pulse. Patient had no palpable pulse in either carotid or femoral arteries. Patient's was at bedside. I updated him with patient condition and as per his wishes no further resuscitation was undertaken. Patient was pronounced at 10:30 a.m. while her was at bedside. Total Critical Care Time - 120 minutes except separately billed procedure of or arterial line and intubation Due to a high probability of clinically significant, life threatening deterioration, the patient required my highest level of preparedness to intervene emergently and I personally spent this critical care time directly and personally managing the patient. This critical care time included obtaining a history; examining the patient; pulse oximetry; ordering and review of studies; arranging urgent treatment with development of a management plan; evaluation of patient's response to treatment; frequent reassessment; and discussions with other providers. It was exclusive of separately billable procedures and treating other patients and teaching time. Please see Assessment and Plan section and the rest of the note for further information on patient assessment and treatment
[2024-08-12] MEDS: LACTATED RINGERS 1,000 ML 999 ML IV CONT (09:20)
[2024-08-12] MEDS: PANTOPRAZOLE SODIUM IV 40 MG VIAL IV PUSH (09:23)
[2024-08-12] MEDS: METOPROLOL TARTRATE INJ 5 MG/5 ML VIAL IV PUSH (09:29)
--- NOTE | 2024-08-12 09:30 | PC.NURSE ---
This patient, Susan Fournier, was received from [[id number] ] on 08/12/24 at 0900. Patient/family oriented to unit policies and routines. Pt.code blue and is now transferred to ICU 3.
--- NOTE | 2024-08-12 09:40 | PCRCNOTE ---
Unable to obtain STAT ABG. Attempted 3 times, inserting Arterial line.
[2024-08-12 09:51] LABS: Alveolar/Arterial O2 Gradient 404.5 mmHg; Fractional Inspired Oxygen 100 %; HCO3 ABG 14.5 mEq/l (22.0-26.0); Oxygen Content ABG 17.1 %vol (16.0-22.0); Oxygen Saturation ABG 99.5 % (95.0-100.0); PCO2 ABG 36.7 mmHg (35.0-45.0); PO2 ABG 271.8 mmHg (80.0-100.0); PO2 FiO2 Ratio Arterial Blood 2.72 %
[2024-08-12 09:52] LABS: Site Drawn ARTLINE
[2024-08-12] MEDS: SODIUM CHLORIDE 0.9% IV 1,000 ML 3 ML IV CONT (09:52)
[2024-08-12 09:53] LABS: Arterial Blood Gas Tidal Volume 350 ml; Arterial Blood Gas Ventilator rate 20 /MIN
[2024-08-12] MEDS: NOREPINEPHRINE 8 MG/D5W 250 ML 8 MG/250 ML BAG 9.38 MG IV CONT (09:54)
[2024-08-12 09:57] LABS: Hematocrit 34.9 % (37.0-47.0); Hemoglobin 10.8 g/dL (12.0-15.0); Immature Granulocyte Percent A 1.1 % (0-0.5); Lymphocytes Absolute Auto 1.77 K/mm3 (0.9-3.2); Mean Corpuscular HGB Conc 30.9 g/dl (32-36); Mean Corpuscular Hemoglobin 29.6 pg (26-34); Mean Corpuscular Volume 95.6 fl (80-100); Nucleated Red Blood Cells Absolute Auto 0.030 K/mm3 (0.0-0.012); Nucleated Red Blood Cells Perc 0.2 % (0.0-0.2); Platelet Count Result 206 k/mm3 (150-375); Red Blood Count 3.65 M/mm3 (4.2-5.4); White Blood Count 16.0 K/mm3 (4.5-10.0)
[2024-08-12] MEDS: ROCURONIUM BROMIDE 50 MG/5 ML VIAL IV PUSH (10:07)
[2024-08-12] MEDS: MIDAZOLAM HCL (*CRX) 2 MG/2 ML VIAL 4 MG IV PUSH (10:07)
[2024-08-12 10:08] LABS: INR 2.3; Partial Thromboplastin Time 35.0 Seconds (22.3-36.8); Prothrombin Time 25.0 Seconds (11.1-14.7)
[2024-08-12 10:09] LABS: Alanine Aminotransferase 57 U/L (6-35); Albumin Level 1.9 g/dL (3.5-5.1); Alkaline Phosphatase 39 U/L (38-126); Anion Gap 18 mmol/L (4-12); Bilirubin,Total 0.7 mg/dL (0.2-1.3); Blood Urea Nitrogen 39 mg/dL (7-17); Calcium 10.2 mg/dL (8.4-10.2); Carbon Dioxide 13 mmol/L (22-30); Chloride 112 mmol/L (98-107); Estimated CRCL calculation 22 ml/min; Estimated Glomerular Filt Rate 36; Glucose 200 mg/dL (65-110); Magnesium 1.9 mg/dL (1.6-2.3); Potassium 3.7 mmol/L (3.4-5.0); Sodium 143 mmol/L (137-145); Total Protein 4.0 g/dL (6.3-8.2)
[2024-08-12 10:15] LABS: Aspartate Amino Transferase 78 U/L (14-36)
[2024-08-12 10:25] LABS: Procalcitonin 55.3 ng/mL
[2024-08-12 10:26] LABS: Troponin I 0.049 ng/mL (0.000-0.034)
--- NOTE | 2024-08-12 10:38 | WPDPROCEDUR ---
Procedures Intubation Intubation Date: 08/12/24 Intubation Time: 08:45 Consent: Patient had a cardiac arrest. No consent was obtained. Patient was a intubated as medical necessity for respiratory failure and cardiac arrest A pre-procedural Time-Out was completed immediately before starting the procedure and confirmed: Patient Identification, Site, Procedure, Patient Position and the Availability of Requisite Equipment: No Sedative: none Laryngoscope: fiber optic video scope Assist device used: fiber optic device ET tube size: 7.5 Tube secured depth (cm): 22 Tube secured location: lips Tube placement confirmation: visualized tube passing through cords, equal breath sounds bilaterally, no breath sounds over epigastrium and confirmation by capnometry Patient tolerated procedure: well Intubation complications: none
--- NOTE | 2024-08-12 10:39 | P.PCNBED_ITS ---
Procedures Arterial Line Arterial Line Date: 08/12/24 Arterial Line Time: 09:30 Perfomed Emergently - Given emergent patient conditions, temporal constraints may have precluded informed consent: Yes Patient Position: supine [employer] Policy Specialist Prep: sterile gown, sterile gloves, mask and hat Site: right and femoral Technique used: guide wire technique Length: 12 cm Closure/Dressing: suture Patient tolerated procedure: well Complications: none
--- NOTE | 2024-08-12 13:20 | P.DN_ITS ---
Discharge Summary Date and Time Date of : 08/12/24 Time of : 10:30 Provider Pronounced By: Provider Name of Provider That Pronounced: Dr. Luz Probable Cause of Probable Cause of : Aspiration of stomach contents Summary Hospital Course: 78-year-old female with history of stroke, paroxysmal atrial fibrillation on chronic anticoagulation, dyslipidemia who presented to the ER on account of Generalized weakness. Patient was lethargic at bedside, and but was oriented x3. Unable to provide history however, Nurse noted that patient's reported she had diarrhea 2 weeks which has resolved prior to presentation. Also reported she has been having poor appetite and worsening generalized weakness. Has been mostly bed bound the past day, and today complained of generalized body aches which prompted presentation to the ER. ER eval notable for Bp 175/79, Hb 10.8, Troponin negative, NT-ProBNP 5370, Mg 1.1 and K 2.9, CXR showed new small bilateral pleural effusions with bibasilar atelectasiss versus pneumonia. Patient was subsequently admitted for generalized weakness and hypokalemia. Potassium and magnesium for low, subsequently replaced and remained stable throughout hospitalization. Serology was negative for influenza a/B, RSV and COVID.. Echocardiogram was obtained which showed right ventricular normal size but ejection fraction reduced, severe tricuspid regurgitation and severe pulmonary hypertension with estimated pulmonary artery systolic pressure of 60. Cardiology was consulted regarding these new findings. On 08/10, patient underwent a thoracentesis which yielded white blood cells in the pleural fluid. Pulmonology subsequently started the patient on vancomycin and Zosyn per pharmacy protocol. She was found have 600 mL of sanguinous fluid removed. Given that the pH was 7.5, which is normal, and no indication of empyema or severe infection. On 08/11, patient was feeling good and had no specific complaints. Cardiology consult still pending at this time given new pulmonary hypertension/echocardiogram findings. Plan was to continue IV antibiotics, electrolyte correction and to work with PT/OT in order to plan for discharge. On 08/12, a code blue was called on this patient. The nurse was reportedly talking with the patient when she suddenly started vomiting and subsequently aspirating. The patient then became unresponsive and code blue was initiated. During the code, I contacted the regarding the patient's code status and he initially requested to maintain full code status. ROSC was then obtained and the patient then was transferred to the ICU. Ramesh hernandez was then called again and at that time the arrived to the hospital and during resuscitation attempts, the then talked with the It Project Coordinator and decided to take the patient off the ventilator and let her pass in peace. Per Ramesh Hernandez Note: Responded to ramesh hernandez on 3rd floor. Brief history obtained from patient's nurse. CPR was being performed. Large amount of brown fecal and emesis coming out of patient's mouth. Patient unresponsive. She was in PE a. CPR was being performed. Her mouth was suctioned and large amount of brownish black liquid suctioned. ACLS protocol was followed and patient was given epinephrine, which she had elevated potassium and low bicarb on the morning labs hence patient was given calcium, bicarb. Patient was intubated emergently with difficulty. Large amount of brownish black liquid was seen coming out of patient's esophagus and trachea. Patient was intubated and again a large amount of liquids was suctioned from her ET tube. CPR was continued and resuscitation process was continued for approximately half an hour. Patient was given following medications along with intubation Epinephrine x 6, bicarb x 2, calcium chloride x 1, D50 x 1. We obtained cross cut at 859 a.m. resuscitation was initiated at 8:30 a.m. Patient was then transferred to ICU. On arrival to ICU patient was placed on mechanical ventilation and OG tube was placed and again stomach was emptied with large amount of coffee-ground frequent smelling liquid. Patient was placed on mechanical ventilation CMV 20 350 100% and 8 of PEEP. RT try to obtain ABG but was unable to do so. Patient was also hypotensive and AFib with RVR. Patient also had 1 peripheral IV I emergently placed a right femoral arterial catheter to obtain a samples and also accurately but monitor blood pressure. ABG was obtained. Labs were obtained. Chest x-ray showed large right pleural effusion with good position of endotracheal tube and orogastric tube. KUB was also reviewed. Type and screen was sent patient was cleaned up and then I wanted to place a central venous catheter for better IV access. Patient was comatose and I was planning to start the TTM protocol. A CT of the head chest abdomen pelvis was ordered and was pending. Patient was tachypneic and a synchronous with the ventilator. Patient was given Versed and a dose of rocuronium. While I was attempting to place central venous catheter patient went into PEA again. Procedure was aborted. By this time patient was already receiving LR fluid bolus and Levophed infusion. CPR was initiated patient was given 1 dose of epinephrine and ROSC was obtained. At this time patient's came at bedside and I updated him with events since morning. He told me that he was not aware of the situation was so serious and she had a cardiac arrest and received CPR twice. Once he saw patient intubated and on mechanical ventilation he told us that he believes the patient did not want these heroic measures. Patient was DNR in the past and has a old POLST form in the chart clearly stating that patient wanted to be DNR. I discussed option of making patient DNR and also option of palliative extubation considering her current condition. He told me that he wanted to talk to the bottle hop and then take her off the ventilator and let her go in peace. I told him the patient has received rocuronium we will let rocuronium affect were off before extubation. He verbalized understanding and agreed to proceed with this plan. Approximately 10 minute later patient went to PEA again and lost her pulse. Patient had no palpable pulse in either carotid or femoral arteries. Patient's was at bedside. I updated him with patient condition and as per his wishes no further resuscitation was undertaken. Patient was pronounced at 10:30 a.m. while her was at bedside. Additional Data Confirmation of as documented by pronouncing clinician: Pupillary Reflex, Palpable Pulses, Response to Stimuli, Heart Tones and Breath Sounds Name of Provider Notified: Dr. Luz Time Provider Notified: 10:30 Provider Requests Autopsy: No Family Requests Autopsy: No Refrigerator Mover Notified: Yes Date [facility] Notified of : 08/12/24 Time [facility] Notified of : 11:00
[2024-08-17 19:03] LABS: Cholesterol Pleural Fluid. 18 mg/dL
== END 2024-08-12 10:30 | disposition expired | DRG 208 ==
LOC: ANHED 10:09 → ANH3MEDSUR 12:44 → ANHICU 08-15 12:17
PROVIDERS: Internal Medicine; Internal Medicine Critical Care Medicine; Admitting Provider Internal Medicine; Emergency Provider Emergency Medicine; PCP Nurse Practitioner; Visit Provider Physician Assistant
DX: J90 Pleural effusion, not elsewhere classified (principal); E87.6 Hypokalemia; E83.42 Hypomagnesemia; E78.5 Hyperlipidemia, unspecified; D64.9 Anemia, unspecified; E03.9 Hypothyroidism, unspecified; M19.90 Unspecified osteoarthritis, unspecified site; T17.990A Other foreign object in respiratory tract, part unspecified in causing asphyxiation, initial encounter; R00.0 Tachycardia, unspecified; I48.0 Paroxysmal atrial fibrillation; I10 Essential (primary) hypertension; F41.9 Anxiety disorder, unspecified; M85.80 Other specified disorders of bone density and structure, unspecified site; I73.00 Raynaud's syndrome without gangrene; R91.8 Other nonspecific abnormal finding of lung field; Z79.01 Long term (current) use of anticoagulants; Z86.73 Personal history of transient ischemic attack (TIA), and cerebral infarction without residual deficits; Z20.822 Contact with and (suspected) exposure to COVID-19
CPT/HCPCS: 32555; 36415; 36600; 70450; 71045; 71250; 80053; 81001; 82465; 82728; 82805; 82945; 82947; 82948; 83540; 83550; 83605; 83615; 83735; 83880; 83986; 84100; 84145; 84155; 84157; 84311; 84484; 85018; 85025; 85610; 85730; 86850; 86900; 86901; 87015; 87070; 87075; 87102; 87116; 87205; 87206; 87637; 87641; 88108; 88305; 89051; 92523; 92950; 93005; 94002; 94640; 96361; 96365; 96366; 96368; 96375; 97110; 97162; 97166; 97530; 97535; 99285; A9270; C1751; C8929; G0378; J0171; J0616; J2250; J2470; J2543; J3373; J3475; J3480; J7030; J7040; J7120; Q9957